=== PATIENT | male | born 1945 | race Caucasian/White ===

== ENCOUNTER 2020-03-01 08:09 | Outpatient (CLI) | payer MEDICARE, SELFPAY ==
--- NOTE | ~2020-03-01 | US_ITS ---
EXAMINATION: US art doppler w press LE BI DATE: 03/01/2020 09:00 INDICATION: Peripheral vascular disease. TECHNIQUE: Segmental pressures and plethysmographic and Doppler waveforms of the brachial and lower e xtremity arteries were obtained. COMPARISON: None. FINDINGS: Right and left brachial artery pressures of 142 mm Hg and 145 mm Hg, respectively, are concordant (no rmal difference <= 30 mmHg). The right and left high-thigh pressure indices are 1.08 and 1.06, respec tively (normal > 1.2). The right ankle-brachial index (JIMENA) is 0.89 (normal >= 0.9-1). The right great toe-brachial index (T BI) is 0.79 (normal >= 0.6-0.8). The right lower extremity segmental pressure gradients are normal (n ormal gradients <= 20-30 mmHg between adjacent levels on the same leg or the same levels on the two l egs). Arterial waveforms are biphasic with brisk systolic upstrokes throughout the right lower limb. The left JIMENA is 0.97. The left TBI is 1.04. The left lower extremity segmental pressure gradients are increased between the left yfpli-ztr-crqc popliteal artery and the left high thigh as well as the co ntralateral right nwink-xzf-njpz popliteal artery. Arterial waveforms are biphasic with brisk systoli c upstrokes throughout. IMPRESSION: 1. Mild arterial occlusive disease to the right lower limb with borderline decreased right JIMENA but no rmal TBI. 2. Normal left JIMENA and TBI but with prominent pressure gradient between the left high thigh and the a didn-heo-fhly popliteal artery which could be due to artifact or an intervening significant stenosis with collateralization accounting for the higher pressures in the more distal arteries. Reviewed, dictated and finalized at location A. IMPRESSION: 1. Mild arterial occlusive disease to the right lower limb with borderline decr eased right JIMENA but normal TBI. 2. Normal left JIMENA and TBI but with prominent pressure gradient between the lef t high thigh and the dhonl-ami-sjya popliteal artery which could be due to antoinette fact or an intervening significant stenosis with collateralization accounting f or the higher pressures in the more distal arteries.
== END 2020-03-01 08:10 | disposition home or self-care (01) ==
LOC: ANHIMG 08:21
PROVIDERS: PCP Internal Medicine; Visit Provider Internal Medicine
DX: I73.9 Peripheral vascular disease, unspecified (principal)
CPT/HCPCS: 93923

== ENCOUNTER 2020-03-05 14:06 | Outpatient (CLI) | payer MEDICARE, SELFPAY ==
--- NOTE | ~2020-03-05 | CT_ITS ---
EXAMINATION: CTA [facility] DATE: 03/05/2020 15:14 INDICATION: Peripheral vascular disease, unspecified. TECHNIQUE: Computed tomographic angiography (CTA) of the left lower extremity was performed with 150 mL Omnipaque-350 intravenous contrast. The dose-length product was 871.39 mGy-cm. Volume rendered 3D- reconstructions of the arteries were created by the technologist on a separate workstation. COMPARISON: None. FINDINGS: The prostate is moderately enlarged. There is mild stenosis of left common iliac artery and left exte rnal iliac artery. There is moderate stenosis of left internal iliac artery. There is mild stenosis o f left common femoral artery. There is no significant stenosis of profunda femoris. There is mild ever nosis of distal left superficial femoral artery. There is no significant stenosis of popliteal artery , tibioperoneal trunk, or the anterior or posterior tibial arteries or peroneal artery. IMPRESSION: 1. Moderate stenosis of left internal iliac artery. 2. Three-vessel runoff. Reviewed, dictated and finalized at location A.
[2020-03-05 15:03] LABS: Estimated Glomerular Filt Rate > 60
== END 2020-03-05 14:07 | disposition home or self-care (01) ==
PROVIDERS: PCP Internal Medicine; Visit Provider Internal Medicine
DX: I73.9 Peripheral vascular disease, unspecified (principal); I70.202 Unspecified atherosclerosis of native arteries of extremities, left leg
CPT/HCPCS: 36415; 73706; Q9967

== ENCOUNTER 2020-09-28 06:47 | Outpatient (CLI) | payer MEDICARE, SELFPAY ==
[2020-09-28 07:45] LABS: Basophils Absolute Auto 0.2 K/mm3 (0.0-0.1); Basophils Percent Auto 1.8 % (0.2-1.2); Eosinophils Absolute Auto 0.7 K/mm3 (0-0.3); Eosinophils Percent Auto 8.6 % (0-4.4); Hemoglobin 14.2 g/dL (14.0-18.0); Immature Granulocyte Absolute 0.04 K/mm3 (0.00-0.031); Immature Granulocyte Percent A 0.5 % (0-0.5); Lymphocytes Absolute Auto 1.99 K/mm3 (0.9-3.2); Mean Corpuscular Hemoglobin 32.3 pg (26-34); Mean Corpuscular Volume 97.7 fl (80-100); Mean Platelet Volume 12.5 fl (7.4-10.4); Monocytes Absolute Auto 0.6 K/mm3 (0.1-0.6); Monocytes Percent Auto 6.9 % (2.6-8.5); Neutrophils Absolute Auto 5.1 K/mm3 (1.3-6.7); Neutrophils Percent Auto 59.2 % (45.5-73.1); Platelet Count Result 150 k/mm3 (150-375); Red Cell Distribution Width 12.7 % (11.5-14.5); White Blood Count 8.7 K/mm3 (4.5-10.0)
[2020-09-28 07:58] LABS: Alanine Aminotransferase 47 U/L (4-50); Albumin Level 3.6 g/dL (3.5-5.1); Alkaline Phosphatase 74 U/L (38-126); Anion Gap 3 mmol/L (8-16); Aspartate Amino Transferase 30 U/L (17-59); Bilirubin,Total 0.3 mg/dL (0.2-1.3); Blood Urea Nitrogen 18 mg/dL (9-20); Calcium 9.1 mg/dL (8.4-10.2); Carbon Dioxide 30 mmol/L (22-30); Chloride 107 mmol/L (98-107); Cholesterol 110 mg/dL (0-200); Estimated Glomerular Filt Rate > 60; Glucose 119 mg/dL (75-110); HDL Direct 45 mg/dL; Potassium 3.9 mmol/L (3.4-5.0); Sodium 140 mmol/L (137-145); Triglycerides 72 mg/dL (<150)
[2020-09-28 08:09] LABS: Hemoglobin A1C 5.9 % (<5.7); LDL Cholesterol Direct 48 mg/dL
[2020-09-28 08:26] LABS: Prostate Specific Antigen 1.2 ng/mL (< OR = 4.0)
[2020-09-28 08:31] LABS: Free T4 Free Thyroxine 1.09 ng/mL (0.78-2.19)
[2020-09-28 09:00] LABS: Folic Acid 8.9 ng/mL (2.76->20)
== END 2020-09-28 06:48 | disposition home or self-care (01) ==
PROVIDERS: PCP Internal Medicine; Visit Provider Internal Medicine
DX: E78.49 Other hyperlipidemia (principal); R53.83 Other fatigue; E03.9 Hypothyroidism, unspecified; R73.9 Hyperglycemia, unspecified; I10 Essential (primary) hypertension; Z12.5 Encounter for screening for malignant neoplasm of prostate
CPT/HCPCS: 36415; 80053; 80061; 82607; 82746; 83036; 83735; 84153; 84439; 84443; 85025; G0103

== ENCOUNTER 2021-01-14 12:48 | Inpatient (IN) | payer MEDICARE, SELFPAY ==
[2021-01-14] VITALS (12 sets, daily range): BP systolic 85–144; BP diastolic 55–88; PULSE 78–91; RESP 12–21; TEMP 36.2–36.8; O2SAT 99–100; BMI 28.6
--- NOTE | ~2021-01-14 | US_ITS ---
EXAMINATION: US carotid duplex BI DATE: 01/15/2021 19:03 INDICATION: Syncope. TECHNIQUE: Grayscale, color Doppler, and pulsed Doppler images of the cervical carotid arteries were obtained. The degree of vessel stenosis is placed in one of the following categories: normal, <50%, 5 0-69%, >=70% but less than near-occlusion, near-occlusion, or total occlusion. Note that percent sten osis relative to normal distal artery lumen diameter is indirectly measured from velocity measurement s as described by Bao, et al. Radiology 2003; 229:340-346. COMPARISON: None. FINDINGS: There is an arrhythmia. RIGHT: The right common carotid artery (CCA) peak systolic velocity (PSV) is 76 cm/s. The right internal car otid artery (ICA) PSV is 80 cm/s. The right ICA end-diastolic velocity (EDV) is 19 cm/s. The right IC A/CCA PSV ratio is 1.1. Grayscale and color Doppler images yield an estimate of <50% diameter reducti on from plaque in the ICA. There is antegrade flow in the right vertebral artery. LEFT: The left CCA PSV is 80 cm/s. The left ICA PSV is 73 cm/s. The left ICA EDV is 13 cm/s. The left ICA/C CA PSV ratio is 0.9. Grayscale and color Doppler images yield an estimate of <50% diameter reduction from plaque in the ICA. There is antegrade flow in the left vertebral artery. IMPRESSION: 1. <50% stenosis in the right internal carotid artery. 2. <50% stenosis in the left internal carotid artery. 3. Arrhythmia. Reviewed, dictated and finalized at location A.
--- NOTE | ~2021-01-14 | CT_ITS ---
EXAMINATION: CT brain wo con INDICATION: Transient alteration of awareness, dizziness COMPARISON: None TECHNIQUE: Standard unenhanced head CT. The dose-length product (DLP) was 681.00 mGy-cm. The mA was a djusted according to patient size. Iterative reconstruction technique was employed. FINDINGS: There is no acute intraparenchymal hemorrhage. No evidence of mass lesion. No evidence of a cute infarction. There is mild periventricular and subcortical hypodensity probably related to small vessel ischemic disease. There is mild prominence of the sulci and ventricles related to cerebral atr ophy. Intracranial calcified cerebral atherosclerosis is noted. There are no extra-axial collections. There is no mass effect or midline shift. The orbits and soft tissues are unremarkable. The visualiz ed sinuses and mastoid air cells are well aerated. IMPRESSION: 1. No acute intracranial abnormality. 2. Age related findings. Reviewed, dictated and finalized at location A.
--- NOTE | ~2021-01-14 | XR_ITS ---
EXAMINATION: XR chest 1V portable 01/14/2021 13:07 INDICATION: Status post fall. Chest pain. PROCEDURE: AP view of the chest COMPARISON: No prior studies for comparison. FINDINGS: The lungs are clear. The cardiomediastinal silhouette is within normal limits. There are no pleural effusions. There is no pneumothorax suspected. IMPRESSION: 1: NO ACUTE CARDIOPULMONARY DISEASE. Reviewed, dictated and finalized at location B.
--- NOTE | 2021-01-14 12:54 | ECG_ITS ---
Measurements Intervals [place] Rate: 85 P: 63 IA: 168 QRS: 25 QRSD: 116 T: 74 QT: 362 QTc: 431 Interpretive Statements SINUS RHYTHM VENTRICULAR TREIGEMINY POSSIBLE LEFT ATRIAL ENLARGEMENT INCOMPLETE LEFT BUNDLE BRANCH BLOCK DELAYED PRECORDIAL R/S TRANSITION INFERIOR INFARCT, AGE INDETERMINATE BORDERLINE ST-T WAVE ABNORMALITY- HIGH LATERAL LEADS BASELINE ARTIFACT- I, II, III, AVL ABNORMAL ECG Electronically Signed On 01-14-2021 13:53:10 CDT by Allen Murdock D.O.
--- NOTE | 2021-01-14 12:56 | ED.GENADULT ---
HPI - General Adult General Chief complaint: Syncope Stated complaint: syncope Time Seen by Provider: 01/14/21 12:50 Source: RN notes reviewed History of Present Illness HPI narrative: Patient presents to the emergency department from home via EMS for syncope. Patient's first episode occurred when patient was going to the restroom and became dizzy states he fell to the ground he called for his and came in he briefly had an episode of syncope. At that time EMS was called and when they arrived the patient refused transport as he was feeling better lyses approximately 20 minutes later the patient again got up continue to use restroom and to the bathroom improved states he then came out to the kitchen table and sat down and then had another syncopal episode patient currently denies any symptoms at this time he denies any chest pain shortness of breath fevers chills abdominal pain or any other symptoms patient denies any injury from his initial fall and and a second episode the patient was sitting in a chair and did not fall patient is followed by Dr. Neff cardiology Related Data Allergies Allergy/AdvReac Type Severity Reaction Status Date / Time No Known Allergies Allergy Verified 01/14/21 14:34 Review of Systems Review of Systems: Narrative: Gen.: Denies fevers or chills Eyes: Denies eye pain or visual change ENT: Denies congestion Respiratory: Denies shortness of breath or cough CV: See HPI GI: Denies abdominal pain nausea, emesis or diarrhea Musculoskeletal: Denies back pain or muscle pain Neuro: Denies numbness, tingling, weakness or focal weakness Skin: Denies rash Except as documented, all other systems reviewed and negative [facility] Past Medical History Medical History (Updated 01/14/21 @ 15:49 by Theron Osborn DO) Hypertension Social History Social History (Updated 01/14/21 @ 12:57 by Theron Osborn DO) Smoking status: Never smoker Gender identity (if verbalized by the patient): Male Exam Narrative: Exam Narrative: APPEARANCE: No acute distress, nontoxic, resting in bed EYES: PERRL HEENT: Normocephalic, atraumatic, OMM CV: Neck supple no midline tenderness palpation full range of motion without pain RESPIRATORY: No respiratory distress Clear to auscultation bilaterally with no rhonchi wheezing or rales. CARDIOVASCULAR: Regular rate and rhythm without murmurs rubs or gallops. ABDOMINAL: Soft, nontender, nondistended, no rebound or guarding MUSCULOSKELETAl: Moves all extremities. No clubbing, cyanosis or edema. No tenderness of bilateral upper or lower extremities NEURO: Awake and alert x 3. Following commands, speech normal, no focal deficits SKIN:: Warm, dry. No rashes lesions or abrasions PSYCHIATRIC: Normal affect/mood, Course Course Emergency Course: Discussed with BAILEY Muse for Dr. Platt presentation work-up agrees with admission at this time Discussed with patient and family results of workup and diagnosis. Discussed need for admission. Patient and family understand and agree to current treatment plan Vital Signs Vital signs: Vital Signs Temperature 98.2 F 01/14/21 12:56 Pulse Rate 85 01/14/21 12:56 Respiratory Rate 21 H 01/14/21 12:56 Blood Pressure 100/63 01/14/21 12:56 Pulse Oximetry 100 01/14/21 12:56 Temperature 98.2 F 01/14/21 12:56 Pulse Rate 91 01/14/21 15:34 Respiratory Rate 13 01/14/21 15:04 Blood Pressure 85/63 L 01/14/21 15:34 Pulse Oximetry 100 01/14/21 15:04 Medical Decision Making Vital Signs Vital Signs: Vital Signs Temperature 98.2 F 01/14/21 12:56 Pulse Rate 85 01/14/21 12:56 Respiratory Rate 21 H 01/14/21 12:56 Blood Pressure 100/63 01/14/21 12:56 Pulse Oximetry 100 01/14/21 12:56 Temperature 98.2 F 01/14/21 12:56 Pulse Rate 91 01/14/21 15:34 Respiratory Rate 13 01/14/21 15:04 Blood Pressure 85/63 L 01/14/21 15:34 Pulse Oximetry 100 01/14/21 15:04 Lab Data Result diagrams:
--- NOTE | 2021-01-14 13:08 | PC.NURSE ---
Pt to CT scan via stretcher.
[2021-01-14 13:46] LABS: Basophils Absolute Auto 0.1 K/mm3 (0.0-0.1); Basophils Percent Auto 0.4 % (0.2-1.2); Eosinophils Absolute Auto 0.1 K/mm3 (0-0.3); Hematocrit 51.2 % (42.0-52.0); Hemoglobin 16.8 g/dL (14.0-18.0); Immature Granulocyte Absolute 0.04 K/mm3 (0.00-0.031); Immature Granulocyte Percent A 0.3 % (0-0.5); Lymphocytes Absolute Auto 1.87 K/mm3 (0.9-3.2); Lymphocytes Percent Auto 15.3 % (18.3-44.2); Mean Corpuscular HGB Conc 32.8 g/dl (32-36); Mean Corpuscular Hemoglobin 31.8 pg (26-34); Mean Corpuscular Volume 96.8 fl (80-100); Monocytes Absolute Auto 0.4 K/mm3 (0.1-0.6); Monocytes Percent Auto 3.5 % (2.6-8.5); Neutrophils Absolute Auto 9.7 K/mm3 (1.3-6.7); Neutrophils Percent Auto 79.5 % (45.5-73.1); Platelet Count Result 170 k/mm3 (150-375); Red Blood Count 5.29 M/mm3 (4.6-6.20); Red Cell Distribution Width 12.5 % (11.5-14.5); White Blood Count 12.2 K/mm3 (4.5-10.0)
[2021-01-14 13:56] LABS: INR 1.1; Prothrombin Time 14.5 Seconds (11.1-14.7)
[2021-01-14 13:57] LABS: Partial Thromboplastin Time 27.3 SECONDS (22.3-36.8)
[2021-01-14 14:17] LABS: Alanine Aminotransferase 32 U/L (4-50); Alkaline Phosphatase 86 U/L (38-126); Anion Gap 10 mmol/L (8-16); Aspartate Amino Transferase 29 U/L (17-59); Bilirubin,Total 0.8 mg/dL (0.2-1.3); Blood Urea Nitrogen 18 mg/dL (9-20); Calcium 9.7 mg/dL (8.4-10.2); Carbon Dioxide 25 mmol/L (22-30); Chloride 103 mmol/L (98-107); Estimated CRCL calculation 66 ml/min; Estimated Glomerular Filt Rate > 60; Glucose 149 mg/dL (75-110); Potassium 4.1 mmol/L (3.4-5.0); Sodium 138 mmol/L (137-145)
[2021-01-14 14:29] LABS: Troponin I < 0.012 ng/mL (0.000-0.034)
[2021-01-14] MEDS: SODIUM CHLORIDE 0.9% IV 1,000 ML 999 ML IV CONT ×2 (14:34→16:10)
[2021-01-14 15:39] LABS: Add Urine Microscopic? YES; Appearance Urine Cloudy (Clear); Bacteria Urine Trace /hpf; Bilirubin Urine Negative (Negative); Blood Urine Negative (Negative); Color Urine Amber (Yellow); Glucose Urine UA Negative (Negative); Hyaline Casts Urine 20-29 /lpf; Ketones Urine Negative (Negative); Leukocyte Esterase Ur Negative LEU/UL (Negative); Mucus Urine Few /lpf; Nitrate Urine Negative (Negative); Protein Urine 2+ mg/dL (Negative); RBC Urine 0-2 /hpf (0-2); Specific Grav Ur 1.016 (1.001-1.035); Squamous Epithelial Cell Urine Rare /hpf (Few); WBC Urine 0-3 /hpf
--- NOTE | 2021-01-14 16:30 | PM.IMHP ---
H&P: HPI History of Present Illness Date/Time: 01/14/21 16:30 Chief Complaint: Syncope x2. Narrative: This is a pleasant 75-year-old male with coronary artery disease, hypertension, hypothyroidism, and benign prostatic hyperplasia who presented to the emergency department earlier today via EMS from home for evaluation of syncope x2. From what I can gather the patient was feeling in his usual state of health when he awoke this morning. Not long prior to arrival he was sitting down watching television and had the urge to have a bowel movement. The urge passed however he did urinate and at that time he began to feel a bit dizzy and lightheaded. He tells me that he lost his balance and fell down onto his left side on the floor. He was unable to get himself up and his called the ambulance at which time he refused transport as he was feeling better. 20 minutes thereafter he once again had the urge to have a bowel movement and reportedly passed a fairly large soft stool without any straining. When he returned back to the kitchen table he sat down in the chair and reports that he had another syncopal episode for a brief period of time before coming to. In the emergency department he was found to be orthostatic however patient tells me that he had no symptoms of lightheadedness or dizziness despite his blood pressure dropping into the eighties systolic. Aside from the left arm skin tear he denies injuries. He does not think he had any head trauma. Currently has no complaints and specifically denies headache, vertigo, focal weakness, paresthesias, lightheadedness, dizziness, cold and flu symptoms, chest pain, palpitations, and shortness of breath. Review of Systems Review of Systems: Narrative: 12 systems were reviewed with pertinent positives and negatives as per HPI. No mention of seizure activity. There is no evidence of tongue bite. No loss of bowel or bladder function. He has not had any recent change in medication. Reports having a normal appetite. No nausea, vomiting, or diarrhea. He has a mild tremor of the right upper extremity. No history of Parkinson. Denies gait disturbances. Except as documented, all other systems were reviewed and are negative. [facility] Past Medical History Medical History (Updated 01/14/21 @ 17:53 by Almaz Watson PA-C) Benign prostatic hyperplasia Coronary artery disease Patient of Dr. Ge. History of deep vein thrombosis History of pericarditis History of pulmonary embolism Hyperlipidemia Hypertension Hypothyroidism Surgical History Surgical History (Updated 01/14/21 @ 17:42 by Almaz Watson PA-C) History of heart artery stent X2. Family History Family History Father Chronic obstructive pulmonary disease Grandparent Colon cancer Father Congestive heart failure Grandparent Prostate carcinoma Social History Social History (Updated 01/14/21 @ 17:43 by Almaz Watson PA-C) Social History: Surrogate decision maker: Hetal Alfaro, . CODE STATUS: Full code. Smoking packs per day: 0.5 Smoking cigarettes per day: 10.0 Years smoked: 61 Smoking pack-years: 30.50 Smoking status: Current every day smoker Tobacco type: cigarettes Alcohol intake: current Drinks per week: 2 Substance use: never Substance use type: does not use Additional living arrangements comments: The patient lives in [place] with his . They have 2 grown children. Previously lived in [place] for 32 years. 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 Sexual Orientation (if Verbalized by the Patient): . Meds Home Medications and Allergies Home Medications Medication Instructions Recorded Confirmed Type atorvastatin 40 mg PO DAILY 01/14/21 01/14/21 History enalapril maleate 2.5 mg PO BID 01/14/21 01/14/21 History finasteride 5 mg PO DAILY 01/14/21 01/14/21 History levothy
--- NOTE | 2021-01-14 17:10 | PC.NURSE ---
This patient, Theron Alfaro, was admitted to 2 Medical Room 240-. Patient/family oriented to hospital policies and general routines including ID bracelet, bed and alarms, visiting hours, pain management, procedures, bathroom and other care routines, personal items, smoking policy, room service/diet, and visiting hours. Information on how to activate the Rapid Response Team has been discussed. Patient/Family are encouraged to report perceived risks to care and to ask questions if they do not understand what they are told or what they should do.
[2021-01-14] MEDS: SODIUM CHLORIDE 0.9% IV 1,000 ML 80 ML IV CONT (17:28)
[2021-01-14 18:49] LABS: Magnesium 1.8 mg/dL (1.6-2.3)
[2021-01-14 19:02] LABS: Troponin I 0.032 ng/mL (0.000-0.034)
[2021-01-14 21:48] LABS: Troponin I 0.032 ng/mL (0.000-0.034)
[2021-01-15] VITALS (9 sets, daily range): BP systolic 140–153; BP diastolic 72–87; PULSE 58–94; RESP 16; TEMP 36.1; O2SAT 98–100
[2021-01-15] MEDS: SODIUM CHLORIDE 0.9% IV 1,000 ML 80 ML IV CONT (04:48)
[2021-01-15] MEDS: LEVOTHYROXINE SODIUM 50 MCG TABLET PO (04:49)
[2021-01-15 05:53] LABS: Basophils Absolute Auto 0.1 K/mm3 (0.0-0.1); Basophils Percent Auto 0.8 % (0.2-1.2); Eosinophils Absolute Auto 0.2 K/mm3 (0-0.3); Eosinophils Percent Auto 2.3 % (0-4.4); Hematocrit 42.6 % (42.0-52.0); Hemoglobin 13.9 g/dL (14.0-18.0); Immature Granulocyte Absolute 0.03 K/mm3 (0.00-0.031); Immature Granulocyte Percent A 0.3 % (0-0.5); Immature Platelet Fraction Pct 16.1 % (0.9-11.2); Lymphocytes Absolute Auto 2.24 K/mm3 (0.9-3.2); Mean Corpuscular HGB Conc 32.6 g/dl (32-36); Mean Corpuscular Hemoglobin 31.4 pg (26-34); Mean Corpuscular Volume 96.4 fl (80-100); Monocytes Absolute Auto 0.8 K/mm3 (0.1-0.6); Monocytes Percent Auto 8.4 % (2.6-8.5); Neutrophils Absolute Auto 5.7 K/mm3 (1.3-6.7); Neutrophils Percent Auto 63.2 % (45.5-73.1); Platelet Count Result 129 k/mm3 (150-375); Red Blood Count 4.42 M/mm3 (4.6-6.20); Red Cell Distribution Width 12.6 % (11.5-14.5)
[2021-01-15 05:57] LABS: Anion Gap 5 mmol/L (8-16); Blood Urea Nitrogen 14 mg/dL (9-20); Calcium 8.5 mg/dL (8.4-10.2); Carbon Dioxide 21 mmol/L (22-30); Chloride 111 mmol/L (98-107); Estimated CRCL calculation 82 ml/min; Estimated Glomerular Filt Rate > 60; Glucose 100 mg/dL (75-110); Potassium 4.1 mmol/L (3.4-5.0); Sodium 137 mmol/L (137-145)
[2021-01-15] MEDS: ATORVASTATIN 40 MG TABLET PO (08:41)
[2021-01-15] MEDS: FINASTERIDE 5 MG TABLET PO (08:41)
--- NOTE | 2021-01-15 17:49 | ECHO_ITS ---
Patient Info Name: Theron Alfaro Age: 75 years : 1945 Gender: Male Ht: 75 in Wt: 227 lbs BSA: 2.35 m2 HR: 90 bpm BP: 140 / 79 mmHg Heart Rhythm: Sinus Rhythm Technical Quality: Poor Exam Date: 01/15/2021 10:51 AM Exam Location: [facility] Patient Status: Inpatient Admit Date: 01/14/2021 Staff Ordering Physician: Almaz Watson PA-C Brusher Warp: Holly Zuniga RDCS Attending Provider: Carmen Marcial PA-C Referring Physician: Walter CALVILLO; Exam Type: CA echo dop color flow w con Study Info Complete two-dimensional, color flow and Doppler transthoracic echocardiogram is performed with contrast to opacify the left ventricle and to improve the deliniation of the left ventricle endocardial borders. Contrast/Agitated Saline Contrast/Ag. Saline: Definity Amount: 4.00 ml Summary 1. Left ventricular chamber dimension is normal. 2. Left ventricular systolic function is normal, estimated at 60-65%. 3. There is mildly increased left ventricular wall thickness. 4. The left ventricular diastolic function is grade II diastolic dysfunction. 5. Left atrial chamber dimension is mildly enlarged. 6. There is no aortic valve stenosis. 7. There is trace mitral valve regurgitation. 8. Unable to estimate PA systolic pressure due to poor spectral resolution of tricuspid regurgitant jet velocity. 9. There is trace tricuspid valve regurgitation. Left Ventricle Left ventricular chamber dimension is normal. Left ventricular systolic function is normal, estimated at 60-65%. There is mildly increased left ventricular wall thickness. The left ventricular diastolic function is grade II diastolic dysfunction. Right Ventricle Right ventricular chamber dimension is normal. Right ventricular systolic function is normal. Left Atria Left atrial chamber dimension is mildly enlarged. Right Atria Right atrial chamber dimension is normal. Aortic Valve The aortic valve is probable trileaflet. There is no aortic valve sclerosis. There is no aortic valve stenosis. There is no aortic valve regurgitation. Pulmonic Valve The pulmonic valve is not well visualized. Mitral Valve The mitral valve has normal leaflets. There is trace mitral valve regurgitation. Mild mitral annular calcification. Tricuspid Valve The tricuspid valve leaflets are normal. There is trace tricuspid valve regurgitation. Unable to estimate PA systolic pressure due to poor spectral resolution of tricuspid regurgitant jet velocity. Pericardium/Pleural The pericardium appears normal. There is trivial pericardial effusion. Inferior Vena Cava Normal inferior vena cava with >50% collapse upon inspiration consistent with normal right atrial pressure, 5 mmHg. Aorta The aortic root size at the sinus of Valsalva is normal. Left Ventricular Outflow Tract Name Value Normal LVOT 2D LVOT Diameter 2.28 cm LVOT Doppler LVOT Peak Velocity 102.29 cm/s LVOT Peak Gradient 4 mmHg LVOT Mean Gradient 2 mmHg
--- NOTE | 2021-01-15 18:46 | PM.DS ---
DS: Admitting Diagnosis Admitting Diagnosis Admitting Diagnosis: syncope DS: Discharge Diagnosis Discharge Diagnosis (1) Syncope: Code(s): R55 - Syncope and collapse Status: Acute Assessment and Plan: Likely due to orthostatic hypotension and it has improved with IV therapy and compression hose -head CT neg, echo with no pathology for syncope, carotid u/s >50% stenosis - I walked the patient around the halls prior to discharge and he had no ataxia or dizziness symptoms - orthostatic blood pressures improved with treatment - I have recommended that he continue with IV hydration (2) Orthostatic hypotension: Code(s): I95.1 - Orthostatic hypotension Status: Acute Assessment and Plan: as above (3) Hypertension: Code(s): I10 - Essential (primary) hypertension Status: Acute Assessment and Plan: blood pressure 151/72 at discharge. Continue home medication (4) Hypothyroidism: Code(s): E03.9 - Hypothyroidism, unspecified Status: Acute Assessment and Plan: TSH normal (5) Benign prostatic hyperplasia: Code(s): N40.0 - Benign prostatic hyperplasia without lower urinary tract symptoms Status: Acute Assessment and Plan: chronic (6) Hyperlipidemia: Code(s): E78.5 - Hyperlipidemia, unspecified Status: Acute Assessment and Plan: continue statin therapy (7) Leg pain: Code(s): M79.606 - Pain in leg, unspecified Status: Acute Assessment and Plan: patient described leg pain walks up hills or long distances. He has coronary disease and continues to smoke and I suspect this may be PA D. He sees Dr. Ge and I have recommended that he follow-up with ABIs. He states this did not cause his syncope and is a different concern. When he follows up with his cardiology he can discuss an event monitor to further assess his syncope if he has further symptoms. (8) Trigeminy: Code(s): R00.8 - Other abnormalities of heart beat Status: Acute Assessment and Plan: noted on telemetry with a normal echo - did not suspect arrhythmia to be the cause of his syncope as stated above - spoke briefly with Cardiology who recommends follow-up with his business systems administrator Dr. Ge - he may consider heart monitor outpatient (9) Resting tremor: Code(s): G25.2 - Other specified forms of tremor Status: Acute Assessment and Plan: noted on exam and worrisome with orthostatic hypotension - I recommend he see a neurologist to rule out Parkinson's DS: Summary Hospital Course Hospital Course: Pt is a 75 y/o male who presented to the ED for syncope x 2. Vitals in the ER showed temp 98.2, pulse 85, RR 21, bp 100/63, pulse 100. Pt was orthostatic in the ER. CBC showed WBC 12.2, hgb 16.8, hct 51.2, platelets 170. BMP WNL. CXR negative. head CT neg. patient was admitted to the hospitalist service and further workup was done. Please see above for further details. his syncope was likely due to orthostatic hypotension and Marko hose applied. he also had a resting tremor I talked to the patient and about the possibility of Parkinson's with autonomic dysfunction and that he has to see a neurologist. he also had trigeminy while he was here but was asymptomatic. I do not suspect cardiac arrhythmia to be the cause of his syncope. Please see above for plan. I Spoke with the radiologist about the carotid u/s who states the arrhythmia is nonspecific. I believe it likely correlates to the PVCs and trigeminy seen on tele. Pt to f./u with his business systems administrator Dr. Ge about possibly getting a heart monitor. The day of discharge the patient was walking the halls without issue. He had no neurological abnormalities and was ready for discharge. at bedside who agreed with the plan. Patient was educated about the worrisome signs and symptoms to come back to emergency room for a
== END 2021-01-15 19:38 | disposition home or self-care (01) | DRG 312 ==
LOC: ANHED 15:49 → ANH2MED 16:07
PROVIDERS: Physician Assistant; Admitting Provider Internal Medicine; Emergency Provider Emergency Medicine; PCP Internal Medicine; Visit Provider Emergency Medicine
DX: I95.1 Orthostatic hypotension (principal); G25.2 Other specified forms of tremor; I49.3 Ventricular premature depolarization; E03.9 Hypothyroidism, unspecified; N40.0 Benign prostatic hyperplasia without lower urinary tract symptoms; R00.8 Other abnormalities of heart beat; E78.5 Hyperlipidemia, unspecified; I25.10 Atherosclerotic heart disease of native coronary artery without angina pectoris; I65.23 Occlusion and stenosis of bilateral carotid arteries; I10 Essential (primary) hypertension; I73.9 Peripheral vascular disease, unspecified; F17.210 Nicotine dependence, cigarettes, uncomplicated; Z86.718 Personal history of other venous thrombosis and embolism; Z86.711 Personal history of pulmonary embolism; Z95.5 Presence of coronary angioplasty implant and graft
CPT/HCPCS: 36415; 70450; 71045; 80048; 80053; 81001; 83735; 84443; 84484; 85025; 85055; 85610; 85730; 93005; 93880; 96360; 96361; 99285; A9270; C8929; G0378; J7030; Q9957

== ENCOUNTER 2021-02-24 12:18 | Outpatient (CLI) | payer MEDICARE, SELFPAY ==
--- NOTE | ~2021-02-24 | MR_ITS ---
EXAMINATION: MR brain/brain stem wo/w con DATE: 02/24/2021 14:13 INDICATION: Parkinson's disease. TECHNIQUE: Magnetic resonance imaging (MRI) of the brain and brainstem was performed without and with 20 mL MultiHance intravenous contrast. Sequences included sagittal and axial T1-weighted FSE, axial diffusion-weighted FS EPI, axial T2*-weighted GRE, axial T2-weighted FLAIR Propeller, and axial T2-we ighted Propeller. Postcontrast sequences included axial and coronal T1-weighted FSE. Apparent diffusi on coefficient (ADC) maps were created. COMPARISON: Head CT 01/14/2021 FINDINGS: There are scattered areas of nonspecific increased T2-weighted signal intensity in the cere bral white matter, which is within normal limits for the patient's age. There is no intracranial hemo rrhage, acute infarction, or abnormal intracranial mass lesion. The ventricles are normal in size. Th e orbits are normal. The paranasal sinuses are clear. The mastoid air cells are normal. IMPRESSION: 1. Normal aging brain. Reviewed, dictated and finalized at location A. IMPRESSION: 1. Normal aging brain.
[2021-02-24 13:33] LABS: Estimated Glomerular Filt Rate > 60
== END 2021-02-24 12:19 | disposition home or self-care (01) ==
PROVIDERS: PCP Internal Medicine; Visit Provider Internal Medicine
DX: G20 Parkinson's disease (principal)
CPT/HCPCS: 70553; A9577

== ENCOUNTER 2021-04-20 06:44 | Outpatient (CLI) | payer MEDICARE, SELFPAY ==
[2021-04-20 07:32] LABS: Basophils Absolute Auto 0.1 K/mm3 (0.0-0.1); Basophils Percent Auto 1.5 % (0.2-1.2); Eosinophils Absolute Auto 0.3 K/mm3 (0-0.3); Eosinophils Percent Auto 3.6 % (0-4.4); Hematocrit 45.4 % (42.0-52.0); Hemoglobin 15.1 g/dL (14.0-18.0); Immature Granulocyte Absolute 0.03 K/mm3 (0.00-0.031); Immature Granulocyte Percent A 0.3 % (0-0.5); Lymphocytes Percent Auto 25.5 % (18.3-44.2); Mean Corpuscular HGB Conc 33.3 g/dl (32-36); Mean Corpuscular Hemoglobin 32.2 pg (26-34); Mean Corpuscular Volume 96.8 fl (80-100); Mean Platelet Volume 12.8 fl (7.4-10.4); Monocytes Absolute Auto 0.7 K/mm3 (0.1-0.6); Neutrophils Absolute Auto 5.3 K/mm3 (1.3-6.7); Neutrophils Percent Auto 61.1 % (45.5-73.1); Platelet Count Result 130 k/mm3 (150-375); Red Blood Count 4.69 M/mm3 (4.6-6.20); Red Cell Distribution Width 12.9 % (11.5-14.5); White Blood Count 8.6 K/mm3 (4.5-10.0)
[2021-04-20 07:48] LABS: Alanine Aminotransferase 36 U/L (4-50); Albumin Level 4.3 g/dL (3.5-5.1); Alkaline Phosphatase 94 U/L (38-126); Anion Gap 7 mmol/L (8-16); Aspartate Amino Transferase 24 U/L (17-59); Bilirubin,Total 0.9 mg/dL (0.2-1.3); Blood Urea Nitrogen 20 mg/dL (9-20); Calcium 9.4 mg/dL (8.4-10.2); Carbon Dioxide 27 mmol/L (22-30); Chloride 106 mmol/L (98-107); Cholesterol 114 mg/dL (0-200); Estimated Glomerular Filt Rate > 60; Glucose 117 mg/dL (65-110); HDL Direct 48 mg/dL; Potassium 4.2 mmol/L (3.4-5.0); Sodium 140 mmol/L (137-145); Triglycerides 77 mg/dL (<150)
[2021-04-20 07:51] LABS: Hemoglobin A1C 6.1 % (<5.7)
[2021-04-20 07:59] LABS: LDL Cholesterol Direct 54 mg/dL
[2021-04-20 08:21] LABS: Free T4 Free Thyroxine 1.18 ng/mL (0.78-2.19)
[2021-04-20 08:52] LABS: Folic Acid 8.8 ng/mL (2.76->20)
== END 2021-04-20 06:45 | disposition home or self-care (01) ==
PROVIDERS: PCP Internal Medicine; Visit Provider Internal Medicine
DX: R73.9 Hyperglycemia, unspecified (principal); R53.83 Other fatigue; E78.49 Other hyperlipidemia; E03.9 Hypothyroidism, unspecified
CPT/HCPCS: 36415; 80053; 80061; 82607; 82746; 83036; 84439; 84443; 85025

== ENCOUNTER 2021-10-27 06:58 | Outpatient (CLI) | payer MEDICARE, SELFPAY ==
[2021-10-27 07:46] LABS: Basophils Absolute Auto 0.1 K/mm3 (0.0-0.1); Basophils Percent Auto 1.7 % (0.2-1.2); Eosinophils Absolute Auto 0.3 K/mm3 (0-0.3); Hematocrit 44.5 % (42.0-52.0); Hemoglobin 14.8 g/dL (14.0-18.0); Immature Granulocyte Absolute 0.03 K/mm3 (0.00-0.031); Immature Granulocyte Percent A 0.4 % (0-0.5); Immature Platelet Fraction Pct 14.6 % (0.9-11.2); Lymphocytes Absolute Auto 1.95 K/mm3 (0.9-3.2); Lymphocytes Percent Auto 25.9 % (18.3-44.2); Mean Corpuscular HGB Conc 33.3 g/dl (32-36); Mean Corpuscular Volume 96.1 fl (80-100); Mean Platelet Volume 13.3 fl (7.4-10.4); Monocytes Absolute Auto 0.7 K/mm3 (0.1-0.6); Monocytes Percent Auto 8.8 % (2.6-8.5); Neutrophils Absolute Auto 4.5 K/mm3 (1.3-6.7); Neutrophils Percent Auto 59.2 % (45.5-73.1); Platelet Count Result 137 k/mm3 (150-375); Red Blood Count 4.63 M/mm3 (4.6-6.20); Red Cell Distribution Width 12.7 % (11.5-14.5); White Blood Count 7.5 K/mm3 (4.5-10.0)
[2021-10-27 07:48] LABS: Alanine Aminotransferase 35 U/L (4-50); Albumin Level 4.1 g/dL (3.5-5.1); Alkaline Phosphatase 85 U/L (38-126); Anion Gap 4 mmol/L (8-16); Aspartate Amino Transferase 29 U/L (17-59); Bilirubin,Total 0.8 mg/dL (0.2-1.3); Blood Urea Nitrogen 18 mg/dL (9-20); Calcium 8.8 mg/dL (8.4-10.2); Carbon Dioxide 27 mmol/L (22-30); Chloride 107 mmol/L (98-107); Cholesterol 122 mg/dL (0-200); Estimated Glomerular Filt Rate > 60; Glucose 106 mg/dL (65-110); HDL Direct 52 mg/dL; Potassium 4.1 mmol/L (3.4-5.0); Sodium 138 mmol/L (137-145); Triglycerides 78 mg/dL (<150)
[2021-10-27 07:59] LABS: LDL Cholesterol Direct 49 mg/dL
[2021-10-27 08:19] LABS: Prostate Specific Antigen 0.8 ng/mL (< OR = 4.0)
[2021-10-27 08:22] LABS: Free T4 Free Thyroxine 1.01 ng/mL (0.78-2.19)
[2021-10-27 08:54] LABS: Folic Acid 6.3 ng/mL (2.76->20)
== END 2021-10-27 06:59 | disposition home or self-care (01) ==
LOC: ANHLAB 07:04
PROVIDERS: PCP Internal Medicine; Visit Provider Internal Medicine
DX: E03.9 Hypothyroidism, unspecified (principal); E78.49 Other hyperlipidemia; E78.5 Hyperlipidemia, unspecified; R73.9 Hyperglycemia, unspecified; R53.83 Other fatigue; Z12.5 Encounter for screening for malignant neoplasm of prostate
CPT/HCPCS: 36415; 80053; 80061; 82607; 82746; 83036; 84153; 84439; 84443; 85025; 85055; G0103

== ENCOUNTER 2022-04-14 10:18 | Emergency (ER) | payer MEDICARE, SELFPAY ==
[2022-04-14] VITALS (18 sets, daily range): BP systolic 142–166; BP diastolic 82–98; PULSE 63–94; RESP 12–23; TEMP 36.6; O2SAT 98–100
--- NOTE | ~2022-04-14 | CT_ITS ---
EXAMINATION: CT abdomen pelvis w con DATE: 04/14/2022 12:08 INDICATION: Constipation. No bowel movement for 14 days TECHNIQUE: Computed tomography (CT) of the abdomen and pelvis was performed with 100 CC Omnipaque 350 intravenous contrast. Automated exposure control and iterative reconstruction technique were employe d. Exam dose: 811.80 mGy-cm total exam DLP. COMPARISON: 02/07/2012 CT abdomen pelvis FINDINGS: Mild bilateral gynecomastia. Minimal discoid atelectasis or scarring at the lung bases. Normal heart size. Coronary artery calcifications. No pericardial or pleural effusion. The liver, gallbladder, bile ducts, spleen are unremarkable. There is pancreatic atrophy. No pancreat ic mass lesion, calcification or ductal dilatation. Normal morphology of the adrenal glands. No renal mass lesion or urinary tract calculus or hydroureteronephrosis. There is prostate enlargement and calcification. Is mild thickening of the urinary bladder wall likel y secondary to bladder outlet obstruction from the prostate hypertrophy. There is a very prominent amount of fecal material in the cecum, ascending, transverse and descending colon consistent with clinical presentation of constipation. No bowel obstruction or bowel wall thic kening, pneumatosis or intraperitoneal free air is detected. There is atherosclerotic calcification of the abdominal aorta and iliac arteries but no abdominal aor tic aneurysm. No intraperitoneal or retroperitoneal or pelvic mass lesion or adenopathy or ascites. Severe degenerative disc disease and mild retrolisthesis at L5-S1. 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 Bilateral hip osteoarthritis. No suspicious osteolytic or osteoblastic lesions. IMPRESSION: Very prominent amount fecal material in the colon consistent with clinical presentation of constipation; no bowel obstruction, bowel wall thickening, pneumatosis or intraperitoneal free air Prostate enlargement, likely accounting for mild bladder wall thickening Reviewed, dictated and finalized at [facility]. Reviewed, dictated and finalized at location B. IMPRESSION: Very prominent amount fecal material in the colon consistent with clinical presentation of constipation; no bowel obstruction, bowel wall thicken ing, pneumatosis or intraperitoneal free air Prostate enlargement, likely accounting for mild bladder wall thickening
--- NOTE | 2022-04-14 10:36 | ED.GENADULT ---
HPI - General Adult General Chief complaint: Unspecified Stated complaint: no bowel movement in 14 days, back pain Time Seen by Provider: 04/14/22 10:24 History of Present Illness HPI narrative: Patient is a 76-year-old male with a history of Parkinson's disease, CAD status post stenting, here for evaluation of constipation for the past 14 days. Patient states that he has had intermittent issues with constipation over the past several years, but it always resolves with OTC medications. Patient has tried everything , including magnesium citrate, senna, Colace, docusate, MiraLAX, in addition to fleets enema without relief. Patient additionally had to attempt these measures prior to his last BM 14 days ago, which was liquidy but nonbloody. Patient has had no abdominal surgeries and has never had a colonoscopy. No nausea, vomiting, fevers, dysuria, urgency or frequency. He is also complaining of some left low back pain that he describes as a soreness, worse with walking and better with massage. States the pain will occasionally radiate down his left leg. He has had no issues with urinating, no saddle anesthesia and no trauma. He attempted ibuprofen with good relief, but has been attempting this judiciously given his constipation. Related Data Home Medications Medication Instructions Recorded Confirmed aspirin 81 mg tablet,delayed 81 mg PO DAILY 02/18/20 11/01/21 release (Adult Low Dose Aspirin) atorvastatin 40 mg tablet 40 mg PO DAILY 02/18/20 11/01/21 enalapril maleate 2.5 mg tablet 2.5 mg PO BID 02/18/20 11/01/21 finasteride 5 mg tablet 5 mg PO DAILY 02/24/20 11/01/21 Allergies Allergy/AdvReac Type Severity Reaction Status Date / Time No Known Drug Allergies Allergy Mild Other Verified 04/14/22 10:29 Review of Systems Review of Systems: Gen.: Denies fevers or chills Eyes: Denies eye pain or visual change ENT: Denies congestion Respiratory: Denies shortness of breath or cough CV: Denies chest pain or palpitations GI: Reports constipation. Denies abdominal pain nausea, emesis or diarrhea denies burning, urgency, frequency or hematuria Musculoskeletal: Reports low back pain. Neuro: Denies numbness, tingling, weakness or focal weakness Skin: Denies rash Except as documented, all other systems reviewed and negative PMFSH Past Medical History Medical History (Updated 04/14/22 @ 14:59 by Henna Alvarez PA-C) Benign prostatic hyperplasia Coronary artery disease Patient of Dr. Ge. History of deep vein thrombosis History of pericarditis History of pulmonary embolism Hyperlipidemia Hypertension Hypothyroidism Surgical History Surgical History History of heart artery stent X2. Family History Family History Father Family history of congestive heart failure, Onset Age: 72 Patient's father is Family history of emphysema, Onset Age: 72 Mother Patient's mother is Grandparent Carcinoma of colon Father Chronic obstructive pulmonary disease Grandparent Colon cancer Father Congestive heart failure Grandparent Prostate carcinoma Social History Social History Social History: Surrogate decision maker: Hetal Alfaro, . CODE STATUS: Full code. Smoking packs per day: 0.5 Smoking cigarettes per day: 10.0 Years smoked: 61 Smoking pack-years: 30.50 Smoking status: Current every day smoker Tobacco type: cigarettes Second hand tobacco smoke exposure: Yes Smoking end date: 07/23/11 Alcohol intake: current Drinks per week: 2 Alcohol use details: hasnt drank in 3 weeks Substance use: never Substance use type: does not use Additional living arrangements comments: The patient lives in [place] with his . They have 2 grown children. Previously lived in [place]
[2022-04-14 11:03] LABS: Basophils Absolute Auto 0.1 K/mm3 (0.0-0.1); Eosinophils Absolute Auto 0.2 K/mm3 (0-0.3); Eosinophils Percent Auto 1.7 % (0-4.4); Hematocrit 47.1 % (42.0-52.0); Hemoglobin 15.4 g/dL (14.0-18.0); Immature Granulocyte Absolute 0.02 K/mm3 (0.00-0.031); Immature Granulocyte Percent A 0.2 % (0-0.5); Immature Platelet Fraction Pct 17.6 % (0.9-11.2); Lymphocytes Absolute Auto 1.62 K/mm3 (0.9-3.2); Lymphocytes Percent Auto 15.6 % (18.3-44.2); Mean Corpuscular HGB Conc 32.7 g/dl (32-36); Mean Corpuscular Hemoglobin 32.6 pg (26-34); Mean Corpuscular Volume 99.6 fl (80-100); Mean Platelet Volume 13.2 fl (7.4-10.4); Monocytes Absolute Auto 0.7 K/mm3 (0.1-0.6); Neutrophils Absolute Auto 7.8 K/mm3 (1.3-6.7); Neutrophils Percent Auto 74.5 % (45.5-73.1); Platelet Count Result 151 k/mm3 (150-375); Red Blood Count 4.73 M/mm3 (4.6-6.20); Red Cell Distribution Width 12.2 % (11.5-14.5); White Blood Count 10.4 K/mm3 (4.5-10.0)
[2022-04-14 11:08] LABS: Alanine Aminotransferase 16 U/L (6-50); Albumin Level 4.2 g/dL (3.5-5.1); Alkaline Phosphatase 96 U/L (38-126); Anion Gap 8 mmol/L (8-16); Aspartate Amino Transferase 25 U/L (17-59); Bilirubin,Total 0.9 mg/dL (0.2-1.3); Blood Urea Nitrogen 15 mg/dL (9-20); Calcium 9.4 mg/dL (8.4-10.2); Carbon Dioxide 27 mmol/L (22-30); Chloride 105 mmol/L (98-107); Estimated CRCL calculation 80 ml/min; Estimated Glomerular Filt Rate > 60; Glucose 131 mg/dL (65-110); Potassium 3.9 mmol/L (3.4-5.0); Sodium 140 mmol/L (137-145)
--- NOTE | 2022-04-14 11:19 | PC.NURSE ---
Patient report received from KELLIE Webber. All questions answered and care of patient assumed.
[2022-04-14 11:20] LABS: Lactic Acid Reflex 2.2 mmol/L (0.7-2.0)
[2022-04-14] MEDS: SODIUM CHLORIDE 0.9% IV 1,000 ML 999 ML IV CONT (11:44)
[2022-04-14 14:08] LABS: Reflex Lactic Acid Yes or No Add Lactic
--- NOTE | 2022-04-14 14:30 | PC.NURSE ---
Soap suds enema administered as ordered. Patient tolerated well. Patient held in enema for approx 5-7 mins before attempting BM. Patient passing gas but no BM produced. EDP made aware.
[2022-04-14 14:53] LABS: Lactic Acid 2.3 mmol/L (0.7-2.0)
== END 2022-04-14 15:12 | disposition home or self-care (01) ==
PROVIDERS: Physician Assistant; Emergency Provider Emergency Medicine; PCP Internal Medicine
DX: K59.00 Constipation, unspecified (principal); G20 Parkinson's disease; I25.10 Atherosclerotic heart disease of native coronary artery without angina pectoris; I10 Essential (primary) hypertension; E78.5 Hyperlipidemia, unspecified; E03.9 Hypothyroidism, unspecified; N40.0 Benign prostatic hyperplasia without lower urinary tract symptoms; Z95.5 Presence of coronary angioplasty implant and graft; Z86.718 Personal history of other venous thrombosis and embolism; Z79.82 Long term (current) use of aspirin; Z86.711 Personal history of pulmonary embolism; Z87.891 Personal history of nicotine dependence
CPT/HCPCS: 36415; 74177; 80053; 83605; 85025; 85055; 96360; 96361; 99284; J7030; Q9967

== ENCOUNTER 2022-06-21 01:31 | Day surgery (SDC) | payer MEDICARE, SELFPAY ==
[2022-06-05 11:40] VITALS: BMI 25.9
--- NOTE | 2022-06-20 09:22 | PM.HPGS ---
History of Present Illness History of Present Illness Consent: Risks, benefits, and alternatives have been discussed and questions answered. Patient agrees to proceed with procedure. Chief complaint: change in bowel habits Narrative: Theron Eugene Jr. is a 76 year old male referred for colon cancer screening. This is his 1st colonoscopy. Few months ago he developed severe constipation requiring a strong laxatives. After taking GoLYTELY with 1 episode his constipation resolved and now he has diarrhea having up to 4 loose stools every day. Review of Systems Review of Systems: All systems reviewed & are unremarkable except as noted in HPI and below PMFSH Past Medical History Medical History Benign prostatic hyperplasia Coronary artery disease Patient of Dr. Ge. History of deep vein thrombosis History of pericarditis History of pulmonary embolism Hyperlipidemia Hypertension Hypothyroidism Surgical History Surgical History History of heart artery stent X2. Family History Family History Father Family history of congestive heart failure, Onset Age: 72 Patient's father is Family history of emphysema, Onset Age: 72 Mother Patient's mother is Grandparent Carcinoma of colon Father Chronic obstructive pulmonary disease Grandparent Colon cancer Father Congestive heart failure Grandparent Prostate carcinoma Social History Social History Social History: Surrogate decision maker: Hetal Alfaro, . CODE STATUS: Full code. Smoking packs per day: 0.5 Smoking cigarettes per day: 10.0 Years smoked: 60 Smoking pack-years: 30.00 Smoking status: Current every day smoker Tobacco type: cigarettes Second hand tobacco smoke exposure: Yes Smoking end date: 07/23/11 Alcohol intake: former Drinks per week: 2 Alcohol use details: hasnt drank in 3 weeks Substance use: never Substance use type: does not use Lack of Transportation: No Lack of Food: Never True Current Housing: I Have Housing Concerned About Future Housing: No Difficulty Paying Gas/Electric Bills: No Difficulty Paying for Meds: No Currently Unemployed: No Education: Decline to Answer Difficulty w/ Childcare or Family Care: No Living arrangements: with family Additional living arrangements comments: The patient lives in [place] with his . They have 2 grown children. Previously lived in [place] for 32 years. 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 Sexual Orientation (if Verbalized by the Patient): . Meds Home Medications and Allergies Home Medications Medication Instructions Recorded Confirmed Type aspirin 81 mg tablet,delayed 81 mg PO DAILY 02/18/20 06/21/22 History release (Adult Low Dose Aspirin) atorvastatin 40 mg tablet 40 mg PO DAILY 02/18/20 06/21/22 History enalapril maleate 2.5 mg tablet 2.5 mg PO DAILY 02/18/20 06/21/22 History finasteride 5 mg tablet 5 mg PO DAILY 02/24/20 06/21/22 History nitroglycerin 0.4 mg sublingual 0.4 mg sublingual Q5M PRN chest 02/24/20 06/21/22 Rx tablet (Nitrostat) pain #25 tabs carbidopa 25 mg-levodopa 100 mg See Rx Instructions .Route 03/13/22 06/21/22 Rx tablet .COMPLEX #270 tabs midodrine 5 mg tablet See Rx Instructions .Route 03/13/22 06/21/22 Rx .COMPLEX #270 tabs tamsulosin 0.4 mg capsule (Flomax) 0.4 mg PO DAILY #90 caps 04/24/22 06/21/22 Rx polyethylene glycol 3350 17 17 g PO DAILY 06/05/22 06/21/22 History gram/dose oral powder (Miralax) levothyroxine 50 mcg tablet 50 mcg PO DAILY #90 tabs 06/13/22 06/21/22 Rx (Synthroid) Allergies Allergy/AdvReac Type Severity Reaction Status Date / Time No Known Drug Allergies Allergy Mild Other Verifie
[2022-06-21 06:49] VITALS: BP 107/66; PULSE 97; RESP 18; TEMP 35.9; O2SAT 100
[2022-06-21] MEDS: LACTATED RINGERS 1,000 ML 150 ML IV CONT (06:55)
--- NOTE | 2022-06-21 07:42 | WPDANESEPPF ---
Anes - Initial Pre Proc Eval Procedure: Operation Date: 06/21/22 08:00 Proposed Procedures p Colonoscopy - Enrique Johnson MD Date/Time: 06/21/22 07:42 Surgeon: Enrique Johnson MD Pre Op Diagnosis: change in bowel habits Patient Data Age: 76 Gender: M Height: 1.91 m Weight: 90.3 kg Last Vital Signs Temp 35.9 C L 06/21/22 06:49 Pulse 97 06/21/22 06:49 Resp 18 06/21/22 06:49 BP 107/66 06/21/22 06:49 Pulse Ox 100 06/21/22 06:49 O2 Del Method Room Air 06/21/22 06:49 Allergies Allergy/AdvReac Type Severity Reaction Status Date / Time No Known Drug Allergies Allergy Mild Other Verified 06/21/22 06:46 Home Medications Medication Instructions Recorded Confirmed Type aspirin 81 mg tablet,delayed 81 mg PO DAILY 02/18/20 06/21/22 History release (Adult Low Dose Aspirin) atorvastatin 40 mg tablet 40 mg PO DAILY 02/18/20 06/21/22 History enalapril maleate 2.5 mg tablet 2.5 mg PO DAILY 02/18/20 06/21/22 History finasteride 5 mg tablet 5 mg PO DAILY 02/24/20 06/21/22 History nitroglycerin 0.4 mg sublingual 0.4 mg sublingual Q5M PRN chest 02/24/20 06/21/22 Rx tablet (Nitrostat) pain #25 tabs carbidopa 25 mg-levodopa 100 mg See Rx Instructions .Route 03/13/22 06/21/22 Rx tablet .COMPLEX #270 tabs midodrine 5 mg tablet See Rx Instructions .Route 03/13/22 06/21/22 Rx .COMPLEX #270 tabs tamsulosin 0.4 mg capsule (Flomax) 0.4 mg PO DAILY #90 caps 04/24/22 06/21/22 Rx polyethylene glycol 3350 17 17 g PO DAILY 06/05/22 06/21/22 History gram/dose oral powder (Miralax) levothyroxine 50 mcg tablet 50 mcg PO DAILY #90 tabs 06/13/22 06/21/22 Rx (Synthroid) Patient hx anesthesia problems: none Family hx anesthesia problems: none Results Review: All pre-operative results and documents have been reviewed as part of the pre-operative evaluation. PENDING SALE TO [facility] Past Medical History Medical History Benign prostatic hyperplasia Coronary artery disease Patient of Dr. Ge. History of deep vein thrombosis History of pericarditis History of pulmonary embolism Hyperlipidemia Hypertension Hypothyroidism Surgical History Surgical History History of heart artery stent X2. Family History Family History Father Family history of congestive heart failure, Onset Age: 72 Patient's father is Family history of emphysema, Onset Age: 72 Mother Patient's mother is Grandparent Carcinoma of colon Father Chronic obstructive pulmonary disease Grandparent Colon cancer Father Congestive heart failure Grandparent Prostate carcinoma Social History Social History Social History: Surrogate decision maker: Hetal Alfaro, . CODE STATUS: Full code. Smoking packs per day: 0.5 Smoking cigarettes per day: 10.0 Years smoked: 60 Smoking pack-years: 30.00 Smoking status: Current every day smoker Tobacco type: cigarettes Second hand tobacco smoke exposure: Yes Smoking end date: 07/23/11 Alcohol intake: former Drinks per week: 2 Alcohol use details: hasnt drank in 3 weeks Substance use: never Substance use type: does not use Lack of Transportation: No Lack of Food: Never True Current Housing: I Have Housing Concerned About Future Housing: No Difficulty Paying Gas/Electric Bills: No Difficulty Paying for Meds: No Currently Unemployed: No Education: Decline to Answer Difficulty w/ Childcare or Family Care: No Living arrangements: with family Additional living arrangements comments: The patient lives in [place] with his . They have 2 grown children. Previously lived in [place] for 32 years. 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 Sexual Orientation (if Verbalize
[2022-06-21 08:33] VITALS: BP 115/65; PULSE 71; RESP 22; O2SAT 98
[2022-06-21 08:43] VITALS: BP 127/80; PULSE 82; RESP 21; O2SAT 100
[2022-06-21 08:53] VITALS: BP 137/89; PULSE 76; RESP 19; O2SAT 100
== END 2022-06-21 09:04 | disposition home or self-care (01) ==
PROVIDERS: PCP Internal Medicine; Visit Provider Internal Medicine Gastroenterology
PROC: 0DJD8ZZ Inspection of Lower Intestinal Tract, Via Natural or Artificial Opening Endoscopic (ICD-10-PCS; CPT 45378; principal; 2022-06-21 08:00)
DX: Z12.11 Encounter for screening for malignant neoplasm of colon (principal); K62.1 Rectal polyp; K63.5 Polyp of colon; R19.4 Change in bowel habit; I25.10 Atherosclerotic heart disease of native coronary artery without angina pectoris; I10 Essential (primary) hypertension; E78.5 Hyperlipidemia, unspecified; E03.9 Hypothyroidism, unspecified; N40.0 Benign prostatic hyperplasia without lower urinary tract symptoms; Z86.711 Personal history of pulmonary embolism; Z79.82 Long term (current) use of aspirin; Z95.5 Presence of coronary angioplasty implant and graft; Z87.891 Personal history of nicotine dependence
CPT/HCPCS: 45380; 88305; J2704; J7120

== ENCOUNTER 2022-11-01 06:55 | Outpatient (CLI) | payer OTHER, SELFPAY ==
[2022-11-01 07:36] LABS: Basophils Absolute Auto 0.1 K/mm3 (0.0-0.1); Basophils Percent Auto 1.1 % (0.2-1.2); Eosinophils Absolute Auto 0.4 K/mm3 (0-0.3); Eosinophils Percent Auto 3.7 % (0-4.4); Hemoglobin 13.6 g/dL (14.0-18.0); Immature Granulocyte Absolute 0.03 K/mm3 (0.00-0.031); Immature Granulocyte Percent A 0.3 % (0-0.5); Lymphocytes Absolute Auto 2.43 K/mm3 (0.9-3.2); Lymphocytes Percent Auto 25.9 % (18.3-44.2); Mean Corpuscular HGB Conc 32.4 g/dl (32-36); Mean Corpuscular Hemoglobin 32.7 pg (26-34); Mean Platelet Volume 12.6 fl (7.4-10.4); Monocytes Absolute Auto 0.7 K/mm3 (0.1-0.6); Monocytes Percent Auto 7.9 % (2.6-8.5); Neutrophils Absolute Auto 5.7 K/mm3 (1.3-6.7); Neutrophils Percent Auto 61.1 % (45.5-73.1); Platelet Count Result 134 k/mm3 (150-375); Red Blood Count 4.16 M/mm3 (4.6-6.20); Red Cell Distribution Width 12.9 % (11.5-14.5); White Blood Count 9.4 K/mm3 (4.5-10.0)
[2022-11-01 07:54] LABS: Alanine Aminotransferase 37 U/L (6-50); Alkaline Phosphatase 94 U/L (38-126); Anion Gap 5 mmol/L (8-16); Aspartate Amino Transferase 27 U/L (17-59); Bilirubin,Total 0.9 mg/dL (0.2-1.3); Blood Urea Nitrogen 21 mg/dL (9-20); Calcium 8.8 mg/dL (8.4-10.2); Carbon Dioxide 29 mmol/L (22-30); Chloride 107 mmol/L (98-107); Cholesterol 106 mg/dL (0-200); Estimated Glomerular Filt Rate > 60; Glucose 112 mg/dL (65-110); HDL Direct 42 mg/dL; Potassium 4.2 mmol/L (3.4-5.0); Sodium 141 mmol/L (137-145); Triglycerides 98 mg/dL (<150)
[2022-11-01 08:05] LABS: LDL Cholesterol Direct 47 mg/dL
[2022-11-01 08:13] LABS: Hemoglobin A1C 5.9 % (<5.7)
[2022-11-01 08:20] LABS: Free T4 Free Thyroxine 1.18 ng/mL (0.78-2.19)
[2022-11-01 09:00] LABS: Folic Acid > 20.0 ng/mL (2.76->20)
[2022-11-01 09:38] LABS: Prostate Specific Antigen 1.2 ng/mL (< OR = 4.0)
== END 2022-11-01 06:56 | disposition home or self-care (01) ==
LOC: ANHLAB 06:59
PROVIDERS: PCP Internal Medicine; Visit Provider Internal Medicine
DX: R73.9 Hyperglycemia, unspecified (principal); N40.0 Benign prostatic hyperplasia without lower urinary tract symptoms; I10 Essential (primary) hypertension; E78.5 Hyperlipidemia, unspecified; E03.9 Hypothyroidism, unspecified; E78.49 Other hyperlipidemia; Z12.5 Encounter for screening for malignant neoplasm of prostate
CPT/HCPCS: 36415; 80053; 80061; 82607; 82746; 83036; 84153; 84439; 84443; 85025; G0103

== ENCOUNTER 2023-09-13 07:32 | Outpatient (CLI) | payer OTHER, SELFPAY ==
[2023-09-13 08:15] LABS: Alanine Aminotransferase 67 U/L (6-50); Albumin Level 4.1 g/dL (3.5-5.1); Alkaline Phosphatase 108 U/L (38-126); Anion Gap 4 mmol/L (8-16); Aspartate Amino Transferase 37 U/L (17-59); Blood Urea Nitrogen 22 mg/dL (9-20); Calcium 9.5 mg/dL (8.4-10.2); Carbon Dioxide 28 mmol/L (22-30); Chloride 108 mmol/L (98-107); Cholesterol 121 mg/dL (0-200); Estimated Glomerular Filt Rate > 60; Glucose 118 mg/dL (65-110); HDL Direct 44 mg/dL; Potassium 4.2 mmol/L (3.4-5.0); Sodium 140 mmol/L (137-145); Triglycerides 97 mg/dL (<150)
[2023-09-13 08:17] LABS: Basophils Absolute Auto 0.1 K/mm3 (0.0-0.1); Basophils Percent Auto 1.3 % (0.2-1.2); Eosinophils Absolute Auto 0.4 K/mm3 (0-0.3); Eosinophils Percent Auto 4.4 % (0-4.4); Hemoglobin 14.1 g/dL (14.0-18.0); Immature Granulocyte Absolute 0.03 K/mm3 (0.00-0.031); Immature Granulocyte Percent A 0.3 % (0-0.5); Immature Platelet Fraction Pct 18.8 % (0.9-11.2); Lymphocytes Absolute Auto 2.17 K/mm3 (0.9-3.2); Lymphocytes Percent Auto 24.1 % (18.3-44.2); Mean Corpuscular Hemoglobin 32.3 pg (26-34); Mean Corpuscular Volume 100.7 fl (80-100); Mean Platelet Volume 13.6 fl (7.4-10.4); Monocytes Absolute Auto 0.7 K/mm3 (0.1-0.6); Monocytes Percent Auto 7.3 % (2.6-8.5); Neutrophils Absolute Auto 5.6 K/mm3 (1.3-6.7); Neutrophils Percent Auto 62.6 % (45.5-73.1); Platelet Count Result 136 k/mm3 (150-375); Red Blood Count 4.37 M/mm3 (4.6-6.20); Red Cell Distribution Width 12.8 % (11.5-14.5)
[2023-09-13 08:27] LABS: LDL Cholesterol Direct 59 mg/dL
[2023-09-13 08:40] LABS: Free T4 Free Thyroxine 0.93 ng/mL (0.78-2.19)
== END 2023-09-13 07:33 | disposition home or self-care (01) ==
PROVIDERS: PCP Internal Medicine; Visit Provider Internal Medicine
DX: R53.83 Other fatigue (principal); E78.5 Hyperlipidemia, unspecified; E03.9 Hypothyroidism, unspecified; I10 Essential (primary) hypertension
CPT/HCPCS: 36415; 80053; 80061; 84439; 84443; 85025; 85055

== ENCOUNTER 2024-08-08 07:57 | Outpatient (CLI) | payer OTHER, SELFPAY ==
[2024-08-08 08:56] LABS: Alanine Aminotransferase 50 U/L (6-50); Alkaline Phosphatase 89 U/L (38-126); Anion Gap 3 mmol/L (4-12); Aspartate Amino Transferase 32 U/L (17-59); Bilirubin,Total 0.9 mg/dL (0.2-1.3); Blood Urea Nitrogen 23 mg/dL (9-20); Calcium 9.3 mg/dL (8.4-10.2); Carbon Dioxide 30 mmol/L (22-30); Chloride 106 mmol/L (98-107); Cholesterol 118 mg/dL (0-200); Estimated Glomerular Filt Rate > 60; Glucose 122 mg/dL (65-110); HDL Direct 49 mg/dL; LDL Cholesterol Direct 50 mg/dL; Potassium 4.5 mmol/L (3.4-5.0); Sodium 139 mmol/L (137-145); Triglycerides 120 mg/dL (<150)
[2024-08-08 10:08] LABS: Hemoglobin A1C 6.5 % (<5.7)
--- OUTSIDE RECORDS SUMMARY | 2024-08-14 05:15 | XMS_ITS | Continuity of Care Document ---
Author Organization [facility] Address [address] [place] [address] [facility] [address] [place] [address] Phone Care Team Providers Care Rail Equipment Operator Name Role Phone Emmanuel Ferrara Unavailable Unavailable Procedures Procedure Date Eye Exam & Treatment Refraction Advance Directives Directive Yes / No Effective Date File Name No Information Encounters Encounter Description Practice Location Reason(s) For Visit Diagnoses Date Provider Providers Copied on Encounter [facility], [address] [place] [address] [address], [place], [place], [id number], [place] tel:[phone] [facility] No Information [address] Emmanuel. [address] [facility] [address], [place], [address], [place]. tel:[phone] Family History Family Member Type Diagnosis Age At Onset No Information Payers Payer name Insurance type Covered constitution party ID Authoriza tion(s) No Information Social History [...]
--- OUTSIDE RECORDS SUMMARY | 2024-08-14 05:15 | XMS_ITS | Referral Summary ---
Author Organization [facility] [address] [facility] [address] Address [address] [place] [address] Care Team Providers Care Apartment Locator Name Role Phone Jimi De La Fuente MD Primary Care Provider + [phone] Jimi De La Fuente MD Unavailable [phone] Jimi De La Fuente MD Unavailable [phone] Encounters Date Type Department Care Team Description 06/11/2024 Telephone [facility] Cardiology [address] [place] [address] Leonard Ge MD EP referral 06/04/2024 Telephone [facility] Cardiology [address] [facility] [address] [place] [address] Rajat Balderas MD from Last 3 Months Allergies No known active allergies Medications finasteride (PROSCAR) 5 mg tablet take 1 tablet (5MG) by oral route every day 0 11/15/2012 Active aspirin 81 mg enteric coated tablet Take 1 tablet (81 mg total) by mouth daily Active levothyroxine (SYNTHROID) 50 mcg tablet TK 1 T PO D 06/11/2020 Active tamsulosin (FLOMAX) 0.4 mg extended release capsule 1 capsule (0.4 mg total) Active carbidopa-levod opa (SINEMET) 25-100 mg per tablet Take 1 tablet by mouth 3 (three) times a day 06/14/2021 Active midodrine (PROAMATINE) 5 mg tablet TAKE 1 TABLET BY MOUTH THREE TIMES DAILY. DO NOT GIVE LAST DOSE OF DAY AFTER 6 PM OR WITHIN 4 HOURS OF BEDTIME 06/14/2021 Active atorvastatin (LIPITOR) 40 mg tablet Take 1 tablet (40 mg total) by mouth daily 90 tablet 2 05/28/2024 Active Active Problems No known active problems Social History Tobacco Use Types Packs/Day Years Used Date Smoking Tobacco: Some Days Cigarettes Smokeless Tobacco: Never Tobacco Cessation:Ready to Q uit: Not Asked; Counseling Given: Not Answered Alcohol Use Standard Drinks/Week Comments Yes 0 (1 standard drink = 0.6 oz pur e alcohol) Sex and Gender Information Value Date Recorded Sex Assigned at Not on file 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 Gender Identity Not on file Sexual Orientation Not on file Last Filed Vital Signs Vital Sign Reading Time Taken Comments Blood Pressure 128/80 01/16/2024 11:09 AM CDT Pulse 74 01/16/2024 11:09 AM CDT Temperature - - Respiratory Rate 18 06/18/2019 10:2 9 AM GRADUATION COACH Oxygen Saturation 99% 01/16/2024 11: 09 AM CDT Inhaled Oxygen Concentration - - Weight 99.2 kg (218 lb 12.8 oz) 024 11:09 AM CDT Height 190.5 cm (6' 3 ) 01/16/2024 11:0 9 AM CDT Body Mass Index 27.35 01/16/2024 11:09 AM CDT Plan of Treatment Not on file Insurance [facility] [employer] PPO Care Teams Apartment Locator Relationship Specialty Start Date End Date Jimi De La Fuente MD [address] [address] PCP - General Internal Medicine 01/14/21 Jimi De La Fuente MD [address] [address] 01/14/21 Jimi De La Fuente MD [address] [address] 02/26/19
--- OUTSIDE RECORDS SUMMARY | 2024-08-14 05:15 | XMS_ITS | Clinical Summary ---
Author Organization [facility] [address] [address] Address [address] [facility] [address] [place] [address] Care Team Providers Care Public Housing Interviewer Name Role Phone Jimi De La Fuente MD Primary Care Provider + [phone] Jimi De La Fuente MD Unavailable [phone] Jimi De La Fuente MD Unavailable [phone] Allergies No known active allergies Medications finasteride [...] Active Active Problems No known active problems Encounters Date Type Department Care Team Description 06/11/2024 Telephone [facility] Cardiology [address] [facility] [address] [place] [address] Leonard Ge MD EP referral 06/04/2024 Telephone [facility] Cardiology [address] [facility] [address] [place] [address] Rajat Balderas MD from Last 3 Months Medical History Medical History Date Comments Chronic coronary artery disease Coronary Artery Disease Hx Other Medical 2011 Myocardial Infa rction STEMI Hypertension Hypertension Hx Other Medical Dyslipidemia Hx Other Medical BPH Hx Other Medical 2011 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 Hx Other Medical DVT: RLE Family History Medical History Relation Name Comments Coronary artery disease Father 2 Shad nary Artery Disease; Relation Name Status Comments Father 1 Alive Father 2 Social History Tobacco Use Types Packs/Day Years Used Date Smoking Tobacco: Some Days Cigarettes Smokeless Tobacco: Never Tobacco Cessation:Ready to Q uit: Not Asked; Counseling Given: Not Answered Alcohol Use Standard Drinks/Week Comments Yes 0 (1 standard drink = 0.6 oz pur e alcohol) Sex and Gender Information Value Date Recorded Sex Assigned at Not on file 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 Gender Identity Not on file Sexual Orientation Not on file Obstetrics History Last Filed Vital Signs Vital Sign Reading Time Taken Comments Blood Pressure 128/80 01/16/2024 11:09 AM CDT Pulse 74 01/16/2024 11:09 AM CDT Temperature - - Respiratory Rate 18 06/18/2019 10:2 9 AM ASSURANCE ASSISTANT Oxygen Saturation 99% 01/16/2024 11: 09 AM CDT Inhaled Oxygen Concentration - - Weight 99.2 kg (218 lb 12.8 oz) 024 11:09 AM CDT Height 190.5 cm (6' 3 ) 01/16/2024 11:0 9 AM CDT Body Mass Index 27.35 01/16/2024 11:09 AM CDT Plan of Treatment Health Maintenance Due Date Last Done Comments Depression Screening 1945 Fall Risk Assessment 1945 Pneumococcal vaccine 65+ (1 of 2 - PCV) 1950 DTaP/Tdap/Td Vaccine (1 - Tdap) 1955 Hepatitis B Screening 1962 Zoster Vaccine (1 of 2) 1994 Abdominal Aortic Aneurysm (A AA) Screen 2009 Well Visit 65+ 2009 Influenza Vaccine (#1) 2024 9, 05/08/2018, 04/23/2017, Additional history exists Insurance [facility] [employer] PPO Care Teams Public Housing Interviewer Relationship Specialty Start Date End Date Jimi De La Fuente MD [address] [facility] [address] [place] [address] PCP - General Internal Medicine 01/14/21 Jimi De La Fuente MD [address] [facility] [address] [place] [address] 01/14/21 Jimi De La Fuente MD [address] [facility] [address] [place] [address] 02/26/19
== END 2024-08-08 07:58 | disposition home or self-care (01) ==
PROVIDERS: PCP Internal Medicine; Visit Provider Internal Medicine
DX: E03.9 Hypothyroidism, unspecified (principal); E78.5 Hyperlipidemia, unspecified; R73.9 Hyperglycemia, unspecified; I10 Essential (primary) hypertension
CPT/HCPCS: 36415; 80053; 80061; 83036; 84443

== ENCOUNTER 2025-03-12 23:30 | Inpatient (IN) | payer OTHER, SELFPAY ==
--- OUTSIDE RECORDS SUMMARY | 2007-12-11 04:18 | XMS_ITS | Continuity of Care Document ---
Author Organization [facility] Address [address] [place] [address] [facility] [address] [place] [address] Phone Care Team Providers Care Lining Stitcher Name Role Phone Emmanuel Ferrara Unavailable Unavailable Procedures Procedure Date Eye Exam & Treatment Refraction Advance Directives Directive Yes / No Effective Date File Name No Information Encounters Encounter Description Practice Location Reason(s) For Visit Diagnoses Date Provider Providers Copied on Encounter [facility], [address] [place] [address] [address], [place], [place], [id number], [place] tel:[phone] [facility] No Information [address]. [address] [employer] [facility] [address], [place], [address], [place]. tel:[phone] Family History Family Member Type Diagnosis Age At Onset No Information Payers Payer name Insurance type Covered democrat ID Authoriza tion(s) No Information Social History Type Description Quantity Date Captured Comments Sex Male Smoking Status No Information Chief Complaint And Reason For Visit No Information Reason For Referral Reason For Referral No Information History Of Present Illness Encounter Date Complaint History Of Prese nt Illness No Information Functional Status Date Functional Assessmen t No Information Instructions Date Instruction Additional Infor mation No Information Assessments Type Assessment Date No Information Patient Care Teams Name Effective Dates (start - stop) Status Members No Information
--- NOTE | ~2025-03-12 | XR_ITS ---
CHEST RADIOGRAPH CLINICAL HISTORY: cp sob . COMPARISON: 01/14/2021 TECHNIQUE: Single portable view of the chest. FINDINGS The cardiomediastinal silhouette is unremarkable. The lungs are clear. IMPRESSION: No focal infiltrate or effusion. Reviewed, dictated and finalized at location A.
[2025-03-12 23:31] VITALS: BP 123/75; PULSE 123; RESP 20; TEMP 36.6; O2SAT 100
[2025-03-12 23:35] VITALS: PULSE 102
--- NOTE | 2025-03-12 23:36 | ECG_ITS ---
Test Date: 2025-03-12 23:42:49 Measurements Intervals [place]er Rate: 114 P: 0 NH: 0 QRS: -2 QRSD: 130 T: 86 QT: 337 QTc: 465 Interpretive Statements ATRIAL FIBRILLATION WITH RAPID VENTRICULAR RESPONSE INTRAVENTRICULAR CONDUCTION DELAY CONSIDER INFERIOR INFARCT, AGE INDETERMINATE BORDERLINE ST-T WAVE ABNORMALITY- HIGH LATERAL LEADS BASELINE ARTIFACT- I, II, III, AVR, AVL, AVF, V1-V2 ABNORMAL ECG No previous ECG available for comparison Electronically Signed On 03-13-2025 06:29:06 CDT by Allen Murdock D.O.
[2025-03-12 23:38] VITALS: PULSE 140; RESP 24; O2SAT 100
[2025-03-12] MEDS: ASPIRIN 81 MG CHEWABLE TABLET 324 MG PO (23:41)
[2025-03-12 23:45] VITALS: PULSE 115; RESP 22; O2SAT 98
[2025-03-12 23:47] LABS: Hematocrit 43.5 % (42.0-52.0); Hemoglobin 14.2 g/dL (14.0-18.0); Immature Granulocyte Percent A 0.1 % (0-0.5); Lymphocytes Absolute Auto 1.87 K/mm3 (0.9-3.2); Mean Corpuscular HGB Conc 32.6 g/dl (32-36); Mean Corpuscular Hemoglobin 31.6 pg (26-34); Mean Corpuscular Volume 96.9 fl (80-100); Nucleated Red Blood Cells Absolute Auto 0.000 K/mm3 (0.0-0.012); Nucleated Red Blood Cells Perc 0.0 % (0.0-0.2); Platelet Count Result 138 k/mm3 (150-375); Red Blood Count 4.49 M/mm3 (4.6-6.20); White Blood Count 8.8 K/mm3 (4.5-10.0)
--- OUTSIDE RECORDS SUMMARY | 2025-03-12 23:56 | XMS_ITS | Clinical Summary ---
Author Organization [facility] [address] Address [address] [place] [address] Care Team Providers Care Portable Router Operator Name Role Phone Jimi De La Fuente MD Unavailable [phone] Jimi De La Fuente MD Unavailable [phone] Mitch Munoz DO Primary Care Provider [phone] Allergies No known active allergies Medications finasteride (PROSCAR) 5 mg tablet take 1 tablet (5MG) by oral route every day 0 3 Active aspirin 81 mg enteric coated tablet Take 1 tablet (81 mg total) by mouth daily Active levothyroxine (SYNTHROID) 50 mcg tablet TK 1 T PO D 0 Active tamsulosin (FLOMAX) 0.4 mg extended release capsule 1 capsule (0.4 mg total) Active carbidopa-levo dopa (SINEMET) 25-100 mg per tablet Take 1 tablet by mouth 3 (three) times a day 1 Active midodrine (PROAMATINE) 5 mg tablet TAKE 1 TABLET BY MOUTH THREE TIMES DAILY. DO NOT GIVE LAST DOSE OF DAY AFTER 6 PM OR WITHIN 4 HOURS OF BEDTIME 1 Active rivastigmine (EXELON) 9.5 mg/24 hour 5 Active vitamin A-vitamin C-vit E-min tablet Take by mouth Active atorvastatin (LIPITOR) 40 mg tablet TAKE 1 TABLET BY MOUTH EVERY DAY 90 tablet 3 5 Active atorvastatin (LIPITOR) 40 mg tablet Take 1 tablet (40 mg total) by mouth daily 90 tablet 2 4 02/25/20 25 Discontinued Active Problems No known active problems Encounters Date Type Department Care Team Description 02/04/2025 Telephone [facility] Cardiology [address] [facility] [address] [place] [address] Leonard Ge MD 01/21/2025 11:30 AM CDT Ancillary Procedure [facility] Cardiology [address] [facility] [address] [place] [address] PVC (premature ventricular contraction) 01/21/2025 10:45 AM CDT Office Visit [facility] Cardiology [address] [place] [address] [address] [place] [address] Leonard Ge MD Coronary artery disease involving [place] coronary artery of [place] heart without angina pectoris (Primary Dx); History of ST elevation myocardial infarction; Status post angioplasty with stent; PVC (premature ventricular contraction) from Last 3 Months Medical History Medical [...] on file 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 Gender Identity Not on file Sexual Orientation Not on file Obstetrics History Last Filed Vital Signs Vital Sign Reading Time Taken Comments Blood Pressure 104/62 01/21/2025 10:27 AM CDT Pulse 83 01/21/2025 10:27 AM CDT Temperature - - Respiratory Rate 18 06/18/2019 10:29 AM QUALITY CONTROL CHEMIST Oxygen Saturation 96% 01/21/2025 10:27 AM CDT Inhaled Oxygen Concentration - - Weight 92.3 kg (203 lb 6.4 oz) 01/21/2025 10:27 AM CDT Height 190.5 cm (6' 3) 01/21/2025 10:27 AM CDT Body Mass Index 25.42 01/21/2025 10:27 AM CDT Plan of Treatment Health Maintenance Due Date Last Done Comments Depression Screening 1944 Fall Risk Assessment 1944 DTaP/Tdap/Td Vaccine (1 - Tdap) 1955 Hepatitis B Screening 1962 Pneumococcal vaccine 65+ (1 of 2 - PCV) 1963 Zoster Vaccine (1 of 2) 1994 Abdominal Aortic Aneurysm (A AA) Screen 2009 Well Visit 65+ 2009 Influenza Vaccine (#1) 2025 9, 05/08/2018, 04/23/2017, Additional history exists Procedures Procedure Name Priority Date/Time Associated Diagnosis Comments HOLTER MONITOR 24 HR Routine 01/21/2025 1:47 PM CDT PVC (premature ventricular contraction) from Last 3 Months Results * 24 HR Holter Monitor (01/21/2025 1:47 PM CDT) Anatomical Region Laterality Modality Electrocardiogra phy Narrative 02/02/2025 6:46 PM CDT AMBULATORY FEATHER MIXER REPORT Patient Name: Theron Eugene Jr. Date of : 1945 Requesting Physician: Leonard Ge MD Date of interpretation: 02/02/25 Type of monitor : 24 hour Holter monitor Date of the study/Enrollment period: 01/21/2025 Indication: PVC Quality of the study: Adequate Interpretation: Predominant underlying rhythm is sinus rhythm, heart rate ranges between 45-159 beats per minute, average heart rate 72 beats per minute. QRS duration within normal limits. Ventricular ectopy was seen predominantly in the form of isolated PVCs with a burden of 3% for the duration of the study. There were 13 occurrences of nonsustained ventricular tachycardia, fastest episode 159 beats per minute, longest episode 6 beats. Rare supraventricular ectopy was seen in the form of PACs. No other significant arrhythmias. No symptoms reported. Conclusions: Predominant underlying rhythm is sinus rhythm, average heart rate 72 beats per minute. Ventricular ectopy was seen predominantly in the form of isolated PVCs with a burden of 3% for the duration of the study. Thirteen episodes of NSVT, longest 6 beats. Rare supraventricular ectopy. No other significant arrhythmias. No symptoms reported. Voice recognition software was used to complete this document, therefore, watch parts inspector variances may occur. Leonard Ge MD, [facility] 02/02/25 Procedure Note Leonard Ge MD - 02/02/2025 AMBULATORY FEATHER MIXER REPORT Patient Name: Theron Maria Jabier Allison Date of : 1945 Requesting Physician: Leonard Ge MD Date of interpretation: 02/02/25 Type of monitor : 24 hour Holter monitor Date of the study/Enrollment period: 01/21/2025 Indication: PVC Quality of the study: Adequate Interpretation: Predominant underlying rhythm is sinus rhythm, heart rateranges between 45-159 beats per minute, average heart rate 72 beats perminute. QRS duration within normal limits. Ventricular ectopy was seenpredominantly in the form of isolated PVCs with a burden of 3% for theduration of the study. There were 13 occurrences of nonsustainedventricular tachycardia, fastest episode 159 beats per minute, longestepisode 6 beats. Rare supraventricular ectopy was seen in the form ofPACs. No other significant arrhythmias. No symptoms reported. Conclusions: Predominant underlying rhythm is sinus rhythm, average heart rate 72 beatsper minute. Ventricular ectopy was seen predominantly in the form of isolated PVCswith a burden of 3% for the duration of the study. Thirteen episodes ofNSVT, longest 6 beats. Rare supraventricular ectopy. No other significant arrhythmias. No symptoms reported. Voice recognition software was used to complete this document, therefore,watch parts inspector variances may occur. Leonard Ge MD, [facility] 02/02/25 us Leonard Ge MD [facility] PROCEDURES F inal Result from Last 3 Months Insurance [employer] P[employer] Care Teams Portable Router Operator Relationship Specialty Start Date End Date Mitch Munoz DO [address] [address] PCP - General Internal Medicine 01/21/25 Jimi De La Fuente MD [address] [address] 01/14/21 Jimi De La Fuente MD [address] [address] 02/26/19
[2025-03-12 23:57] LABS: INR 1.2; Partial Thromboplastin Time 32.7 Seconds (22.3-36.8); Prothrombin Time 15.2 Seconds (11.1-14.7)
[2025-03-12 23:58] LABS: Anisocytosis 1+; Hypochromasia 1+; Schistocytes None Seen
[2025-03-13] VITALS (34 sets, daily range): BP systolic 95–162; BP diastolic 54–92; PULSE 66–140; RESP 12–27; TEMP 36.4–36.9; O2SAT 97–100; BMI 23.3
--- NOTE | 2025-03-13 | ECHO_ITS ---
Patient Info Name: Theron Eugene Age: 79 years : 1945 Gender: Male Ht: 74 in Wt: 186 lbs BSA: 2.10 m2 HR: 71 bpm BP: 136 / 79 mmHg Technical Quality: Good Exam Date: 03/13/2025 3:23 PM Patient Status: I Admit Date: 03/13/2025 Exam Type: CA echo dop color flow w con Complete two-dimensional, color flow and Doppler transthoracic echocardiogram is performed with contrast to opacify the left ventricle and to improve the deliniation of the left ventricle endocardial borders. Staff Referring Physician: Grisel Peralta Wood Technologist: Jessi Whitney Attending Provider: Mumtaz Arroa MD Contrast/Agitated Saline Contrast/Ag. Saline: Definity Amount: 2.00 ml Administered By: Jessi Whitney Summary 1. Left ventricular systolic function is mildly reduced, estimated at 40-45. 2. There is mildly increased left ventricular wall thickness. 3. The left ventricular diastolic function is grade I diastolic dysfunction. 4. There is mild aortic valve calcification. 5. There is mild mitral valve regurgitation. Left Ventricle Left ventricular chamber dimension is mildly enlarged. Left ventricular systolic function is mildly reduced, estimated at 40-45. There is mildly increased left ventricular wall thickness. Left ventricular septal wall motion is normal. The left ventricular diastolic function is grade I diastolic dysfunction. Right Ventricle Right ventricular chamber dimension is normal. Right ventricular systolic function is normal. Left Atria Left atrial chamber dimension is normal. Right Atria Right atrial chamber dimension is normal. Aortic Valve The aortic valve is trileaflet. There is no aortic valve sclerosis. There is no aortic valve stenosis. There is no aortic valve regurgitation. There is mild aortic valve calcification. Pulmonic Valve The pulmonic valve is normal. There is no pulmonic valve stenosis. There is no pulmonic regurgitation. Mitral Valve The mitral valve has normal leaflets. There is no mitral valve stenosis. There is mild mitral valve regurgitation. Tricuspid Valve The tricuspid valve leaflets are normal. There is no significant tricuspid valve stenosis. There is no tricuspid valve regurgitation. Pericardium/Pleural The pericardium appears normal. There is trivial pericardial effusion. Inferior Vena Cava Not well visualized inferior vena cava. Aorta The aortic root size at the sinus of Valsalva is normal. The prox ascending aorta size is normal. Left Ventricular Outflow Tract Name Value Normal LVOT 2D LVOT Diameter 2.3 cm LVOT Doppler LVOT Peak Velocity 86 cm/s LVOT Peak Gradient 3 mmHg LVOT Mean Gradient 2 mmHg LVOT VTI 21 cm LVOT Stroke Volume 84 ml LVOT CO 6.0 l/min LVOT CI 2.9 l/min/m2 Pulmonic Valve Name Value Normal RVOT Doppler RVOT Peak Velocity 91 cm/s RVOT Peak Gradient 3 mmHg PV Doppler PV Peak Velocity 101 cm/s PV Peak Gradient 4 mmHg Mitral Valve Name Value Normal MV Diastolic Function MV E Peak Velocity 54 cm/s MV A Peak Velocity 75 cm/s MV E/A 0.7 MV Decel Time (PW) 336 ms MV Annular TDI MV E/e' (Septal) 8.2 MV E/e' (Lateral) 6.4 MV E/e' (Average) 7.3 Aortic Valve Name Value Normal AV Doppler AV Peak Velocity 124 cm/s AV Peak Gradient 6 mmHg AV Area (Cont Eq Messi) 2.8 cm2 AV DI (Messi) 0.69 AV Regurgitation 2D LVOT Area 4.0 cm2 Ventricles Name Value Normal LV Dimensions 2D/MM IVS Diastolic Thickness (2D) 1.2 cm 0.6-1.0 LVID Diastole (2D) 4.7 cm 4.2-5.8 LVIW Diastolic Thickness (2D) 1.2 cm 0.6-1.0 LVID Systole (2D) 4.2 cm 2.5-4.0 LVOT Diameter 2.3 cm LV Mass (2D Cubed) 217.71 g 88.00-224.00 LV Mass Index (2D Cubed) 104 g/m2 49-115 Relative Wall Thickness (2D) 0.51 <=0.42 LV Fractional Shortening/Ejection Fraction 2D/MM LV Fractional Shortening (2D) 11 % 25-43 LV EF (2D Teichholz) 25 % LV Diastolic Volume (4C MOD) 142 ml LV EF (4C MOD) 24 % LV Diastolic Volume (2C MOD) 133 ml LV EF (2C MOD) 30 % LV Diastolic Volume (BP MOD) 137 ml 62-150 LV Diastolic Volume Index (BP MOD) 65 ml/m2 34-74 LV Systolic Volume (BP MOD) 100 ml 21-61 LV Systolic Volume Index (BP MOD) 48 ml/m2 11-31 LV EF (BP MOD) 27 % 52-72 LV Diastolic Length (4C) 8.3 cm LV Systolic Length (4C) 7.3 cm LV Stroke Volume (4C MOD) 34 ml Atria Name Value Normal LA Dimensions LA Volume (4C A-L) 65 ml LA Volume (BP A-L) 65 ml RA Dimensions RA Systolic Major [place] Length (4C) 4.8 cm 2.1-2.7 RA Area (4C) 15.4 cm2 <=18.0 Report Signatures
[2025-03-13 00:03] LABS: Alanine Aminotransferase 19 U/L (6-50); Albumin Level 3.9 g/dL (3.5-5.1); Alkaline Phosphatase 94 U/L (38-126); Anion Gap 9 mmol/L (4-12); Aspartate Amino Transferase 27 U/L (17-59); Bilirubin,Total 0.9 mg/dL (0.2-1.3); Blood Urea Nitrogen 18 mg/dL (9-20); Calcium 9.6 mg/dL (8.4-10.2); Carbon Dioxide 24 mmol/L (22-30); Chloride 106 mmol/L (98-107); Estimated CRCL calculation 86 ml/min; Estimated Glomerular Filt Rate > 60; Glucose 110 mg/dL (65-110); Lipase 15 U/L (23-300); Magnesium 1.8 mg/dL (1.6-2.3); Potassium 3.6 mmol/L (3.4-5.0); Sodium 139 mmol/L (137-145); Total Protein 7.5 g/dL (6.3-8.2)
[2025-03-13 00:19] LABS: Troponin I 0.016 ng/mL (0.000-0.034)
--- NOTE | 2025-03-13 00:19 | ED.CHESTPAIN ---
HPI - Chest Pain General Chief Complaint: Chest Pain Stated Complaint: CP Time Seen by Provider: 03/12/25 23:43 History of Present Illness HPI narrative: Patient is an 79-year-old male who presents to the emergency department this evening complaining of substernal chest pain that started suddenly at approximately 10:00 p.m. this evening. Patient does have a history of coronary artery disease and hypertension and did take 2 sublingual nitroglycerin with improvement of his symptoms. Patient describes the pain as heavy pressure in his chest, denies any sharp stabbing pain. Rates it an 8 out of 10 at its worse. Patient states that upon arrival to the emergency department the chest pressure has resolved. Patient denies any blood thinner use, states that he does take a baby aspirin daily. Per EMS, patient was noted to be in atrial fibrillation, patient denies any history of AFib. No additional symptoms or concerns at this time. Related Data Home Medications ?Medication ?Instructions ?Recorded ?Confirmed ?Last Taken ?Type aspirin 81 mg tablet,delayed 81 mg PO DAILY 02/18/20 08/15/24 Unknown History release (Adult Low Dose Aspirin) atorvastatin 40 mg tablet 40 mg PO DAILY 02/18/20 08/15/24 Unknown History polyethylene glycol 3350 17 17 g PO DAILY 06/05/22 08/15/24 Unknown History gram/dose oral powder (Miralax) vitamins A,C,X-qxfu-axgfkg 2,148 2 tablet PO BID 04/25/23 08/15/24 Unknown History mcg-113 mg-45 mg-17.4 mg tablet (PreserVision AREDS) Allergies Allergy/AdvReac Type Severity Reaction Status Date / Time No Known Drug Allergies Allergy Mild Other Verified 01/13/25 11:00 Review of Systems Review of Systems: All systems are reviewed and are negative unless stated otherwise in the HPI. [facility] Past Medical History Medical History REM behavioral disorder History of pulmonary embolism History of deep vein thrombosis Hyperlipidemia History of pericarditis Benign prostatic hyperplasia Hypothyroidism Coronary artery disease Patient of Dr. Ge. Hypertension Surgical History Surgical History History of heart artery stent X2. Family History Family History Father Family history of congestive heart failure, Onset Age: 72 Patient's father is Family history of emphysema, Onset Age: 72 Mother Patient's mother is Grandparent Carcinoma of colon Father Chronic obstructive pulmonary disease Grandparent Colon cancer Father Congestive heart failure Grandparent Prostate carcinoma Social History Social History Social History: Surrogate decision maker: Hetal Alfaro, . CODE STATUS: Full code. Smoking packs per day: 3 Smoking cigarettes per day: 60.0 Years smoked: 60 Smoking pack-years: 180.00 Smoking status: Current every day smoker Tobacco type: cigarettes Second hand tobacco smoke exposure: Yes Smoking end date: 07/23/11 Alcohol intake: former Drinks per week: 2 Alcohol use details: hasnt drank in 4 months Substance use: never Substance use type: does not use Current Housing: Decline to Answer Concerned About Future Housing: Decline to Answer Difficulty Paying Gas/Electric Bills: Decline to Answer Difficulty Paying for Meds: Decline to Answer Currently Unemployed: Decline to Answer Education: Decline to Answer Difficulty w/ Childcare or Family Care: Decline to Answer Living arrangements: with family Additional living arrangements comments: The patient lives in [place] with his . They have 2 grown children. Previously lived in [place] for 32 years. 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 Gender identity (if verbalized by the patient): Male Sexual Orientation (if Verbalized by the Patient): . Exam Narrative: General: Alert, awake, afebrile, in no acute distress. HEENT: PERRL, no rhinorrhea, no post nasal drip, oropharynx clear. Neck: Trachea midline, no JVD, no lymphadenopathy. Cardiovascular: Tachycardiac with an irregular rhythm, no murmurs, rubs or gallops, no peripheral edema. Respiratory: Clear to auscultation bilaterally, no tachypnea, no wheezing, no rhonchi, no rubs, no respiratory distress. Abdomen: Soft, nontender, nondistended, no rebound, no guarding, no peritoneal signs. Musculoskeletal: No joint swelling or deformity, normal muscle tone. Skin: No rashes or petechia, no signs of infection. Psychiatric: Alert and oriented, normal behavior and judgment for situation. Neurological: Alert and oriented to person, place, and time. Follows all commands. No focal deficits, speech is clear and fluent. Course Vital Signs Vital signs: Vital Signs Temperature 97.8 F 03/12/25 23:31 Pulse Rate 123 H 03/12/25 23:31 Respiratory Rate 20 03/12/25 23:31 Blood Pressure 123/75 03/12/25 23:31 Pulse Oximetry 100 03/12/25 23:31 Oxygen Delivery Room Air 03/12/25 23:31 Temperature 97.8 F 03/12/25 23:31 Pulse Rate 115 H 03/12/25 23:45 Respiratory Rate 22 H 03/12/25 23:45 Blood Pressure 123/75 03/12/25 23:31 Pulse Oximetry 98 03/12/25 23:45 Oxygen Delivery Room Air 03/12/25 23:35 MDM - Chest Pain MDM Narrative Medical decision making narrative: The patient was evaluated by myself in the emergency department. History is obtained from patient who is an independent historian and physical exam was performed. External medical records were reviewed at this time. IV was established and pertinent tests were ordered. EKG was obtained which revealed atrial fibrillation with RVR rate of 114 beats per minute. No ST changes, T wave inversions or evidence of acute ischemia. EKG was independently interpreted by me and is currently pending official cardiology read. patient's Julio Vasc score is noted to be 3. Patient is not on any anticoagulation, states that he only takes a baby aspirin. Patient was administered 1 time dose of Lovenox 1 milligram/kilogram at this time. Patient was started on maintenance fluids at a rate of 100 cc/hour with normal saline. On repeat assessment, it is noted that the patient is currently rate controlled with heart rate ranging in the 90s. Patient's last echocardiogram was in May of 2018 vehicle ejection fraction of 55%. Laboratory results obtained revealing initial troponin 0.016 otherwise unremarkable. 3 hour troponin also negative, however, trending upward to 0.030. Imaging studies obtained included CXR which was independently interpreted by me revealing no acute cardiopulmonary process, which is pending final radiology interpretation. Differential diagnosis considerations include acute coronary syndrome, electrolyte derangements, dehydration, acute viral syndrome, new onset atrial fibrillation. Comorbidities impacting this visit include history of coronary artery disease and hypertension, hyperlipidemia. I have evaluated and discussed social determinants of health with the patient that could potentially impact subsequent diagnosis and treatment plans. On repeat assessment of the patient, reevaluation revealed that the patient is doing well and is in no acute distress. Patient symptoms have improved since he arrived to our emergency department. Repeat vital signs were all reviewed and noted to be stable. Differential diagnosis and treatment plan were discussed with the patient at bedside. Patient agrees with discussion and after shared medical decision making agrees with admission. All questions were answered to the patient's satisfaction. Case was discussed with the on-call hospitalist NARCISO Parikh at 0320 and she accepted admission. Formal Cardiology consultation was for new onset AFib, chest pain. Critical care time of 55 minutes, exclusive of separately performed procedures, necessary for treating or preventing eminent or life-threatening deterioration of patient's condition of new onset AFib with RVR requiring therapeutic Lovenox, focused on patient care provided personally by me and time spent during initial evaluation, physical examination, ordering and performing treatments and interventions, ordering and reviewing laboratory studies, ordering and reviewing radiographic studies, re-evaluation of the patient's condition, evaluation of the patient's response to treatment, and discussion of patient case with admitting provider/ consultants. Lab Data 03/12/25 23:40 03/12/25 23:40 Labs: Lab Results 03/12/25 03/13/25 Range/Units 23:40 02:29 WBC 8.8 (4.5-10.0) K/mm3 RBC 4.49 L (4.6-6.20) M/mm3 Hgb 14.2 (14.0-18.0) g/dL Hct 43.5 (42.0-52.0) % MCV 96.9 (80-100) fl MCH 31.6 (26-34) pg MCHC 32.6 (32-36) g/dl RDW 12.9 (11.5-14.5) % Plt Count 138 L (150-375) k/mm3 MPV 12.9 H (7.4-10.4) fl Immature Gran % (Auto) 0.1 (0-0.5) % Neut % (Auto) 65.8 (45.5-73.1) % Lymph % (Auto) 21.3 (18.3-44.2) % [place] % (Auto) 9.0 H (2.6-8.5) % Eos % (Auto) 2.7 (0-4.4) % Baso % (Auto) 1.1 (0.2-1.2) % Lymph # (Auto) 1.87 (0.9-3.2) K/mm3 [place] # (Auto) 0.8 H (0.1-0.6) K/mm3 Eos # (Auto) 0.2 (0-0.3) K/mm3 Baso # (Auto) 0.1 (0.0-0.1) K/mm3 Abs Immat Gran (auto) 0.01 (0.00-0.031) K/mm3 Absolute Neuts (auto) 5.8 (1.3-6.7) K/mm3 Absolute Nucleated RBC 0.000 (0.0-0.012) K/mm3 Band Neutrophils % Not Reportable Nucleated RBC % 0.0 (0.0-0.2) % Platelet Estimate Slightly decreased (Adequate) Hypochromasia 1+ Anisocytosis 1+ Schistocytes None seen PT 15.2 H (11.1-14.7) Seconds INR 1.2 APTT 32.7 (22.3-36.8) Seconds Sodium 139 (137-145) mmol/L Potassium 3.6 (3.4-5.0) mmol/L Chloride 106 (98-107) mmol/L Carbon Dioxide 24 (22-30) mmol/L Anion Gap 9 (4-12) mmol/L BUN 18 (9-20) mg/dL Creatinine 0.71 (0.7-1.3) mg/dL Estim Creat Clear Calc 86 ml/min Estimated GFR > 60 (59 - ) Glucose 110 (65-110) mg/dL Calcium 9.6 (8.4-10.2) mg/dL Magnesium 1.8 (1.6-2.3) mg/dL Total Bilirubin 0.9 (0.2-1.3) mg/dL AST 27 (17-59) U/L ALT 19 (6-50) U/L Alkaline Phosphatase 94 (38-126) U/L Troponin I 0.016 0.030 D (0.000-0.034) ng/mL Total Protein 7.5 (6.3-8.2) g/dL Albumin 3.9 (3.5-5.1) g/dL Lipase 15 L (23-300) U/L TSH (Reflex) 2.830 (0.465-4.68) uIU/mL Critical Care Time Critical Care Time Critical Care Time: Yes Total Critical Care Time: 55 ( Please refer to [facility] for attestation.) Discharge Plan Discharge Clinical Impression: Chest pain, Atrial fibrillation with rapid ventricular response Patient Disposition: Still a Patient Condition: Improved Patient Language: Welsh Prescriptions: No Action aspirin [Adult Low Dose Aspirin] 81 mg tablet,delayed release (DR/EC) 81 mg PO DAILY atorvastatin 40 mg tablet 40 mg PO DAILY PreserVision AREDS 2,148 mcg-113 mg-45 mg-17.4mg tablet 2 tablet PO BID Rx Instructions: administer with AM and PM meals carbidopa-levodopa 25-100 mg tablet 2 tablet .ROUTE TID Qty: 270 3RF Rx Instructions: Increase slowly to 1/2 tablet 3 times a day for 2 weeks and then 2 tablets 3 times a day to continue rivastigmine [Exelon Patch] 9.5 mg/24 hour patch 24 hour 9.5 mg transdermal DAILY Qty: 30 7RF midodrine 5 mg tablet See Rx Instructions .ROUTE .COMPLEX Qty: 270 2RF Dose Instruction: TAKE 1 TABLET BY MOUTH THREE TIMES DAILY. DO NOT GIVE LAST DOSE OF DAY AFTER 6 PM OR WITHIN 4 HOURS OF BEDTIME Rx Instructions: TAKE 1 TABLET BY MOUTH THREE TIMES DAILY. DO NOT GIVE LAST DOSE OF DAY AFTER 6 PM OR WITHIN 4 HOURS OF BEDTIME melatonin 10 mg capsule 10 mg PO QHS Qty: 90 3RF clonazepam [Klonopin] 0.5 mg tablet 0.5 mg PO QHS Qty: 30 5RF Rx Instructions: administer 30 minutes before bedtime, may start with half tablet at bedtime increase to 1 tablet if necessary polyethylene glycol 3350 [Miralax] 17 gram/dose Powder 17 g PO DAILY nitroglycerin [Nitrostat] 0.4 mg tablet, sublingual 0.4 mg SUBLINGUAL Q5M PRN (Reason: chest pain) Qty: 25 2RF Rx Instructions: do not exceed 3 doses per episode levothyroxine 50 mcg tablet See Rx Instructions .ROUTE .COMPLEX Qty: 90 0RF Dose Instruction: TAKE 1 TABLET BY MOUTH EVERY DAY Rx Instructions: TAKE 1 TABLET BY MOUTH EVERY DAY Follow-up/Referrals: Mitch Munoz, [Primary Care Provider, Internal Medicine]
[2025-03-13 01:05] LABS: Thyroid Stimulating Hormone Reflex 2.830 uIU/mL (0.465-4.68)
[2025-03-13] MEDS: SODIUM CHLORIDE 0.9% IV 1,000 ML 100 ML IV CONT (02:20)
--- NOTE | 2025-03-13 02:35 | ECG_ITS ---
Test Date: 2025-03-13 02:38:12 Measurements Intervals [place] Rate: 83 P: 0 DE: 0 QRS: -6 QRSD: 129 T: 72 QT: 360 QTc: 425 Interpretive Statements ATRIAL FIBRILLATION INCOMPLETE LEFT BUNDLE BRANCH BLOCK CONSIDER INFERIOR INFARCT, AGE INDETERMINATE BORDERLINE ST-T WAVE ABNORMALITY- HIGH LATERAL LEADS BASELINE ARTIFACT- I, II, III, AVR, AVL, AVF ABNORMAL ECG Compared to ECG 03/12/2025 23:42:49 HEART RATE HAS DECREASED Electronically Signed On 03-13-2025 06:30:03 CDT by Allen Murdock D.O.
[2025-03-13 03:03] LABS: Troponin I 0.030 ng/mL (0.000-0.034)
[2025-03-13] MEDS: ENOXAPARIN 100 MG/ML SYRINGE 85 MG SUB-Q (03:44)
--- NOTE | 2025-03-13 03:45 | PM.IMHP ---
H&P: HPI History of Present Illness Date/Time: 03/13/25 03:45 Chief Complaint: Chest Pressure Narrative: This is an 79 year old male pt with PMH of Parkinson's Disease, CAD s/p stents x2, memory loss, HTN, PE, DVT, HLD, Pericarditis, BPH, Orthostatic Hypotension, Nicotine abuse and REM Behavioral Disorder who presented to the ER this evening with complaints of having a squeezing in the middle of his sternum while he was getting ready for bed at approximately 2200. There was no radiation of the pain, but there was nausea, mild dyspnea and lightheadedness. No sweating. All of his symptoms are now resolved, but upon presentation to the ER, he was found to be in new onset A-fib. Rate mostly controlled in the 1-teens. He is a pt of Dr. Ge, Cardiology. In the ER workup was performed with EKG that showed A-fib 114 bpm, Unremarkable CBC and CMP, magnesium of 1.8, coags normal, lipase of 15, and TSH of 2.830. VS were noted to be stable with pulse ranging 1-teens to 140 as the exception. Pt's initial troponin was 0.016, with the repeat increasing to 0.030. He is being admitted in the current setting for further workup, evaluation and definitive management. Review of Systems Review of Systems: All systems reviewed & are unremarkable except as noted in HPI and below PMFSH Past Medical History Medical History (Updated 03/13/25 @ 04:00 by LEIGH Cavazos) REM behavioral disorder History of pulmonary embolism History of deep vein thrombosis Hyperlipidemia History of pericarditis Benign prostatic hyperplasia Hypothyroidism Coronary artery disease Patient of Dr. Ge. Hypertension Surgical History Surgical History History of heart artery stent X2. Family History Family History Father Family history of congestive heart failure, Onset Age: 72 Patient's father is Family history of emphysema, Onset Age: 72 Mother Patient's mother is Grandparent Carcinoma of colon Father Chronic obstructive pulmonary disease Grandparent Colon cancer Father Congestive heart failure Grandparent Prostate carcinoma Social History Social History Social History: Surrogate decision maker: Hetal Alfaro, . CODE STATUS: Full code. Smoking packs per day: 3 Smoking cigarettes per day: 60.0 Years smoked: 60 Smoking pack-years: 180.00 Smoking status: Current every day smoker Tobacco type: cigarettes Second hand tobacco smoke exposure: Yes Smoking end date: 07/23/11 Alcohol intake: former Drinks per week: 2 Alcohol use details: hasnt drank in 4 months Substance use: never Substance use type: does not use Current Housing: Decline to Answer Concerned About Future Housing: Decline to Answer Difficulty Paying Gas/Electric Bills: Decline to Answer Difficulty Paying for Meds: Decline to Answer Currently Unemployed: Decline to Answer Education: Decline to Answer Difficulty w/ Childcare or Family Care: Decline to Answer Living arrangements: with family Additional living arrangements comments: The patient lives in [place] with his . They have 2 grown children. Previously lived in [place] for 32 years. 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 Gender identity (if verbalized by the patient): Male Sexual Orientation (if Verbalized by the Patient): . Meds Home Medications and Allergies Home Medications ?Medication ?Instructions ?Recorded ?Confirmed ?Type aspirin 81 mg tablet,delayed 81 mg PO DAILY 02/18/20 08/15/24 History release (Adult Low Dose Aspirin) atorvastatin 40 mg tablet 40 mg PO DAILY 02/18/20 08/15/24 History polyethylene glycol 3350 17 17 g PO DAILY 06/05/22 08/15/24 History gram/dose oral powder (Miralax) nitroglycerin 0.4 mg sublingual 0.4 mg sublingual Q5M PRN chest 04/08/23 08/15/24 Rx tablet (Nitrostat) pain #25 tabs vitamins A,C,C-zhod-brissh 2,148 2 tablet PO BID 04/25/23 08/15/24 History mcg-113 mg-45 mg-17.4 mg tablet (PreserVision AREDS) carbidopa 25 mg-levodopa 100 mg 2 tablet .Route TID #270 tabs 01/13/25 01/13/25 Rx tablet clonazepam 0.5 mg tablet (Klonopin) 0.5 mg PO QHS #30 tabs 01/13/25 01/13/25 Rx melatonin 10 mg capsule 10 mg PO QHS #90 caps 01/13/25 01/13/25 Rx midodrine 5 mg tablet See Rx Instructions .Route 01/13/25 01/13/25 Rx .COMPLEX #270 tabs rivastigmine 9.5 mg/24 hour 9.5 mg transdermal DAILY #30 ea 01/13/25 01/13/25 Rx transdermal patch (Exelon Patch) levothyroxine 50 mcg tablet See Rx Instructions .Route 02/27/25 Rx .COMPLEX #90 tabs Allergies Allergy/AdvReac Type Severity Reaction Status Date / Time No Known Drug Allergies Allergy Mild Other Verified 01/13/25 11:00 Vital Signs Vital Signs - 24 hr 03/12/25 23:31 03/12/25 23:35 03/12/25 23:35 Temperature 97.8 F Pulse Rate 123 H 102 H Respiratory Rate 20 Blood Pressure 123/75 Pulse Oximetry 100 Oxygen Delivery Room Air Room Air 03/12/25 23:38 03/12/25 23:45 Temperature Pulse Rate 140 H 115 H Respiratory Rate 24 H 22 H Blood Pressure Pulse Oximetry 100 98 Oxygen Delivery Exam Const: General: comfortable and no acute distress Other: Elderly male pt lying supine on stretcher appearing currently very tired. No distress noted. HENMT: Face/Nose/Sinus: Normal nares present Mouth: Yes moist mucous membranes Eyes: General: appearance normal, both eyes and all related structures EOM: EOMs intact bilaterally Neck: Neck: supple and no JVD Lymphatic: lymphadenopathy not noted Resp: Effort & Inspection: normal respiratory effort Auscultation: clear to auscultation bilaterally Cardio: Rate: tachycardic Rhythm: abnormal rhythm irregularly irregular (New onset A-fib) Heart sounds: no gallops, no murmurs and no rubs GI: GI Palp: Yes Soft to palpation and No Tenderness to palpation present (GI) Auscultation: normal bowel sounds Skin: General skin exam: normal color, no rashes or lesions noted and no erythema Wounds: no wounds Neuro: Speech: normal speech Motor exam (neuro): 5/5 motor strength present throughout and Normal motor muscle tone present throughout Sensory Exam: normal sensation Extrem: Other: Freely and equally MAEW without deficit. Psych: Mental Status: mental status grossly normal Affect: normal affect H&P: Results Labs Labs: Short CBC 03/12/25 Range/Units 23:40 WBC 8.8 (4.5-10.0) K/mm3 Hgb 14.2 (14.0-18.0) g/dL Hct 43.5 (42.0-52.0) % Plt Count 138 L (150-375) k/mm3 BMP 03/12/25 23:40 Sodium 139 Potassium 3.6 Chloride 106 Carbon Dioxide 24 BUN 18 Creatinine 0.71 Glucose 110 Calcium 9.6 Cardiac Enzymes 03/12/25 03/13/25 Range/Units 23:40 02:29 Troponin I 0.016 0.030 D (0.000-0.034) ng/mL Liver Function 03/12/25 Range/Units 23:40 Total Bilirubin 0.9 (0.2-1.3) mg/dL AST 27 (17-59) U/L ALT 19 (6-50) U/L Alkaline Phosphatase 94 (38-126) U/L Albumin 3.9 (3.5-5.1) g/dL Assessment and Plan Assessment and plan (1) Atrial fibrillation with rapid ventricular response: Code(s): I48.91 - Unspecified atrial fibrillation Status: Acute Assessment and Plan: New onset [id number] score: 3 Telemetry Consult Cardiology Start Metoprolol Succinate 12.5 mg QAM Trend labs and VS. Suspect large delta in first and second trop are due to demand from new onset fib. Therapeutic Lovenox started. (2) Chest pain: Code(s): R07.9 - Chest pain, unspecified Status: Acute Assessment and Plan: Acute onset at 2200 last evening. Initial trop is 0.016 with delta of 0.030. Although in range, significant jump present. New onset fib found. Continue to trend trops Consult cardiology Telemetry (3) Coronary artery disease: Code(s): I25.10 - Atherosclerotic heart disease of [place] coronary artery without angina pectoris Status: Chronic Assessment and Plan: Noted hx of. Heart score: 4 telemetry Trend trops x3 total (4) Hyperlipidemia: Code(s): E78.5 - Hyperlipidemia, unspecified Status: Chronic Assessment and Plan: Continue Statin medication once dose is confirmed and verified. (5) Orthostatic hypotension: Code(s): I95.1 - Orthostatic hypotension Status: Chronic Assessment and Plan: Continue Midodrine once dose is confirmed and verified. (6) Parkinsons: Code(s): G20 - Parkinson's disease Status: Chronic Assessment and Plan: Sinemet Fall precautions (7) 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 Assessment and Plan: Continue Klonopin and Melatonin (8) Tobacco use: Code(s): Z72.0 - Tobacco use Status: Chronic Assessment and Plan: Nicotine Patch Quality VTE Prophylaxis VTE prophylaxis: pharmacologic ordered Hospitalist [facility] Advance Care Plan I have confirmed that the patient's Advanced Care Plan is present, code status is documented, or surrogate decision maker is listed in patient medical record.: Yes Medication Reconciliation I have utilized all available resources to obtain, update and review the patients current medications (includes all prescriptions, OTC, herbals, cannabis, and nutritional supplements).: Yes
[2025-03-13 05:09] LABS: Add Urine Microscopic? YES; Appearance Urine Cloudy (Clear); Glucose Urine UA Negative (Negative); Leukocyte Esterase Ur Trace LEU/UL (Negative); Need Manual Microscopic Reviewed; Nitrate Urine Negative (Negative); Specific Grav Ur 1.023 (1.001-1.035)
[2025-03-13 05:21] LABS: Hematocrit 40.1 % (42.0-52.0); Hemoglobin 12.8 g/dL (14.0-18.0); Mean Corpuscular HGB Conc 31.9 g/dl (32-36); Mean Corpuscular Hemoglobin 31.5 pg (26-34); Mean Corpuscular Volume 98.8 fl (80-100); Platelet Count Result 128 k/mm3 (150-375); Red Blood Count 4.06 M/mm3 (4.6-6.20); White Blood Count 8.8 K/mm3 (4.5-10.0)
[2025-03-13 05:33] LABS: INR 1.4; Prothrombin Time 16.8 Seconds (11.1-14.7)
[2025-03-13 05:34] LABS: Partial Thromboplastin Time 43.4 Seconds (22.3-36.8)
[2025-03-13 05:48] LABS: Basophils Absolute Manual 0.17 K/mm3 (0.0-0.1); Basophils Percent Manual 2 % (0-1); Eosinophils Absolute Manual 0.26 K/mm3 (0.02-0.50); Eosinophils Percent Manual 3 % (0-4); Lymphocytes Absolute Manual 2.11 K/mm3 (1.1-4.5); Lymphocytes Percent Manual 24.0 % (18-44); Monocytes Absolute Manual 0.35 K/mm3 (0.1-0.90); Monocytes Percent Manual 4 % (3-9); Neutrophils Percent Manual 67 % (46-73); Total Cells Counted 100
[2025-03-13 05:49] LABS: Anisocytosis 1+; Schistocytes None Seen; Smudge Cells PRESENT
[2025-03-13 05:50] LABS: Alanine Aminotransferase 23 U/L (6-50); Albumin Level 3.4 g/dL (3.5-5.1); Alkaline Phosphatase 86 U/L (38-126); Anion Gap 1 mmol/L (4-12); Aspartate Amino Transferase 25 U/L (17-59); Bilirubin,Total 0.9 mg/dL (0.2-1.3); Blood Urea Nitrogen 18 mg/dL (9-20); Calcium 8.9 mg/dL (8.4-10.2); Carbon Dioxide 29 mmol/L (22-30); Chloride 109 mmol/L (98-107); Estimated CRCL calculation 95 ml/min; Estimated Glomerular Filt Rate > 60; Glucose 100 mg/dL (65-110); Magnesium 2.0 mg/dL (1.6-2.3); Potassium 3.4 mmol/L (3.4-5.0); Sodium 139 mmol/L (137-145); Total Protein 6.5 g/dL (6.3-8.2)
[2025-03-13 06:07] LABS: Troponin I 0.047 ng/mL (0.000-0.034)
--- NOTE | 2025-03-13 07:59 | ADMGEN ---
This patient, Theron Eugene Jr., was admitted to IMU Room 231-01. Patient/family oriented to hospital policies and general routines including ID bracelet, bed and alarms, visiting hours, pain management, procedures, bathroom and other care routines, personal items, smoking policy, room service/diet, and visiting hours. Information on how to activate the Rapid Response Team has been discussed. Patient/Family are encouraged to report perceived risks to care and to ask questions if they do not understand what they are told or what they should do.
--- OUTSIDE RECORDS SUMMARY | 2025-03-13 08:13 | XMS_ITS | Clinical Summary ---
Author Organization [facility] [address] Address [address] [place] [address] Care Team Providers Care Customer Account Manager Name Role Phone Jimi De La Fuente MD Unavailable [phone] Jimi De La Fuente MD Unavailable [phone] Mitch Munoz DO Primary Care Provider [phone] Allergies No known active allergies Medications finasteride [...] Type Department Care Team Description 02/04/2025 Telephone [facility] Medical [facility] Cardiology [address] [facility] [address] [place] [address] Leonard Ge MD 01/21/2025 11:30 AM CDT Ancillary Procedure [facility] Cardiology [address] [facility] [address] [place] [address] PVC (premature ventricular contraction) 01/21/2025 10:45 AM CDT Office Visit [facility] Cardiology [address] [place] [address] [address] [place] [address] Leonard Ge MD Coronary artery disease involving [place] coronary artery of [place] heart without angina pectoris (Primary Dx); History [...] on file Legal Sex Male 10:13 AM 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 Date [...] was used to complete this document, therefore, ornamental iron erector variances may occur. Leonard Ge MD, [facility] 02/02/25 Procedure Note Leonard Ge MD - 02/02/2025 AMBULATORY DIRECTOR OF FIELD SALES REPORT Patient Name: Theron Maria Jabier Allison [...] software was used to complete this document, therefore,ornamental iron erector variances may occur. Leonard Ge MD, [facility] 02/02/25 us Leonard Ge MD [facility] CARDIAC SERVICES PROCEDURES F inal Result from Last 3 Months Insurance [employer] Care Teams Customer Account Manager Relationship Specialty Start Date End Date Mitch Munoz DO [address] [address] PCP - General Internal Medicine 01/21/25 Jimi De La Fuente MD [address] [address] 01/14/21 Jimi De La Fuente MD [address] [address] 02/26/19
--- NOTE | 2025-03-13 09:47 | P.CONCA_ITS ---
<Statement entered by Jessee Heller MD - 03/13/25 10:43> The service was provided by the the nurse practitioner independently. i was available in case I was needed Assessment and Plan Assessment and plan (1) Atrial fibrillation with rapid ventricular response: Code(s): I48.91 - Unspecified atrial fibrillation Status: Acute Assessment and Plan: This is a new diagnosis. He converted to sinus rhythm and remains in sinus rhythm currently. * Continue ToprolXL 12.5mg daily * He has a CHADs2 Vasc score of at least 4 (age, CAD, HTN). Therefore, anticoagulation is indicated. Will shift him from lovenox to DOAC in the form of Xarelto 20mg daily starting tonight. * Check echo * TSH is normal (2) Chest pain: Code(s): R07.9 - Chest pain, unspecified Status: Acute Assessment and Plan: One occurrence of atypical sounding chest pain. Resolved with SL nitro, no recurrence. Initial troponins negative, third trop 0.047. My suspicion is that his chest discomfort and mild troponin leak are related to atrial fibrillation with RVR in the setting of known underlying coronary artery disease. * check troponin now to ensure it is not trending up * check echo * No plan for inpatient ischemic evaluation unless repeat troponin is significantly elevated, new/worsened LV/RWMA noted on echo, or his clinical picture shifts to suggest ACS. At this point I think it would be reasonable to pursue outpatient MPI. (3) Coronary artery disease: Code(s): I25.10 - Atherosclerotic heart disease of [place] coronary artery without angina pectoris Status: Chronic Assessment and Plan: Coronary artery disease s/p PAM x 2 in 2011. Appears to be stable. 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 EF 37% with akinetic basal inferolateral, basal anterolateral, and mid inferior segments. * Continue statin * D/c ASA in light of now being anticoagulated with Xarelto * As above in regards to ischemic eval (4) Hypertension: Code(s): I10 - Essential (primary) hypertension Status: Chronic Assessment and Plan: Blood pressure at goal continue current medical regimen without change. History of Present Illness History of Present Illness Consult date/time: 03/13/25 09:47 Requesting physician: Grisel Peralta MD Consult reason: chest pain and atrial fibrillation Reason For Visit: CP, uptrending trop, new onset a fib Narrative: Theron Eugene is an 79 year old male with coronary artery disease (STEMI 2012, PCI w/ PAM to distal RCA), hypertension, hyperlipidemia, Parkinson's disease. He presents to the hospital with a chief complaint of chest discomfort. Cardiology is consulted for chest pain and atrial fibrillation. Patient states he developed a squeezing chest discomfort in the epigastric area last night when he was getting ready for bed. He also endorses shortness of breath. He took 2 nitro tablets at home which resolved the discomfort, but given his history he was concerned and proceeded to the emergency department for further evaluation. He does note that prior to this episode of chest discomfort last night he has not experienced any chest pain. In the emergency department he had atrial fibrillation with rapic ventricular response, rates 110-120bpm. He was given metoprolol and spontaneously converted to sinus rhythm. At the time of my evaluation he is feeling well and has no cardiovascular complaints. Review of Systems 2 Review of Systems: All systems reviewed & are unremarkable except as noted in HPI and below PMFSH Past Medical History Medical History REM behavioral disorder History of pulmonary embolism History of deep vein thrombosis Hyperlipidemia History of pericarditis Benign prostatic hyperplasia Hypothyroidism Coronary artery disease Patient of Dr. Ge. Hypertension Surgical History Surgical History History of heart artery stent X2. Family History Family History Father Family history of congestive heart failure, Onset Age: 72 Patient's father is Family history of emphysema, Onset Age: 72 Mother Patient's mother is Grandparent Carcinoma of colon Father Chronic obstructive pulmonary disease Grandparent Colon cancer Father Congestive heart failure Grandparent Prostate carcinoma Social History Social History Social History: Surrogate decision maker: Hetal Alfaro, . CODE STATUS: Full code. Smoking packs per day: 0.5 Smoking cigarettes per day: 10.0 Years smoked: 65 Smoking pack-years: 32.50 Smoking status: Former smoker Tobacco type: cigarettes Second hand tobacco smoke exposure: Yes Smoking end date: 07/23/11 Alcohol intake: never Drinks per week: 2 Alcohol use details: hasnt drank in 4 months Substance use: never Substance use type: does not use Lack of Transportation: No Lack of Food: Never True Current Housing: I Have Housing Concerned About Future Housing: No Difficulty Paying Gas/Electric Bills: No Difficulty Paying for Meds: No Currently Unemployed: No Education: High School Diploma/GED Difficulty w/ Childcare or Family Care: No Living arrangements: with family Additional living arrangements comments: The patient lives in [place] with his . They have 2 grown children. Previously lived in [place] for 32 years. 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 Gender identity (if verbalized by the patient): Male Sexual Orientation (if Verbalized by the Patient): . Spiritual care concerns: No Meds Home Medications and Allergies Home Medications ?Medication ?Instructions ?Recorded ?Confirmed ?Type aspirin 81 mg tablet,delayed 81 mg PO DAILY 02/18/20 0 03/13/25 History release (Adult Low Dose Aspirin) atorvastatin 40 mg tablet 40 mg PO DAILY 02/18/2002/21 History polyethylene glycol 3350 17 17 g PO DAILY 06/05/22 History gram/dose oral powder (Miralax) nitroglycerin 0.4 mg sublingual 0.4 mg sublingual Q5M PRN chest 04/08/23 03/13/25 Rx tablet (Nitrostat) pain #25 tabs vitamins A,C,K-xbol-vpiepm 2,148 2 tablet PO BID 04/2503/13/25 History mcg-113 mg-45 mg-17.4 mg tablet (PreserVision AREDS) carbidopa 25 mg-levodopa 100 mg 2 tablet .Route TID #2 70 tabs 01/13/25 03/13/25 Rx tablet clonazepam 0.5 mg tablet (Klonopin) 0.5 mg PO QHS #30 tabs 01/13/25 03/13/25 Rx melatonin 10 mg capsule 10 mg PO QHS #90 caps 03/13/25 Rx midodrine 5 mg tablet See Rx Instructions .Route 0 01/13/25 03/13/25 Rx .COMPLEX #270 tabs rivastigmine 9.5 mg/24 hour 9.5 mg transdermal DAILY # 30 ea 01/13/25 03/13/25 Rx transdermal patch (Exelon Patch) levothyroxine 50 mcg tablet See Rx Instructions .Route 02/27/25 03/13/25 Rx .COMPLEX #90 tabs Allergies Allergy/AdvReac Type Severity Reaction Status Date / Time No Known Drug Allergies Allergy Mild Other Verified 01/13/25 11:00 Vital Signs Vital Signs - 24 hr 03/12/25 23:31 03/12/25 23:35 03/12/25 23:35 Temperature 36.6 C Pulse Rate 123 H 102 H Respiratory Rate 20 Blood Pressure 123/75 Pulse Oximetry 100 Oxygen Delivery Room Air Room Air 03/12/25 23:38 03/12/25 23:45 03/13/25 00:00 Temperature Pulse Rate 140 H 115 H 110 H Respiratory Rate 24 H 22 H 24 H Blood Pressure Pulse Oximetry 100 98 100 Oxygen Delivery 03/13/25 00:01 03/13/25 00:15 03/13/25 00:30 Temperature Pulse Rate 109 H 111 H 140 H Respiratory Rate 26 H 18 27 H Blood Pressure 104/74 95/77 L Pulse Oximetry 100 99 99 Oxygen Delivery 03/13/25 00:31 03/13/25 01:03 03/13/25 01:34 Temperature Pulse Rate 131 H 137 H 139 H Respiratory Rate 23 H 24 H 17 Blood Pressure Pulse Oximetry 99 100 100 Oxygen Delivery 03/13/25 01:45 03/13/25 02:48 03/13/25 03:21 Temperature Pulse Rate 117 H 90 82 Respiratory Rate 17 19 17 Blood Pressure Pulse Oximetry 100 98 100 Oxygen Delivery 03/13/25 03:30 03/13/25 03:45 03/13/25 03:51 Temperature Pulse Rate 76 76 85 Respiratory Rate 17 18 20 Blood Pressure 140/92 H Pulse Oximetry 100 100 100 Oxygen Delivery 03/13/25 04:00 03/13/25 04:01 03/13/25 04:13 Temperature Pulse Rate 72 70 79 Respiratory Rate 13 12 16 Blood Pressure 131/77 127/77 Pulse Oximetry 97 100 100 Oxygen Delivery 03/13/25 04:15 03/13/25 04:31 03/13/25 05:03 Temperature Pulse Rate 73 74 76 Respiratory Rate 13 14 17 Blood Pressure 121/78 114/60 119/81 Pulse Oximetry 100 97 99 Oxygen Delivery 03/13/25 06:00 03/13/25 07:00 03/13/25 08:00 Temperature 36.5 C Pulse Rate 66 68 72 Respiratory Rate 17 16 20 Blood Pressure 124/76 122/79 108/85 Pulse Oximetry 98 98 100 Oxygen Delivery Exam 2 Const: General: comfortable, no acute distress, alert and awake O rientation/consciousness: patient oriented x3 HENMT: Head: normal to inspection Eyes: General: appearance normal, both eyes and all related structures P upils: Equal, round and reactive pupils present Neck: Neck: normal visual inspection, supple and no JVD Resp: Effort & Inspection: normal respiratory effort Auscultation: clear to auscultation bilaterally Cardio: Rate: regular rate Rhythm: regular rhythm Heart sounds: S1 normal heart sound present, S2 normal heart sound present and no murmurs GI: Auscultation: normal bowel sounds Skin: General skin exam: normal color Neuro: General: patient oriented x3 Cranial nerves: Yes Equal, round and reactive pupils present Extrem: General: normal to inspection Psych: Appearance: grossly normal Mental Status: mental status grossly normal Results Labs and Meds 03/13/25 05:15 03/13/25 05:15 Lab results: Cardiac Enzymes 03/12/25 03/13/25 03/13/25 Range/Units 23:40 02:29 05:15 AST 27 25 (17-59) U/L Troponin I 0.016 0.030 D Cancelled (0.000-0.034) ng/mL 03/13/25 Range/Units 05:15 AST (17-59) U/L Troponin I 0.047 H* D (0.000-0.034) ng/mL Coagulation 03/12/25 03/13/25 Range/Units 23:40 05:15 PT 15.2 H 16.8 H (11.1-14.7) Seconds APTT 32.7 43.4 H (22.3-36.8) Seconds CBC 03/12/25 03/13/25 Range/Units 23:40 05:15 WBC 8.8 8.8 (4.5-10.0) K/mm3 RBC 4.49 L 4.06 L (4.6-6.20) M/mm3 Hgb 14.2 12.8 L (14.0-18.0) g/dL Hct 43.5 40.1 L (42.0-52.0) % Plt Count 138 L 128 L (150-375) k/mm3 Lymph # (Auto) 1.87 Not Reportable (0.9-3.2) K/mm3 [place] # (Auto) 0.8 H Not Reportable (0.1-0.6) K/mm3 Eos # (Auto) 0.2 Not Reportable (0-0.3) K/mm3 Baso # (Auto) 0.1 Not Reportable (0.0-0.1) K/mm3 Comprehensive Metabolic Panel 03/12/25 03/13/25 Range/Units 23:40 05:15 Sodium 139 139 (137-145) mmol/L Potassium 3.6 3.4 (3.4-5.0) mmol/L Chloride 106 109 H (98-107) mmol/L Carbon Dioxide 24 29 (22-30) mmol/L BUN 18 18 (9-20) mg/dL Creatinine 0.71 0.63 L (0.7-1.3) mg/dL Glucose 110 100 (65-110) mg/dL Calcium 9.6 8.9 (8.4-10.2) mg/dL AST 27 25 (17-59) U/L ALT 19 23 (6-50) U/L Alkaline Phosphatase 94 86 (38-126) U/L Total Protein 7.5 6.5 (6.3-8.2) g/dL Albumin 3.9 3.4 L (3.5-5.1) g/dL Intake and Output 03/12/25 03/13/25 03/13/25 23:59 07:59 15:59 Intake Total 0 Balance 0 Intake: Oral 0 Patient Weight 03/13/25 23:59 Weight 84.6 kg
[2025-03-13 10:41] LABS: Troponin I 0.056 ng/mL (0.000-0.034)
[2025-03-13 13:05] LABS: Troponin I 0.060 ng/mL (0.000-0.034)
--- NOTE | 2025-03-13 14:03 | P.CDI_ITS ---
<Statement entered by Kat Solorzano MD - 03/14/25 07:01> This documentation has been reviewed and approved.mild CDI Query Clarification Request BMI: 23.3 Nutritional Diagnostic Statement: Please refer to the comprehensive nutrition assessment for further information. If you agree with diagnosis of Moderate protein calorie malnutrition related to inadequate energy intake as evidenced by pt report of poor po intake for greater than 6 months, a significant weight loss of -8% x 2 months, and NFPE findings for moderate subcutaneous fat loss and moderate muscle wasting. Please specify severity if known: * Mild * Moderate * Severe * Other/Unknown
[2025-03-13] MEDS: PERFLUTREN LIPID MICROSPHERES 1.5 ML VIAL DILUTED TO 10 ML TOTAL VOLUME IV PUSH (15:57)
--- NOTE | 2025-03-13 15:58 | IVDEFINITY ---
Prior to administration of IV Definity the patient was educated on the risks and benefits of the imaging enhancing agent including potential adverse side effects. The patient verbalized understanding. Allergies were verified. No exclusion criteria were identified and at least one of the following inclusion criteria were met: 1) physician request, 2) patient technically difficult to image (per the [place] [employer] guidelines of two or more segments not discernable within the apical view), or 3) questionable left ventricular function. ?
[2025-03-13] MEDS: RIVAROXABAN 20 MG TABLET PO (17:36)
[2025-03-13] MEDS: METOPROLOL SUCCINATE EXT REL 12.5 MG TABCR PO (17:36)
[2025-03-13] MEDS: CARBIDOPA/LEVODOPA 25/100 MG TABLET 2 TABLET BY MOUTH (17:40)
[2025-03-13] MEDS: RIVASTIGMINE TARTRATE 9.5 MG PATCH 1 PATCH TRANSDERM (17:41)
--- NOTE | 2025-03-13 19:17 | PM.IMPN ---
Progress Note: A&P Assessment and Plan (1) Atrial fibrillation with rapid ventricular response: Code(s): I48.91 - Unspecified atrial fibrillation Status: Acute Assessment and Plan: No history of Afib, presented with chest tightness/discomfort [id number] 3 2D echo shows EF 40-45%, without wall motion abnormality, G1DD Cardiology consulted, appreciate rec Continue telemetry Continue metoprolol succinate 12.5 mg daily Xarelto 20 mg daily started today (2) Chest pain: Code(s): R07.9 - Chest pain, unspecified Status: Acute Assessment and Plan: Resolved (3) Coronary artery disease: Code(s): I25.10 - Atherosclerotic heart disease of [place] coronary artery without angina pectoris Status: Chronic Assessment and Plan: Continue aspirin, atorvastatin, metoprolol (4) Hyperlipidemia: Code(s): E78.5 - Hyperlipidemia, unspecified Status: Chronic Assessment and Plan: Continue Statin (5) Orthostatic hypotension: Code(s): I95.1 - Orthostatic hypotension Status: Chronic Assessment and Plan: BP is normal If BP is an issue, we will start midodrine (6) Parkinsons: Code(s): G20 - Parkinson's disease Status: Chronic Assessment and Plan: Resume home Sinemet Fall precaution (7) 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 Assessment and Plan: Continue Klonopin and Melatonin (8) Tobacco use: Code(s): Z72.0 - Tobacco use Status: Chronic Assessment and Plan: Nicotine Patch Subjective Date/time seen: 03/13/25 19:17 Interval history: Patient was evaluated today, at the bedside. He denies chest pain, shortness a breath, abdominal pain, nausea, vomiting, diarrhea. He was optimistic to go home but he has Parkinson disease. He has poor oral intake and loss of appetite. He lost 50 lb in a short period of time. Exam Const: Other: Pleasant, cooperative Chest: Other: Nonlabor breathing, no chest pain or tenderness Resp: Effort/Inspection: normal respiratory effort Cardio: Jugular Venous Distension: no JVD Rhythm: abnormal rhythm GI: Other: Soft, nontender and nondistended Objective Data Vital Signs Vital Signs: Vital Signs - 24 hr 03/12/25 23:31 03/12/25 23:35 03/12/25 23:35 Temperature 36.6 C Pulse Rate 123 H 102 H Respiratory Rate 20 Blood Pressure 123/75 Pulse Oximetry 100 Oxygen Delivery Room Air Room Air 03/12/25 23:38 03/12/25 23:45 03/13/25 00:00 Temperature Pulse Rate 140 H 115 H 110 H Respiratory Rate 24 H 22 H 24 H Blood Pressure Pulse Oximetry 100 98 100 Oxygen Delivery 03/13/25 00:01 03/13/25 00:15 03/13/25 00:30 Temperature Pulse Rate 109 H 111 H 140 H Respiratory Rate 26 H 18 27 H Blood Pressure 104/74 95/77 L Pulse Oximetry 100 99 99 Oxygen Delivery 03/13/25 00:31 03/13/25 01:03 03/13/25 01:34 Temperature Pulse Rate 131 H 137 H 139 H Respiratory Rate 23 H 24 H 17 Blood Pressure Pulse Oximetry 99 100 100 Oxygen Delivery 03/13/25 01:45 03/13/25 02:48 03/13/25 03:21 Temperature Pulse Rate 117 H 90 82 Respiratory Rate 17 19 17 Blood Pressure Pulse Oximetry 100 98 100 Oxygen Delivery 03/13/25 03:30 03/13/25 03:45 03/13/25 03:51 Temperature Pulse Rate 76 76 85 Respiratory Rate 17 18 20 Blood Pressure 140/92 H Pulse Oximetry 100 100 100 Oxygen Delivery 03/13/25 04:00 03/13/25 04:01 03/13/25 04:13 Temperature Pulse Rate 72 70 79 Respiratory Rate 13 12 16 Blood Pressure 131/77 127/77 Pulse Oximetry 97 100 100 Oxygen Delivery 03/13/25 04:15 03/13/25 04:31 03/13/25 05:03 Temperature Pulse Rate 73 74 76 Respiratory Rate 13 14 17 Blood Pressure 121/78 114/60 119/81 Pulse Oximetry 100 97 99 Oxygen Delivery 03/13/25 06:00 03/13/25 07:00 03/13/25 08:00 Temperature 36.5 C Pulse Rate 66 68 72 Respiratory Rate 17 16 20 Blood Pressure 124/76 122/79 108/85 Pulse Oximetry 98 98 100 Oxygen Delivery 03/13/25 08:00 03/13/25 08:00 03/13/25 10:00 Temperature Pulse Rate 75 74 Respiratory Rate Blood Pressure Pulse Oximetry Oxygen Delivery Room Air 03/13/25 11:55 03/13/25 12:00 03/13/25 12:00 Temperature 36.4 C Pulse Rate 69 75 Respiratory Rate 16 Blood Pressure 136/79 Pulse Oximetry 100 Oxygen Delivery Room Air 03/13/25 14:00 03/13/25 15:31 03/13/25 15:35 Temperature 36.7 C Pulse Rate 70 68 Respiratory Rate 18 Blood Pressure 162/82 H Pulse Oximetry 100 Oxygen Delivery Room Air 03/13/25 16:00 03/13/25 17:36 03/13/25 18:00 Temperature Pulse Rate 71 74 76 Respiratory Rate Blood Pressure Pulse Oximetry Oxygen Delivery 03/13/25 19:10 Temperature 36.9 C Pulse Rate 81 Respiratory Rate 17 Blood Pressure 136/70 Pulse Oximetry 99 Oxygen Delivery Intake/Output Intake/Output: Intake & Output 03/10/25 03/11/25 03/12/25 03/13/25 23:59 23:59 23:59 23:59 Intake Total 240 Output Total 375 Balance -135 Meds/Results Medications: Active Medications Generic Name Dose Route Start Last Admin Trade Name Freq PRN Reason Stop Dose Admin Atorvastatin Calcium 40 mg 03/14/25 09:00 Atorvastatin 40 Mg Tablet PO DAILY GAYATRI Carbidopa/Levodopa 2 tablet 03/13/25 17:00 03/13/25 17:40 Carbidopa/Levodopa 25/100 Mg Tablet BY MOUTH 2 tablet TID GAYATRI Administration Clonazepam 0.25 mg 03/13/25 21:00 Clonazepam (*Crx) 0.25 Mg Tablet PO QHS GAYATRI Clonazepam 0.25 mg 03/13/25 21:00 Clonazepam (*Crx) 0.25 Mg Tablet PO QHS PRN anxiety Levothyroxine Sodium 50 mcg 03/14/25 06:30 Levothyroxine Sodium 50 Mcg Tablet BY MOUTH DAILY@0630 GAYATRI Melatonin 10 mg 03/13/25 21:00 Melatonin 5 Mg Tablet PO QHS GAYATRI Metoprolol Succinate 12.5 mg 03/13/25 09:00 03/13/25 17:36 Metoprolol Succinate Ext Rel 12.5 Mg Tabcr PO 12.5 mg QAM GAYATRI Administration Nicotine 1 patch 03/13/25 09:00 03/13/25 17:40 Nicotine (*Pbkc) 21 Mg Patch TRANSDERM Not Given DAILY GAYATRI Polyethylene Glycol 17 gm 03/14/25 09:00 Polyethylene Glycol 3350 17 Gm Powd.Pack PO DAILY [facility] Rivaroxaban 20 mg 03/13/25 17:00 03/13/25 17:36 Rivaroxaban 20 Mg Tablet PO 20 mg DAILY@1700 [facility] Administration Rivastigmine 1 patch 03/14/25 09:00 03/13/25 17:41 Rivastigmine Tartrate 9.5 Mg Patch TRANSDERM 1 patch DAILY GAYATRI Administration Radiology Results: ITS Impressions Chest X-Ray 03/13/25 00:01 IMPRESSION: No focal infiltrate or effusion. Labs Labs: Laboratory Results - last 24 hr 03/12/25 03/13/25 03/13/25 23:40 02:29 04:52 WBC 8.8 RBC 4.49 L Hgb 14.2 Hct 43.5 MCV 96.9 MCH 31.6 MCHC 32.6 RDW 12.9 Plt Count 138 L MPV 12.9 H Immature Gran % (Auto) 0.1 Neut % (Auto) 65.8 Lymph % (Auto) 21.3 [place] % (Auto) 9.0 H Eos % (Auto) 2.7 Baso % (Auto) 1.1 Lymph # (Auto) 1.87 [place] # (Auto) 0.8 H Eos # (Auto) 0.2 Baso # (Auto) 0.1 Abs Immat Gran (auto) 0.01 Absolute Neuts (auto) 5.8 Absolute Nucleated RBC 0.000 Total Counted Neutrophils % (Manual) Band Neutrophils % Not Reportable Lymphocytes % (Manual) Monocytes % (Manual) Eosinophils % (Manual) Basophils % (Manual) Nucleated RBC % 0.0 Abs Lymphs (Manual) Abs Monocytes (Manual) Absolute Eos (Manual) Abs Basophils (Manual) Smudge Cells Platelet Estimate Slightly decreased Hypochromasia 1+ Anisocytosis 1+ Schistocytes None seen PT 15.2 H INR 1.2 APTT 32.7 Sodium 139 Potassium 3.6 Chloride 106 Carbon Dioxide 24 Anion Gap 9 BUN 18 Creatinine 0.71 Estim Creat Clear Calc 86 Estimated GFR > 60 Glucose 110 Calcium 9.6 Magnesium 1.8 Total Bilirubin 0.9 AST 27 ALT 19 Alkaline Phosphatase 94 Troponin I 0.016 0.030 D Total Protein 7.5 Albumin 3.9 Lipase 15 L TSH (Reflex) 2.830 Urine Color Dark yellow Urine Appearance Cloudy H Urine pH 5.5 Ur Specific [place] 1.023 Urine Protein 1+ H Urine Glucose (UA) Negative Urine Ketones Trace H Ur Blood (Man) Negative Urine Nitrate Negative Urine Bilirubin Negative Urine Urobilinogen 1.0 Add Ur Microanalysis Reviewed Leukocyte Esterase Rfl Trace H Urine RBC 0-2 Urine WBC 0-5 Ur Squamous Epith Cells None seen Calcium Oxalate Crystal Present Urine Bacteria None seen Urine Casts 3-5 Hyaline Casts Present Urine Mucus Present 03/13/25 03/13/25 03/13/25 05:15 05:15 09:55 WBC 8.8 RBC 4.06 L Hgb 12.8 L Hct 40.1 L MCV 98.8 MCH 31.5 MCHC 31.9 L RDW 12.9 Plt Count 128 L MPV 12.9 H Immature Gran % (Auto) Not Reportable Neut % (Auto) Not Reportable Lymph % (Auto) Not Reportable [place] % (Auto) Not Reportable Eos % (Auto) Not Reportable Baso % (Auto) Not Reportable Lymph # (Auto) Not Reportable [place] # (Auto) Not Reportable Eos # (Auto) Not Reportable Baso # (Auto) Not Reportable Abs Immat Gran (auto) Not Reportable Absolute Neuts (auto) Not Reportable Absolute Nucleated RBC Not Reportable Total Counted 100 Neutrophils % (Manual) 67 Band Neutrophils % Not Reportable Lymphocytes % (Manual) 24.0 Monocytes % (Manual) 4 Eosinophils % (Manual) 3 Basophils % (Manual) 2 H Nucleated RBC % Not Reportable Abs Lymphs (Manual) 2.11 Abs Monocytes (Manual) 0.35 Absolute Eos (Manual) 0.26 Abs Basophils (Manual) 0.17 H Smudge Cells Present Platelet Estimate Decreased Hypochromasia Anisocytosis 1+ Schistocytes None seen PT 16.8 H INR 1.4 APTT 43.4 H Sodium 139 Potassium 3.4 Chloride 109 H Carbon Dioxide 29 Anion Gap 1 L BUN 18 Creatinine 0.63 L Estim Creat Clear Calc 95 Estimated GFR > 60 Glucose 100 Calcium 8.9 Magnesium 2.0 Total Bilirubin 0.9 AST 25 ALT 23 Alkaline Phosphatase 86 Troponin I Cancelled 0.047 H* D 0.056 H* Total Protein 6.5 Albumin 3.4 L Lipase TSH (Reflex) Urine Color Urine Appearance Urine pH Ur Specific [place] Urine Protein Urine Glucose (UA) Urine Ketones Ur Blood (Man) Urine Nitrate Urine Bilirubin Urine Urobilinogen Add Ur Microanalysis Leukocyte Esterase Rfl Urine RBC Urine WBC Ur Squamous Epith Cells Calcium Oxalate Crystal Urine Bacteria Urine Casts Hyaline Casts Urine Mucus 03/13/25 12:27 WBC RBC Hgb Hct MCV MCH MCHC RDW Plt Count MPV Immature Gran % (Auto) Neut % (Auto) Lymph % (Auto) [place] % (Auto) Eos % (Auto) Baso % (Auto) Lymph # (Auto) [place] # (Auto) Eos # (Auto) Baso # (Auto) Abs Immat Gran (auto) Absolute Neuts (auto) Absolute Nucleated RBC Total Counted Neutrophils % (Manual) Band Neutrophils % Lymphocytes % (Manual) Monocytes % (Manual) Eosinophils % (Manual) Basophils % (Manual) Nucleated RBC % Abs Lymphs (Manual) Abs Monocytes (Manual) Absolute Eos (Manual) Abs Basophils (Manual) Smudge Cells Platelet Estimate Hypochromasia Anisocytosis Schistocytes PT INR APTT Sodium Potassium Chloride Carbon Dioxide Anion Gap BUN Creatinine Estim Creat Clear Calc Estimated GFR Glucose Calcium Magnesium Total Bilirubin AST ALT Alkaline Phosphatase Troponin I 0.060 H* Total Protein Albumin Lipase TSH (Reflex) Urine Color Urine Appearance Urine pH Ur Specific [place] Urine Protein Urine Glucose (UA) Urine Ketones Ur Blood (Man) Urine Nitrate Urine Bilirubin Urine Urobilinogen Add Ur Microanalysis Leukocyte Esterase Rfl Urine RBC Urine WBC Ur Squamous Epith Cells Calcium Oxalate Crystal Urine Bacteria Urine Casts Hyaline Casts Urine Mucus Quality VTE Prophylaxis VTE prophylaxis: pharmacologic ordered
[2025-03-13] MEDS: MELATONIN 5 MG TABLET 10 MG PO (20:25)
[2025-03-13] MEDS: clonazePAM (*CRX) 0.25 MG TABLET PO (20:26)
[2025-03-14] VITALS (15 sets, daily range): BP systolic 137–176; BP diastolic 77–93; PULSE 68–93; RESP 14–20; TEMP 36.3–36.8; O2SAT 94–100
[2025-03-14] MEDS: clonazePAM (*CRX) 0.25 MG TABLET PO ×2 (00:53→20:32)
[2025-03-14] MEDS: METOPROLOL SUCCINATE EXT REL 12.5 MG TABCR PO (08:36)
[2025-03-14] MEDS: ATORVASTATIN 40 MG TABLET PO (08:36)
[2025-03-14] MEDS: CARBIDOPA/LEVODOPA 25/100 MG TABLET 2 TABLET BY MOUTH ×3 (08:37→17:37)
[2025-03-14] MEDS: NICOTINE (*PBKC) 21 MG PATCH 1 PATCH TRANSDERM (08:37)
--- NOTE | 2025-03-14 09:21 | P.PNCA_ITS ---
Progress Note: A&P Assessment and Plan (1) Atrial fibrillation with rapid ventricular response: Code(s): I48.91 - Unspecified atrial fibrillation Status: Acute Assessment and Plan: This is a new diagnosis. He converted to sinus rhythm and remains in sinus rhythm currently. * Continue ToprolXL 12.5mg daily * He has a CHADs2 Vasc score of at least 4 (age, CAD, HTN). Therefore, anticoagulation is indicated. Continue Xarelto * Check echo * TSH is normal (2) Chest pain: Code(s): R07.9 - Chest pain, unspecified Status: Acute Assessment and Plan: One occurrence of atypical sounding chest pain. Resolved with SL nitro, no recurrence. Initial troponins negative, third trop 0.047. My suspicion is that his chest discomfort and mild troponin leak are related to atrial fibrillation with RVR in the setting of known underlying coronary artery disease. * check troponin now to ensure it is not trending up * check echo * No plan for inpatient ischemic evaluation unless repeat troponin is significantly elevated, new/worsened LV/RWMA noted on echo, or his clinical picture shifts to suggest ACS. Consider outpatient stress testing. (3) Coronary artery disease: Code(s): I25.10 - Atherosclerotic heart disease of [place] coronary artery without angina pectoris Status: Chronic Assessment and Plan: Coronary artery disease s/p PAM x 2 in 2011. Appears to be stable. 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 EF 37% with akinetic basal inferolateral, basal anterolateral, and mid inferior segments. * Continue statin * continue Xarelto * As above in regards to ischemic eval (4) Hypertension: Code(s): I10 - Essential (primary) hypertension Status: Chronic Assessment and Plan: Blood pressure at goal continue current medical regimen without change. Subjective Date/time seen: Date of service 03/14/25 09:21 Theron Eugene is an 79 year old male with coronary artery disease (STEMI 2011, PCI w/ PAM to distal RCA), hypertension, hyperlipidemia, Parkinson's disease. He presents to the hospital with a chief complaint of chest discomfort. Cardiology is consulted for chest pain and atrial fibrillation. Patient states he developed a squeezing chest discomfort in the epigastric area last night when he was getting ready for bed. He also endorses shortness of breath. He took 2 nitro tablets at home which resolved the discomfort, but given his history he was concerned and proceeded to the emergency department for further evaluation. He does note that prior to this episode of chest discomfort last night he has not experienced any chest pain. In the emergency department he had atrial fibrillation with rapic ventricular response, rates 110-120bpm. He was given metoprolol and spontaneously converted to sinus rhythm. At the time of my evaluation he is feeling well and has no cardiovascular complaints. Interval history: Patient was evaluated today, at the bedside. He denies chest pain, shortness a breath, abdominal pain, nausea, vomiting, diarrhea. He was optimistic to go home but he has Parkinson disease. He has poor oral intake and loss of appetite. He lost 50 lb in a short period of time. Date of service 03/14/2025-resting comfortably in bed. Maintaining sinus rhythm. Review of Systems Review of Systems: All systems reviewed & are unremarkable except as noted in HPI and below Exam Const: General: comfortable, no acute distress, alert and awake Orientation/consciousness: patient oriented x3 HENMT: Head: normal to inspection Eyes: General: appearance normal, both eyes and all related structures Pupils: Equal, round and reactive pupils present Neck: Neck: normal visual inspection, supple and no JVD Resp: Effort & Inspection: normal respiratory effort Auscultation: clear to auscultation bilaterally Cardio: Rate: regular rate Rhythm: regular rhythm Heart sounds: S1 normal heart sound present, S2 normal heart sound present and no murmurs GI: Auscultation: normal bowel sounds Skin: General skin exam: normal color Neuro: General: patient oriented x3 Cranial nerves: Yes Equal, round and reactive pupils present Extrem: General: normal to inspection Psych: Appearance: grossly normal Mental Status: mental status grossly normal Objective Data Vital Signs Vital Signs: Vital Signs - 24 hr 03/13/25 10:00 03/13/25 11:55 03/13/25 12:00 Temperature 36.4 C Pulse Rate 74 69 75 Respiratory Rate 16 Blood Pressure 136/79 Pulse Oximetry 100 Oxygen Delivery 03/13/25 12:00 03/13/25 14:00 03/13/25 15:31 Temperature 36.7 C Pulse Rate 70 68 Respiratory Rate 18 Blood Pressure 162/82 H Pulse Oximetry 100 Oxygen Delivery Room Air 03/13/25 15:35 03/13/25 16:00 03/13/25 17:36 Temperature Pulse Rate 71 74 Respiratory Rate Blood Pressure Pulse Oximetry Oxygen Delivery Room Air 03/13/25 18:00 03/13/25 19:10 03/13/25 21:25 Temperature 36.9 C Pulse Rate 76 81 78 Respiratory Rate 17 Blood Pressure 136/70 Pulse Oximetry 99 Oxygen Delivery 03/13/25 22:00 03/13/25 23:06 03/14/25 00:00 Temperature 36.7 C Pulse Rate 76 72 72 Respiratory Rate 17 Blood Pressure 132/54 L Pulse Oximetry 99 Oxygen Delivery 03/14/25 02:00 03/14/25 03:20 03/14/25 04:00 Temperature 36.8 C Pulse Rate 76 68 73 Respiratory Rate 17 Blood Pressure 163/85 H Pulse Oximetry 100 Oxygen Delivery 03/14/25 04:41 03/14/25 06:00 03/14/25 07:37 Temperature 36.4 C Pulse Rate 70 72 75 Respiratory Rate 14 Blood Pressure 176/93 H Pulse Oximetry 100 Oxygen Delivery 03/14/25 08:36 Temperature Pulse Rate 82 Respiratory Rate Blood Pressure Pulse Oximetry Oxygen Delivery Intake/Output Intake/Output: Intake & Output 03/11/25 03/12/25 03/13/25 03/14/25 23:59 23:59 23:59 23:59 Intake Total 240 0 Output Total 525 250 Balance -285 -250 Meds/Results Medications: Active Medications Generic Name Dose Route Start Last Admin Trade Name Freq PRN Reason Stop Dose Admin Atorvastatin Calcium 40 mg 03/14/25 09:00 03/14/25 08:36 Atorvastatin 40 Mg Tablet PO 40 mg DAILY GAYATRI Administration Carbidopa/Levodopa 2 tablet 03/13/25 17:00 03/14/25 08:37 Carbidopa/Levodopa 25/100 Mg Tablet BY MOUTH 2 tablet TID GAYATRI Administration Clonazepam 0.25 mg 03/13/25 21:00 03/13/25 20:26 Clonazepam (*Crx) 0.25 Mg Tablet PO 0.25 mg QHS GAYATRI Administration Clonazepam 0.25 mg 03/13/25 21:00 03/14/25 00:53 Clonazepam (*Crx) 0.25 Mg Tablet PO 0.25 mg QHS PRN Administration anxiety Levothyroxine Sodium 50 mcg 03/14/25 06:30 03/14/25 05:36 Levothyroxine Sodium 50 Mcg Tablet BY MOUTH Not Given DAILY@0630 [facility] Melatonin 10 mg 03/13/25 21:00 03/13/25 20:25 Melatonin 5 Mg Tablet PO 10 mg QHS GAYATRI Administration Metoprolol Succinate 12.5 mg 03/13/25 09:00 03/14/25 08:36 Metoprolol Succinate Ext Rel 12.5 Mg Tabcr PO 12.5 mg QAM GAYATRI Administration Nicotine 1 patch 03/13/25 09:00 03/14/25 08:37 Nicotine (*Pbkc) 21 Mg Patch TRANSDERM 1 patch DAILY GAYATRI Administration Polyethylene Glycol 17 gm 03/14/25 09:00 03/14/25 08:36 Polyethylene Glycol 3350 17 Gm Powd.Pack PO 17 gm DAILY [facility] Administration Rivaroxaban 20 mg 03/13/25 17:00 03/13/25 17:36 Rivaroxaban 20 Mg Tablet PO 20 mg DAILY@1700 [facility] Administration Rivastigmine 1 patch 03/14/25 09:00 03/13/25 17:41 Rivastigmine Tartrate 9.5 Mg Patch TRANSDERM 1 patch DAILY GAYATRI Administration Radiology Results: ITS Impressions Chest X-Ray 03/13/25 00:01 IMPRESSION: No focal infiltrate or effusion. Labs Labs: Laboratory Results - last 24 hr 03/13/25 03/13/25 09:55 12:27 Troponin I 0.056 H* 0.060 H*
--- NOTE | 2025-03-14 12:22 | PCSTNOTE ---
Attempted to see pt. this afternoon for a cognitive evaluation. Pt.'s and sitter were present at bedside. Upon entering the room, pt. was attempting to get out of bed. ST assisted in keeping pt. safe and in bed. Pt. AOx1 (self). Pt. did not attempt to answer any questions associated with the cognitive evaluation when prompted. He stated comments such as This is so stupid Little girl I don't have all day to do this stuff and I'm done talking. ST consulted with pt.'s who indicated at baseline pt. is inconsistent in his ability to follow directives and answer basic questions and that this skills set has been waxing and waning since pt. was diagnosed with dementia approximately 1.5 years prior. When asked about pt.'s daily routine, his shared that the pt.'s interests are limited to largely sleeping, and that he does still like to smoke on occasion. Pt.'s indicated that pt.'s interest in eating has diminished over recent months, but denied pt. experiencing any overt signs/symptoms of dysphagia. ST will see pt. at bedside on 03/15/25 to attempt cognitive evaluation per physician's orders. Both attending nursing staff and physician have been briefed on this evaluation attempt.
--- NOTE | 2025-03-14 15:23 | PCPTNOTE ---
per RN and PCT, pt is currently confused and needs redirecting as pt is impulsively attempting to get out of bed, reportedly pt's cognitive ability is a little better in the morning, will attempt in the AM
--- NOTE | 2025-03-14 15:58 | PC.NURSE ---
Patient's at bedside and request to speak with nurse about patient's current condition. Concerned that patient hasn't eaten any meals and has not slept in in a few days she would like to know what the doctor is planning on doing. Explained in great length and detailed the POC listed in the Patient's chart from the Financial Sales Associate and that no POC was placed by Hospitalist at this time. Patient's requested to speak with the hospitalist about the POC and getting something to help him. Call placed to Hospitalist, Dr. Solorzano and informed of 's request. Dr. Solorzano stated he will call patient's and answer her questions. Informed what was stated and she was thankful and verbalized understanding. Patient remains in bed restless at this time. Sitter remains at bedside. Side rails up. Bed alarm on and call light in reach. Will continue to monitor. Hawa Pak RN
[2025-03-14] MEDS: RIVAROXABAN 20 MG TABLET PO (17:37)
--- NOTE | 2025-03-14 19:08 | PM.IMPN ---
Progress Note: A&P Assessment and Plan (1) Atrial fibrillation with rapid ventricular response: Code(s): I48.91 - Unspecified atrial fibrillation Status: Acute Assessment and Plan: No history of Afib, presented with chest tightness/discomfort [id number] 3 2D echo shows EF 40-45%, without wall motion abnormality, G1DD Cardiology consulted, appreciate rec Continue telemetry Continue metoprolol succinate 12.5 mg daily Continue Xarelto 20 mg daily (2) Chest pain: Code(s): R07.9 - Chest pain, unspecified Status: Acute Assessment and Plan: Resolved (3) Coronary artery disease: Code(s): I25.10 - Atherosclerotic heart disease of [place] coronary artery without angina pectoris Status: Chronic Assessment and Plan: Continue aspirin, atorvastatin, metoprolol (4) Hyperlipidemia: Code(s): E78.5 - Hyperlipidemia, unspecified Status: Chronic Assessment and Plan: Continue Statin (5) Orthostatic hypotension: Code(s): I95.1 - Orthostatic hypotension Status: Chronic Assessment and Plan: BP is normal If BP is an issue, we will start midodrine (6) Parkinsons: Code(s): G20 - Parkinson's disease Status: Chronic Assessment and Plan: Resume home Sinemet Fall precaution (7) 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 Assessment and Plan: Continue Klonopin and Melatonin (8) Tobacco use: Code(s): Z72.0 - Tobacco use Status: Chronic Assessment and Plan: Nicotine Patch (9) Sundowning: Code(s): F05 - Delirium due to known physiological condition Status: Acute Assessment and Plan: Continue to reorient patient, avoid unnecessary antipsychotics Create a calm evening environment: Close curtains or blinds to prevent confusion from shadows if all did not work, give him melatonin and Zyprexa 10 mg IM x1 Subjective Date/time seen: 03/14/25 19:08 Interval history: Overnight he had sundowning. Only he was oriented to person. She was agitated too. No fever or chills overnight, no abdominal pain no constipation. was concerned for her about her being dependent on her. She may not be able to continue caring for him due to worsening of his mental status. She is looking for half-way placement. Exam Const: Other: Alert and oriented to person, place, time and situation Chest: Palpation/Inspection: normal inspection of the chest Resp: Auscultation: clear to auscultation bilaterally Cardio: Jugular Venous Distension: no JVD Rate: Yes regular rate Rhythm: regular rhythm GI: Auscultation: normal bowel sounds Palpation/Percussion: Yes non-tender and Yes no guarding Skin: General: normal color Neuro: Motor: Yes normal upper and lower motor strength symmetrical Psych: Appearance: grossly normal Affect: Yes normal affect Objective Data Vital Signs Vital Signs: Vital Signs - 24 hr 03/13/25 19:10 03/13/25 21:25 03/13/25 22:00 Temperature 36.9 C Pulse Rate 81 78 76 Respiratory Rate 17 Blood Pressure 136/70 Pulse Oximetry 99 Oxygen Delivery 03/13/25 23:06 03/14/25 00:00 03/14/25 02:00 Temperature 36.7 C Pulse Rate 72 72 76 Respiratory Rate 17 Blood Pressure 132/54 L Pulse Oximetry 99 Oxygen Delivery 03/14/25 03:20 03/14/25 04:00 03/14/25 04:41 Temperature 36.8 C Pulse Rate 68 73 70 Respiratory Rate 17 Blood Pressure 163/85 H Pulse Oximetry 100 Oxygen Delivery 03/14/25 06:00 03/14/25 07:37 03/14/25 08:00 Temperature 36.4 C Pulse Rate 72 75 Respiratory Rate 14 Blood Pressure 176/93 H Pulse Oximetry 100 100 Oxygen Delivery Room Air 03/14/25 08:00 03/14/25 08:36 03/14/25 10:00 Temperature Pulse Rate 81 82 93 Respiratory Rate Blood Pressure Pulse Oximetry Oxygen Delivery 03/14/25 12:00 03/14/25 16:00 03/14/25 16:00 Temperature 36.4 C Pulse Rate 90 75 76 Respiratory Rate 16 Blood Pressure 142/82 H Pulse Oximetry 96 Oxygen Delivery Intake/Output Intake/Output: Intake & Output 03/11/25 03/12/25 03/13/25 03/14/25 23:59 23:59 23:59 23:59 Intake Total 240 0 Output Total 525 650 Balance -285 -650 Meds/Results Medications: Active Medications Generic Name Dose Route Start Last Admin Trade Name Freq PRN Reason Stop Dose Admin Atorvastatin Calcium 40 mg 03/14/25 09:00 03/14/25 08:36 Atorvastatin 40 Mg Tablet PO 40 mg DAILY GAYATRI Administration Carbidopa/Levodopa 2 tablet 03/13/25 17:00 03/14/25 17:37 Carbidopa/Levodopa 25/100 Mg Tablet BY MOUTH 2 tablet TID GAYATRI Administration Clonazepam 0.25 mg 03/13/25 21:00 03/13/25 20:26 Clonazepam (*Crx) 0.25 Mg Tablet PO 0.25 mg QHS GAYATRI Administration Clonazepam 0.25 mg 03/13/25 21:00 03/14/25 00:53 Clonazepam (*Crx) 0.25 Mg Tablet PO 0.25 mg QHS PRN Administration anxiety Levothyroxine Sodium 50 mcg 03/14/25 06:30 03/14/25 05:36 Levothyroxine Sodium 50 Mcg Tablet BY MOUTH Not Given DAILY@0630 GAYATRI Melatonin 10 mg 03/13/25 21:00 03/13/25 20:25 Melatonin 5 Mg Tablet PO 10 mg QHS GAYATRI Administration Metoprolol Succinate 12.5 mg 03/13/25 09:00 03/14/25 08:36 Metoprolol Succinate Ext Rel 12.5 Mg Tabcr PO 12.5 mg QAM GAYATRI Administration Nicotine 1 patch 03/13/25 09:00 03/14/25 08:37 Nicotine (*Pbkc) 21 Mg Patch TRANSDERM 1 patch DAILY GAYATRI Administration Polyethylene Glycol 17 gm 03/14/25 09:00 03/14/25 08:36 Polyethylene Glycol 3350 17 Gm Powd.Pack PO 17 gm DAILY GAYATRI Administration Rivaroxaban 20 mg 03/13/25 17:00 03/14/25 17:37 Rivaroxaban 20 Mg Tablet PO 20 mg DAILY@1700 [facility] Administration Rivastigmine 1 patch 03/14/25 09:00 03/13/25 17:41 Rivastigmine Tartrate 9.5 Mg Patch TRANSDERM 1 patch DAILY GAYATRI Administration Radiology Results: ITS Impressions Chest X-Ray 03/13/25 00:01 IMPRESSION: No focal infiltrate or effusion.
[2025-03-14 20:07] LABS: Hematocrit 40.1 % (42.0-52.0); Hemoglobin 13.1 g/dL (14.0-18.0); Immature Platelet Fraction Pct 15.8 % (0.9-11.2); Mean Corpuscular HGB Conc 32.7 g/dl (32-36); Mean Corpuscular Hemoglobin 31.5 pg (26-34); Mean Corpuscular Volume 96.4 fl (80-100); Platelet Count Result 135 k/mm3 (150-375); Red Blood Count 4.16 M/mm3 (4.6-6.20); White Blood Count 10.8 K/mm3 (4.5-10.0)
[2025-03-14 20:24] LABS: Alanine Aminotransferase 8 U/L (6-50); Albumin Level 3.6 g/dL (3.5-5.1); Alkaline Phosphatase 86 U/L (38-126); Anion Gap 5 mmol/L (4-12); Aspartate Amino Transferase 30 U/L (17-59); Bilirubin,Total 1.0 mg/dL (0.2-1.3); Blood Urea Nitrogen 12 mg/dL (9-20); Calcium 9.3 mg/dL (8.4-10.2); Carbon Dioxide 27 mmol/L (22-30); Chloride 106 mmol/L (98-107); Estimated CRCL calculation 115 ml/min; Estimated Glomerular Filt Rate > 60; Glucose 127 mg/dL (65-110); Magnesium 2.0 mg/dL (1.6-2.3); Potassium 3.1 mmol/L (3.4-5.0); Sodium 138 mmol/L (137-145); Total Protein 7.0 g/dL (6.3-8.2)
[2025-03-14] MEDS: MELATONIN 5 MG TABLET 10 MG PO (20:32)
[2025-03-15] VITALS (11 sets, daily range): BP systolic 109–127; BP diastolic 66–80; PULSE 63–79; RESP 18–20; TEMP 36.4–36.7; O2SAT 97–99
[2025-03-15] MEDS: LEVOTHYROXINE SODIUM 50 MCG TABLET BY MOUTH (06:31)
[2025-03-15] MEDS: CARBIDOPA/LEVODOPA 25/100 MG TABLET 2 TABLET BY MOUTH ×3 (08:27→17:57)
[2025-03-15] MEDS: ATORVASTATIN 40 MG TABLET PO (08:27)
[2025-03-15] MEDS: RIVASTIGMINE TARTRATE 9.5 MG PATCH 1 PATCH TRANSDERM (08:28)
[2025-03-15] MEDS: METOPROLOL SUCCINATE EXT REL 12.5 MG TABCR PO (08:28)
[2025-03-15] MEDS: NICOTINE (*PBKC) 21 MG PATCH 1 PATCH TRANSDERM (08:28)
--- NOTE | 2025-03-15 14:18 | PM.IMPN ---
Progress Note: A&P Assessment and Plan (1) Atrial fibrillation with rapid ventricular response: Code(s): I48.91 - Unspecified atrial fibrillation Status: Acute Assessment and Plan: No history of Afib, presented with chest tightness/discomfort, found to be AFib with RVR [id number] 3 2D echo shows EF 40-45%, without wall motion abnormality, G1DD Cardiology consulted, appreciate rec Continue metoprolol succinate 12.5 mg daily Continue Xarelto 20 mg daily Continue telemetry (2) Chest pain: Code(s): R07.9 - Chest pain, unspecified Status: Acute Assessment and Plan: Resolved (3) Coronary artery disease: Code(s): I25.10 - Atherosclerotic heart disease of [place] coronary artery without angina pectoris Status: Chronic Assessment and Plan: Continue aspirin, atorvastatin, and metoprolol (4) Hyperlipidemia: Code(s): E78.5 - Hyperlipidemia, unspecified Status: Chronic Assessment and Plan: Continue Statin (5) Orthostatic hypotension: Code(s): I95.1 - Orthostatic hypotension Status: Chronic Assessment and Plan: BP is normal If BP is an issue, we will start midodrine (6) Parkinsons: Code(s): G20 - Parkinson's disease Status: Chronic Assessment and Plan: Resume home Sinemet Fall precaution (7) 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 Assessment and Plan: Continue Klonopin and Melatonin (8) Tobacco use: Code(s): Z72.0 - Tobacco use Status: Chronic Assessment and Plan: Nicotine Patch (9) Sundowning: Code(s): F05 - Delirium due to known physiological condition Status: Acute Assessment and Plan: Continue to reorient patient, avoid unnecessary antipsychotics Create a calm evening environment: Close curtains or blinds to prevent confusion from shadows if all did not work, give him melatonin and Zyprexa 10 mg IM x1 Subjective Date/time seen: 03/15/25 14:18 Interval history: She slept well overnight-this more new looks a bit tired but appropriately answered all my questions. She was all right and oriented x3. He denies chest pain/chest tightness/nausea/vomiting/abdominal pain/fever. Objective Data Vital Signs Vital Signs: Vital Signs - 24 hr 03/14/25 16:00 03/14/25 16:00 03/14/25 20:00 Temperature 36.4 C Pulse Rate 75 76 Respiratory Rate 16 Blood Pressure 142/82 H Pulse Oximetry 96 100 Oxygen Delivery Room Air Fraction of Inspired Oxygen 03/14/25 20:00 03/14/25 21:55 03/14/25 23:56 Temperature 36.3 C L Pulse Rate 72 85 68 Respiratory Rate 20 17 Blood Pressure 137/77 Pulse Oximetry 96 94 Oxygen Delivery Room Air Fraction of Inspired Oxygen 21 03/15/25 00:00 03/15/25 04:00 03/15/25 07:54 Temperature 36.4 C L Pulse Rate 67 63 75 Respiratory Rate 20 Blood Pressure 127/78 Pulse Oximetry 98 Oxygen Delivery Fraction of Inspired Oxygen 03/15/25 08:00 03/15/25 08:28 03/15/25 08:28 Temperature Pulse Rate 73 79 Respiratory Rate Blood Pressure Pulse Oximetry Oxygen Delivery Room Air Fraction of Inspired Oxygen 03/15/25 11:24 03/15/25 12:00 Temperature 36.7 C Pulse Rate 71 67 Respiratory Rate 18 Blood Pressure 109/66 Pulse Oximetry 97 Oxygen Delivery Fraction of Inspired Oxygen Intake/Output Intake/Output: Intake & Output 03/12/25 03/13/25 03/14/25 03/15/25 23:59 23:59 23:59 23:59 Intake Total 240 0 462 Output Total 525 650 600 Balance -285 -650 -138 Meds/Results Medications: Active Medications Generic Name Dose Route Start Last Admin Trade Name Freq PRN Reason Stop Dose Admin Atorvastatin Calcium 40 mg 03/14/25 09:00 03/15/25 08:27 Atorvastatin 40 Mg Tablet PO 40 mg DAILY GAYATRI Administration Carbidopa/Levodopa 2 tablet 03/13/25 17:00 03/15/25 08:27 Carbidopa/Levodopa 25/100 Mg Tablet BY MOUTH 2 tablet TID GAYATRI Administration Clonazepam 0.25 mg 03/13/25 21:00 03/14/25 20:32 Clonazepam (*Crx) 0.25 Mg Tablet PO 0.25 mg QHS GAYATRI Administration Clonazepam 0.25 mg 03/13/25 21:00 03/14/25 00:53 Clonazepam (*Crx) 0.25 Mg Tablet PO 0.25 mg QHS PRN Administration anxiety Levothyroxine Sodium 50 mcg 03/14/25 06:30 03/15/25 06:31 Levothyroxine Sodium 50 Mcg Tablet BY MOUTH 50 mcg DAILY@0630 GAYATRI Administration Melatonin 10 mg 03/13/25 21:00 03/14/25 20:32 Melatonin 5 Mg Tablet PO 10 mg QHS GAYATRI Administration Metoprolol Succinate 12.5 mg 03/13/25 09:00 03/15/25 08:28 Metoprolol Succinate Ext Rel 12.5 Mg Tabcr PO 12.5 mg QAM GAYATRI Administration Nicotine 1 patch 03/13/25 09:00 03/15/25 08:28 Nicotine (*Pbkc) 21 Mg Patch TRANSDERM 1 patch DAILY GAYATRI Administration Polyethylene Glycol 17 gm 03/14/25 09:00 03/15/25 08:29 Polyethylene Glycol 3350 17 Gm Powd.Pack PO 17 gm DAILY GAYATRI Administration Rivaroxaban 20 mg 03/13/25 17:00 03/14/25 17:37 Rivaroxaban 20 Mg Tablet PO 20 mg DAILY@1700 GAYATRI Administration Rivastigmine 1 patch 03/14/25 09:00 03/15/25 08:28 Rivastigmine Tartrate 9.5 Mg Patch TRANSDERM 1 patch DAILY GAYATRI Administration Radiology Results: ITS Impressions Chest X-Ray 03/13/25 00:01 IMPRESSION: No focal infiltrate or effusion. Labs Labs: Laboratory Results - last 24 hr 03/14/25 20:00 WBC 10.8 H RBC 4.16 L Hgb 13.1 L Hct 40.1 L MCV 96.4 MCH 31.5 MCHC 32.7 RDW 12.6 Plt Count 135 L MPV 13.4 H % Immature Plt Fraction 15.8 H Sodium 138 Potassium 3.1 L Chloride 106 Carbon Dioxide 27 Anion Gap 5 BUN 12 D Creatinine 0.51 L Estim Creat Clear Calc 115 Estimated GFR > 60 Glucose 127 H Calcium 9.3 Magnesium 2.0 Total Bilirubin 1.0 AST 30 ALT 8 Alkaline Phosphatase 86 Total Protein 7.0 Albumin 3.6
[2025-03-15] MEDS: RIVAROXABAN 20 MG TABLET PO (17:57)
[2025-03-15 19:58] LABS: Hematocrit 43.7 % (42.0-52.0); Hemoglobin 14.3 g/dL (14.0-18.0); Immature Platelet Fraction Pct 15.1 % (0.9-11.2); Mean Corpuscular HGB Conc 32.7 g/dl (32-36); Mean Corpuscular Hemoglobin 31.8 pg (26-34); Mean Corpuscular Volume 97.3 fl (80-100); Platelet Count Result 144 k/mm3 (150-375); Red Blood Count 4.49 M/mm3 (4.6-6.20); White Blood Count 10.5 K/mm3 (4.5-10.0)
[2025-03-15 20:52] LABS: Alanine Aminotransferase 12 U/L (6-50); Albumin Level 3.7 g/dL (3.5-5.1); Alkaline Phosphatase 88 U/L (38-126); Anion Gap 4 mmol/L (4-12); Aspartate Amino Transferase 33 U/L (17-59); Bilirubin,Total 0.9 mg/dL (0.2-1.3); Blood Urea Nitrogen 15 mg/dL (9-20); Calcium 9.6 mg/dL (8.4-10.2); Carbon Dioxide 32 mmol/L (22-30); Chloride 103 mmol/L (98-107); Estimated CRCL calculation 88 ml/min; Estimated Glomerular Filt Rate > 60; Glucose 128 mg/dL (65-110); Potassium 3.1 mmol/L (3.4-5.0); Sodium 139 mmol/L (137-145); Total Protein 7.2 g/dL (6.3-8.2)
[2025-03-15] MEDS: MELATONIN 5 MG TABLET 10 MG PO (21:14)
[2025-03-15] MEDS: clonazePAM (*CRX) 0.25 MG TABLET PO (21:14)
[2025-03-16] VITALS (10 sets, daily range): BP systolic 118–130; BP diastolic 65–72; PULSE 62–84; RESP 17–20; TEMP 36.4–36.8; O2SAT 96–99
[2025-03-16] MEDS: LEVOTHYROXINE SODIUM 50 MCG TABLET BY MOUTH (05:31)
[2025-03-16] MEDS: CARBIDOPA/LEVODOPA 25/100 MG TABLET 2 TABLET BY MOUTH ×3 (08:15→16:57)
[2025-03-16] MEDS: METOPROLOL SUCCINATE EXT REL 12.5 MG TABCR PO (08:16)
[2025-03-16] MEDS: ATORVASTATIN 40 MG TABLET PO (08:18)
[2025-03-16] MEDS: RIVASTIGMINE TARTRATE 9.5 MG PATCH 1 PATCH TRANSDERM (08:19)
[2025-03-16] MEDS: NICOTINE (*PBKC) 21 MG PATCH 1 PATCH TRANSDERM (08:19)
[2025-03-16] MEDS: RIVAROXABAN 20 MG TABLET PO (16:57)
--- NOTE | 2025-03-16 17:28 | PM.IMPN ---
Progress Note: A&P Assessment and Plan (1) Atrial fibrillation with rapid ventricular response: Code(s): I48.91 - Unspecified atrial fibrillation Status: Acute Assessment and Plan: No history of Afib, presented with chest tightness/discomfort, found to be AFib with RVR [id number] 3 2D echo shows EF 40-45%, without wall motion abnormality, G1DD Cardiology consulted, appreciate rec Continue metoprolol succinate 12.5 mg daily Continue Xarelto 20 mg daily Continue telemetry (2) Chest pain: Code(s): R07.9 - Chest pain, unspecified Status: Acute Assessment and Plan: Resolved (3) Coronary artery disease: Code(s): I25.10 - Atherosclerotic heart disease of [place] coronary artery without angina pectoris Status: Chronic Assessment and Plan: Continue aspirin, atorvastatin, and metoprolol (4) Hyperlipidemia: Code(s): E78.5 - Hyperlipidemia, unspecified Status: Chronic Assessment and Plan: Continue Statin (5) Orthostatic hypotension: Code(s): I95.1 - Orthostatic hypotension Status: Chronic Assessment and Plan: BP is normal If BP is an issue, we will start midodrine (6) Parkinsons: Code(s): G20 - Parkinson's disease Status: Chronic Assessment and Plan: Resume home Sinemet Fall precaution (7) 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 Assessment and Plan: Continue Klonopin and Melatonin (8) Tobacco use: Code(s): Z72.0 - Tobacco use Status: Chronic Assessment and Plan: Nicotine Patch (9) Sundowning: Code(s): F05 - Delirium due to known physiological condition Status: Acute Assessment and Plan: Continue to reorient patient, avoid unnecessary antipsychotics Create a calm evening environment: Close curtains or blinds to prevent confusion from shadows if all did not work, give him melatonin and Zyprexa 10 mg IM x1 Plan Pending placement Subjective Date/time seen: 03/16/25 17:28 Interval history: He slept well overnight-this more He looks a bit tired but appropriately answered all my questions. He was alert and oriented x3. He denies chest pain/chest tightness/nausea/vomiting/abdominal pain/fever. was at bedside. Objective Data Vital Signs Vital Signs: Vital Signs - 24 hr 03/15/25 20:00 03/15/25 20:00 03/15/25 21:07 Temperature Pulse Rate 73 Respiratory Rate Blood Pressure Pulse Oximetry 99 Oxygen Delivery Room Air Room Air 03/16/25 00:00 03/16/25 00:00 03/16/25 04:00 Temperature 36.4 C Pulse Rate 75 66 67 Respiratory Rate 20 Blood Pressure 118/71 Pulse Oximetry 97 Oxygen Delivery 03/16/25 08:00 03/16/25 08:12 03/16/25 08:16 Temperature 36.7 C Pulse Rate 80 81 83 Respiratory Rate 20 Blood Pressure 123/65 Pulse Oximetry 99 Oxygen Delivery 03/16/25 08:59 03/16/25 12:00 03/16/25 16:00 Temperature 36.4 C Pulse Rate 69 69 Respiratory Rate 18 Blood Pressure 128/72 Pulse Oximetry 99 Oxygen Delivery Room Air Intake/Output Intake/Output: Intake & Output 03/13/25 03/14/25 03/15/25 03/16/25 23:59 23:59 23:59 23:59 Intake Total 240 0 852 990 Output Total 593 780 1604 350 Balance -285 -650 -148 640 Meds/Results Medications: Active Medications Generic Name Dose Route Start Last Admin Trade Name Freq PRN Reason Stop Dose Admin Aspirin 81 mg 03/17/25 09:00 Aspirin 81 Mg Enteric Tablet PO DAILY GAYATRI Atorvastatin Calcium 40 mg 03/14/25 09:00 03/16/25 08:18 Atorvastatin 40 Mg Tablet PO 40 mg DAILY GAYATRI Administration Carbidopa/Levodopa 2 tablet 03/13/25 17:00 03/16/25 16:57 Carbidopa/Levodopa 25/100 Mg Tablet BY MOUTH 2 tablet TID GAYATRI Administration Clonazepam 0.25 mg 03/13/25 21:00 03/15/25 21:14 Clonazepam (*Crx) 0.25 Mg Tablet PO 0.25 mg QHS GAYATRI Administration Clonazepam 0.25 mg 03/13/25 21:00 03/14/25 00:53 Clonazepam (*Crx) 0.25 Mg Tablet PO 0.25 mg QHS PRN Administration anxiety Levothyroxine Sodium 50 mcg 03/14/25 06:30 03/16/25 05:31 Levothyroxine Sodium 50 Mcg Tablet BY MOUTH 50 mcg DAILY@0630 GAYATRI Administration Melatonin 10 mg 03/13/25 21:00 03/15/25 21:14 Melatonin 5 Mg Tablet PO 10 mg QHS GAYATRI Administration Metoprolol Succinate 12.5 mg 03/13/25 09:00 03/16/25 08:16 Metoprolol Succinate Ext Rel 12.5 Mg Tabcr PO 12.5 mg QAM GAYATRI Administration Nicotine 1 patch 03/13/25 09:00 03/16/25 08:19 Nicotine (*Pbkc) 21 Mg Patch TRANSDERM 1 patch DAILY GAYATRI Administration Polyethylene Glycol 17 gm 03/14/25 09:00 03/16/25 08:21 Polyethylene Glycol 3350 17 Gm Powd.Pack PO 17 gm DAILY GAYATRI Administration Rivaroxaban 20 mg 03/13/25 17:00 03/16/25 16:57 Rivaroxaban 20 Mg Tablet PO 20 mg DAILY@1700 GAYATRI Administration Rivastigmine 1 patch 03/14/25 09:00 03/16/25 08:19 Rivastigmine Tartrate 9.5 Mg Patch TRANSDERM 1 patch DAILY GAYATRI Administration Radiology Results: ITS Impressions Chest X-Ray 03/13/25 00:01 IMPRESSION: No focal infiltrate or effusion. Labs Labs: Laboratory Results - last 24 hr 03/15/25 19:50 WBC 10.5 H RBC 4.49 L Hgb 14.3 Hct 43.7 MCV 97.3 MCH 31.8 MCHC 32.7 RDW 12.7 Plt Count 144 L MPV 13.1 H % Immature Plt Fraction 15.1 H Sodium 139 Potassium 3.1 L Chloride 103 Carbon Dioxide 32 H Anion Gap 4 BUN 15 Creatinine 0.68 L Estim Creat Clear Calc 88 Estimated GFR > 60 Glucose 128 H Calcium 9.6 Total Bilirubin 0.9 AST 33 ALT 12 Alkaline Phosphatase 88 Total Protein 7.2 Albumin 3.7 Quality VTE Prophylaxis VTE prophylaxis: pharmacologic ordered
--- NOTE | 2025-03-16 18:13 | PC.NURSE ---
RN updated Dr. Solorzano with pt's decrease in urine output. Pt has only urinated 200cc thus far today. RN bladder scanned pt and it showed 530ml in bladder. Pt has no bladder distention or pain at this time. New order to walk pt around and see if he can urinate on his own. If pt is unable to urinate on his own in 2 hours repeat bladder scan.
--- NOTE | 2025-03-16 18:25 | PC.NURSE ---
On 03/16/25, the WEIGH TANK OPERATOR, [Erwin Pak ], provided care and completed [facility] documentation on this patient. I have reviewed the WEIGH T[employer] OPERATOR's documentation and agree with the findings.
[2025-03-16] MEDS: clonazePAM (*CRX) 0.25 MG TABLET PO (20:22)
[2025-03-16 20:53] LABS: Hematocrit 43.2 % (42.0-52.0); Hemoglobin 14.2 g/dL (14.0-18.0); Immature Platelet Fraction Pct 17.9 % (0.9-11.2); Mean Corpuscular HGB Conc 32.9 g/dl (32-36); Mean Corpuscular Hemoglobin 31.8 pg (26-34); Mean Corpuscular Volume 96.9 fl (80-100); Platelet Count Result 144 k/mm3 (150-375); Red Blood Count 4.46 M/mm3 (4.6-6.20); White Blood Count 11.2 K/mm3 (4.5-10.0)
[2025-03-16] MEDS: MELATONIN 5 MG TABLET 10 MG PO (21:00)
[2025-03-16 21:15] LABS: Alanine Aminotransferase 11 U/L (6-50); Albumin Level 3.6 g/dL (3.5-5.1); Alkaline Phosphatase 75 U/L (38-126); Anion Gap 5 mmol/L (4-12); Aspartate Amino Transferase 35 U/L (17-59); Bilirubin,Total 0.6 mg/dL (0.2-1.3); Blood Urea Nitrogen 22 mg/dL (9-20); Calcium 9.4 mg/dL (8.4-10.2); Carbon Dioxide 32 mmol/L (22-30); Chloride 100 mmol/L (98-107); Estimated CRCL calculation 92 ml/min; Estimated Glomerular Filt Rate > 60; Glucose 131 mg/dL (65-110); Potassium 3.2 mmol/L (3.4-5.0); Sodium 137 mmol/L (137-145); Total Protein 7.1 g/dL (6.3-8.2)
[2025-03-17] VITALS: PULSE 69
[2025-03-17 04:00] VITALS: PULSE 66
[2025-03-17] MEDS: LEVOTHYROXINE SODIUM 50 MCG TABLET BY MOUTH (06:12)
[2025-03-17 07:36] VITALS: BP 112/63; PULSE 63; RESP 20; TEMP 36.8; O2SAT 99
[2025-03-17 08:00] VITALS: PULSE 63; PULSE 77; RESP 20; O2SAT 99
--- NOTE | 2025-03-17 08:48 | P.PNIM_ITS ---
Progress Note: A&P Assessment and Plan (1) Atrial fibrillation with rapid ventricular response: Code(s): I48.91 - Unspecified atrial fibrillation Status: Acute Assessment and Plan: No history of Afib, presented with chest tightness/discomfort, found to be AFib with RVR [id number] 3 2D echo shows EF 40-45%, without wall motion abnormality, G1DD Cardiology consulted, appreciate rec Continue metoprolol succinate 12.5 mg daily Continue Xarelto 20 mg daily Continue telemetry (2) Chest pain: Code(s): R07.9 - Chest pain, unspecified Status: Acute Assessment and Plan: Resolved (3) Coronary artery disease: Code(s): I25.10 - Atherosclerotic heart disease of [place] coronary artery without angina pectoris Status: Chronic Assessment and Plan: Continue aspirin, atorvastatin, and metoprolol (4) Hyperlipidemia: Code(s): E78.5 - Hyperlipidemia, unspecified Status: Chronic Assessment and Plan: Continue Statin (5) Orthostatic hypotension: Code(s): I95.1 - Orthostatic hypotension Status: Chronic Assessment and Plan: BP is normal If BP is an issue, we will start midodrine (6) Parkinsons: Code(s): G20 - Parkinson's disease Status: Chronic Assessment and Plan: Resume home Sinemet Fall precaution (7) 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 Assessment and Plan: Continue Klonopin and Melatonin (8) Tobacco use: Code(s): Z72.0 - Tobacco use Status: Chronic Assessment and Plan: Nicotine Patch (9) Sundowning: Code(s): F05 - Delirium due to known physiological condition Status: Acute Assessment and Plan: Continue to reorient patient, avoid unnecessary antipsychotics Create a calm evening environment: Close curtains or blinds to prevent confusion from shadows if all did not work, give him melatonin and Zyprexa 10 mg IM x1 Plan Pending placement Subjective Date/time seen: 03/17/25 08:48 Review of Systems Review of Systems: All systems reviewed & are unremarkable except as noted in HPI and below Exam Const: General: comfortable and no acute distress Other: Alert and oriented to person, place, time and situation HENMT: Face/Nose/Sinus: Normal nares present Mouth: Yes moist mucous membranes Eyes: General: appearance normal, both eyes and all related structures EOM: EOMs intact bilaterally Neck: Neck: supple and no JVD Lymphatic: lymphadenopathy not noted Chest: Chest palpation & inspection: normal inspection of the chest Other: Nonlabor breathing, no chest pain or tenderness Resp: Effort & Inspection: normal respiratory effort Auscultation: clear to auscultation bilaterally Cardio: Jugular venous distension: no JVD Rate: regular rate and tachycardic Rhythm: regular rhythm and abnormal rhythm irregularly irregular (New onset A-fib) Heart sounds: no gallops, no murmurs and no rubs GI: Auscultation: normal bowel sounds Other: Soft, nontender and nondistended Skin: General skin exam: normal color, no rashes or lesions noted and no erythema Wounds: no wounds Neuro: Speech: normal speech Motor exam (neuro): 5/5 motor strength present throughout and Normal motor muscle tone present throughout Sensory Exam: normal sensation Extrem: Other: Freely and equally MAEW without deficit. Psych: Appearance: grossly normal Mental Status: mental status grossly normal Affect: normal affect Objective Data Vital Signs Vital Signs: Vital Signs - 24 hr 03/16/25 08:59 03/16/25 12:00 03/16/25 16:00 Temperature 97.6 F Pulse Rate 69 69 Respiratory Rate 18 Blood Pressure 128/72 Pulse Oximetry 99 Oxygen Delivery Room Air Fraction of Inspired Oxygen 03/16/25 16:00 03/16/25 20:00 03/16/25 20:35 Temperature Pulse Rate 62 73 84 Respiratory Rate Blood Pressure Pulse Oximetry 96 Oxygen Delivery Room Air Fraction of Inspired Oxygen 21 03/16/25 23:45 03/17/25 00:00 03/17/25 04:00 Temperature 98.3 F Pulse Rate 70 69 66 Respiratory Rate 17 Blood Pressure 130/69 Pulse Oximetry 97 Oxygen Delivery Fraction of Inspired Oxygen 03/17/25 07:36 Temperature 98.2 F Pulse Rate 63 Respiratory Rate 20 Blood Pressure 112/63 Pulse Oximetry 99 Oxygen Delivery Fraction of Inspired Oxygen Intake/Output Intake/Output: Intake & Output 03/14/25 03/15/25 03/16/25 03/17/25 23:59 23:59 23:59 23:59 Intake Total 0 852 990 420 Output Total 650 1000 450 800 Balance -650 148 540 -380 Meds/Results Medications: Active Medications Generic Name Dose Route Start Last Admin Trade Name Freq PRN Reason Stop Dose Admin Aspirin 81 mg 03/17/25 09:00 Aspirin 81 Mg Enteric Tablet PO DAILY GAYATRI Atorvastatin Calcium 40 mg 03/14/25 09:00 03/16/25 08:18 Atorvastatin 40 Mg Tablet PO 40 mg DAILY GAYATRI Administration Carbidopa/Levodopa 2 tablet 03/13/25 17:00 03/16/25 16:57 Carbidopa/Levodopa 25/100 Mg Tablet BY MOUTH 2 tablet TID GAYATRI Administration Clonazepam 0.25 mg 03/13/25 21:00 03/16/25 20:22 Clonazepam (*Crx) 0.25 Mg Tablet PO 0.25 mg QHS GAYATRI Administration Clonazepam 0.25 mg 03/13/25 21:00 03/14/25 00:53 Clonazepam (*Crx) 0.25 Mg Tablet PO 0.25 mg QHS PRN Administration anxiety Levothyroxine Sodium 50 mcg 03/14/25 06:30 03/17/25 06:12 Levothyroxine Sodium 50 Mcg Tablet BY MOUTH 50 mcg DAILY@0630 GAYATRI Administration Melatonin 10 mg 03/13/25 21:00 03/16/25 21:00 Melatonin 5 Mg Tablet PO 10 mg QHS GAYATRI Administration Metoprolol Succinate 12.5 mg 03/13/25 09:00 03/16/25 08:16 Metoprolol Succinate Ext Rel 12.5 Mg Tabcr PO 12.5 mg QAM GAYATRI Administration Nicotine 1 patch 03/13/25 09:00 03/16/25 08:19 Nicotine (*Pbkc) 21 Mg Patch TRANSDERM 1 patch DAILY GAYATRI Administration Polyethylene Glycol 17 gm 03/14/25 09:00 03/16/25 08:21 Polyethylene Glycol 3350 17 Gm Powd.Pack PO 17 gm DAILY GAYATRI Administration Rivaroxaban 20 mg 03/13/25 17:00 03/16/25 16:57 Rivaroxaban 20 Mg Tablet PO 20 mg DAILY@1700 [facility] Administration Rivastigmine 1 patch 03/14/25 09:00 03/16/25 08:19 Rivastigmine Tartrate 9.5 Mg Patch TRANSDERM 1 patch DAILY GAYATRI Administration Radiology Results: ITS Impressions Chest X-Ray 03/13/25 00:01 IMPRESSION: No focal infiltrate or effusion. Labs Labs: Laboratory Results - last 24 hr 03/13/25 03/16/25 12:27 20:32 WBC 11.2 H RBC 4.46 L Hgb 14.2 Hct 43.2 MCV 96.9 MCH 31.8 MCHC 32.9 RDW 12.8 Plt Count 144 L MPV 13.5 H % Immature Plt Fraction 17.9 H Sodium 137 Potassium 3.2 L Chloride 100 Carbon Dioxide 32 H Anion Gap 5 BUN 22 H Creatinine 0.64 L Estim Creat Clear Calc 92 Estimated GFR > 60 Glucose 131 H Calcium 9.4 Total Bilirubin 0.6 AST 35 ALT 11 Alkaline Phosphatase 75 Total Protein 7.1 Albumin 3.6 Clonazepam Quality VTE Prophylaxis VTE prophylaxis: pharmacologic ordered Hospitalist [facility] Advance Care Plan I have confirmed that the patient's Advanced Care Plan is present, code status is documented, or surrogate decision maker is listed in patient medical record.: Yes Medication Reconciliation I have utilized all available resources to obtain, update and review the patients current medications (includes all prescriptions, OTC, herbals, cannabis, and nutritional supplements).: Yes
[2025-03-17] MEDS: NICOTINE (*PBKC) 21 MG PATCH 1 PATCH TRANSDERM (09:05)
[2025-03-17 09:06] VITALS: PULSE 78
[2025-03-17] MEDS: METOPROLOL SUCCINATE EXT REL 12.5 MG TABCR PO (09:06)
[2025-03-17] MEDS: RIVASTIGMINE TARTRATE 9.5 MG PATCH 1 PATCH TRANSDERM (09:06)
[2025-03-17] MEDS: ATORVASTATIN 40 MG TABLET PO (09:06)
[2025-03-17] MEDS: CARBIDOPA/LEVODOPA 25/100 MG TABLET 2 TABLET BY MOUTH ×2 (09:06→13:15)
[2025-03-17] MEDS: ASPIRIN 81 MG ENTERIC TABLET PO (09:06)
[2025-03-17 09:44] LABS: Troponin I 0.017 ng/mL (0.000-0.034)
--- NOTE | 2025-03-17 09:49 | PM.DS ---
DS: Admitting Diagnosis Discharge Date 03/17/2025 Admitting Diagnosis Chest pain DS: Discharge Diagnosis Discharge Diagnosis (1) Atrial fibrillation with rapid ventricular response: Code(s): I48.91 - Unspecified atrial fibrillation Status: Acute Assessment and Plan: Please refer to hospital course for brief summary No history of Afib, presented with chest tightness/discomfort, found to be AFib with RVR [id number] 3 2D echo shows EF 40-45%, without wall motion abnormality, G1DD Cardiology consulted, appreciate rec Continue metoprolol succinate 12.5 mg daily Continue Xarelto 20 mg daily Continue telemetry (2) Chest pain: Code(s): R07.9 - Chest pain, unspecified Status: Acute Assessment and Plan: Resolved (3) Coronary artery disease: Code(s): I25.10 - Atherosclerotic heart disease of [place] coronary artery without angina pectoris Status: Chronic Assessment and Plan: Continue aspirin, atorvastatin, and metoprolol (4) Hyperlipidemia: Code(s): E78.5 - Hyperlipidemia, unspecified Status: Chronic Assessment and Plan: Continue Statin (5) Orthostatic hypotension: Code(s): I95.1 - Orthostatic hypotension Status: Chronic Assessment and Plan: BP is normal If BP is an issue, we will start midodrine (6) Parkinsons: Code(s): G20 - Parkinson's disease Status: Chronic Assessment and Plan: Resume home Sinemet Fall precaution (7) 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 Assessment and Plan: Continue Klonopin and Melatonin (8) Tobacco use: Code(s): Z72.0 - Tobacco use Status: Chronic Assessment and Plan: Nicotine Patch (9) ing: Code(s): F05 - Delirium due to known physiological condition Status: Acute Assessment and Plan: Continue to reorient patient, avoid unnecessary antipsychotics Create a calm evening environment: Close curtains or blinds to prevent confusion from shadows if all did not work, give him melatonin and Zyprexa 10 mg IM x1 DS: Summary Hospital Course Hospital Course: 79 year old male pt with PMH of Parkinson's Disease, CAD s/p stents x2, memory loss, HTN, PE, DVT, HLD, Pericarditis, BPH, Orthostatic Hypotension, Nicotine abuse and REM Behavioral Disorder who presented to the ER this evening with complaints of having a squeezing in the middle of his sternum while he was getting ready for bed at approximately 2200. There was no radiation of the pain, but there was nausea, mild dyspnea and lightheadedness. No sweating. All of his symptoms are now resolved, but upon presentation to the ER, he was found to be in new onset A-fib. Rate mostly controlled in the 1-teens. He is a pt of Dr. Ge, Cardiology. In the ER workup was performed with EKG that showed A-fib 114 bpm, Unremarkable CBC and CMP, magnesium of 1.8, coags normal, lipase of 15, and TSH of 2.830. VS were noted to be stable with pulse ranging 1-teens to 140 as the exception. Pt's initial troponin was 0.016, with the repeat increasing to 0.030. He is being admitted in the current setting for further workup, evaluation and definitive management. I assumed care 03/17: Patient has a new diagnosis of atrial fibrillation and is rhythm is in sinus. Julio Vasc score 4 and patient already on Xarelto. TSH is normal and echocardiogram shows of 40-45% with grade 1 diastolic dysfunction. Cardiology was consulted and believes the rise in troponin possibly due to AFib not ACS. Patient has history of Coronary artery disease s/p PAM x 2 in 2011. 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 EF 37% with akinetic basal inferolateral, basal anterolateral, and mid inferior segments. Cardiology advised the patient to continue statin and Xarelto. On the day of discharge, the patient was seen and examined. Vital signs were stable. Physical exam were stable and labs were reviewed at length. Discharge instructions, medications, and follow-up appointments were discussed with the patient at length and all day questions were answered. ER warnings were given. Status at Discharge Cognitive/behavioral status at discharge: Stable Time Spent with Patient Time attestation: Total time spent providing and/or coordinating discharge services: 45 minute Exam Const: Other: Alert and oriented to person, place, time and situation Chest: Other: Nonlabor breathing, no chest pain or tenderness GI: Other: Soft, nontender and nondistended Extrem: Other: Freely and equally MAEW without deficit. DS: Data Data Completed and Pending Labs on day of discharge: Labs from last 24 hours 03/17/25 03/16/25 03/13/25 09:13 20:32 12:27 WBC 11.2 H RBC 4.46 L Hgb 14.2 Hct 43.2 MCV 96.9 MCH 31.8 MCHC 32.9 RDW 12.8 Plt Count 144 L MPV 13.5 H % Immature Plt Fraction 17.9 H Sodium 137 Potassium 3.2 L Chloride 100 Carbon Dioxide 32 H Anion Gap 5 BUN 22 H Creatinine 0.64 L Estim Creat Clear Calc 92 Estimated GFR > 60 Glucose 131 H Calcium 9.4 Total Bilirubin 0.6 AST 35 ALT 11 Alkaline Phosphatase 75 Troponin I 0.017 Total Protein 7.1 Albumin 3.6 Clonazepam Discharge Plan Discharge Attending physician on discharge: Jesus Murcia Consulting providers: Ramona Driscoll Discharging Clinician: Jesus Murcia Anticipated Discharge Date/Time: 03/17/25 09:54 Patient Disposition: SNF Activity: as tolerated Diet: heart healthy Discharge Instructions: Check blood pressure 1 to 2 times a day. Record and bring into your doctor for review. Call your doctor if your blood pressure is greater than 180/110 or less than 90/45. Walk with cane or other assist device. Take precautions to avoid falls. Rise slowly from a lying or sitting position. Pause before standing or walking. Contact your doctor or call 911 and come to the Emergency Room if you have any type of trauma, lightheadedness with standing or other worrisome symptoms. Avoid NSAIDs (ibuprofen, naproxen, Aleve). Tylenol is safe to take. Follow-up with your primary care provider in 1-2 weeks. Please call for appointment. Follow-up with Cardiology in 2-4 weeks. Please call for an appointment. Thank you for using [facility] for your health care needs. Patient Instructions: A-fib (Atrial Fibrillation) (GEN), Medication Safety for Older Adults (GEN), High Troponin Levels (GEN) Patient Language: Monegasque Stand Alone Forms: General Discharge Information, Snf Discharge Follow-up/Referrals: Ramona Driscoll DO [Physician, Cardiology] Mitch Munoz DO [Primary Care Provider, Internal Medicine] Discharge Medications: New metoprolol succinate [Toprol XL] 25 mg tablet extended release 24 hr 12.5 mg PO QAM Qty: 30 0RF clonazepam [Klonopin] 0.5 mg tablet 0.5 mg PO HS Qty: 10 0RF Rx Instructions: administer 30 minutes before bedtime Xarelto 20 mg Tablet 20 mg PO DAILY@1700 Qty: 30 0RF Continued aspirin [Adult Low Dose Aspirin] 81 mg tablet,delayed release (DR/EC) 81 mg PO DAILY atorvastatin 40 mg tablet 40 mg PO DAILY PreserVision AREDS 2,148 mcg-113 mg-45 mg-17.4mg tablet 2 tablet PO BID Rx Instructions: administer with AM and PM meals carbidopa-levodopa 25-100 mg tablet 2 tablet .ROUTE TID Qty: 270 3RF Rx Instructions: Increase slowly to 1/2 tablet 3 times a day for 2 weeks and then 2 tablets 3 times a day to continue rivastigmine [Exelon Patch] 9.5 mg/24 hour patch 24 hour 9.5 mg transdermal DAILY Qty: 30 7RF midodrine 5 mg tablet See Rx Instructions .ROUTE .COMPLEX Qty: 270 2RF Dose Instruction: TAKE 1 TABLET BY MOUTH THREE TIMES DAILY. DO NOT GIVE LAST DOSE OF DAY AFTER 6 PM OR WITHIN 4 HOURS OF BEDTIME Rx Instructions: TAKE 1 TABLET BY MOUTH THREE TIMES DAILY. DO NOT GIVE LAST DOSE OF DAY AFTER 6 PM OR WITHIN 4 HOURS OF BEDTIME melatonin 10 mg capsule 10 mg PO QHS Qty: 90 3RF polyethylene glycol 3350 [Miralax] 17 gram/dose Powder 17 g PO DAILY nitroglycerin [Nitrostat] 0.4 mg tablet, sublingual 0.4 mg SUBLINGUAL Q5M PRN (Reason: chest pain) Qty: 25 2RF Rx Instructions: do not exceed 3 doses per episode levothyroxine 50 mcg tablet See Rx Instructions .ROUTE .COMPLEX Qty: 90 0RF Dose Instruction: TAKE 1 TABLET BY MOUTH EVERY DAY Rx Instructions: TAKE 1 TABLET BY MOUTH EVERY DAY Discontinued clonazepam [Klonopin] 0.5 mg tablet 0.5 mg PO QHS Qty: 30 5RF Rx Instructions: administer 30 minutes before bedtime, may start with half tablet at bedtime increase to 1 tablet if necessary Date of admission: 03/14/25 17:24 Primary Care Provider: Mitch Munoz Admitting Provider: Mumtaz Arora Attending physician on admission: Mumtaz Arora Condition: Improved
[2025-03-17 12:00] VITALS: PULSE 75
== END 2025-03-17 14:33 | DRG 309 ==
LOC: ANHED 03-13 02:04 → ANHIMU 03-13 08:10
PROVIDERS: Internal Medicine; Nurse Practitioner; Nurse Practitioner Adult Health; Student in an Organized Health Care Education/Training Program; Admitting Provider Family Medicine; Emergency Provider Emergency Medicine; PCP Internal Medicine; Visit Provider General Practice
DX: I48.91 Unspecified atrial fibrillation (principal); E44.1 Mild protein-calorie malnutrition; F05 Delirium due to known physiological condition; I25.10 Atherosclerotic heart disease of native coronary artery without angina pectoris; I10 Essential (primary) hypertension; I95.1 Orthostatic hypotension; E78.5 Hyperlipidemia, unspecified; E03.9 Hypothyroidism, unspecified; N40.0 Benign prostatic hyperplasia without lower urinary tract symptoms; G47.52 REM sleep behavior disorder; G20.A1 Parkinson's disease without dyskinesia, without mention of fluctuations; F17.210 Nicotine dependence, cigarettes, uncomplicated; Z79.82 Long term (current) use of aspirin; Z86.711 Personal history of pulmonary embolism; Z86.718 Personal history of other venous thrombosis and embolism; Z95.5 Presence of coronary angioplasty implant and graft; Z68.23 Body mass index [BMI] 23.0-23.9, adult
CPT/HCPCS: 36415; 71045; 80053; 80299; 81001; 83690; 83735; 84443; 84484; 85025; 85027; 85055; 85610; 85730; 92507; 93005; 93306; 96125; 96372; 96374; 97110; 97162; 97166; 97530; 99285; A9270; C8929; G0378; J1650; J7030; Q9957

== ENCOUNTER 2025-04-04 21:30 | Emergency (ER) | payer OTHER, SELFPAY ==
[2025-04-04] VITALS (7 sets, daily range): BP systolic 137–143; BP diastolic 70–82; PULSE 70–83; RESP 16–32; TEMP 36.7; O2SAT 94–100
--- NOTE | 2025-04-04 22:13 | ECG_ITS ---
Test Date: 2025-04-04 23:08:11 Measurements Intervals [place] Rate: 69 P: 83 IN: 205 QRS: -5 QRSD: 132 T: 43 QT: 384 QTc: 414 Interpretive Statements SINUS RHYTHM INTRAVENTRICULAR CONDUCTION DELAY [130+ ms QRS DURATION] ABNORMAL ECG Compared to ECG 03/13/2025 02:38:12 Intraventricular conduction delay now present Atrial fibrillation no longer present Left bundle-branch block no longer present Myocardial infarct finding no longer present Electronically Signed On 04-05-2025 09:44:49 CDT by Keyur Méndez M.D.
[2025-04-04 22:23] LABS: Hematocrit 37.5 % (42.0-52.0); Hemoglobin 11.9 g/dL (14.0-18.0); Immature Granulocyte Percent A 0.3 % (0-0.5); Immature Platelet Fraction Pct 14.1 % (0.9-11.2); Lymphocytes Absolute Auto 1.53 K/mm3 (0.9-3.2); Mean Corpuscular HGB Conc 31.7 g/dl (32-36); Mean Corpuscular Hemoglobin 31.6 pg (26-34); Mean Corpuscular Volume 99.7 fl (80-100); Nucleated Red Blood Cells Absolute Auto 0.000 K/mm3 (0.0-0.012); Nucleated Red Blood Cells Perc 0.0 % (0.0-0.2); Platelet Count Result 117 k/mm3 (150-375); Red Blood Count 3.76 M/mm3 (4.6-6.20); White Blood Count 7.8 K/mm3 (4.5-10.0)
[2025-04-04 22:34] LABS: Alanine Aminotransferase 16 U/L (6-50); Albumin Level 3.7 g/dL (3.5-5.1); Alkaline Phosphatase 93 U/L (38-126); Anion Gap 5 mmol/L (4-12); Aspartate Amino Transferase 28 U/L (17-59); Bilirubin,Total 0.9 mg/dL (0.2-1.3); Blood Urea Nitrogen 20 mg/dL (9-20); Calcium 9.0 mg/dL (8.4-10.2); Carbon Dioxide 27 mmol/L (22-30); Chloride 104 mmol/L (98-107); Estimated CRCL calculation 100 ml/min; Estimated Glomerular Filt Rate > 60; Glucose 179 mg/dL (65-110); Magnesium 1.9 mg/dL (1.6-2.3); Potassium 3.9 mmol/L (3.4-5.0); Sodium 136 mmol/L (137-145); Total Protein 7.0 g/dL (6.3-8.2)
[2025-04-04 22:37] LABS: INR 2.9; Prothrombin Time 29.5 Seconds (11.1-14.7)
[2025-04-04 22:39] LABS: Partial Thromboplastin Time 45.1 Seconds (22.3-36.8)
[2025-04-04 23:52] LABS: Add Urine Microscopic? YES; Appearance Urine Clear (Clear); Glucose Urine UA Negative (Negative); Leukocyte Esterase Ur Negative LEU/UL (Negative); Nitrate Urine Negative (Negative); Non Pathogenic Casts 0-2; Specific Grav Ur 1.020 (1.001-1.035)
--- NOTE | 2025-04-05 00:25 | ED.AMS ---
HPI - Altered Mental Status General Chief Complaint: Altered Mental Status Stated Complaint: AMS, AGGRESSIVE W/ STAFF, LOW BG FOR EMS Time Seen by Provider: 04/04/25 23:33 History of Present Illness HPI narrative: Patient is an 79-year-old male with past medical history of dementia and Alzheimer's presents to the ED this evening due to concern for aggressive behavior toward staff. He is coming in from [place]. Per EMS report, he was trying to go into other residents room. He refused his nighttime medications. For EMS, patient has been cooperative towards them and has been cooperative towards us in the emergency department upon arrival. Patient's glucose was noted to be 39 and EMS started an IV and give 250 mL of D10. Repeat blood glucose for the most 232. Patient currently denies any symptoms or concerns. Related Data Home Medications ?Medication ?Instructions ?Recorded ?Confirmed ?Last Taken ?Type aspirin 81 mg tablet,delayed 81 mg PO DAILY 02/18/20 03/13/25 03/12/25 History release (Adult Low Dose Aspirin) atorvastatin 40 mg tablet 40 mg PO DAILY 02/18/20 03/13/25 03/12/25 History polyethylene glycol 3350 17 17 g PO DAILY 06/05/22 03/13/25 03/12/25 History gram/dose oral powder (Miralax) vitamins A,C,L-mhho-gdwcsa 2,148 2 tablet PO BID 04/25/23 03/13/25 03/12/25 History mcg-113 mg-45 mg-17.4 mg tablet (PreserVision AREDS) Allergies Allergy/AdvReac Type Severity Reaction Status Date / Time No Known Drug Allergies Allergy Mild Other Verified 01/13/25 11:00 Review of Systems Review of Systems: All systems are reviewed and are negative unless stated otherwise in the HPI. [facility] Past Medical History Medical History REM behavioral disorder History of pulmonary embolism History of deep vein thrombosis Hyperlipidemia History of pericarditis Benign prostatic hyperplasia Hypothyroidism Coronary artery disease Patient of Dr. Ge. Hypertension Surgical History Surgical History History of heart artery stent X2. Family History Family History Father Family history of congestive heart failure, Onset Age: 72 Patient's father is Family history of emphysema, Onset Age: 72 Mother Patient's mother is Grandparent Carcinoma of colon Father Chronic obstructive pulmonary disease Grandparent Colon cancer Father Congestive heart failure Grandparent Prostate carcinoma Social History Social History Social History: Surrogate decision maker: Hetal Alfaro, . CODE STATUS: Full code. Smoking packs per day: 0.5 Smoking cigarettes per day: 10.0 Years smoked: 65 Smoking pack-years: 32.50 Smoking status: Former smoker Tobacco type: cigarettes Second hand tobacco smoke exposure: Yes Smoking end date: 07/23/11 Alcohol intake: never Drinks per week: 2 Alcohol use details: hasnt drank in 4 months Substance use: never Substance use type: does not use Lack of Transportation: No Lack of Food: Never True Current Housing: I Have Housing Concerned About Future Housing: No Difficulty Paying Gas/Electric Bills: No Difficulty Paying for Meds: No Currently Unemployed: No Education: High School Diploma/GED Difficulty w/ Childcare or Family Care: No Living arrangements: with family Additional living arrangements comments: The patient lives in [place] with his . They have 2 grown children. Previously lived in [place] for 32 years. 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 Gender identity (if verbalized by the patient): Male Sexual Orientation (if Verbalized by the Patient): . Spiritual care concerns: No Exam Narrative: General: Alert, awake, afebrile, in no acute distress. HEENT: PERRL, no rhinorrhea, no post nasal drip, oropharynx clear. Neck: Trachea midline, no JVD, no lymphadenopathy. Cardiovascular: Regular rate and rhythm, no murmurs, rubs or gallops, no peripheral edema. Respiratory: Clear to auscultation bilaterally, no tachypnea, no wheezing, no rhonchi, no rubs, no respiratory distress. Abdomen: Soft, nontender, nondistended, no rebound, no guarding, no peritoneal signs. Musculoskeletal: No joint swelling or deformity, normal muscle tone. Skin: No rashes or petechia, no signs of infection. Psychiatric: Normal behavior and judgment for situation, calm, cooperative. Neurological: Alert and oriented to person which is at his baseline. Follows commands. No focal deficits, speech is clear and fluent. Course Vital Signs Vital signs: Vital Signs Temperature 98.1 F 04/04/25 21:38 Pulse Rate 80 04/04/25 21:38 Respiratory Rate 16 04/04/25 21:38 Blood Pressure 137/79 04/04/25 21:38 Pulse Oximetry 100 04/04/25 21:38 Oxygen Delivery Room Air 04/04/25 21:38 Temperature 98.1 F 04/04/25 21:38 Pulse Rate 71 04/04/25 23:00 Respiratory Rate 25 H 04/04/25 23:00 Blood Pressure 137/70 04/04/25 23:00 Pulse Oximetry 100 04/04/25 23:00 Oxygen Delivery Room Air 04/04/25 21:38 MDM - Altered Mental Status MDM Narrative Medical decision making narrative: The patient was evaluated by myself in the emergency department. History is obtained from patient who is an independent historian and physical exam was performed. External medical records were reviewed at this time. IV was established and pertinent tests were ordered. EKG was obtained which revealed sinus rhythm rate 69 beats per minute, no evidence of acute ischemia. EKG was independently interpreted by me and is currently pending official cardiology read. Laboratory results obtained revealing no acute process. Urinalysis unremarkable. Repeat glucose checks were found to be 177 and 179. Differential diagnosis considerations include hypoglycemia, delirium secondary to infectious process such as UTI, dementia. Comorbidities impacting this visit include history of dementia. I have evaluated and discussed social determinants of health with the patient that could potentially impact subsequent diagnosis and treatment plans. On repeat assessment of the patient, reevaluation revealed that the patient is doing well and is in no acute distress. Patient symptoms have improved since he arrived to our emergency department. Repeat vital signs were all reviewed and noted to be stable. Differential diagnosis and treatment plan were discussed with the patient at bedside. Patient agrees with discussion and after shared medical decision making agrees with discharge. All questions were answered to the patient's satisfaction. Patient will follow up with his PCP in 3-5 days. Patient was provided with strict return precautions and instructed to return to the emergency department if any new or worsening symptoms develop. The patient was discharged in stable condition. Lab Data 04/04/25 22:15 04/04/25 22:15 Labs: Lab Results 04/04/25 04/04/25 04/04/25 Range/Units 22:12 22:15 23:37 WBC 7.8 (4.5-10.0) K/mm3 RBC 3.76 L (4.6-6.20) M/mm3 Hgb 11.9 L (14.0-18.0) g/dL Hct 37.5 L (42.0-52.0) % MCV 99.7 (80-100) fl MCH 31.6 (26-34) pg MCHC 31.7 L (32-36) g/dl RDW 13.4 (11.5-14.5) % Plt Count 117 L (150-375) k/mm3 MPV 13.3 H (7.4-10.4) fl Immature Gran % (Auto) 0.3 (0-0.5) % Neut % (Auto) 66.9 (45.5-73.1) % Lymph % (Auto) 19.6 (18.3-44.2) % Gaines % (Auto) 8.3 (2.6-8.5) % Eos % (Auto) 4.1 (0-4.4) % Baso % (Auto) 0.8 (0.2-1.2) % Lymph # (Auto) 1.53 (0.9-3.2) K/mm3 Gaines # (Auto) 0.7 H (0.1-0.6) K/mm3 Eos # (Auto) 0.3 (0-0.3) K/mm3 Baso # (Auto) 0.1 (0.0-0.1) K/mm3 Abs Immat Gran (auto) 0.02 (0.00-0.031) K/mm3 Absolute Neuts (auto) 5.2 (1.3-6.7) K/mm3 Absolute Nucleated RBC 0.000 (0.0-0.012) K/mm3 Nucleated RBC % 0.0 (0.0-0.2) % % Immature Plt Fraction 14.1 H (0.9-11.2) % PT 29.5 H (11.1-14.7) Seconds INR 2.9 APTT 45.1 H (22.3-36.8) Seconds Sodium 136 L (137-145) mmol/L Potassium 3.9 (3.4-5.0) mmol/L Chloride 104 (98-107) mmol/L Carbon Dioxide 27 (22-30) mmol/L Anion Gap 5 (4-12) mmol/L BUN 20 (9-20) mg/dL Creatinine 0.60 L (0.7-1.3) mg/dL Estim Creat Clear Calc 100 ml/min Estimated GFR > 60 (59 - ) Glucose 179 H (65-110) mg/dL POC Capillary Glucose 177 H (65-105) mg/dl Calcium 9.0 (8.4-10.2) mg/dL Magnesium 1.9 (1.6-2.3) mg/dL Total Bilirubin 0.9 (0.2-1.3) mg/dL AST 28 (17-59) U/L ALT 16 (6-50) U/L Alkaline Phosphatase 93 (38-126) U/L Total Protein 7.0 (6.3-8.2) g/dL Albumin 3.7 (3.5-5.1) g/dL Urine Color Yellow (Yellow) Urine Appearance Clear (Clear) Urine pH 7.0 (5.0-9.0) Ur Specific [place] 1.020 (1.001-1.035) Urine Protein Trace (Negative) mg/dL Urine Glucose (UA) Negative (Negative) mg/dL Urine Ketones Trace H (Negative) mg/dL Ur Blood (Man) Negative (Negative) Urine Nitrate Negative (Negative) Urine Bilirubin Negative (Negative) Urine Urobilinogen 1.0 (<2.0) mg/dL Leukocyte Esterase Rfl Negative (Negative) SUMI/UL Urine RBC 0-2 (0-2) /hpf Urine WBC 0-5 (0-3) /hpf Ur Squamous Epith Cells None seen (Few) /hpf Urine Bacteria None seen /hpf Urine Casts 0-2 Discharge Plan Discharge Clinical Impression: Dementia, Hypoglycemia Patient Disposition: SNF Condition: Improved Instructions: General Patient Instructions, Dementia (ED), What to Do if Your Blood Sugar is Low (ED) Additional Instructions: Please follow-up with your family doctor within the next 3-5 days. Her daily if any new or worsening symptoms develop. Patient Language: Sudanese Prescriptions: No Action aspirin [Adult Low Dose Aspirin] 81 mg tablet,delayed release (DR/EC) 81 mg PO DAILY atorvastatin 40 mg tablet 40 mg PO DAILY PreserVision AREDS 2,148 mcg-113 mg-45 mg-17.4mg tablet 2 tablet PO BID Rx Instructions: administer with AM and PM meals carbidopa-levodopa 25-100 mg tablet 2 tablet .ROUTE TID Qty: 270 3RF Rx Instructions: Increase slowly to 1/2 tablet 3 times a day for 2 weeks and then 2 tablets 3 times a day to continue rivastigmine [Exelon Patch] 9.5 mg/24 hour patch 24 hour 9.5 mg transdermal DAILY Qty: 30 7RF midodrine 5 mg tablet See Rx Instructions .ROUTE .COMPLEX Qty: 270 2RF Dose Instruction: TAKE 1 TABLET BY MOUTH THREE TIMES DAILY. DO NOT GIVE LAST DOSE OF DAY AFTER 6 PM OR WITHIN 4 HOURS OF BEDTIME Rx Instructions: TAKE 1 TABLET BY MOUTH THREE TIMES DAILY. DO NOT GIVE LAST DOSE OF DAY AFTER 6 PM OR WITHIN 4 HOURS OF BEDTIME melatonin 10 mg capsule 10 mg PO QHS Qty: 90 3RF metoprolol succinate [Toprol XL] 25 mg tablet extended release 24 hr 12.5 mg PO QAM Qty: 30 0RF clonazepam [Klonopin] 0.5 mg tablet 0.5 mg PO HS Qty: 10 0RF Rx Instructions: administer 30 minutes before bedtime Xarelto 20 mg Tablet 20 mg PO DAILY@1700 Qty: 30 0RF polyethylene glycol 3350 [Miralax] 17 gram/dose Powder 17 g PO DAILY nitroglycerin [Nitrostat] 0.4 mg tablet, sublingual 0.4 mg SUBLINGUAL Q5M PRN (Reason: chest pain) Qty: 25 2RF Rx Instructions: do not exceed 3 doses per episode levothyroxine 50 mcg tablet See Rx Instructions .ROUTE .COMPLEX Qty: 90 0RF Dose Instruction: TAKE 1 TABLET BY MOUTH EVERY DAY Rx Instructions: TAKE 1 TABLET BY MOUTH EVERY DAY Follow-up/Referrals: Mitch Munoz DO [Primary Care Provider, Internal Medicine] - 3 Days Time of Disposition: 00:23
[2025-04-05 01:10] VITALS: BP 145/77; PULSE 82; RESP 19; O2SAT 98
[2025-04-05 03:15] VITALS: PULSE 84; RESP 19; O2SAT 100
== END 2025-04-05 03:29 ==
PROVIDERS: Student in an Organized Health Care Education/Training Program; Emergency Provider Emergency Medicine; PCP Internal Medicine
DX: E16.2 Hypoglycemia, unspecified (principal); F03.90 Unspecified dementia, unspecified severity, without behavioral disturbance, psychotic disturbance, mood disturbance, and anxiety; I10 Essential (primary) hypertension; E03.9 Hypothyroidism, unspecified; E78.5 Hyperlipidemia, unspecified; I25.10 Atherosclerotic heart disease of native coronary artery without angina pectoris; Z87.891 Personal history of nicotine dependence; Z79.899 Other long term (current) drug therapy; Z86.718 Personal history of other venous thrombosis and embolism
CPT/HCPCS: 36415; 80053; 81001; 82948; 83735; 85025; 85055; 85610; 85730; 93005; 99284

== ENCOUNTER 2025-04-16 11:13 | Emergency (ER) | payer OTHER, SELFPAY ==
[2025-04-16] VITALS (8 sets, daily range): BP systolic 106–144; BP diastolic 67–105; PULSE 80–108; RESP 16–23; TEMP 36.7; O2SAT 97–100
--- NOTE | ~2025-04-16 | CT_ITS ---
EXAMINATION: CT brain wo aishwaray, 04/16/2025 11:50 CDT HISTORY: trauma COMPARISON: No comparisons available. Technique: Axial images obtained of the brain without contrast. One or more of the following dose reduction techniques were used: automated exposure control, adjustment of the mA and/or kV according to patient size, use of iterative reconstruction technique. Findings: No acute infarct or parenchymal hemorrhage. No abnormal mass or mass effect. No midline shift. No extra-axial fluid collections. No hydrocephalus. Mastoid air cells unremarkable. Sinuses and orbits unremarkable. No acute fracture. No significant facial or scalp soft tissue swelling evident. No radiopaque foreign body is seen. Impression: 1.No acute intracranial abnormality. Reviewed, dictated and finalized at location A. Impression: 1.No acute intracranial abnormality.
--- NOTE | ~2025-04-16 | XR_ITS ---
EXAMINATION: XR elbow LT min 3V DATE: 04/16/2025 12:07 INDICATION: Left elbow trauma TECHNIQUE: Anteroposterior, two oblique and lateral views of the left elbow were obtained. COMPARISON: None. FINDINGS: Alignment is normal. No fracture. Mild osteoarthritis at the left elbow. No elbow joint effusion. Small enthesophytes at the tip of the olecranon and at the medial and lateral epicondyles. Peripheral IV at the antecubital fossa. IMPRESSION: 1. Mild osteoarthritis at the left elbow. No joint effusion or acute osseous abnormality. Reviewed, dictated and finalized at location A. IMPRESSION: 1. Mild osteoarthritis at the left elbow. No joint effusion or acute osseous ab normality.
--- NOTE | 2025-04-16 11:49 | ED.GENADULT ---
HPI - General Adult General Chief complaint: Fall Stated complaint: FALL Time Seen by Provider: 04/16/25 11:29 History of Present Illness HPI narrative: 79-year-old male presents to the emergency department for evaluation after having a unwitnessed ground level fall. Patient did initially complain of left elbow pain and left-sided head pain. At time of my evaluation patient denies any pain or complaints. Related Data Home Medications ?Medication ?Instructions ?Recorded ?Confirmed ?Last Taken ?Type aspirin 81 mg tablet,delayed 81 mg PO DAILY 02/18/20 03/13/25 03/12/25 History release (Adult Low Dose Aspirin) atorvastatin 40 mg tablet 40 mg PO DAILY 02/18/20 03/13/25 03/12/25 History polyethylene glycol 3350 17 17 g PO DAILY 06/05/22 03/13/25 03/12/25 History gram/dose oral powder (Miralax) vitamins A,C,Y-upcu-hsdvhr 2,148 2 tablet PO BID 04/25/23 03/13/25 03/12/25 History mcg-113 mg-45 mg-17.4 mg tablet (PreserVision AREDS) Allergies Allergy/AdvReac Type Severity Reaction Status Date / Time No Known Drug Allergies Allergy Mild Other Verified 01/13/25 11:00 Review of Systems Review of Systems: All systems reviewed & are unremarkable except as noted in HPI and below PMFSH Past Medical History Medical History REM behavioral disorder History of pulmonary embolism History of deep vein thrombosis Hyperlipidemia History of pericarditis Benign prostatic hyperplasia Hypothyroidism Coronary artery disease Patient of Dr. Ge. Hypertension Surgical History Surgical History History of heart artery stent X2. Family History Family History Father Family history of congestive heart failure, Onset Age: 72 Patient's father is Family history of emphysema, Onset Age: 72 Mother Patient's mother is Grandparent Carcinoma of colon Father Chronic obstructive pulmonary disease Grandparent Colon cancer Father Congestive heart failure Grandparent Prostate carcinoma Social History Social History Social History: Surrogate decision maker: Hetal Alfaro, . CODE STATUS: Full code. Smoking packs per day: 0.5 Smoking cigarettes per day: 10.0 Years smoked: 65 Smoking pack-years: 32.50 Smoking status: Former smoker Tobacco type: cigarettes Second hand tobacco smoke exposure: Yes Smoking end date: 07/23/11 Alcohol intake: never Drinks per week: 2 Alcohol use details: hasnt drank in 4 months Substance use: never Substance use type: does not use Lack of Transportation: No Lack of Food: Never True Current Housing: I Have Housing Concerned About Future Housing: No Difficulty Paying Gas/Electric Bills: No Difficulty Paying for Meds: No Currently Unemployed: No Education: High School Diploma/GED Difficulty w/ Childcare or Family Care: No Living arrangements: with family Additional living arrangements comments: The patient lives in [place] with his . They have 2 grown children. Previously lived in [place] for 32 years. 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 Gender identity (if verbalized by the patient): Male Sexual Orientation (if Verbalized by the Patient): . Spiritual care concerns: No Exam Narrative: APPEARANCE: Well appearing, no pain, no distress, well-nourished. HEAD: normocephalic, atraumatic. EYES: PERRLA/EOMI, conjunctivae clear. NOSE: Normal no drainage EARS:TMS clear with good light reflex. THROAT: Pharynx clear, no exudate. NECK: Supple. No adenopathy, no masses. RESPIRATORY: Airway patent, respirations nonlabored. Clear to auscultation bilaterally, no rales, rhonchi, wheezing. CARDIOVASCULAR: Regular rate and rhythm without murmurs rubs or gallops. ABDOMINAL: Soft, nontender, nondistended, normal bowel sounds MUSCULOSKELETAL: Moves all extremities. Strength/ROM intact, No edema, No calf tenderness. NEURO: Alert. Cranial nerves II through XII intact. Good gait. Good coordination SKIN: Warm, dry. Normal Color Course Vital Signs Vital signs: Vital Signs Temperature 98.0 F 04/16/25 11:14 Pulse Rate 107 H 04/16/25 11:14 Respiratory Rate 20 04/16/25 11:14 Blood Pressure 119/105 H 04/16/25 11:14 Pulse Oximetry 97 04/16/25 11:14 Oxygen Delivery Room Air 04/16/25 11:14 Temperature 98.0 F 04/16/25 11:14 Pulse Rate 88 04/16/25 16:38 Respiratory Rate 16 04/16/25 16:38 Blood Pressure 144/78 H 04/16/25 16:38 Pulse Oximetry 100 04/16/25 16:38 Oxygen Delivery Room Air 04/16/25 11:14 Medical Decision Making MDM Narrative Medical decision making narrative: 79-year-old male presents emergency department for evaluation for a ground level fall. Head CT was negative. Elbow x-ray was negative. Patient denies any pain or complaint. Patient be discharged back to his care facility. Differential Diagnosis Differential Diagnosis: Subdural hematoma, subarachnoid hemorrhage, elbow fracture, cervical spine fracture Vital Signs Vital Signs: Vital Signs Temperature 98.0 F 04/16/25 11:14 Pulse Rate 107 H 04/16/25 11:14 Respiratory Rate 20 04/16/25 11:14 Blood Pressure 119/105 H 04/16/25 11:14 Pulse Oximetry 97 04/16/25 11:14 Oxygen Delivery Room Air 04/16/25 11:14 Temperature 98.0 F 04/16/25 11:14 Pulse Rate 88 04/16/25 16:38 Respiratory Rate 16 04/16/25 16:38 Blood Pressure 144/78 H 04/16/25 16:38 Pulse Oximetry 100 04/16/25 16:38 Oxygen Delivery Room Air 04/16/25 11:14 Discharge Plan Discharge Clinical Impression: Head injury, Injury of elbow, left Patient Disposition: NH Senior Living/Asst Living Condition: Stable Instructions: Antibiotic Form Additional Instructions: Have close follow-up with your primary care physician Patient Language: Yoruba Prescriptions: No Action aspirin [Adult Low Dose Aspirin] 81 mg tablet,delayed release (DR/EC) 81 mg PO DAILY atorvastatin 40 mg tablet 40 mg PO DAILY PreserVision AREDS 2,148 mcg-113 mg-45 mg-17.4mg tablet 2 tablet PO BID Rx Instructions: administer with AM and PM meals carbidopa-levodopa 25-100 mg tablet 2 tablet .ROUTE TID Qty: 270 3RF Rx Instructions: Increase slowly to 1/2 tablet 3 times a day for 2 weeks and then 2 tablets 3 times a day to continue rivastigmine [Exelon Patch] 9.5 mg/24 hour patch 24 hour 9.5 mg transdermal DAILY Qty: 30 7RF midodrine 5 mg tablet See Rx Instructions .ROUTE .COMPLEX Qty: 270 2RF Dose Instruction: TAKE 1 TABLET BY MOUTH THREE TIMES DAILY. DO NOT GIVE LAST DOSE OF DAY AFTER 6 PM OR WITHIN 4 HOURS OF BEDTIME Rx Instructions: TAKE 1 TABLET BY MOUTH THREE TIMES DAILY. DO NOT GIVE LAST DOSE OF DAY AFTER 6 PM OR WITHIN 4 HOURS OF BEDTIME melatonin 10 mg capsule 10 mg PO QHS Qty: 90 3RF metoprolol succinate [Toprol XL] 25 mg tablet extended release 24 hr 12.5 mg PO QAM Qty: 30 0RF clonazepam [Klonopin] 0.5 mg tablet 0.5 mg PO HS Qty: 10 0RF Rx Instructions: administer 30 minutes before bedtime Xarelto 20 mg Tablet 20 mg PO DAILY@1700 Qty: 30 0RF polyethylene glycol 3350 [Miralax] 17 gram/dose Powder 17 g PO DAILY nitroglycerin [Nitrostat] 0.4 mg tablet, sublingual 0.4 mg SUBLINGUAL Q5M PRN (Reason: chest pain) Qty: 25 2RF Rx Instructions: do not exceed 3 doses per episode levothyroxine 50 mcg tablet See Rx Instructions .ROUTE .COMPLEX Qty: 90 0RF Dose Instruction: TAKE 1 TABLET BY MOUTH EVERY DAY Rx Instructions: TAKE 1 TABLET BY MOUTH EVERY DAY Follow-up/Referrals: Mitch Munoz DO [Primary Care Provider, Internal Medicine]
--- OUTSIDE RECORDS SUMMARY | 2025-04-16 14:08 | XMS_ITS | Clinical Summary ---
Author Organization [facility] [address] Address [address] [place] [address] Care Team Providers Care Pharmacometrician Name Role Phone Jimi De La Fuente MD Unavailable [phone] Jimi De La Fuente MD Unavailable [phone] Mitch Munoz DO Primary Care Provider [phone] Allergies No known active allergies Medications finasteride [...] WITHIN 4 HOURS OF BEDTIME 06/14/2021 Active rivastigmine (EXELON) 9.5 mg/24 hour 01/14/2025 Active vitamin A-vitamin C-vit E-min tablet Take by mouth Active atorvastatin (LIPITOR) 40 mg tablet TAKE 1 TABLET BY MOUTH EVERY DAY 90 tablet 3 02/24/2025 Active Active Problems No known active problems Encounters Date Type Department Care Team Description 03/27/2025 Orders Only [facility] Cardiology [address] [facility] [address] [place] [address] Jewels Jones NP 03/13/2025 Orders Only [facility] [address] [place] [address] Jewels Jones NP 02/04/2025 Telephone [facility] Cardiology [address] [facility] [address] [facility] [address] Leonard Ge MD 01/21/2025 11:30 AM CDT Ancillary Procedure [facility] Cardiology [address] [place] [address] [address] [place] [address] PVC (premature ventricular contraction) 01/21/2025 10:45 AM CDT Office Visit [facility] Cardiology [address] [place] [address] [address] [place] [address] Leonard Ge MD Coronary artery disease involving [place] coronary artery of [place] heart without angina pectoris (Primary Dx); History [...] on file 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 Gender Identity Not on file Sexual Orientation Not on file Obstetrics History Last Filed Vital Signs Vital Sign Reading Time Taken Comments Blood Pressure 104/62 01/21/2025 10:27 AM CDT Pulse 83 01/21/2025 10:27 AM CDT Temperature - - Respiratory Rate 18 06/18/2019 10:29 AM 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 Oxygen Saturation 96% 01/21/2025 10:27 AM CDT [...] Procedure Name Priority Date/Time Associated Diagnosis Comments CARDIOLOGY DOCUMENT SCAN Routine 03/14/2025 10:09 AM CDT CARDIOLOGY DOCUMENT SCAN Routine 03/13/2025 10:04 AM CDT CARDIOLOGY DOCUMENT SCAN 03/13/2025 HOLTER MONITOR 24 HR Routine 01/21/2025 1:47 PM CDT PVC (premature ventricular contraction) from Last 3 Months Results * Cardiology Document Scan (03/14/2025 10:09 AM CDT) Anatomical Region Laterality Modality Other Paddy Gill MD [facility] CARDIAC SERVICES PROCEDURES Final Result * Cardiology Document Scan (03/13/2025 10:04 AM CDT) Anatomical Region Laterality Modality Other Jewels Jones NP CV CARDIAC SERVICES PROCEDUR ES Final Result * Cardiology Document Scan (03/13/2025) Anatomical Region Laterality Modality Other Jewels Jones NP CV CARDIAC SERVICES PROCEDUR ES Final Result * 24 HR Holter Monitor (01/21/2025 1:47 PM CDT) Anatomical Region Laterality Modality Electrocardiogra phy Narrative 02/02/2025 6:46 PM CDT AMBULATORY ANTHROPOLOGIST PHYSICAL REPORT Patient Name: Theron Eugene Jr. Date [...] was used to complete this document, therefore, rn palliative variances may occur. Leonard Ge MD, [facility] 02/02/25 Procedure Note Leonard Ge MD - 02/02/2025 AMBULATORY ANTHROPOLOGIST PHYSICAL REPORT Patient Name: Theron Eugene Jr. Date [...] software was used to complete this document, therefore,rn palliative variances may occur. Leonard Ge MD, [facility] 02/02/25 Leonard Ge MD CV CARDIAC SERVICES PROCEDURES F inal Result from Last 3 Months Insurance [employer] ADVANTAGE CHOICE PPO Care Teams Pharmacometrician Relationship Specialty Start Date End Date Mitch Munoz DO [address] [facility] [address] [place] [address] PCP - General Internal Medicine 01/21/25 Jimi De La Fuente MD [address] [address] 01/14/21 Jimi De La Fuente MD [address] [address] 02/26/19
--- NOTE | 2025-04-16 16:38 | PC.NURSE ---
EMS here to take pt back to facility. VS as documented. Pt alert, denies any current complaints. Offered toileting prior to leaving facility, pt declined. Pt in good spirits joking with EMS. Pt able to stand and pivot to EMS stretcher with assist. IV removed. RN called [facility] to inform them of his return ETA.
== END 2025-04-16 16:45 ==
PROVIDERS: Emergency Provider Emergency Medicine; PCP Internal Medicine
DX: S09.90XA Unspecified injury of head, initial encounter (principal); S59.902A Unspecified injury of left elbow, initial encounter; W19.XXXA Unspecified fall, initial encounter
CPT/HCPCS: 70450; 73080; 99284

== ENCOUNTER 2025-04-18 15:19 | Inpatient (IN) | payer OTHER, SELFPAY ==
--- OUTSIDE RECORDS SUMMARY | 2007-12-11 04:18 | XMS_ITS | Continuity of Care Document ---
Author Organization [facility] Address [address] [place] [address] [facility] [address] [place] [address] Phone Care Team Providers Care Auto Service Mechanic Name Role Phone Emmanuel Ferrara Unavailable Unavailable Procedures Procedure Date Eye Exam & Treatment Refraction Advance Directives Directive Yes / No Effective Date File Name No Information Encounters Encounter Description Practice Location Reason(s) For Visit Diagnoses Date Provider Providers Copied on Encounter [facility], [address] [place] [address] [address], [place], [place], [id number], [place] tel:[phone] [facility] No Information [address]. [address] [employer] [facility] [address], [place], [address], [place]. tel:[phone] Family History Family Member Type Diagnosis Age [...]
[2025-04-18] VITALS (17 sets, daily range): BP systolic 107–154; BP diastolic 62–110; PULSE 89–141; RESP 14–18; TEMP 36.4–37.9; O2SAT 94–100; BMI 20.7
--- NOTE | ~2025-04-18 | CT_ITS ---
EXAMINATION: CT brain wo aishwarya, 04/18/2025 16:55 CDT HISTORY: altered mental status COMPARISON: No comparisons available. Technique: Axial images obtained of the brain without contrast. One or more of the following dose reduction techniques were used: automated exposure control, adjustment of the mA and/or kV according to patient size, use of iterative reconstruction technique. Findings: No acute infarct or parenchymal hemorrhage. No abnormal mass or mass effect. No midline shift. No extra-axial fluid collections. No hydrocephalus. Mastoid air cells unremarkable. Sinuses and orbits unremarkable. No acute fracture. No significant facial or scalp soft tissue swelling evident. No radiopaque foreign body is seen. Impression: 1.No acute intracranial abnormality. Reviewed, dictated and finalized at location P. Impression: 1.No acute intracranial abnormality.
--- NOTE | ~2025-04-18 | XR_ITS ---
EXAMINATION: XR chest 1V portable COMPARISON: No comparisons available. HISTORY: unknown cause of altered mental status FINDINGS: The lungs are clear, no effusion. No pneumothorax. Heart is normal size. Mediastinal and hilar contours are within normal limits. Bony thorax no acute abnormality. Miscellaneous: None Impression: No acute cardiopulmonary abnormality. Reviewed, dictated and finalized at location P. Impression: No acute cardiopulmonary abnormality.
--- OUTSIDE RECORDS SUMMARY | 2025-04-18 15:28 | XMS_ITS | Clinical Summary ---
Author Organization [facility] [address] Address [address] [place] [address] Care Team Providers Care Rn Gynecology Name Role Phone Jimi De La Fuente MD Unavailable [phone] Jimi De La Fuente MD Unavailable [phone] Mitch Munoz DO Primary Care Provider [phone] Allergies No known active allergies Medications finasteride [...] Department Care Team Description 03/27/2025 Orders Only [facility] Cardiology [address] [facility] [address] [place] [address] Jewels Jones NP 03/13/2025 Orders Only [facility] Health Information Management [address] [place] [address] Jewels Jones NP 02/04/2025 Telephone [facility] Cardiology [address] [facility] [address] [facility] [address] Leonard Ge MD 01/21/2025 11:30 AM CDT Ancillary Procedure [facility] Cardiology [address] [place] [address] [address] [place] [address] PVC (premature ventricular contraction) 01/21/2025 10:45 AM CDT Office Visit 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 Date [...] was used to complete this document, therefore, microwave supervisor variances may occur. Leonard Ge MD, [facility] 02/02/25 Procedure Note Leonard Ge MD - 02/02/2025 AMBULATORY ASSEMBLER TRIM REPORT Patient Name: Theron Eugene Jr. Date [...] software was used to complete this document, therefore,microwave supervisor variances may occur. Leonard Ge MD, [facility] 02/02/25 Leonard Ge MD CV CARDIAC SERVICES PROCEDURES F inal Result from Last 3 Months Insurance [employer] ADVANTAGE CHOICE PPO Care Teams Rn Gynecology Relationship Specialty Start Date End Date Mitch Munoz DO [address] [facility] [address] [place] [address] PCP - General Internal Medicine 01/21/25 Jimi De La Fuente MD [address] [address] 01/14/21 Jimi De La Fuente MD [address] [address] 02/26/19
--- OUTSIDE RECORDS SUMMARY | 2025-04-18 15:28 | XMS_ITS | Data Portability ---
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 Not available 04/01/2025 12:44:35 04/02/2025 04/02/2025 D/C Rivastigmine. Add bedtime Trazodone. Consider repeating UA if urinary symptoms develop or confusion does not improve with medication adjustment. Not available 04/02/2025 19:12:38 04/06/2025 04/06/2025 Labs on 04/08. Check fasting blood sugars BID x 7 days and monitor for hypoglycemia. Not available 04/07/2025 10:45:03 04/08/2025 04/08/2025 Labs pending from this AM. Checking fasting blood sugars BID x 7 days to monitor for hypoglycemia. Not available 04/08/2025 14:39:17 04/10/2025 04/10/2025 ADDENDUM = Pt's Edilia elected for him to transition to [facility] on 04/13 with [facility]. Blood sugars were stable without concerns. Not available 04/16/2025 09:24:46 Plan of Treatment Reminders Order Date Submit Date Provider Last Modified By Organization Details Last Modified Time Details Appointments None record ed. Lab None record ed. Referral None record ed. Procedures None record ed. Surgeries None record ed. Imaging None record ed. Medication Orders None record ed. Patient TargetsNo targets recorded. Patient Instructions Encounter Date Encounter Id Patient Instructions Last Modified By Organization Details Last Modified Time 04/01/2025 [id number] I spent 37 minutes providing care to the patient today. More than 50% of that time was spent in discussing the expected course of the disease, discussing prognosis, coordinating care and counseling of the patient/family. [email or web address] Not available 04/01/2025 12:45:40 04/02/2025 [id number] I spent 37 minutes providing care to the patient today. More than 50% of that time was spent in discussing the expected course of the disease, discussing prognosis, coordinating care and counseling of the patient/family. Not available 04/02/2025 19:13:36 04/06/2025 [id number] I spent 50 minutes providing care to the patient today. More than 50% of that time was spent in discussing the expected course of the disease, discussing prognosis, coordinating care and counseling of the patient/family. Not available 04/07/2025 10:54:16 04/08/2025 [id number] I spent 36 minutes providing care to the patient today. More than 50% of that time was spent in discussing the expected course of the disease, discussing prognosis, coordinating care and counseling of the patient/family. Not available 04/08/2025 14:41:24 04/10/2025 [id number] I spent 35 minutes providing care to the patient today. More than 50% of that time was spent in discussing the expected course of the disease, discussing prognosis, coordinating care and counseling of the patient/family. Not available 04/10/2025 13:52:34 Reason for Referral None Reported. Results Created Date Observation Date Name Description Value Unit Range Abnormal Flag Note LastModifiedBy Organization Detail LastModifiedTime Result Notes None recorded. Procedures Surgical History Date Name Laterality Status Provider Name and Address Organization Details Recorded Time placement of stent in coronary [place] [address] [place], [address], [facility] 03/24/2025 05:22:34 Imaging Results None recorded. Procedure Notes None recorded. Medical Equipment None Reported. Allergies No known drug allergies Medications Name Sig Start Date Stop Date Status Note LastModified by Organization Details LastModified Time rivastigmin e 1.5 mg capsule Take 1 capsule twice a day by oral route. 04/02 completed Not Available Not Available Not Available atorvastati n 40 mg tablet Take 1 tablet every day by oral route. active Not Available Not Available No t Available trazodone 50 mg tablet Take 1 tablet every day by oral route at bedtime. 04/08 completed Not Available Not Available Not Available clonazepam 0.5 mg tablet Take 1 tablet every day by oral route at bedtime. 2024 active Not Available Not Available Not Avai lable midodrine 5 mg tablet Take 1 tablet 3 times a day by oral route. active Not Available Not Available No t Available aspirin 81 mg tablet,bree yed release Take 1 tablet every day by oral route. active Not Available Not Available No t Available triamcinolo ne acetonide 0.1 % topical cream Apply 1 applicati on twice a day by topical route as needed. active Not Available Not Available No t Available tamsulosin 0.4 mg capsule Take 1 capsule every day by oral route at bedtime. active Not Available Not Available No t Available trazodone 100 mg tablet Take 1 tablet every day by oral route at bedtime. active Not Available Not Available No t Available levothyroxi ne 50 mcg tablet Take 1 tablet every day by oral route. active Not Available Not Available No t Available nitroglycer in 0.[address] 1 tablet by sublingua l route as needed. active Not Available Not Available No t Available metoprolol succinate ER 25 mg tablet,exte nded release 24 hr Take 0.5 tablets every day by oral route. 04/10 completed Not Available Not Available Not Available polyethylen e glycol 3350 17 gram/dose oral powder Take 17 g every day by oral route as needed. 2024 active Not Available Not Available Not Avai lable carbidopa 25 mg-levodopa 100 mg tablet Take 2 tablets 3 times a day by oral route. active Not Available Not Available No t Available PreserVisio n AREDS 2,148 mcg-113 mg-45 mg-17.4 mg tablet Take 2 tablets twice a day by oral route. active Not Available Not Available No t Available rivastigmin e 9.5 mg/24 hour transdermal patch Apply 1 patch every day by transderm al route. 03/24 completed Not Available Not Available Not Available Xarelto 20 mg tablet Take 1 tablet every day by oral route. 04/10 completed Not Available Not Available Not Available melatonin 10 mg capsule Take 1 capsule every day by oral route at bedtime. active Not Available Not Available No t Available potassium chloride ER 20 mEq tablet,exte nded release Take 1 tablet every day by oral route. active Not Available Not Available No t Available Vitals Date Recorded Body height Heart rate Body temperature Respiratory rate Oxygen saturation Oxygen saturation in Arterial blood by Pulse oximetry Body mass index (BMI) Body weight Systolic And Diastolic Provider Name and Address Organization Details Last Updated DateTime 5 190.5 cm 77 /min 98 [degF] 18 /min 100 % 100 % 23.1 kg/m2 07431.1 5 g 130/73 mm[Hg] [place] [address] [place], [address], [place] [facility] [employer] 5 12:38:52 Date Recorded Body height Heart rate Body temperature Respiratory rate Oxygen saturation Oxygen saturation in Arterial blood by Pulse oximetry Body mass index (BMI) Body weight Systolic And Diastolic Provider Name and Address Organization Details Last Updated DateTime 5 190.5 cm 100 /min 97.6 [degF] 18 /min 95 % 95 % 22.9 kg/m2 94083.8 4 g 114/71 mm[Hg] [place] [address] [place], [address], [place] [facility] [employer] 5 19:04:03 Date Recorded Body height Heart rate Oxygen saturation Oxygen saturation in Arterial blood by Pulse oximetry Body mass index (BMI) Body weight Respiratory rate Body temperature Systolic And Diastolic Provider Name and Address Organization Details Last Updated DateTime 5 190.5 cm 84 /min 98 % 98 % 22.7 kg/m2 07707.6 6 g 20 /min 98.3 [degF] 98/57 mm[Hg] [place] [address] [place], [address], [place] [facility] [employer] 5 15:16:40 Date Recorded Body height Heart rate Body temperature Respiratory rate Oxygen saturation Oxygen saturation in Arterial blood by Pulse oximetry Body mass index (BMI) Body weight Systolic And Diastolic Provider Name and Address Organization Details Last Updated DateTime 190.5 cm 78 /min 98 [degF] 18 /min 99 % 99 % 22.8 kg/m2 94425.9 7 g 119/72 mm[Hg] [place] [address] [place], [address], [place] [facility] 10:38:53 Date Recorded Body height Heart rate Respiratory rate Body temperature Oxygen saturation Oxygen saturation in Arterial blood by Pulse oximetry Body mass index (BMI) Body weight Systolic And Diastolic Provider Name and Address Organization Details Last Updated DateTime 190.5 cm 85 /min 18 /min 98.3 [degF] 94 % 94 % 22.9 kg/m2 73171.5 6 g 97/65 mm[Hg] [place] [address] [place], [address], [place] [facility] 13:33:36 Social History Question Answer Notes LastModified by [employer] Details LastModified Time Tobacco Smoking Status Former Smoker Emi Terrence, [address] [place], [address], [facility] 03/24/2025 05:28:01 What Is Your Code Status? Full Code [email or web address] Information not available 03/17/2025 What Is Your Relationship Status? Information not available 03/24/2025 Sex: Unknown Functional Status Question Answer Note LastModified by [employer] Details LastModified Time Do you use any illicit or recreational drugs? No Information not available 03/24/2025 What is your level of alcohol consumption? None Information not available 03/24/2025 Mental Status None recorded. Family History Relationship Description Onset Age of this Age Resolved Age Notes LastModified by Organization Details LastModified Time Father Congestive heart failure [email or web address] Not available 2024 05:25:27 Father Chronic obstructive pulmonary disease [email or web address] Not available 2024 05:25:46 Unspecified Relation Malignant tumor of colon grandp arent [email or web address] Not available 03/24/2025 05:26:25 Unspecified Relation Malignant neoplasm of prostate grandp arent mvandorn Not available 03/24/2025 05:26:51 Medical History Condition Response Psychiatric -- Anxiety Disorder Y Deep Vein Thrombosis (DVT) Y Atrial Fibrillation Y Parkinson's Disease Y Coronary Artery Disease (CAD) Y Congestive Heart Failure (CHF) Y Insomnia Y Hyperlipidemia Y Dementia Y Hypothyroidism Y Pulmonary Embolism Y Hypertension Y Benign Prostatic Hyperplasia (BPH) Y Past Encounters Encounter ID Performer Location Encounter Start Date Encounter Closed Date Diagnosis/Indication Diagnosis SNOMED-CT Code Diagnosis ICD10 Code Diagnosis IMO Codes Diagnosis Note [id number] Emi Terrence, [address] [address] [place] [address] 03/18/2025 17:58:21 03/26/2025 09:49:44 Parkinson's disease 96508104 G20.A2 [id number] continue sinemetthe patient is followed by neurology at [facility], Dr. 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 Leonard Ge as an outpatient continue ASA, metoprolol , statin therapy and prn nitro Anxiety 38898728 F41.9 93798 continue routine clonazepam at bedtimemon itor clinically - might consider addition of SSRI or buspar if symptoms worsen during his rehab stay History of pulmonary embolus 588403745 Z86.711 810145 remote - he had not been on oral anticoagul ation prior to recent hospitaliz ation History of deep vein thrombosis 834414374 Z86.775 7597262 remote - was treated for a brief time with oral anticoagul ation and has not been on prior to recent hospitaliz ation x many years Essential hypertension 13052185 I10 88125 continue low dose metoprolol trend pressures and adjust meds accordingl y Physical deconditioning 0107740247 9102 R53.81 013604 related to advanced age, recent hospitaliz ation, comorbidit iestherapi es have been initiated - will monitor progresshe will return home with his upon d/c from [facility] [id number] Emi Ocampo DO [address] [address] 03/19/2025 08:50:00 03/26/2025 09:48:53 Parkinson's disease 61596582 G20.A2 3235245959 Stable but with orthostasi s. Continue Sinemet, Exelon, Midodrine, Melatonin, & qhs Clonazepam .Continue therapies & supportive measures.W ill not attempt reduction of Clonazepam at this time due to concern could exacerbate Parkinson' s symptoms and interfere with ability to rehabilita te. Might consider addition of SSRI or Buspar if symptoms worsen during his rehab stay.Follo wed by neurology at [facility], Dr. Muñoz. Paroxysmal atrial fibrillation 697974278 I48.0 97414 New onset, but sounds like he is now back in NSR.Stable . Continue Metoprolol for rate control.Co ntinue Xarelto for VTE prophylaxi s.Followed by Dr. Leonard Ge as an outpatient . Will need f/u upon d/c from rehab. Acquired hypothyroidism 477388155 E03.9 20789 TSH checked while inpatient was WNL. Continue Synthroid. Dementia d ue to Parkinson's disease 1268161002 53462 G20.A1 F02.A4 9626394036 SEE ABOVE...ST is following. Continue supportive measures. Primary insomnia 8870980 F51.01 04163 SEE ABOVE... Orthostati c hypotension 76876670 I95.1 3436 Stable. Continue Midodrine, nursing is holding if SBP >120.Monit or pressures and for symptoms c/w this. Slow trans it constipation 56864108 K59.01 8838 Stable. Continue routine Miralax. Additional meds available per standing orders. Coronary arteriosclerosis 90194224 I25.10 92918024 s/p stenting x 2.Continue ASA, Metoprolol , Statin, and PRN NTG.Follow ed by Dr. Leonard Ge as an outpatient . Anxiety 30513587 F41.9 26633 SEE ABOVE... History of pulmonary embolus 468936477 Z86.711 512379 Remote. He had not been on oral anticoagul ation prior to recent hospitaliz ation. Now continues on Xarelto given new diagnosis Afib. History of deep vein thrombosis 510759290 Z86.049 5954855 Remote. Was treated for a brief time with oral anticoagul ation but has not been on for many years prior to recent hospitaliz ation.SEE ABOVE... Essential hypertension 19991824 I10 08640 coinciding with orthostasi s.Continue low-dose Metoprolol and Midodrine as above.Cont inue to trend blood pressures, monitor lytes and renal function, and adjust meds as clinically indicated. Physical deconditioning 5508248980 9102 R53.81 250781 Related to advanced age, recent hospitaliz ation, comorbidit ies.Contin ue therapies and monitor progress.Jesse alexander will return home with his upon d/c from SNF. 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 As a result, stopped these patches in January 2025.Will discontinu e and make Dr. Anel Muñoz (neurology ) aware to see if they recommend addition of oral alternativ e.Add PRN TMC cream to rash sites. Paroxysmal atrial fibrillation 531161654 I48.0 37517 New onset, but sounds like he is now back in NSR.Stable . Continue Metoprolol for rate control.Co ntinue Xarelto for VTE prophylaxi s.Followed by Dr. Leonard Ge as an outpatient . Will need f/u upon d/c from rehab. Coronary arteriosclerosis 58718555 I25.10 25635934 s/p stenting x 2.Continue ASA, Metoprolol , Statin, and PRN NTG.Follow ed by Dr. Leonard Ge as an outpatient . Parkinson's disease 4904 9000 G20.A2 5244620654 Stable but with orthostasi s. Continue Sinemet, Midodrine, Melatonin, & qhs Clonazepam .SEE ABOVE... regarding Rivastigmi ne patches.Co ntinue therapies & supportive measures.W ill not attempt reduction of Clonazepam at this time due to concern could exacerbate Parkinson' s symptoms and interfere with ability to rehabilita te. Might consider addition of SSRI or Buspar if symptoms worsen during his rehab stay.Follo wed by neurology at [facility], Dr. Muñoz. Dementia d ue to Parkinson's disease 3249137496 81854 G20.A1 F02.A4 2750737165 SEE ABOVE...ST is following. Continue supportive measures. Anxiety 97302611 F41.9 35948 SEE ABOVE... Primary insomnia 2623704 F51.01 61171 SEE ABOVE... Orthostati c hypotension 47383934 I95.1 3436 Stable. Continue Midodrine, nursing is holding if SBP >120.Monit or pressures and for symptoms c/w this. Essential hypertension 23864379 I10 95511 coinciding with orthostasi s.Continue low-dose Metoprolol and Midodrine as above.Cont inue to trend blood pressures, monitor lytes and renal function, and adjust meds as clinically indicated. Acquired hypothyroidism 300492456 E03.9 82188 TSH checked while inpatient was WNL. Continue Synthroid. Slow trans it constipation 86265904 K59.01 8838 Stable. Continue routine Miralax. Additional meds available per standing orders. History of pulmonary embolus 730564286 Z86.711 160031 Remote. He had not been on oral anticoagul ation prior to recent hospitaliz ation. Now continues on Xarelto given new diagnosis Afib. History of deep vein thrombosis 002742902 Z86.431 9857648 Remote. Was treated for a brief time with oral anticoagul ation but has not been on for many years prior to recent hospitaliz ation.SEE ABOVE... Physical deconditioning 1111739076 9102 R53.81 200144 Related to advanced age, recent hospitaliz ation, comorbidit ies.Contin ue therapies and monitor progress.Jesse alexander will return home with his upon d/c from SNF. Urinary fr equency due to benign prostatic hypertrophy 1588361841 50111 N40.1 R35.0 13478976 Restart Flomax per pt's OP medication s. Pt was also on Finasterid e as OP. Could consider resumption if symptoms don't chadwick but will need to monitor orthostasi s closely.Ch julita [facility].Labs on 03/25. Unintentio nal weight loss 534478393 R63.4 638846 Pt's reports he has lost 30 lbs unintentio fuad since August, when he weighed 220 lbs. She reports his appetite has simply disappeare d, did not coincide with any medication changes or illness. For instance, she says for over 15 years he has had a bowl of bran cereal for breakfast but back in August, he simply stopped eating breakfast altogether and no longer wants this.Helen kimble to monitor, RD to follow, could consider addition of Mirtazapin e. 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 As a result, stopped these patches in January 2025.Have discontinu ed and made Dr. Anel Muñoz (neurology ) aware to see if they recommend addition of oral alternativ e. Have not yet heard back.Helen kimble PRN TMC cream to rash sites. Urinary fr equency due to benign prostatic hypertrophy 8853215775 43582 N40.1 R35.0 00031223 Restarted Flomax per pt's OP medication s.Pt was also on Finasterid e as OP. Could consider resumption if symptoms don't chadwick but will need to monitor orthostasi s closely. Paroxysmal atrial fibrillation 074250797 I48.0 39118 New onset, but sounds like he is now back in NSR.Stable . Continue Metoprolol for rate control.Co ntinue Xarelto for VTE prophylaxi s.Followed by Dr. Leonard Ge as an outpatient . Will need f/u upon d/c from rehab. Coronary arteriosclerosis 21135727 I25.10 42213996 s/p stenting x 2 in 2011. Cardiology evaluated for chest pain while inpatient, TSH was normal and Echo showed 40-45% EF with grade 1 diastolic dysfunctio n. Believed rise in Trop was sec to Afib, not ACS.Contin ue ASA, Metoprolol , Statin, and PRN NTG.Follow ed by Dr. Leonard Ge as above. Parkinson's disease 4904 9000 G20.A2 3056474967 Stable but with orthostasi s. Continue Sinemet, Midodrine, Melatonin, & qhs Clonazepam .SEE ABOVE... regarding Rivastigmi ne patches.Co ntinue therapies & supportive measures.W ill not attempt reduction of Clonazepam at this time due to concern could exacerbate Parkinson' s symptoms and interfere with ability to rehabilita te. Might consider addition of SSRI or Buspar if symptoms worsen during his rehab stay.Shahrzad wed by neurology at [facility], Dr. Muñoz. Dementia d ue to Parkinson's disease 3449815114 76837 G20.A1 F02.A4 3160512243 SEE ABOVE...ST is following. Continue supportive measures. Anxiety 09861205 F41.9 95560 SEE ABOVE... Primary insomnia 1185573 F51.01 19961 SEE ABOVE... Orthostati c hypotension 42971721 I95.1 3436 Stable. Continue Midodrine, nursing is holding if SBP >120.Monit or pressures and for symptoms c/w this. Acquired hypothyroidism 112313382 E03.9 07769 TSH checked while inpatient was WNL. Continue Synthroid. Unintentio nal weight loss 725955542 R63.4 421778 Pt's reports he has lost 30 lbs unintentio fuad since August, when he weighed 220 lbs. She reports his appetite has simply disappeare d, did not coincide with any medication changes or illness. For instance, she says for over 15 years he has had a bowl of bran cereal for breakfast but back in August, he simply stopped eating breakfast altogether and no longer wants this.Helen nue to monitor, RD to follow, could consider addition of Mirtazapin e. Slow trans it constipation 45597845 K59.01 8838 Stable. Continue routine Miralax. Additional meds available per standing orders. History of pulmonary embolus 895708596 Z86.711 265293 Remote. He had not been on oral anticoagul ation prior to recent hospitaliz ation. Now continues on Xarelto given new diagnosis Afib. History of deep vein thrombosis 835795471 Z86.612 9012970 Remote. Was treated for a brief time with oral anticoagul ation but has not been on for many years prior to recent hospitaliz ation.SEE ABOVE... Physical deconditioning 1739694490 9102 R53.81 764152 Related to advanced age, recent hospitaliz ation, comorbidit ies.Contin ue therapies and monitor progress.Jesse alexander will return home with his upon d/c from SNF. Hypertensi ve heart disease with congestive heart failure 8944766 I11.0 I50.42 58374399 coinciding with orthostasi s. Echo while inpatient showed 40-45% EF with grade 1 diastolic dysfunctio n. Cards followed while inpatient. Not routinely on diuretics. Continue low-dose Metoprolol and Midodrine as above.Cont inue to trend blood pressures, monitor lytes and renal function, and adjust meds as clinically indicated. Followed by Dr. Leonard Ge as an outpatient . 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 As a result, stopped these patches in January 2025.SEE ABOVE...Co ntinue PRN TMC cream to rash sites. Urinary fr equency due to benign prostatic hypertrophy 9992591544 31804 N40.1 R35.0 33898936 Pt stopped taking Flomax & Finasterid e as OP as he did not think they were effective, per .Pt having urinary frequency. UA clear.Rest arted Flomax per pt's OP medication s.Could consider resumption of Finasterid e if symptoms don't chadwick, but will need to monitor orthostasi s closely. Paroxysmal atrial fibrillation 986105051 I48.0 18066 New onset, but sounds like he is now back in NSR.Stable . Continue Metoprolol for rate control.Co ntinue Xarelto for VTE prophylaxi s.Followed by Dr. Leonard Ge on 04/07. Coronary arteriosclerosis 83555325 I25.10 [id number] s/p stenting x 2 in 2011. Cardiology evaluated for chest pain while inpatient, TSH was normal and Echo showed 40-45% EF with grade 1 diastolic dysfunctio n. Believed rise in Trop was sec to Afib, not ACS.Contin ue ASA, Metoprolol , Statin, and PRN NTG.Follow ed by Dr. Leonard Ge as above. Orthostati c hypotension 80778478 I95.1 3436 Stable. Continue Midodrine, nursing is holding if SBP >120.Monit or pressures and for symptoms c/w this. Hypertensi ve heart disease with congestive heart failure 0412410 I11.0 I50.42 81010924 coinciding with orthostasi s. Echo while inpatient showed 40-45% EF with grade 1 diastolic dysfunctio n. Cards followed while inpatient. Not routinely on diuretics. Continue low-dose Metoprolol and Midodrine as above.Cont inue to trend blood pressures, monitor lytes and renal function, and adjust meds as clinically indicated. Followed by Dr. Leonard Ge as above. Parkinson's disease 4904 9000 G20.A2 [id number] Stable but with orthostasi s. Continue Sinemet, Midodrine, Melatonin, Rivastigmi ne, & qhs Clonazepam .Rivastigm ine has been changed from patches to oral capsules as patches caused dermatitis .Continue therapies & supportive measures.W ill not attempt reduction of Clonazepam at this time due to concern could exacerbate Parkinson' s symptoms and interfere with ability to rehabilita te. Might consider addition of SSRI or Buspar if symptoms worsen during his rehab stay.Follo wed by neurology at [facility], Dr. Muñoz. Dementia d ue to Parkinson's disease [id number] 69192 G20.A1 F02.A4 [id number] SEE ABOVE...ST is following. SLUMS score 7/30 on 03/25/25 consistent with dementia. Named 14 animals in one minute following moderate verbal instructio ns for continuati on of task. Immediate word recall 2/5 and delayed word recal 4/5 after cueing. Story recall 1/4 and additional 2/4 with binary choice. Required repetition of informatio n for recall and direction following. Increased processing time with verbal responses and verbal instructio ns for clarificat ion of and for expanded responses. Continue supportive measures. Anxiety 32173539 F41.9 08801 SEE ABOVE... Primary insomnia 6439783 F51.01 59623 SEE ABOVE... Acquired hypothyroidism 789396738 E03.9 47312 TSH checked while inpatient was WNL. Stable. Continue Synthroid. Unintentio nal weight loss 182497238 R63.4 270798 Pt's reports he has lost 30 lbs unintentio fuad since August 2024, when he weighed 220 lbs. She reports his appetite has simply disappeare d, did not coincide with any medication changes or illness.Co ntinue to monitor, RD to follow, could consider addition of Mirtazapin e. Slow trans it constipation 84208380 K59.01 8838 Stable. Continue routine Miralax. Additional meds available per standing orders. History of pulmonary embolus 637150357 Z86.711 825431 Remote. He had not been on oral anticoagul ation prior to recent hospitaliz ation. Now continues on Xarelto given new diagnosis Afib. History of deep vein thrombosis 244724981 Z86.732 0240578 Remote. Was treated for a brief time with oral anticoagul ation but has not been on for many years prior to recent hospitaliz ation.SEE ABOVE... Physical deconditioning 9087041057 9102 R53.81 213996 Related to advanced age, recent hospitaliz ation, comorbidit ies.Contin ue therapies and monitor progress.Jesse alexander will return home with his upon d/c from [facility]. [id number] Emi Ocampo, [place] [address] [place] [address] 04/01/2025 10:32:03 04/07/2025 23:10:29 Paroxysmal atrial fibrillation 779138593 I48.0 23427 New onset, but sounds like he is now back in NSR.Stable . Continue Metoprolol for rate control.Co ntinue Xarelto for VTE prophylaxi s.Followed by Dr. Leonard Ge on 04/07. Coronary arteriosclerosis 65317269 I25.10 [id number] s/p stenting x 2 in 2011. Cardiology evaluated for chest pain while inpatient, TSH was normal and Echo showed 40-45% EF with grade 1 diastolic dysfunctio n. Believed rise in Trop was sec to Afib, not ACS.Contin ue ASA, Metoprolol , Statin, and PRN NTG.Follow ed by Dr. Leonard Ge as above. Orthostati c hypotension 61346635 I95.1 3436 Stable. Continue Midodrine, nursing is holding if SBP >120.Monit or pressures and for symptoms c/w this. Hypertensi ve heart disease with congestive heart failure 0557249 I11.0 I50.42 81353781 coinciding with orthostasi s. Echo while inpatient showed 40-45% EF with grade 1 diastolic dysfunctio n. Cards followed while inpatient. Not routinely on diuretics. Continue low-dose Metoprolol and Midodrine as above.Cont inue to trend blood pressures, monitor lytes and renal function, and adjust meds as clinically indicated. Followed by Dr. Leonard Ge as above. Parkinson's disease 4904 9000 G20.A2 8878591800 Stable but with orthostasi s. Continue Sinemet, Midodrine, Melatonin, Rivastigmi ne, & qhs Clonazepam .Rivastigm ine has been changed from patches to oral capsules by neurology as patches caused dermatitis .Continue therapies & supportive measures.W ill not attempt reduction of Clonazepam at this time due to concern could exacerbate Parkinson' s symptoms and interfere with ability to rehabilita te. Might consider addition of SSRI or Buspar if symptoms worsen during his rehab stay.Follo wed by neurology at [facility], Dr. Muñoz. Irritant c ontact dermatitis caused by drug in contact with skin 429411534 L24.4 0950410 Secondary to Rivastigmi ne patches. stopped these patches in January 2025 for this reason, had not told neurology. SEE ABOVE...Co ntinue PRN TMC cream to rash sites. Resolved. Dementia d ue to Parkinson's disease [id number] 08316 G20.A1 F02.A4 5921880815 SEE ABOVE...ST is following. SLUMS score 7/30 on 03/25/25 consistent with dementia. Named 14 animals in one minute following moderate verbal instructio ns for continuati on of task. Immediate word recall 2/5 and delayed word recal 4/5 after cueing. Story recall /4 and additional 2/4 with binary choice. Required repetition of informatio n for recall and direction following. Increased processing time with verbal responses and verbal instructio ns for clarificat ion of and for expanded responses. Continue supportive measures. Anxiety 71527243 F41.9 48775 SEE ABOVE... Primary insomnia 9008123 F51.01 10395 SEE ABOVE... Urinary fr equency due to benign prostatic hypertrophy 8397566730 25851 N40.1 R35.0 06530031 Pt stopped taking Flomax & Finasterid e as OP as he did not think they were effective, per .Pt having urinary frequency. UA clear.Rest arted Flomax per pt's OP medication s.Could consider resumption of Finasterid e if symptoms don't chadwick, but will need to monitor orthostasi s closely. Acquired hypothyroidism 628881559 E03.9 59901 TSH checked while inpatient was WNL. Stable. Continue Synthroid. Unintentio nal weight loss 740626723 R63.4 993539 Pt's reports he has lost 30 lbs unintentio fuad since August 2024, when he weighed 220 lbs. She reports his appetite has simply disappeare d, did not coincide with any medication changes or illness.Co ntinue to monitor, RD to follow, could consider addition of Mirtazapin e. Slow trans it constipation 14238004 K59.01 8838 Stable. Continue routine Miralax. Additional meds available per standing orders. History of pulmonary embolus 370199534 Z86.711 005103 Remote. He had not been on oral anticoagul ation prior to recent hospitaliz ation. Now continues on Xarelto given new diagnosis Afib. History of deep vein thrombosis 861762873 Z86.828 3199696 Remote. Was treated for a brief time with oral anticoagul ation but has not been on for many years prior to recent hospitaliz ation.SEE ABOVE... Physical deconditioning 0451543896 9102 R53.81 214171 Related to advanced age, recent hospitaliz ation, comorbidit ies.Contin ue therapies and monitor progress.Jesse alexander will return home with his upon d/c from SNF. [id number] Emi cOampo, DO [facility] [address] [place] [address] 04/02/2025 13:23:03 04/07/2025 23:11:31 Delirium 5625615 R41.0 58427 D/C Rivastigmi ne.Add bedtime Trazodone. Consider repeating UA if urinary symptoms develop or confusion does not improve with medication adjustment . Hypertensi ve heart disease with congestive heart failure 3472040 I11.0 I50.42 68358241 coinciding with orthostasi s. Echo while inpatient showed 40-45% EF with grade 1 diastolic dysfunctio n. Cards followed while inpatient. Not routinely on diuretics. Continue low-dose Metoprolol and Midodrine as above.Cont inue to trend blood pressures, monitor lytes and renal function, and adjust meds as clinically indicated. Followed by Dr. Leonard Ge as above. Orthostati c hypotension 86690194 I95.1 3436 Stable. Continue Midodrine, nursing is holding if SBP >120.Monit or pressures and for symptoms c/w this. Paroxysmal atrial fibrillation 847049994 I48.0 72767 New onset, but sounds like he is now back in NSR.Stable . Continue Metoprolol for rate control.Co ntinue Xarelto for VTE prophylaxi s.Followed by Dr. Leonard Ge on 04/07. Coronary arteriosclerosis 88044809 I25.10 15053849 s/p stenting x 2 in 2011. Cardiology evaluated for chest pain while inpatient, TSH was normal and Echo showed 40-45% EF with grade 1 diastolic dysfunctio n. Believed rise in Trop was sec to Afib, not ACS.Contin ue ASA, Metoprolol , Statin, and PRN NTG.Follow ed by Dr. Leonard Ge as above. Parkinson's disease 4904 9000 G20.A2 2901513943 Stable but with orthostasi s. Continue Sinemet, Midodrine, Melatonin, Rivastigmi ne, & qhs Clonazepam . Adding Trazodone at bedtime.Ri vastigmine was changed from patches to oral capsules by neurology as patches caused dermatitis . However, pt has had acute delirium as above since starting capsules, so stopping.C ontinue therapies & supportive measures.W ill not attempt reduction of Clonazepam at this time due to concern could exacerbate Parkinson' s symptoms and interfere with ability to rehabilita te. Might consider addition of SSRI or Buspar if symptoms worsen during his rehab stay.Follo wed by neurology at [facility], Dr. Muñoz. Dementia d ue to Parkinson's disease 0144170441 51147 G20.A1 F02.A4 5270369424 SEE ABOVE...ST is following. SLUMS score 7/30 on 03/25/25 consistent with dementia. Named 14 animals in one minute following moderate verbal instructio ns for continuati on of task. Immediate word recall 2/5 and delayed word recal 4/5 after cueing. Story recall 1/4 and additional 2/4 with binary choice. Required repetition of informatio n for recall and direction following. Increased processing time with verbal responses and verbal instructio ns for clarificat ion of and for expanded responses. Continue supportive measures. Anxiety 76152930 F41.9 92634 SEE ABOVE... Primary insomnia 8914214 F51.01 76198 SEE ABOVE... Urinary fr equency due to benign prostatic hypertrophy 5556317042 86840 N40.1 R35.0 52464576 Pt stopped taking Flomax & Finasterid e as OP as he did not think they were effective, per .Pt having urinary frequency. UA clear.Rest arted Flomax per pt's OP medication s.Could consider resumption of Finasterid e if symptoms don't chadwick, but will need to monitor orthostasi s closely. Acquired hypothyroidism 445879742 E03.9 79749 TSH checked while inpatient was WNL. Stable. Continue Synthroid. Unintentio nal weight loss 336501276 R63.4 266279 Pt's reports he has lost 30 lbs unintentio fuad since August 2024, when he weighed 220 lbs. She reports his appetite has simply disappeare d, did not coincide with any medication changes or illness.Co ntinue to monitor, RD to follow, could consider addition of Mirtazapin e. Slow trans it constipation 08102330 K59.01 8838 Stable. Continue routine Miralax. Additional meds available per standing orders. History of pulmonary embolus 798933156 Z86.711 350871 Remote. He had not been on oral anticoagul ation prior to recent hospitaliz ation. Now continues on Xarelto given new diagnosis Afib. History of deep vein thrombosis 586597194 Z86.813 5596137 Remote. Was treated for a brief time with oral anticoagul ation but has not been on for many years prior to recent hospitaliz ation.SEE ABOVE... Irritant c ontact dermatitis caused by drug in contact with skin 208886647 L24.4 6438976 Secondary to Rivastigmi ne patches. stopped these patches in January 2025 for this reason, had not told neurology. SEE ABOVE...Co ntinue PRN TMC cream to rash sites. Resolved. Physical deconditioning 9896372255 9102 R53.81 325682 Related to advanced age, recent hospitaliz ation, comorbidit ies.Contin ue therapies and monitor progress.Jesse alexander will return home with his upon d/c from SNF. 179180 Emi Terrence, [address] [address] 04/06/2025 10:47:45 04/07/2025 23:12:19 Hypoglycemia 271151620 E16.2 27088 Cause unclear. This has not been a concern noted on our labs and pt is without a history of this. No hx of diabetes and pt has had good PO intake.Erika ck fasting blood sugars BID x 7 days and monitor for hypoglycem ia. Delirium 5891591 R41.0 91007 D/Saroj Rivastigmi ne so highly likely secondary to this medication . His reports she stopped his Rivsatigmi ne patches back in January as they were giving him rashes. The hospital was unaware and put him back on the patches, 9.5 mg/24 hr. Rashes were problemati c here so patches were stopped on 03/24. Neurology started him on oral capsules 1.5 mg BID on 03/28. He was stable for a time without concerns but then had a notable uptick in agitation/ behaviors on 04/02, so Rivastigmi ne was stopped. Added bedtime Trazodone at that point. He was then seen overnight on 04/05 in ER due to agitation, attributed to hypoglycem ia (he had also refused his bedtime medication s that evening) but staff reports he had eaten a good dinner.UAs x 3 have been normal. Labwork here and in ER was unconcerni ng.Conside r addition of Depakote if behaviors do not improve.Re commended schedule f/u with neurology, but this may need to be deferred until behaviors stabilize further. Parkinson's disease 4904 9000 G20.A2 1781494863 Stable but with orthostasi s. Continue Sinemet, Midodrine, Melatonin, Trazodone, & qhs Clonazepam .SEE ABOVE...Co ntinue therapies & supportive measures.W ill not attempt reduction of Clonazepam at this time due to concern could exacerbate Parkinson' s symptoms and interfere with ability to rehabilita te.Followe d by neurology at [facility], Dr. Muñoz. Dementia d ue to Parkinson's disease 5838664489 91072 G20.A1 F02.A4 9042453519 SEE ABOVE...ST is following. SLUMS score 7/30 on 03/25/25 consistent with dementia. Named 14 animals in one minute following moderate verbal instructio ns for continuati on of task. Immediate word recall 2/5 and delayed word recal 4/5 after cueing. Story recall 1/4 and additional 2/4 with binary choice. Required repetition of informatio n for recall and direction following. Increased processing time with verbal responses and verbal instructio ns for clarificat ion of and for expanded responses. Continue supportive measures. Anxiety 46494230 F41.9 07024 SEE ABOVE... Primary insomnia 9265360 F51.01 33246 SEE ABOVE... Hypertensi ve heart disease with congestive heart failure 9067782 I11.0 I50.42 14428225 coinciding with orthostasi s. Echo while inpatient showed 40-45% EF with grade 1 diastolic dysfunctio n. Cards followed while inpatient. Not routinely on diuretics. Continue low-dose Metoprolol and Midodrine as above.Cont inue to trend blood pressures, monitor lytes and renal function, and adjust meds as clinically indicated. Followed by Dr. Leonard Ge as above. Orthostati c hypotension 39566529 I95.1 3436 Stable. Continue Midodrine, nursing is holding if SBP >120.Monit or pressures and for symptoms c/w this. Paroxysmal atrial fibrillation 763350244 I48.0 83461 New onset, but sounds like he is now back in NSR.Stable . Continue Metoprolol for rate control.Co ntinue Xarelto for VTE prophylaxi s.Followed by Dr. Leonard Ge on 04/07. Coronary arteriosclerosis 46769430 I25.10 77615323 s/p stenting x 2 in 2011. Cardiology evaluated for chest pain while inpatient, TSH was normal and Echo showed 40-45% EF with grade 1 diastolic dysfunctio n. Believed rise in Trop was sec to Afib, not ACS.Contin ue ASA, Metoprolol , Statin, and PRN NTG.Follow ed by Dr. Leonard Ge as above. Urinary fr equency due to benign prostatic hypertrophy 1688409032 02853 N40.1 R35.0 30037310 Pt stopped taking Flomax & Finasterid e as OP as he did not think they were effective, per .Repor edilson urinary frequency here and difficulty emptying bladder. UAs x 3 were clear.Rest arted Flomax per pt's OP medication s with improvemen t.Could consider resumption of Finasterid e if symptoms don't chadwick, but will need to monitor orthostasi s closely. Acquired hypothyroidism 084431403 E03.9 72346 TSH checked while inpatient was WNL. Stable. Continue Synthroid. Unintentio nal weight loss 560141072 R63.4 000839 Pt's reports he has lost 30 lbs unintentio fuad since August 2024, when he weighed 220 lbs. She reports his appetite has simply disappeare d, did not coincide with any medication changes or illness.Co ntinue to monitor, RD to follow, could consider addition of Mirtazapin e. Slow trans it constipation 81470955 K59.01 8838 Stable. Continue routine Miralax. Additional meds available per standing orders. History of pulmonary embolus 087909431 Z86.711 113822 Remote. He had not been on oral anticoagul ation prior to recent hospitaliz ation. Now continues on Xarelto given new diagnosis Afib. History of deep vein thrombosis 668199190 Z86.805 8035337 Remote. Was treated for a brief time with oral anticoagul ation but has not been on for many years prior to recent hospitaliz ation.SEE ABOVE... Irritant c ontact dermatitis caused by drug in contact with skin 888907355 L24.4 4834007 Secondary to Rivastigmi ne patches. stopped these patches in January 2025 for this reason, had not told neurology. SEE ABOVE...Co ntinue PRN TMC cream to rash sites. Resolved. Physical deconditioning 0824866219 9102 R53.81 849786 Related to advanced age, recent hospitaliz ation, comorbidit ies.Contin ue therapies and monitor progress.G oal is to return home with his upon d/c from SNF, however she is also considerin g placement due to worsening cognition/ ambulation . 240283 Emi Ocampo, DO [address] [address] 04/08/2025 09:33:03 04/11/2025 22:09:42 Hypoglycemia 544728983 E16.2 11593 Cause unclear. This has not been a concern noted on our labs and pt is without a history of this. No hx of diabetes and pt has had good PO intake.Erika ck fasting blood sugars BID x 7 days and monitor for hypoglycem ia. Delirium 7881283 R41.0 06950 D/Saroj Rivastigmi ne so highly likely secondary to withdrawal from this medication . His reports she stopped his Rivastigmi ne patches back in January as they were giving him rashes. The hospital was unaware and put him back on the patches, 9.5 mg/24 hr. Rashes were problemati c here so patches were stopped on 03/24. Neurology started him on oral capsules 1.5 mg BID on 03/28. He was stable for a time without concerns but then had a notable uptick in agitation/ behaviors on 04/02, so Rivastigmi ne was stopped. Added bedtime Trazodone at that point. He was then seen overnight on 04/05 in ER due to agitation, attributed to hypoglycem ia (he had also refused his bedtime medication s that evening) but staff reports he had eaten a good dinner.UAs x 3 have been normal. Labwork here and in ER was unconcerni ng.Conside r addition of Depakote if behaviors do not improve.Re commended schedule f/u with neurology, but this may need to be deferred until behaviors stabilize further. Parkinson's disease 4904 9000 G20.A2 2155379536 Stable but with orthostasi s. Continue Sinemet, Midodrine, Melatonin, Trazodone, & qhs Clonazepam .SEE ABOVE...Co ntinue therapies & supportive measures.W ill not attempt reduction of Clonazepam at this time due to concern could exacerbate Parkinson' s symptoms and interfere with ability to rehabilita te.Followe d by neurology at [facility], Dr. Muñoz. Dementia d ue to Parkinson's disease 0746334118 38142 G20.A1 F02.A4 6796768098 SEE ABOVE...ST is following. SLUMS score 7/30 on 03/25/25 consistent with dementia. Named 14 animals in one minute following moderate verbal instructio ns for continuati on of task. Immediate word recall 2/5 and delayed word recal 4/5 after cueing. Story recall 1/4 and additional 2/4 with binary choice. Required repetition of informatio n for recall and direction following. Increased processing time with verbal responses and verbal instructio ns for clarificat ion of and for expanded responses. Continue supportive measures. Anxiety 56187774 F41.9 96621 SEE ABOVE... Primary insomnia 1361771 F51.01 04791 SEE ABOVE... Hypertensi ve heart disease with congestive heart failure 3787544 I11.0 I50.42 02100353 coinciding with orthostasi s. Echo while inpatient showed 40-45% EF with grade 1 diastolic dysfunctio n. Cards followed while inpatient. Not routinely on diuretics. Continue low-dose Metoprolol and Midodrine as above.Cont inue to trend blood pressures, monitor lytes and renal function, and adjust meds as clinically indicated. Followed by Dr. Leonard Ge as above. Orthostati c hypotension 62160695 I95.1 3436 Stable. Continue Midodrine, nursing is holding if SBP >120.Monit or pressures and for symptoms c/w this. Paroxysmal atrial fibrillation 762772231 I48.0 10774 New onset, but sounds like he is now back in NSR.Stable . Continue Metoprolol for rate control.Co ntinue Xarelto for VTE prophylaxi s.F/U with Dr. Leonard Ge on 04/07 -- will likely postpone this appt due to recent confusion. Coronary arteriosclerosis 00750075 I25.10 33845092 s/p stenting x 2 in 2011. Cardiology evaluated for chest pain while inpatient, TSH was normal and Echo showed 40-45% EF with grade 1 diastolic dysfunctio n. Believed rise in Trop was sec to Afib, not ACS.Contin ue ASA, Metoprolol , Statin, and PRN NTG.Follow ed by Dr. Leonard Ge as above. Urinary fr equency due to benign prostatic hypertrophy 7789041672 96269 N40.1 R35.0 60606218 Pt stopped taking Flomax & Finasterid e as OP as he did not think they were effective, per .Repor edilson urinary frequency here and difficulty emptying bladder. UAs x 3 were clear.Rest arted Flomax per pt's OP medication s with improvemen t.Could consider resumption of Finasterid e if symptoms don't chadwick, but will need to monitor orthostasi s closely. Acquired hypothyroidism 553345637 E03.9 92526 TSH checked while inpatient was WNL. Stable. Continue Synthroid. Unintentio nal weight loss 768428957 R63.4 064629 Pt's reports he has lost 30 lbs unintentio fuad since August 2024, when he weighed 220 lbs. She reports his appetite has simply disappeare d, did not coincide with any medication changes or illness.Co ntinue to monitor, RD to follow, could consider addition of Mirtazapin e. Slow trans it constipation 26319173 K59.01 8838 Stable. Continue routine Miralax. Additional meds available per standing orders. History of pulmonary embolus 133919019 Z86.711 527888 Remote. He had not been on oral anticoagul ation prior to recent hospitaliz ation. Now continues on Xarelto given new diagnosis Afib. History of deep vein thrombosis 229343455 Z86.760 4071887 Remote. Was treated for a brief time with oral anticoagul ation but has not been on for many years prior to recent hospitaliz ation.SEE ABOVE... Irritant c ontact dermatitis caused by drug in contact with skin 787302111 L24.4 4844297 Secondary to Rivastigmi ne patches. stopped these patches in January 2025 for this reason, had not told neurology. SEE ABOVE...Co ntinue PRN TMC cream to rash sites. Resolved. Physical deconditioning 7387733343 9102 R53.81 249988 Related to advanced age, recent hospitaliz ation, comorbidit ies.Contin ue therapies and monitor progress.Damaris oabranden is to return home with his upon d/c from SNF, however she is also considerin g placement due to worsening cognition/ ambulation . [id number] Emi Ocampo, [address] [address] 04/10/2025 12:42:11 04/11/2025 22:10:11 Hypoglycemia 517125180 E16.2 23723 Cause unclear. This has not been a concern noted on our labs and pt is without a history of this. No hx of diabetes and pt has had good PO intake.Erika ck fasting blood sugars BID x 7 days and monitor for hypoglycem ia. Have been normal thus far. Delirium [id number] R41.0 27734 D/Saroj Rivastigmi ne so highly likely secondary to withdrawal from this medication . His reports she stopped his Rivastigmi ne patches back in January as they were giving him rashes. The hospital was unaware and put him back on the patches, 9.5 mg/24 hr. Rashes were problemati c here so patches were stopped on 03/24. Neurology started him on oral capsules 1.5 mg BID on 03/28. He was stable for a time without concerns but then had a notable uptick in agitation/ behaviors on 04/02, so Rivastigmi ne was stopped. Added bedtime Trazodone at that point. He was then seen overnight on 04/05 in ER due to agitation, attributed to hypoglycem ia (he had also refused his bedtime medication s that evening) but staff reports he had eaten a good dinner.UAs x 3 have been normal. Labwork here and in ER was unconcerni ng.Conside r addition of Depakote if behaviors do not improve.Re commended schedule f/u with neurology, but this may need to be deferred until behaviors stabilize further. Parkinson's disease [id number] G20.A2 [id number] Stable but with orthostasi s. Continue Sinemet, Midodrine, Melatonin, Trazodone, & qhs Clonazepam .SEE ABOVE...Co ntinue therapies & supportive measures.W ill not attempt reduction of Clonazepam at this time due to concern could exacerbate Parkinson' s symptoms and interfere with ability to rehabilita te.Followe d by neurology at [facility], Dr. Muñoz. Dementia d ue to Parkinson's disease [id number] 28919 G20.A1 F02.A4 [id number] SEE ABOVE...ST is following. SLUMS score 7/30 on 03/25/25 consistent with dementia. Named 14 animals in one minute following moderate verbal instructio ns for continuati on of task. Immediate word recall 2/5 and delayed word recal 4/5 after cueing. Story recall 1/4 and additional 2/4 with binary choice. Required repetition of informatio n for recall and direction following. Increased processing time with verbal responses and verbal instructio ns for clarificat ion of and for expanded responses. Continue supportive measures. Anxiety 26144236 F41.9 43048 SEE ABOVE... Primary insomnia 0865760 F51.01 91544 SEE ABOVE... Orthostati c hypotension 63671376 I95.1 3436 Stable. Continue Midodrine, nursing is holding if SBP >120.Monit or pressures and for symptoms c/w this. Paroxysmal atrial fibrillation [id number] I48.0 74474 New onset, but sounds like he is now back in NSR.Stable . Continue Metoprolol for rate control.Co ntinue Xarelto for VTE prophylaxi s.F/U with Dr. Leonard Ge on 04/07 -- will likely postpone this appt due to recent confusion. Hypertensi ve heart disease with congestive heart failure 2879906 I11.0 I50.42 69238885 coinciding with orthostasi s. Echo while inpatient showed 40-45% EF with grade 1 diastolic dysfunctio n. Cards followed while inpatient. Not routinely on diuretics. Continue low-dose Metoprolol and Midodrine as above.Cont inue to trend blood pressures, monitor lytes and renal function, and adjust meds as clinically indicated. Followed by Dr. Leonard Ge as above. Coronary arteriosclerosis [id number] I25.10 [id number] s/p stenting x 2 in 2012. Cardiology evaluated for chest pain while inpatient, TSH was normal and Echo showed 40-45% EF with grade 1 diastolic dysfunctio n. Believed rise in Trop was sec to Afib, not ACS.Contin ue ASA, Metoprolol , Statin, and PRN NTG.Follow ed by Dr. Leonard Ge as above. Urinary fr equency due to benign prostatic hypertrophy [id number] 19784 N40.1 R35.0 [id number] Pt stopped taking Flomax & Finasterid e as OP as he did not think they were effective, per .Repor edilson urinary frequency here and difficulty emptying bladder. UAs x 3 were clear.Rest arted Flomax per pt's OP medication s with improvemen t.Could consider resumption of Finasterid e if symptoms don't chadwick, but will need to monitor orthostasi s closely. Acquired hypothyroidism [id number] E03.9 21716 TSH checked while inpatient was WNL. Stable. Continue Synthroid. Unintentio nal weight loss [id number] R63.4 432483 Pt's reports he has lost 30 lbs unintentio fuad since August 2024, when he weighed 220 lbs. She reports his appetite has simply disappeare d, did not coincide with any medication changes or illness.Co ntinue to monitor, RD to follow, could consider addition of Mirtazapin e. Slow trans it constipation [id number] K59.01 8838 Stable. Continue routine Miralax. Additional meds available per standing orders. History of pulmonary embolus [id number] Z86.711 613546 Remote. He had not been on oral anticoagul ation prior to recent hospitaliz ation. Now continues on Xarelto given new diagnosis Afib. History of deep vein thrombosis [id number] Z86.087 [id number] Remote. Was treated for a brief time with oral anticoagul ation but has not been on for many years prior to recent hospitaliz ation.SEE ABOVE... Irritant c ontact dermatitis caused by drug in contact with skin [id number] L24.4 5361255 Secondary to Rivastigmi ne patches. stopped these patches in January 2025 for this reason, had not told neurology. SEE ABOVE...Co ntinue PRN TMC cream to rash sites. Resolved. Physical deconditioning [id number] 9102 R53.81 116953 Related to advanced age, recent hospitaliz ation, comorbidit ies.Contin ue therapies and monitor progress.G oal is to return home with his upon d/c from SNF, however she is also considerin g placement due to worsening cognition/ ambulation . Health Concerns Section Related Observation LastModified by Organization Detai ls LastModified Time None Recorded Concern Status LastModified by Organization Details LastModified Time None Recorded Advance Directives Directive None Recorded Payers Insurance Date Sequence Insurance Name Policy Number Policy Salvador Covered Member ID Salvador Member ID Guarantor Name 04/11/2025 1 [facility] (MEDICARE REPLACEMENT HMO) [id number] Theron Eugene [id number] Theron Eugene Notes Date Note Type Note Provider Name and Address Organization Details Recorded Time 04/01/2025 text/html F/U chest pain & dyspnea, new-onset Afib with RVR, Parkinson's, Orthostasis, deconditioning, and chronic medical conditions.--- 5The patient is sitting up in his bedside chair this evening. He is fairly pleasant with some forgetfulness and confusion. He voices his dislike of being here as he does not feel he needs to be in rehab. He is hopeful to return home as soon as possible. He denies any current chest pain. He reports he lives in a home with his and is usually independent with mobility and ADLs, does not drive. He is not sure who his primary care doctor is. PCP Mitch Munoz - confirmed with .---03/19/25Joe is seated in his recliner in his room, denies pain or concerns, but wants to discharge home and is discouraged by being here when I don't need to be. We discuss that this is a short-term stay here to establish what he needs to work on before he can safely discharge home. He seems soothed to by being reminded his stay here is only temporary and geared towards therapy so that he can discharge home. VSS. Nursing did not give him his AM Midodrine as his SBP was 143. Staff is without concerns today otherwise. Per therapy notes = Instructed pt on gait training using w/w 150 feet x2 requiring SBA/CGA. Cues for safety, directional changes, obstalce negoitation, and to take bigger steps with heel toe gait. Fair return demo with occ LOB. Instructed pt on w/w placement and progression arminda during turns.---03/24/25Tomasz is seated in his recliner, his Edilia by his side. She points out a rash and itching that Tomasz has been reporting and I note several circular dermatitis patches to his upper back and back of his arms. She reports this is from his Rivastigmine patch and that, for this reason, she stopped these patches about 1.5 ago. She did not make neurology away as they would reem me for stopping it. She also notes he has been having urinary frequency. She is able to locate a home medication list and I note that the pt was taking Flomax & Proscar up until recently. Edilia reports he stopped taking them because he didn't think they were working, not for any side effects noted, and that he often would get frustrated like this and stop his medications. She notes he has been compliant with Midodrine and Sinemet, though, as she has recently started giving him his medications. Edilia lastly reports that the pt has lost 40 lbs in the last 7 months. She reports his appetite has simply been gone and cannot correlate this to any change in his medication regimen or illness at that time. He weighed 220 lbs in Aug 2024. She otherwise feels his rehab is going well thus far. VSS. Staff is without concerns today. Per therapy notes = facilitated gait training with FWW for up to 200 ft increments with mod-max cues for toe clearance and safe walker management (maintaining FWW close to COM for safety to avoid excessive trunk flexion).---03/26/25J paige is doing well today, resting in his recliner, confused but pleasant, without concerns or pain to report today. VSS. Staff is without concerns at this time. Finally received and reviewed medical records from [facility]. Per therapy notes = Conducted gait training 300' CGA to SBA cues for widening JOVANY and for floor clearance. sit/stand from toilet low surface CGA pvt transfer CGA---03/30/25Tomasz is seated in his recliner in his room, his by his side. Tomasz continues to think he is well enough to discharge home, however his at his side notes she still thinks he needs continuing therapy for better balance and stamina, as well as indepedencence in ADLs. VSS. Staff is without concerns today. Per therapy notes = Patient performed sit to stands to FWW- requiring CGA-SBA assist with cueing for hand placement. Standing dynamic balance - functional reaching to improve weight shifting, midline crossing and reaching outside of JOVANY... Patient ambulated 250 ft x 2 on level surfaces with a FWW, requiring SBA. Pt requires cueing to increase step length and widen JOVANY.---04/01/25Tomasz is resting in his recliner, in better spirits today, continues to tell me that he is doing well with therapy and denies pain or concerns today. He tells me about watching football last night and how much he enjoyed it. VSS. Staff is without concerns at this time. Per therapy notes = adls as follows: toileting cga with vc for sequecing.. le dressing cga with vc for seguencing. ue dressing setup... gait training with FWW with max cues for safe walker management and sequencing. facilitated transfer training with supervision with max cues for sequencing and safety with walker - pt attempting to sit on cross bar of FWW instead of chair multiple times during session. Pt also abandonign AD during transfers. Minna Fleming, NARCISO [id number] [facility], [place], [address], [place] [facility] [employer] 04/01/2025 12:45:49 04/02/2025 text/html F/U chest pain & dyspnea, new-onset Afib with RVR, Parkinson's, Orthostasis, deconditioning, and chronic medical conditions.--- 5The patient is sitting up in his bedside chair this evening. He is fairly pleasant with some forgetfulness and confusion. He voices his dislike of being here as he does not feel he needs to be in rehab. He is hopeful to return home as soon as possible. He denies any current chest pain. He reports he lives in a home with his and is usually independent with mobility and ADLs, does not drive. He is not sure who his primary care doctor is. PCP Mitch Munoz - confirmed with .---03/19/25Tomasz is seated in his recliner in his room, denies pain or concerns, but wants to discharge home and is discouraged by being here when I don't need to be. We discuss that this is a short-term stay here to establish what he needs to work on before he can safely discharge home. He seems soothed to by being reminded his stay here is only temporary and geared towards therapy so that he can discharge home. VSS. Nursing did not give him his AM Midodrine as his SBP was 143. Staff is without concerns today otherwise. Per therapy notes = Instructed pt on gait training using w/w 150 feet x2 requiring SBA/CGA. Cues for safety, directional changes, obstalce negoitation, and to take bigger steps with heel toe gait. Fair return demo with occ LOB. Instructed pt on w/w placement and progression arminda during turns.---03/24/25Tomasz is seated in his recliner, his Edilia by his side. She points out a rash and itching that Tomasz has been reporting and I note several circular dermatitis patches to his upper back and back of his arms. She reports this is from his Rivastigmine patch and that, for this reason, she stopped these patches about 1.5 ago. She did not make neurology away as they would reem me for stopping it. She also notes he has been having urinary frequency. She is able to locate a home medication list and I note that the pt was taking Flomax & Proscar up until recently. Edliia reports he stopped taking them because he didn't think they were working, not for any side effects noted, and that he often would get frustrated like this and stop his medications. She notes he has been compliant with Midodrine and Sinemet, though, as she has recently started giving him his medications. Edilia lastly reports that the pt has lost 40 lbs in the last 7 months. She reports his appetite has simply been gone and cannot correlate this to any change in his medication regimen or illness at that time. He weighed 220 lbs in Aug 2024. She otherwise feels his rehab is going well thus far. VSS. Staff is without concerns today. Per therapy notes = facilitated gait training with FWW for up to 200 ft increments with mod-max cues for toe clearance and safe walker management (maintaining FWW close to COM for safety to avoid excessive trunk flexion).---03/26/25J paige is doing well today, resting in his recliner, confused but pleasant, without concerns or pain to report today. VSS. Staff is without concerns at this time. Finally received and reviewed medical records from [facility]. Per therapy notes = Conducted gait training 300' CGA to SBA cues for widening JOVANY and for floor clearance. sit/stand from toilet low surface CGA pvt transfer CGA---03/30/25Tomasz is seated in his recliner in his room, his by his side. Tomasz continues to think he is well enough to discharge home, however his at his side notes she still thinks he needs continuing therapy for better balance and stamina, as well as indepedencence in ADLs. VSS. Staff is without concerns today. Per therapy notes = Patient performed sit to stands to FWW- requiring CGA-SBA assist with cueing for hand placement. Standing dynamic balance - functional reaching to improve weight shifting, midline crossing and reaching outside of JOVANY... Patient ambulated 250 ft x 2 on level surfaces with a FWW, requiring SBA. Pt requires cueing to increase step length and widen JOVANY.---04/01/25Jobenjamin is resting in his recliner, in better spirits today, continues to tell me that he is doing well with therapy and denies pain or concerns today. He tells me about watching football last night and how much he enjoyed it. VSS. Staff is without concerns at this time. Per therapy notes = adls as follows: toileting cga with vc for sequecing.. le dressing cga with vc for seguencing. ue dressing setup... gait training with FWW with max cues for safe walker management and sequencing. facilitated transfer training with supervision with max cues for sequencing and safety with walker - pt attempting to sit on cross bar of FWW instead of chair multiple times during session. Pt also abandonign AD during transfers.--- 5Staff are requesting visit for behaviors that started last evening. They report Tomasz slept very poorly and was up all night, entering other residents' rooms and generally behaving in a confused and restless manner, looking for his . Today, Theron is seated in his recliner, his Edilia by his side. He remains quite confused and is unable to tell me the name of his previous . When I asked him how he slept, he tells me fairly well but then complains that he had to go around and wake up the kids and you (points to his ) and that no one would get up. Edilia is reasonably upset by this abrupt mentation change. We discuss stopped his Rivastigmine given this is the only recent medication change made (started on 03/28). Will update neurology on this d/c. Otherwise labwork from yesterday is unconcerning and recent UA was clear. Will add Trazodone to aid with sleep tonight and continue to monitor closely. VSS. Staff is otherwise without concerns. Per therapy notes = Patient performed sit to stands to FWW- requiring CGA-minimal assist. Standing dynamic balance - functional reaching to improve weight shifting, midline crossing and reaching outside of JOVANY. Rest breaks taken as needed due to fatigue. Patient demonstrates increased confusion this date. Patient required cueing to perform exercises with proper exercise technique, form and control. Patient ambulated 50 ft on level surfaces with a FWW, requiring min assist. Patient required cueing for shuffling gait pattern, pt unable to correct to increase step length. Minna Fleming, NARCISO [address] [facility], [place], [address], [place] [facility] [employer] 04/02/2025 19:13:51 04/06/2025 text/html F/U chest pain & dyspnea, new-onset Afib with RVR, Parkinson's, Dementia with behaviors/agitation, Orthostasis, deconditioning, and chronic medical conditions.--- 5The patient is sitting up in his bedside chair this evening. He is fairly pleasant with some forgetfulness and confusion. He voices his dislike of being here as he does not feel he needs to be in rehab. He is hopeful to return home as soon as possible. He denies any current chest pain. He reports he lives in a home with his and is usually independent with mobility and ADLs, does not drive. He is not sure who his primary care doctor is. PCP Mitch Munoz - confirmed with .---03/19/25Tomasz is seated in his recliner in his room, denies pain or concerns, but wants to discharge home and is discouraged by being here when I don't need to be. We discuss that this is a short-term stay here to establish what he needs to work on before he can safely discharge home. He seems soothed to by being reminded his stay here is only temporary and geared towards therapy so that he can discharge home. VSS. Nursing did not give him his AM Midodrine as his SBP was 143. Staff is without concerns today otherwise. Per therapy notes = Instructed pt on gait training using w/w 150 feet x2 requiring SBA/CGA. Cues for safety, directional changes, obstalce negoitation, and to take bigger steps with heel toe gait. Fair return demo with occ LOB. Instructed pt on w/w placement and progression arminda during turns.---03/24/25Tomasz is seated in his recliner, his dEilia by his side. She points out a rash and itching that Tomasz has been reporting and I note several circular dermatitis patches to his upper back and back of his arms. She reports this is from his Rivastigmine patch and that, for this reason, she stopped these patches about 1.5 ago. She did not make neurology away as they would reem me for stopping it. She also notes he has been having urinary frequency. She is able to locate a home medication list and I note that the pt was taking Flomax & Proscar up until recently. Edilia reports he stopped taking them because he didn't think they were working, not for any side effects noted, and that he often would get frustrated like this and stop his medications. She notes he has been compliant with Midodrine and Sinemet, though, as she has recently started giving him his medications. Edilia lastly reports that the pt has lost 40 lbs in the last 7 months. She reports his appetite has simply been gone and cannot correlate this to any change in his medication regimen or illness at that time. He weighed 220 lbs in Aug 2024. She otherwise feels his rehab is going well thus far. VSS. Staff is without concerns today. Per therapy notes = facilitated gait training with FWW for up to 200 ft increments with mod-max cues for toe clearance and safe walker management (maintaining FWW close to COM for safety to avoid excessive trunk flexion).---03/26/25J paige is doing well today, resting in his recliner, confused but pleasant, without concerns or pain to report today. VSS. Staff is without concerns at this time. Finally received and reviewed medical records from [facility]. Per therapy notes = Conducted gait training 300' CGA to SBA cues for widening JOVANY and for floor clearance. sit/stand from toilet low surface CGA pvt transfer CGA---03/30/25Tomasz is seated in his recliner in his room, his by his side. Tomasz continues to think he is well enough to discharge home, however his at his side notes she still thinks he needs continuing therapy for better balance and stamina, as well as indepedencence in ADLs. VSS. Staff is without concerns today. Per therapy notes = Patient performed sit to stands to FWW- requiring CGA-SBA assist with cueing for hand placement. Standing dynamic balance - functional reaching to improve weight shifting, midline crossing and reaching outside of JOVANY... Patient ambulated 250 ft x 2 on level surfaces with a FWW, requiring SBA. Pt requires cueing to increase step length and widen JOVANY.---04/01/25Tomasz is resting in his recliner, in better spirits today, continues to tell me that he is doing well with therapy and denies pain or concerns today. He tells me about watching football last night and how much he enjoyed it. VSS. Staff is without concerns at this time. Per therapy notes = adls as follows: toileting cga with vc for sequecing.. le dressing cga with vc for seguencing. ue dressing setup... gait training with FWW with max cues for safe walker management and sequencing. facilitated transfer training with supervision with max cues for sequencing and safety with walker - pt attempting to sit on cross bar of FWW instead of chair multiple times during session. Pt also abandonign AD during transfers.--- 5Staff are requesting visit for behaviors that started last evening. They report Tomasz slept very poorly and was up all night, entering other residents' rooms and generally behaving in a confused and restless manner, looking for his . Today, Theron is seated in his recliner, his Edilia by his side. He remains quite confused and is unable to tell me the name of his previous . When I asked him how he slept, he tells me fairly well but then complains that he had to go around and wake up the kids and you (points to his ) and that no one would get up. Edilia is reasonably upset by this abrupt mentation change. We discuss stopped his Rivastigmine given this is the only recent medication change made (started on 03/28). Will update neurology on this d/c. Otherwise labwork from yesterday is unconcerning and recent UA was clear. Will add Trazodone to aid with sleep tonight and continue to monitor closely. VSS. Staff is otherwise without concerns. Per therapy notes = Patient performed sit to stands to FWW- requiring CGA-minimal assist. Standing dynamic balance - functional reaching to improve weight shifting, midline crossing and reaching outside of JOVANY. Rest breaks taken as needed due to fatigue. Patient demonstrates increased confusion this date. Patient required cueing to perform exercises with proper exercise technique, form and control. Patient ambulated 50 ft on level surfaces with a FWW, requiring min assist. Patient required cueing for shuffling gait pattern, pt unable to correct to increase step length.---04/06/25Radha colorado was seen in [facility] overnight from 04/04 to 04/05/25. Per nursing notes = 04/04/25 21:51 Resident getting physically aggressive with staff and using objects from room as weapons. Resident trying to enter other residents' rooms with objects. Staff unable to removed objects from resident. Per Janak notes, he was evaluated and diagnosed with hypoglycemia. For EMS, patient has been cooperative towards them and has been cooperative towards us in the emergency department upon arrival. Patients glucose was noted to be 39 and EMS started an IV and give 250 ml of D10. Repeat blood glucose for the most 232... EKG... revealed sinus rhythm rate 69 bpms, no evidence of acute ischemia... Laboratory results obtained revealing no acute process. Urinalysis unremarkable. Repeat glucose checks were found to be 177 and 179. He returned to this facility on 04/05/25 at 4:16 AM with NNO. Blood sugars on fasting labs here have been 87-102 so unclear what would be the cause of acute hypoglycemia in a patient that has been eating/drinking well and is not diabetic. Suspect behaviors were due to removal from Rivastigmine. This had recently been started and pt had notable uptick in behaviors/confusion following it's re-initiation, so it was stopped. Again, unclear what would cause hypoglycemia, however. Tomasz remains confused today, is not able to tell me the name of his on first request. He instantly is able to identify his 's sister by name, and when I ask his , he says, Is she one of the Susans? He is irritable with her and accusing her of having affairs. He otherwise has been pleasant with staff and everyone else since his ER visit and we discuss what he thinks led to this. He tells me, I don't like being cooped up like I'm in the . I explain to him that he still has progress he needs to make with therapy, he is still at high risk of falling as I am able to witness his scissoring gait just prior to my visit and he is not able to follow cues very well. He was also noted to be exiting the bathroom without his w/w, which I fetched for him and reminded him he must use. He is cooperative with me and expresses understanding. VSS. Staff is without concerns at this time. Per therapy notes = facilitated gait training with FWW with SBA-CGA with max cues for sequencing when arriving at destination. Educated pt that he should be using AD at all times due to pt entering room and pt ambulating unsafely wtihout AD. Pt also demnstrates significant safety awareness deficits with pt having BM and pt unable to safely clean up self and attempign to unsafely clean environment. facilitated transfer training to/from various surfaces such as low cushioned chair, bed, and standard chairs with minx1 from low surface and supervision from chair with max cues for AD management and sequenicing.... pt had large Bm episode in bathroom.. had to asst with washing off and changing clothes... pt displays significant delcine with processing and sequencing in the last week. Minna Fleming, SHUTTLER CAR [id number] [facility], [place], [id number], [place] [facility] 04/07/2025 10:54:19 04/08/2025 text/html F/U chest pain & dyspnea, new-onset Afib with RVR, Parkinson's, Dementia with behaviors/agitation, Orthostasis, deconditioning, and chronic medical conditions.--- 5The patient is sitting up in his bedside chair this evening. He is fairly pleasant with some forgetfulness and confusion. He voices his dislike of being here as he does not feel he needs to be in rehab. He is hopeful to return home as soon as possible. He denies any current chest pain. He reports he lives in a home with his and is usually independent with mobility and ADLs, does not drive. He is not sure who his primary care doctor is. PCP Mitch Munoz - confirmed with .---03/19/25Tomasz is seated in his recliner in his room, denies pain or concerns, but wants to discharge home and is discouraged by being here when I don't need to be. We discuss that this is a short-term stay here to establish what he needs to work on before he can safely discharge home. He seems soothed to by being reminded his stay here is only temporary and geared towards therapy so that he can discharge home. VSS. Nursing did not give him his AM Midodrine as his SBP was 143. Staff is without concerns today otherwise. Per therapy notes = Instructed pt on gait training using w/w 150 feet x2 requiring SBA/CGA. Cues for safety, directional changes, obstalce negoitation, and to take bigger steps with heel toe gait. Fair return demo with occ LOB. Instructed pt on w/w placement and progression arminda during turns.---03/24/25Tomasz is seated in his recliner, his Edilia by his side. She points out a rash and itching that Tomasz has been reporting and I note several circular dermatitis patches to his upper back and back of his arms. She reports this is from his Rivastigmine patch and that, for this reason, she stopped these patches about 1.5 ago. She did not make neurology away as they would reem me for stopping it. She also notes he has been having urinary frequency. She is able to locate a home medication list and I note that the pt was taking Flomax & Proscar up until recently. Edilia reports he stopped taking them because he didn't think they were working, not for any side effects noted, and that he often would get frustrated like this and stop his medications. She notes he has been compliant with Midodrine and Sinemet, though, as she has recently started giving him his medications. Edilia lastly reports that the pt has lost 40 lbs in the last 7 months. She reports his appetite has simply been gone and cannot correlate this to any change in his medication regimen or illness at that time. He weighed 220 lbs in Aug 2024. She otherwise feels his rehab is going well thus far. VSS. Staff is without concerns today. Per therapy notes = facilitated gait training with FWW for up to 200 ft increments with mod-max cues for toe clearance and safe walker management (maintaining FWW close to COM for safety to avoid excessive trunk flexion).---03/26/25J paige is doing well today, resting in his recliner, confused but pleasant, without concerns or pain to report today. VSS. Staff is without concerns at this time. Finally received and reviewed medical records from [facility]. Per therapy notes = Conducted gait training 300' CGA to SBA cues for widening JOVANY and for floor clearance. sit/stand from toilet low surface CGA pvt transfer CGA---03/30/25Jobenjamin is seated in his recliner in his room, his by his side. Tomasz continues to think he is well enough to discharge home, however his at his side notes she still thinks he needs continuing therapy for better balance and stamina, as well as indepedencence in ADLs. VSS. Staff is without concerns today. Per therapy notes = Patient performed sit to stands to FWW- requiring CGA-SBA assist with cueing for hand placement. Standing dynamic balance - functional reaching to improve weight shifting, midline crossing and reaching outside of JOVANY... Patient ambulated 250 ft x 2 on level surfaces with a FWW, requiring SBA. Pt requires cueing to increase step length and widen JOVANY.---04/01/25Tomasz is resting in his recliner, in better spirits today, continues to tell me that he is doing well with therapy and denies pain or concerns today. He tells me about watching football last night and how much he enjoyed it. VSS. Staff is without concerns at this time. Per therapy notes = adls as follows: toileting cga with vc for sequecing.. le dressing cga with vc for seguencing. ue dressing setup... gait training with FWW with max cues for safe walker management and sequencing. facilitated transfer training with supervision with max cues for sequencing and safety with walker - pt attempting to sit on cross bar of FWW instead of chair multiple times during session. Pt also abandonign AD during transfers.--- 5Staff are requesting visit for behaviors that started last evening. They report Tomasz slept very poorly and was up all night, entering other residents' rooms and generally behaving in a confused and restless manner, looking for his . Today, Theron is seated in his recliner, his Edilia by his side. He remains quite confused and is unable to tell me the name of his previous . When I asked him how he slept, he tells me fairly well but then complains that he had to go around and wake up the kids and you (points to his ) and that no one would get up. Edilia is reasonably upset by this abrupt mentation change. We discuss stopped his Rivastigmine given this is the only recent medication change made (started on 03/28). Will update neurology on this d/c. Otherwise labwork from yesterday is unconcerning and recent UA was clear. Will add Trazodone to aid with sleep tonight and continue to monitor closely. VSS. Staff is otherwise without concerns. Per therapy notes = Patient performed sit to stands to FWW- requiring CGA-minimal assist. Standing dynamic balance - functional reaching to improve weight shifting, midline crossing and reaching outside of JOVANY. Rest breaks taken as needed due to fatigue. Patient demonstrates increased confusion this date. Patient required cueing to perform exercises with proper exercise technique, form and control. Patient ambulated 50 ft on level surfaces with a FWW, requiring min assist. Patient required cueing for shuffling gait pattern, pt unable to correct to increase step length.---04/06/25Radha colorado was seen in [facility] ER overnight from 04/04 to 04/05/25. Per nursing notes = 04/04/25 21:51 Resident getting physically aggressive with staff and using objects from room as weapons. Resident trying to enter other residents' rooms with objects. Staff unable to removed objects from resident. Per Janak notes, he was evaluated and diagnosed with hypoglycemia. For EMS, patient has been cooperative towards them and has been cooperative towards us in the emergency department upon arrival. Patients glucose was noted to be 39 and EMS started an IV and give 250 ml of D10. Repeat blood glucose for the most 232... EKG... revealed sinus rhythm rate 69 bpms, no evidence of acute ischemia... Laboratory results obtained revealing no acute process. Urinalysis unremarkable. Repeat glucose checks were found to be 177 and 179. He returned to this facility on 04/05/25 at 4:16 AM with NNO. Blood sugars on fasting labs here have been 87-102 so unclear what would be the cause of acute hypoglycemia in a patient that has been eating/drinking well and is not diabetic. Suspect behaviors were due to removal from Rivastigmine. This had recently been started and pt had notable uptick in behaviors/confusion following it's re-initiation, so it was stopped. Again, unclear what would cause hypoglycemia, however. Tomasz remains confused today, is not able to tell me the name of his on first request. He instantly is able to identify his 's sister by name, and when I ask his , he says, Is she one of the Susans? He is irritable with her and accusing her of having affairs. He otherwise has been pleasant with staff and everyone else since his ER visit and we discuss what he thinks led to this. He tells me, I don't like being cooped up like I'm in the . I explain to him that he still has progress he needs to make with therapy, he is still at high risk of falling as I am able to witness his scissoring gait just prior to my visit and he is not able to follow cues very well. He was also noted to be exiting the bathroom without his w/w, which I fetched for him and reminded him he must use. He is cooperative with me and expresses understanding. VSS. Staff is without concerns at this time. Per therapy notes = facilitated gait training with FWW with SBA-CGA with max cues for sequencing when arriving at destination. Educated pt that he should be using AD at all times due to pt entering room and pt ambulating unsafely wtihout AD. Pt also demnstrates significant safety awareness deficits with pt having BM and pt unable to safely clean up self and attempign to unsafely clean environment. facilitated transfer training to/from various surfaces such as low cushioned chair, bed, and standard chairs with minx1 from low surface and supervision from chair with max cues for AD management and sequenicing.... pt had large Bm episode in bathroom.. had to asst with washing off and changing clothes... pt displays significant delcine with processing and sequencing in the last week.---04/08/25Tomasz is initially seen standing to say goodbye to some friends that have been visiting. He is able to tell me the name of this friend and his , as he has known them [facility]. He sits after cueing and tells me he is doing well today. He tells me he slept well, except for when people kept coming in my house to wake me up. Edilia is at his side and reports his mentation appears improved today, although he is not back near to baseline, to which I tend to agree. We discuss the likelihood this change in mentation is related to the recent adjustments of Rivastigmine. Edilia tells me Tomasz has an appt on Sunday with cardiology but she plans to reschedule this later out as she is concerned this will disrupt his improving mentation. Agree with this plan. VSS. Staff is without concerns at this time and reports he slept better last night with his recent increase in Trazodone dosing. Per therapy notes = facilitated gait training with FWW for >200 ft with mod cues for safe AD managemetn and to avoid abandoning AD. Pt also requires cues for increased step length and heel strike at IC to reduce shuffling gait pattenr. Minna Fleming, NARCISO [id number] [facility], [place], [id number], [facility] 04/08/2025 14:42:19 04/10/2025 text/html 79 Y/O male with a history of Parkinson's Disease, CAD s/p stenting x 2, dementia, HTN, PE, HLD, pericarditis, BPH and orthostasis admitted to [facility] for post acute rehab subsequent to an inpatient stay at [facility] 03/12-03/17/25 related to chest pain. Per his history and physical, Tomasz presented to the ER with complaints of a squeezing sensation to the sternum associated with some dyspnea, nausea and dizziness. Symptoms had resolved by the time he arrived in the ER. Initial EKG done revealed new onset atrial fibrillation with a heart rate of 114. CMP and CBC unremarkable, Mg 1.8, coags normal, lipase was 15, TSH 2.830. Troponins were uptrending. He was admitted to the hospitalist service with cardiology consultation. Details of his inpatient stay are not entirely clear from there - no discharge summary or subsequent provider notes are available for review. No documented procedures done during his inpatient stay. New Meds: metoprolol and xarelto Discontinued meds: NONE Dose adjusted meds: Clonazepam - increased from 1/2 to 1 tablet nightly to 1 tablet nightly PCP Mitch Munoz - confirmed with . He was previously followed by Dr. De La Fuente f/u with Cardiology 2-4 weeks - [facility], Dr. Ge preferred Pharmacy [facility] Edilia GUTIERREZ code status is full - confirmed with this evening---03/18/25e patient is sitting up in his bedside chair this evening. He is fairly pleasant with some forgetfulness and confusion. He voices his dislike of being here as he does not feel he needs to be in rehab. He is hopeful to return home as soon as possible. He denies any current chest pain. He reports he lives in a home with his and is usually independent with mobility and ADLs, does not drive. He is not sure who his primary care doctor is. PCP Mitch Munoz - confirmed with .---03/19/25Tomasz is seated in his recliner in his room, denies pain or concerns, but wants to discharge home and is discouraged by being here when I don't need to be. We discuss that this is a short-term stay here to establish what he needs to work on before he can safely discharge home. He seems soothed to by being reminded his stay here is only temporary and geared towards therapy so that he can discharge home. VSS. Nursing did not give him his AM Midodrine as his SBP was 143. Staff is without concerns today otherwise. Per therapy notes = Instructed pt on gait training using w/w 150 feet x2 requiring SBA/CGA. Cues for safety, directional changes, obstalce negoitation, and to take bigger steps with heel toe gait. Fair return demo with occ LOB. Instructed pt on w/w placement and progression arminda during turns.---03/24/25Tomasz is seated in his recliner, his Edilia by his side. She points out a rash and itching that Tomasz has been reporting and I note several circular dermatitis patches to his upper back and back of his arms. She reports this is from his Rivastigmine patch and that, for this reason, she stopped these patches about 1.5 ago. She did not make neurology away as they would reem me for stopping it. She also notes he has been having urinary frequency. She is able to locate a home medication list and I note that the pt was taking Flomax & Proscar up until recently. Edilia reports he stopped taking them because he didn't think they were working, not for any side effects noted, and that he often would get frustrated like this and stop his medications. She notes he has been compliant with Midodrine and Sinemet, though, as she has recently started giving him his medications. Edilia lastly reports that the pt has lost 40 lbs in the last 7 months. She reports his appetite has simply been gone and cannot correlate this to any change in his medication regimen or illness at that time. He weighed 220 lbs in Aug 2024. She otherwise feels his rehab is going well thus far. VSS. Staff is without concerns today. Per therapy notes = facilitated gait training with FWW for up to 200 ft increments with mod-max cues for toe clearance and safe walker management (maintaining FWW close to COM for safety to avoid excessive trunk flexion).---03/26/25J paige is doing well today, resting in his recliner, confused but pleasant, without concerns or pain to report today. VSS. Staff is without concerns at this time. Finally received and reviewed medical records from [facility]. Per therapy notes = Conducted gait training 300' CGA to SBA cues for widening JOVANY and for floor clearance. sit/stand from toilet low surface CGA pvt transfer CGA---03/30/25Tomasz is seated in his recliner in his room, his by his side. Tomasz continues to think he is well enough to discharge home, however his at his side notes she still thinks he needs continuing therapy for better balance and stamina, as well as indepedencence in ADLs. VSS. Staff is without concerns today. Per therapy notes = Patient performed sit to stands to FWW- requiring CGA-SBA assist with cueing for hand placement. Standing dynamic balance - functional reaching to improve weight shifting, midline crossing and reaching outside of JOVANY... Patient ambulated 250 ft x 2 on level surfaces with a FWW, requiring SBA. Pt requires cueing to increase step length and widen JOVANY.---04/01/25Tomasz is resting in his recliner, in better spirits today, continues to tell me that he is doing well with therapy and denies pain or concerns today. He tells me about watching football last night and how much he enjoyed it. VSS. Staff is without concerns at this time. Per therapy notes = adls as follows: toileting cga with vc for sequecing.. le dressing cga with vc for seguencing. ue dressing setup... gait training with FWW with max cues for safe walker management and sequencing. facilitated transfer training with supervision with max cues for sequencing and safety with walker - pt attempting to sit on cross bar of FWW instead of chair multiple times during session. Pt also abandonign AD during transfers.--- 5Staff are requesting visit for behaviors that started last evening. They report Tomasz slept very poorly and was up all night, entering other residents' rooms and generally behaving in a confused and restless manner, looking for his . Today, Theron is seated in his recliner, his Edilia by his side. He remains quite confused and is unable to tell me the name of his previous . When I asked him how he slept, he tells me fairly well but then complains that he had to go around and wake up the kids and you (points to his ) and that no one would get up. Edilia is reasonably upset by this abrupt mentation change. We discuss stopped his Rivastigmine given this is the only recent medication change made (started on 03/28). Will update neurology on this d/c. Otherwise labwork from yesterday is unconcerning and recent UA was clear. Will add Trazodone to aid with sleep tonight and continue to monitor closely. VSS. Staff is otherwise without concerns. Per therapy notes = Patient performed sit to stands to FWW- requiring CGA-minimal assist. Standing dynamic balance - functional reaching to improve weight shifting, midline crossing and reaching outside of JOVANY. Rest breaks taken as needed due to fatigue. Patient demonstrates increased confusion this date. Patient required cueing to perform exercises with proper exercise technique, form and control. Patient ambulated 50 ft on level surfaces with a FWW, requiring min assist. Patient required cueing for shuffling gait pattern, pt unable to correct to increase step length.---04/06/25Radha colorado was seen in [facility] ER overnight from 04/04 to 04/05/25. Per nursing notes = 04/04/25 21:51 Resident getting physically aggressive with staff and using objects from room as weapons. Resident trying to enter other residents' rooms with objects. Staff unable to removed objects from resident. Per Janak notes, he was evaluated and diagnosed with hypoglycemia. For EMS, patient has been cooperative towards them and has been cooperative towards us in the emergency department upon arrival. Patients glucose was noted to be 39 and EMS started an IV and give 250 ml of D10. Repeat blood glucose for the most 232... EKG... revealed sinus rhythm rate 69 bpms, no evidence of acute ischemia... Laboratory results obtained revealing no acute process. Urinalysis unremarkable. Repeat glucose checks were found to be 177 and 179. He returned to this facility on 04/05/25 at 4:16 AM with NNO. Blood sugars on fasting labs here have been 87-102 so unclear what would be the cause of acute hypoglycemia in a patient that has been eating/drinking well and is not diabetic. Suspect behaviors were due to removal from Rivastigmine. This had recently been started and pt had notable uptick in behaviors/confusion following it's re-initiation, so it was stopped. Again, unclear what would cause hypoglycemia, however. Tomasz remains confused today, is not able to tell me the name of his on first request. He instantly is able to identify his 's sister by name, and when I ask his , he says, Is she one of the Susans? He is irritable with her and accusing her of having affairs. He otherwise has been pleasant with staff and everyone else since his ER visit and we discuss what he thinks led to this. He tells me, I don't like being cooped up like I'm in the . I explain to him that he still has progress he needs to make with therapy, he is still at high risk of falling as I am able to witness his scissoring gait just prior to my visit and he is not able to follow cues very well. He was also noted to be exiting the bathroom without his w/w, which I fetched for him and reminded him he must use. He is cooperative with me and expresses understanding. VSS. Staff is without concerns at this time. Per therapy notes = facilitated gait training with FWW with SBA-CGA with max cues for sequencing when arriving at destination. Educated pt that he should be using AD at all times due to pt entering room and pt ambulating unsafely wtihout AD. Pt also demnstrates significant safety awareness deficits with pt having BM and pt unable to safely clean up self and attempign to unsafely clean environment. facilitated transfer training to/from various surfaces such as low cushioned chair, bed, and standard chairs with minx1 from low surface and supervision from chair with max cues for AD management and sequenicing.... pt had large Bm episode in bathroom.. had to asst with washing off and changing clothes... pt displays significant delcine with processing and sequencing in the last week.---04/08/25Tomasz is initially seen standing to say goodbye to some friends that have been visiting. He is able to tell me the name of this friend and his , as he has known them since F2G. He sits after cueing and tells me he is doing well today. He tells me he slept well, except for when people kept coming in my house to wake me up. Edilia is at his side and reports his mentation appears improved today, although he is not back near to baseline, to which I tend to agree. We discuss the likelihood this change in mentation is related to the recent adjustments of Rivastigmine. Edilia tells me Tomasz has an appt on Sunday with cardiology but she plans to reschedule this later out as she is concerned this will disrupt his improving mentation. Agree with this plan. VSS. Staff is without concerns at this time and reports he slept better last night with his recent increase in Trazodone dosing. Per therapy notes = facilitated gait training with FWW for >200 ft with mod cues for safe AD managemetn and to avoid abandoning AD. Pt also requires cues for increased step length and heel strike at IC to reduce shuffling gait pattenr.---04/10/25J paige is seated in his recliner in his room, friendly, appears a little more lucid today although still confused with short term memory issues. He is able to recall his son visiting with him yesterday, tells me where he lives in [place], and recalls that he is in [place] at a facility, instead of at his home. I had a conversation with Edilia and Tomasz's son that they would like to discontinue his Xarelto and Metoprolol as they are comfort focused in his care and don't want to continue anything that might prolong his life. I explain the role that these two medications play in Afib and the prevention of VTE events, however they continue to desire the cessation of thes medications and are considering possible hospice placement when he discharges to his next facility. They are uncertain where he will discharge at this point, were originally looking at LTC at [facility], but his application was denied. They continue to work with on placement. VSS. Staff is without concerns today. Report he slept well last night without wandering. Per therapy notes = Pt ambulated 200 ft x 2 on level surfaces with a FWW, requiring CGA. Patient requires cueing for safety, navigation. Pt requires max cueing with turns, to take AD with him. Patient has difficulty processing commands. Minna Fleming, NARCISO [id number] [facility], [place], [id number], [facility] 04/16/2025 09:25:10
--- NOTE | 2025-04-18 15:33 | ECG_ITS ---
Test Date: 2025-04-18 16:00:40 Measurements Intervals [place] Rate: 89 P: 62 MN: 161 QRS: 15 QRSD: 144 T: 60 QT: 386 QTc: 472 Interpretive Statements SINUS RHYTHM WITH OCCASIONAL VENTRICULAR PREMATURE COMPLEXES INTRAVENTRICULAR CONDUCTION DELAY Electronically Signed On 04-19-2025 20:45:49 CDT by Leonard Ge D.O
--- NOTE | 2025-04-18 15:39 | ED.AMS ---
HPI - Altered Mental Status General Chief Complaint: Altered Mental Status Stated Complaint: somnolent Time Seen by Provider: 04/18/25 15:22 History of Present Illness HPI narrative: Patient is an 79-year-old male who presents to the ER with altered mental status. EMS reports patient was here yesterday after a fall. He was sent home with no new prescriptions from this ER, but patient started two new antipsychotics prescribed by an outside healthcare provider yesterday. Patient is able to follow minimal commands upon arrival to the ER. According to EMS he has a history of atrial fibrillation and dementia. His medical chart indicates he is on Xarelto. Pt's LKW was before he fell, approximately 1 1/2 to 2 days ago. Related Data Home Medications ?Medication ?Instructions ?Recorded ?Confirmed ?Last Taken ?Type atorvastatin 40 mg tablet 40 mg PO DAILY 02/18/20 04/18/25 03/12/25 History polyethylene glycol 3350 17 17 g PO DAILY PRN constipation 06/05/22 04/18/25 03/12/25 History gram/dose oral powder (Miralax) clonazepam 0.5 mg tablet (Klonopin) 0.5 mg PO HS PRN anxiety 04/18/25 04/18/25 Unknown History quetiapine 50 mg tablet 50 mg PO HS 04/18/25 04/18/25 04/17/25 History risperidone 1 mg tablet 1 mg PO BID 04/18/25 04/18/25 04/17/25 History vit C 250 mg-vit E 90 mg-zinc 40 2 tablet PO DAILY 04/18/25 04/18/25 Unknown History mg-copper 1 [id number] capsule (PreserVision AREDS-2) Allergies Allergy/AdvReac Type Severity Reaction Status Date / Time No Known Drug Allergies Allergy Mild Other Verified 01/13/25 11:00 Review of Systems Review of Systems: All systems reviewed & are unremarkable except as noted in HPI and below PMFSH Past Medical History Medical History Combined systolic and diastolic congestive heart failure Echocardiogram February 2025: EF 40-45% with mildly enlarged left ventricle, mild increased left ventricular wall thickness, grade 1 diastolic dysfunction Dry senile macular degeneration Paroxysmal atrial fibrillation with rapid ventricular response Coronary artery disease Patient of Dr. Ge. 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 Family History Family History Father Family history of congestive heart failure, Onset Age: 72 Patient's father is Family history of emphysema, Onset Age: 72 Mother Patient's mother is Grandparent Carcinoma of colon Father Chronic obstructive pulmonary disease Grandparent Colon cancer Father Congestive heart failure Grandparent Prostate carcinoma Social History Social History (Updated 04/19/25 @ 06:13 by Wanda Mandujano DO) Social History: Surrogate decision maker: Hetal Alfaro, . CODE STATUS: DNR/DNI Smoking packs per day: 0.5 Smoking cigarettes per day: 10.0 Years smoked: 60 Smoking pack-years: 30.00 Smoking status: Former smoker Tobacco type: cigarettes Second hand tobacco smoke exposure: Yes Smoking end date: 03/18/25 Alcohol intake: former Drinks per week: 2 Alcohol use details: No alcohol since 2020. Substance use: never Substance use type: does not use Lack of Transportation: No Lack of Food: Never True Current Housing: I Have Housing Concerned About Future Housing: No Difficulty Paying Gas/Electric Bills: No Difficulty Paying for Meds: No Currently Unemployed: No Education: High School Diploma/GED Difficulty w/ Childcare or Family Care: No Living arrangements: with family Additional living arrangements comments: Patient is . He lives with his in [place] until his hospitalization in February at which time he was discharged to [facility]. They have 2 grown children. Previously lived in [place] for 32 years. 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 Spiritual care concerns: No Exam Narrative: GENERAL: Ill appearing, poorly-nourished, non-toxic, in no acute distress. HEAD: Normocephalic, atraumatic. NECK: Supple. No adenopathy, no masses. RESPIRATORY: Airway patent, respirations nonlabored. Clear to auscultation bilaterally, no rales, rhonchi, wheezing. CARDIOVASCULAR: Regular rate and rhythm. Peripheral pulses 2+ and equal bilaterally. ABDOMINAL: Soft, nontender, nondistended, no hepatosplenomegaly. Normoactive BS. MUSCULOSKELETAL: Moves all extremities. Strength/ROM intact without gross deformities. SKIN: Warm, dry, normal color. No rashes. NEURO: A&O X3. Speech clear. Pt able to keep arms and legs raised when directed, he was also able to open eyes on command, but unable to follow directs of moving his fingers. Course Vital Signs Vital signs: Vital Signs Temperature 36.4 C 04/18/25 15:26 Pulse Rate 89 04/18/25 15:26 Respiratory Rate 14 04/18/25 15:26 Blood Pressure 123/77 04/18/25 15:26 Pulse Oximetry 100 04/18/25 15:26 Oxygen Delivery Room Air 04/18/25 15:26 Temperature 37.2 C 04/19/25 12:00 Pulse Rate 92 04/19/25 16:00 Respiratory Rate 16 04/19/25 12:00 Blood Pressure 125/68 04/19/25 12:00 Pulse Oximetry 99 04/19/25 12:00 Oxygen Delivery Room Air 04/19/25 16:00 MDM - Altered Mental Status MDM Narrative Medical decision making narrative: Patient is an 79-year-old male who presents to the ER with altered mental status. EMS reports patient was here yesterday after a fall. He was sent home with no new prescriptions from this ER, but patient started two new antipsychotics prescribed by an outside healthcare provider yesterday. Patient is able to follow minimal commands upon arrival to the ER. According to EMS he has a history of atrial fibrillation and dementia. His medical chart indicates he is on Xarelto. Pt's LKW was before he fell, approximately 1 1/2 to 2 days ago. Labs Ordered: CBC, CMP, CK, lactic acid, COVID/flu/RSV, UA, ammonia, PTT, INR Imaging Ordered: CT brain Medications Ordered: 1 L normal saline IV bolus, potassium chloride IV Results: Patient's T indicates a white blood cell count 13.9, red blood cell count of 4.17, hemoglobin of 13.3, hematocrit of 40.8%, platelets 135. His coags indicated a PT of 16.6 seconds. Patient's chemistry indicates a potassium of 2.9, BUN of 21, glucose of 112, total bilirubin 2.1. His ammonia is less than 9 and his CK is 317. Patient's urinalysis indicates 1+ protein, 1+ ketones, trace leukocytes, and 6-10 rbcs. Diagnosis: Altered mental status due to medication administration, mild dehydration, hypokalemia 1729-Spoke with hospitalist, NARCISO Puga, who was in agreement with plan for admission. Patient will be admitted to the med/surg floor with telemetry. 1814- Pt went into atrial fibrillation with RVR. He has a history of this and is anticoagulated. Pt will receive Lopressor 5mg IV to see if his heart rate converts. A troponin level will be drawn. Spoke with hospitalist who requests pt be admitted to the IMU. CRITICAL CARE ADDENDUM: Indication: altered mental status, atrial fibrillation Time type: intermittent I provided a total of 55 minutes of critical care excluding separately billable procedures. This includes time w/ EMS, initial bedside evaluation, reviewing old records, review of testing done while under my care, discussion w/ the family, nurses, senior energy consultant and guiding the patient?s care while in the emergency department. Approximate time distribution: 15 minutes ? Initial evaluation, d/w involved parties, attempting to gather old records. 10 minutes ? Documenting medical record 10 minutes ? Review of results (EKGs, labs, imaging) 10 minutes ? Serial repeat bedside evaluation 10 minutes ? Discussing case with multiple providers Please see main chart for details. Excludes separately billable procedures. Differential Diagnosis Differential diagnosis: Likely altered mental status, hyponatremia, subarachnoid hemorrhage and sepsis Lab Data Attestation: I reviewed the patient's lab results. 04/19/25 04:43 04/19/25 04:43 Labs: Lab Results 04/18/25 04/18/25 04/18/25 Range/Units 16:07 16:12 16:28 WBC 13.9 H (4.5-10.0) K/mm3 RBC 4.17 L (4.6-6.20) M/mm3 Hgb 13.3 L (14.0-18.0) g/dL Hct 40.8 L (42.0-52.0) % MCV 97.8 (80-100) fl MCH 31.9 (26-34) pg MCHC 32.6 (32-36) g/dl RDW 13.3 (11.5-14.5) % Plt Count 135 L (150-375) k/mm3 MPV 12.8 H (7.4-10.4) fl Immature Gran % (Auto) 0.3 (0-0.5) % Neut % (Auto) 78.8 H (45.5-73.1) % Lymph % (Auto) 11.3 L (18.3-44.2) % Wake % (Auto) 8.8 H (2.6-8.5) % Eos % (Auto) 0.1 (0-4.4) % Baso % (Auto) 0.7 (0.2-1.2) % Lymph # (Auto) 1.58 (0.9-3.2) K/mm3 Wake # (Auto) 1.2 H (0.1-0.6) K/mm3 Eos # (Auto) 0.0 (0-0.3) K/mm3 Baso # (Auto) 0.1 (0.0-0.1) K/mm3 Abs Immat Gran (auto) 0.04 H (0.00-0.031) K/mm3 Absolute Neuts (auto) 11.0 H (1.3-6.7) K/mm3 Absolute Nucleated RBC 0.000 (0.0-0.012) K/mm3 Nucleated RBC % 0.0 (0.0-0.2) % % Immature Plt Fraction 13.2 H (0.9-11.2) % PT 16.6 H (11.1-14.7) Seconds INR 1.3 APTT 30.2 (22.3-36.8) Seconds Sodium 139 (137-145) mmol/L Potassium 2.9 L (3.4-5.0) mmol/L Chloride 106 (98-107) mmol/L Carbon Dioxide 24 (22-30) mmol/L Anion Gap 9 (4-12) mmol/L BUN 21 H (9-20) mg/dL Creatinine 0.76 (0.7-1.3) mg/dL Estim Creat Clear Calc 73 ml/min Estimated GFR > 60 (59 - ) Glucose 112 H (65-110) mg/dL POC Capillary Glucose 104 (65-105) mg/dl Calcium 9.1 (8.4-10.2) mg/dL Total Bilirubin 2.1 H (0.2-1.3) mg/dL AST 36 (17-59) U/L ALT 8 (6-50) U/L Alkaline Phosphatase 109 (38-126) U/L Ammonia < 9 L (9-30) umol/L Total Creatine Kinase 317 H (55-170) U/L Troponin I (0.000-0.034) ng/mL Total Protein 7.4 (6.3-8.2) g/dL Albumin 3.8 (3.5-5.1) g/dL Urine Color Dark yellow (Yellow) Urine Appearance Clear (Clear) Urine pH 6.0 (5.0-9.0) Ur Specific [place] 1.020 (1.001-1.035) Urine Protein 1+ H (Negative) mg/dL Urine Glucose (UA) Negative (Negative) mg/dL Urine Ketones 1+ H (Negative) mg/dL Ur Blood (Man) Non-hemolyzed trace (Negative) Urine Nitrate Negative (Negative) Urine Bilirubin Negative (Negative) Urine Urobilinogen 1.0 (<2.0) mg/dL Leukocyte Esterase Rfl Trace H (Negative) SUMI/UL Urine RBC 6-10 H (0-2) /hpf Urine WBC 0-5 (0-3) /hpf Ur Squamous Epith Cells None seen (Few) /hpf Urine Bacteria None seen /hpf Urine Casts 0-2 Influenza A (RT-PCR) (Negative) Influenza B (RT-PCR) (Negative) RSV (RT-PCR) (Negative) SARS-CoV-2 RNA (RT-PCR) (Negative) 04/18/25 Range/Units 18:14 WBC (4.5-10.0) K/mm3 RBC (4.6-6.20) M/mm3 Hgb (14.0-18.0) g/dL Hct (42.0-52.0) % MCV (80-100) fl MCH (26-34) pg MCHC (32-36) g/dl RDW (11.5-14.5) % Plt Count (150-375) k/mm3 MPV (7.4-10.4) fl Immature Gran % (Auto) (0-0.5) % Neut % (Auto) (45.5-73.1) % Lymph % (Auto) (18.3-44.2) % Wake % (Auto) (2.6-8.5) % Eos % (Auto) (0-4.4) % Baso % (Auto) (0.2-1.2) % Lymph # (Auto) (0.9-3.2) K/mm3 Wake # (Auto) (0.1-0.6) K/mm3 Eos # (Auto) (0-0.3) K/mm3 Baso # (Auto) (0.0-0.1) K/mm3 Abs Immat Gran (auto) (0.00-0.031) K/mm3 Absolute Neuts (auto) (1.3-6.7) K/mm3 Absolute Nucleated RBC (0.0-0.012) K/mm3 Nucleated RBC % (0.0-0.2) % % Immature Plt Fraction (0.9-11.2) % PT (11.1-14.7) Seconds INR APTT (22.3-36.8) Seconds Sodium (137-145) mmol/L Potassium (3.4-5.0) mmol/L Chloride (98-107) mmol/L Carbon Dioxide (22-30) mmol/L Anion Gap (4-12) mmol/L BUN (9-20) mg/dL Creatinine (0.7-1.3) mg/dL Estim Creat Clear Calc ml/min Estimated GFR (59 - ) Glucose (65-110) mg/dL POC Capillary Glucose (65-105) mg/dl Calcium (8.4-10.2) mg/dL Total Bilirubin (0.2-1.3) mg/dL AST (17-59) U/L ALT (6-50) U/L Alkaline Phosphatase (38-126) U/L Ammonia (9-30) umol/L Total Creatine Kinase (55-170) U/L Troponin I 0.059 H* (0.000-0.034) ng/mL Total Protein (6.3-8.2) g/dL Albumin (3.5-5.1) g/dL Urine Color (Yellow) Urine Appearance (Clear) Urine pH (5.0-9.0) Ur Specific [place] (1.001-1.035) Urine Protein (Negative) mg/dL Urine Glucose (UA) (Negative) mg/dL Urine Ketones (Negative) mg/dL Ur Blood (Man) (Negative) Urine Nitrate (Negative) Urine Bilirubin (Negative) Urine Urobilinogen (<2.0) mg/dL Leukocyte Esterase Rfl (Negative) SUMI/UL Urine RBC (0-2) /hpf Urine WBC (0-3) /hpf Ur Squamous Epith Cells (Few) /hpf Urine Bacteria /hpf Urine Casts Influenza A (RT-PCR) Negative (Negative) Influenza B (RT-PCR) Negative (Negative) RSV (RT-PCR) Negative (Negative) SARS-CoV-2 RNA (RT-PCR) Negative (Negative) Imaging Data Attestation: I personally reviewed and interpreted this imaging study as follows: Radiologist's impression: Impressions Chest X-Ray 04/18/25 15:52 Impression: No acute cardiopulmonary abnormality. Head CT 04/18/25 17:26 Impression: 1.No acute intracranial abnormality. Discharge Plan Discharge Clinical Impression: Altered mental status, Acute hypokalemia, Dehydration, Atrial fibrillation with RVR, Elevated troponin Patient Disposition: Still a Patient Condition: Serious
[2025-04-18 16:21] LABS: Hematocrit 40.8 % (42.0-52.0); Hemoglobin 13.3 g/dL (14.0-18.0); Immature Granulocyte Percent A 0.3 % (0-0.5); Immature Platelet Fraction Pct 13.2 % (0.9-11.2); Lymphocytes Absolute Auto 1.58 K/mm3 (0.9-3.2); Mean Corpuscular HGB Conc 32.6 g/dl (32-36); Mean Corpuscular Hemoglobin 31.9 pg (26-34); Mean Corpuscular Volume 97.8 fl (80-100); Nucleated Red Blood Cells Absolute Auto 0.000 K/mm3 (0.0-0.012); Nucleated Red Blood Cells Perc 0.0 % (0.0-0.2); Platelet Count Result 135 k/mm3 (150-375); Red Blood Count 4.17 M/mm3 (4.6-6.20); White Blood Count 13.9 K/mm3 (4.5-10.0)
[2025-04-18 16:33] LABS: Ammonia < 9 umol/L (9-30)
[2025-04-18 16:34] LABS: Alanine Aminotransferase 8 U/L (6-50); Albumin Level 3.8 g/dL (3.5-5.1); Alkaline Phosphatase 109 U/L (38-126); Anion Gap 9 mmol/L (4-12); Aspartate Amino Transferase 36 U/L (17-59); Bilirubin,Total 2.1 mg/dL (0.2-1.3); Blood Urea Nitrogen 21 mg/dL (9-20); Calcium 9.1 mg/dL (8.4-10.2); Carbon Dioxide 24 mmol/L (22-30); Chloride 106 mmol/L (98-107); Creatine Kinase 317 U/L (55-170); Estimated CRCL calculation 73 ml/min; Estimated Glomerular Filt Rate > 60; Glucose 112 mg/dL (65-110); Potassium 2.9 mmol/L (3.4-5.0); Sodium 139 mmol/L (137-145); Total Protein 7.4 g/dL (6.3-8.2)
[2025-04-18 16:38] LABS: INR 1.3; Prothrombin Time 16.6 Seconds (11.1-14.7)
[2025-04-18 16:39] LABS: Partial Thromboplastin Time 30.2 Seconds (22.3-36.8)
[2025-04-18 16:52] LABS: Add Urine Microscopic? YES; Appearance Urine Clear (Clear); Glucose Urine UA Negative (Negative); Leukocyte Esterase Ur Trace LEU/UL (Negative); Nitrate Urine Negative (Negative); Non Pathogenic Casts 0-2; Specific Grav Ur 1.020 (1.001-1.035)
--- NOTE | 2025-04-18 18:00 | ECG_ITS ---
Test Date: 2025-04-18 18:06:58 Measurements Intervals [place] Rate: 140 P: 0 CO: 0 QRS: 24 QRSD: 129 T: 161 QT: 299 QTc: 458 Interpretive Statements ATRIAL FIBRILLATION WITH RAPID VENTRICULAR RESPONSE WITH ABERRANT CONDUCTION OR VENTRICULAR PREMATURE COMPLEXES ST DEPRESSION, CONSIDER SUBENDOCARDIAL INJURY Electronically Signed On 04-19-2025 20:46:54 CDT by Leonard Ge D.O
[2025-04-18] MEDS: SODIUM CHLORIDE 0.9% IV 1,000 ML 999 ML IV CONT (18:17)
[2025-04-18] MEDS: POTASSIUM CHLORIDE INJ 40 MEQ in SODIUM CHLORIDE 0.9% IV 500 ML 130 MEQ IVPB (18:18)
[2025-04-18] MEDS: METOPROLOL TARTRATE INJ 5 MG/5 ML VIAL IV PUSH (18:25)
[2025-04-18 18:56] LABS: Influenza A QL RT-PCR Negative (Negative); Influenza B QL RT-PCR Negative (Negative); RSV RNA, RT-PCR Negative (Negative); SARS-CoV-2 RNA PCR Negative (Negative)
[2025-04-18 18:57] LABS: Troponin I 0.059 ng/mL (0.000-0.034)
--- NOTE | 2025-04-18 21:24 | P.HP_ITS ---
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 The patient has had multiple medical contacts since February. In late February he was admitted to the hospital for AFib RVR and was discharged to [facility]. This month he has had 3 returned trips to the ER for (1.) Agitation/hypoglycemia, (2.) falls and now altered mental status. The patient was evaluated in the ER on the after having a fall resulting in a L injury and he hit his head. Imaging did not demonstrate any acute findings was discharged back to the [facility]. According to triage note the patient has been altered ever since that fall. It looks like that same day the provider at the [facility] started the patient on risperidone 1 mg and Seroquel 50 mg (likely started due to is was mentioned in outpatient problem list in late February). In triage the patient was awake but was occasionally moaning and was unable to follow commands. Patient had initial evaluation including chest x-ray, head CT, BMP and UA as well as viral PCR performed which were all unremarkable. Patient did have some mild leukocytosis but was afebrile. However prior to being discharge the patient flipped into AFib RVR. He was given a dose of IV Lopressor with heart rate back down into the 90-100 range. And troponin was obtained which was mildly elevated, but similar to when the patient was previously in AFib. He was subsequently admitted for observation and serial troponins. After patient arrived to the IMU he spiked a temperature up to 100?. On exam the patient did have a toenail on the 2nd right toe that head curled to the point that it was growing into the skin on the edge of the dorsal surface of the foot, I extracted the toenail from the skin at which time a small amount of purulence material was present. The toe itself was only minimally erythematous and not any warmer than the rest of the patient's foot. In fact patient skin in general was warm to touch in the upper extremities but cool to touch below the knee bilaterally. Head it was not until several hours after my evaluation that nursing staff called to tell me that the patient had 3 watery stools the last of which was quite large. A stool specimen was sent down for C diff testing and was found to be positive. According to the discharge med rec from last hospitalization the patient was discharged the residential on Sinemet, Exelon patch, midodrine, Klonopin and levothyroxine. He was also started on metoprolol and Xarelto for his AFib. According to the residential staff the patient was not on any of the above-mentioned medications any more and had not been on them since arrival to the facility. Review of Systems 2 Review of Systems: Review of systems unobtainable due to patient's history of dementia. [facility] Past Medical History Medical History (Updated 04/19/25 @ 06:36 by Wanda Mandujano DO) Combined systolic and diastolic congestive heart failure Echocardiogram February 2025: EF 40-45% with mildly enlarged left ventricle, mild increased left ventricular wall thickness, grade 1 diastolic dysfunction Dry senile macular degeneration Paroxysmal atrial fibrillation with rapid ventricular response Coronary artery disease Patient of Dr. Ge. 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 Family History Family History Father Family history of congestive heart failure, Onset Age: 72 Patient's father is Family history of emphysema, Onset Age: 72 Mother Patient's mother is Grandparent Carcinoma of colon Father Chronic obstructive pulmonary disease Grandparent Colon cancer Father Congestive heart failure Grandparent Prostate carcinoma Social History Social History (Updated 04/19/25 @ 06:13 by Wanda Mandujano DO) Social History: Surrogate decision maker: Hetal Alfaro, . CODE STATUS: DNR/DNI Smoking packs per day: 0.5 Smoking cigarettes per day: 10.0 Years smoked: 60 Smoking pack-years: 30.00 Smoking status: Former smoker Tobacco type: cigarettes Second hand tobacco smoke exposure: Yes Smoking end date: 03/18/25 Alcohol intake: former Drinks per week: 2 Alcohol use details: No alcohol since 2020. Substance use: never Substance use type: does not use Lack of Transportation: No Lack of Food: Never True Current Housing: I Have Housing Concerned About Future Housing: No Difficulty Paying Gas/Electric Bills: No Difficulty Paying for Meds: No Currently Unemployed: No Education: High School Diploma/GED Difficulty w/ Childcare or Family Care: No Living arrangements: with family Additional living arrangements comments: Patient is . He lives with his in [place] until his hospitalization in February at which time he was discharged to [facility]. They have 2 grown children. Previously lived in [place] for 32 years. 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 Spiritual care concerns: No Meds Home Medications and Allergies Home Medications ?Medication ?Instructions ?Recorded ?Confirmed ?Type atorvastatin 40 mg tablet 40 mg PO DAILY 02/18/2003/24 History polyethylene glycol 3350 17 17 g PO DAILY PRN constipa tion 06/05/22 04/18/25 History gram/dose oral powder (Miralax) nitroglycerin 0.4 mg sublingual 0.4 mg sublingual Q5M PRN chest 04/08/23 04/18/25 Rx tablet (Nitrostat) pain #25 tabs clonazepam 0.5 mg tablet (Klonopin) 0.5 mg PO HS PRN a nxiety 04/18/25 04/18/25 History quetiapine 50 mg tablet 50 mg PO HS 04/18/25 5 History risperidone 1 mg tablet 1 mg PO BID 04/18/25 5 History vit C 250 mg-vit E 90 mg-zinc 40 2 tablet PO DAILY 04/18/25 History mg-copper 1 ar-nkhmke-fakazf capsule (PreserVision AREDS-2) Allergies Allergy/AdvReac Type Severity Reaction Status Date / Time No Known Drug Allergies Allergy Mild Other Verified 01/13/25 11:00 Vital Signs Vital Signs - 24 hr 04/18/25 15:26 04/18/25 15:32 04/18/25 16:29 Temperature 97.6 F Pulse Rate 89 95 Respiratory Rate 14 16 Blood Pressure 123/77 124/64 Pulse Oximetry 100 100 99 Oxygen Delivery Room Air Room Air 04/18/25 18:25 04/18/25 18:30 04/18/25 18:47 Temperature Pulse Rate 141 H 112 H 121 H Respiratory Rate 16 18 Blood Pressure 154/110 H Pulse Oximetry 99 Oxygen Delivery 04/18/25 19:00 04/18/25 20:00 04/18/25 20:01 Temperature Pulse Rate 115 H 99 99 Respiratory Rate 16 16 16 Blood Pressure 141/78 H Pulse Oximetry Oxygen Delivery 04/18/25 20:15 04/18/25 20:16 04/18/25 20:30 Temperature Pulse Rate 101 H 100 96 Respiratory Rate 18 15 15 Blood Pressure 107/93 H 116/68 Pulse Oximetry Oxygen Delivery 04/18/25 20:31 04/18/25 21:22 Temperature Pulse Rate 100 Respiratory Rate 15 Blood Pressure Pulse Oximetry 94 Oxygen Delivery Room Air Exam 2 Narrative: Weight 75.4 kg BMI 20.8 Const: Other: Acutely ill-appearing, the well-nourished, elderly, lying in the bed with head of bed at 30? HENMT: Other: Mucous membranes are dry with the surface of the tongue and soft palate decreased in dried adherent mucus to the posterior oropharynx without erythema, head is normocephalic atraumatic, edentulous in upper and lower jaw Eyes: Other: Pupils are equal and reactive, bilateral implants noted, no conjunctival pallor, no scleral icterus Neck: Other: Trachea midline, no JVD Resp: Other: Clear to auscultation bilaterally, no increased work of breathing Cardio: Other: Irregularly irregular, no JVD, 2+ bilateral upper and lower extremities GI: Other: Distended but generally soft without organomegaly, hyperactive bowel sounds, nontender : Other: Nursing staff reported that the patient had not had any significant urine output for the night in only a few drops of reddish urine. Subsequently Pa catheter is been placed for better monitoring of I&O's. Skin: Other: Skin tear to the left elbow, toenails are overgrown and curling towards the toe, the 2nd toe on left foot is toenail has actually grown into the bed of the foot when the toenail was pulled away broke and the skin where the toenail had cut in expressed a small amount of purulence but only minimal erythema, the patient's 4th toe on the right foot also was creating pressure on the skin itself but had not quite broken the the skin barrier, his great toenails are lung overgrown in sticking out straight from the toe 3-4 inches in her consistent with onychomycosis, 3-4 second cap refill, no mottling, upper extremities and core are hot to touch, lower extremities below the knee are cool to touch Neuro: Other: Patient is somnolent arouses to verbal stimuli in will say ?what? but does not answer questions or follow commands, he has marked Parkinson's tremor with limb rigidity, masked faces, pupils are equal and reactive Extrem: Other: Limb rigidity with movement, no cyanosis, no edema Psych: Other: Encephalopathic, uncooperative with portions of exam H&P: Results Labs Labs: Laboratory Tests 04/18/25 16:12 04/18/25 16:12 04/18/25 04/18/25 04/18/25 16:07 16:12 16:28 WBC 13.9 H RBC 4.17 L Hgb 13.3 L Hct 40.8 L MCV 97.8 MCH 31.9 MCHC 32.6 RDW 13.3 Plt Count 135 L MPV 12.8 H Immature Gran % (Auto) 0.3 Neut % (Auto) 78.8 H Lymph % (Auto) 11.3 L [place] % (Auto) 8.8 H Eos % (Auto) 0.1 Baso % (Auto) 0.7 Lymph # (Auto) 1.58 [place] # (Auto) 1.2 H Eos # (Auto) 0.0 Baso # (Auto) 0.1 Abs Immat Gran (auto) 0.04 H Absolute Neuts (auto) 11.0 H Absolute Nucleated RBC 0.000 Nucleated RBC % 0.0 % Immature Plt Fraction 13.2 H PT 16.6 H INR 1.3 APTT 30.2 Sodium 139 Potassium 2.9 L Chloride 106 Carbon Dioxide 24 Anion Gap 9 BUN 21 H Creatinine 0.76 Estim Creat Clear Calc 73 Estimated GFR > 60 Glucose 112 H POC Capillary Glucose 104 Calcium 9.1 Magnesium Total Bilirubin 2.1 H AST 36 ALT 8 Alkaline Phosphatase 109 Ammonia < 9 L Total Creatine Kinase 317 H Troponin I Total Protein 7.4 Albumin 3.8 Urine Color Dark yellow Urine Appearance Clear Urine pH 6.0 Ur Specific [place] 1.020 Urine Protein 1+ H Urine Glucose (UA) Negative Urine Ketones 1+ H Ur Blood (Man) Non-hemolyzed trace Urine Nitrate Negative Urine Bilirubin Negative Urine Urobilinogen 1.0 Leukocyte Esterase Rfl Trace H Urine RBC 6-10 H Urine WBC 0-5 Ur Squamous Epith Cells None seen Urine Bacteria None seen Urine Casts 0-2 Influenza A (RT-PCR) Influenza B (RT-PCR) RSV (RT-PCR) SARS-CoV-2 RNA (RT-PCR) 04/18/25 04/18/25 04/18/25 18:14 21:38 21:49 WBC RBC Hgb Hct MCV MCH MCHC RDW Plt Count MPV Immature Gran % (Auto) Neut % (Auto) Lymph % (Auto) [place] % (Auto) Eos % (Auto) Baso % (Auto) Lymph # (Auto) [place] # (Auto) Eos # (Auto) Baso # (Auto) Abs Immat Gran (auto) Absolute Neuts (auto) Absolute Nucleated RBC Nucleated RBC % % Immature Plt Fraction PT INR APTT Sodium Potassium Chloride Carbon Dioxide Anion Gap BUN Creatinine Estim Creat Clear Calc Estimated GFR Glucose POC Capillary Glucose 100 Calcium Magnesium 2.0 Total Bilirubin AST ALT Alkaline Phosphatase Ammonia Total Creatine Kinase Troponin I 0.059 H* Pending Total Protein Albumin Urine Color Urine Appearance Urine pH Ur Specific [place] Urine Protein Urine Glucose (UA) Urine Ketones Ur Blood (Man) Urine Nitrate Urine Bilirubin Urine Urobilinogen Leukocyte Esterase Rfl Urine RBC Urine WBC Ur Squamous Epith Cells Urine Bacteria Urine Casts Influenza A (RT-PCR) Negative Influenza B (RT-PCR) Negative RSV (RT-PCR) Negative SARS-CoV-2 RNA (RT-PCR) Negative Impressions Chest X-Ray 04/18/25 15:52 Impression: No acute cardiopulmonary abnormality. Head CT 04/18/25 17:26 Impression: 1.No acute intracranial abnormality. Multiple EKGs reviewed and interpreted with findings as discussed under HPI. Assessment and Plan Assessment and plan (1) Encephalopathy acute: Code(s): G93.40 - Encephalopathy, unspecified Status: Acute (2) Sepsis: Qualifiers: Sepsis type: sepsis due to unspecified organism Sepsis acute organ dysfunction status: with acute organ dysfunction Severe sepsis acute organ dysfunction type: encephalopathy Severe sepsis shock status: without septic shock Qualified Code(s): A41.9 - Sepsis, unspecified organism; R65.20 - Severe sepsis without septic shock; G93.41 - Metabolic encephalopathy Code(s): A41.9 - Sepsis, unspecified organism Status: Acute (3) C. difficile colitis: Code(s): A04.72 - Enterocolitis due to Clostridium difficile, not specified as recurrent Status: Acute (4) Ulcer of toe of left foot: Qualifiers: Non-pressure ulcer stage: unspecified non-pressure ulcer stage Q ualified Code(s): L97.529 - Non-pressure chronic ulcer of other part of left foot with unspecified severity Code(s): L97.529 - Non-pressure chronic ulcer of other part of left foot with unspecified severity Status: Acute (5) Paroxysmal atrial fibrillation with rapid ventricular response: Code(s): I48.0 - Paroxysmal atrial fibrillation Status: Acute (6) Elevated troponin: Code(s): R79.89 - Other specified abnormal findings of blood chemistry Status: Acute (7) Acute hypokalemia: Code(s): E87.6 - Hypokalemia Status: Acute (8) Hypothyroidism: Qualifiers: Hypothyroidism type: unspecified Qualified Code(s): E03.9 - Hypothyroidism, unspecified Code(s): E03.9 - Hypothyroidism, unspecified Status: Acute (9) Dehydration: Code(s): E86.0 - Dehydration Status: Acute (10) Dementia associated with Parkinson's disease: Code(s): G20.A1 - Parkinson's disease without dyskinesia, without mention of fluctuations; F02.80 - Dementia in other diseases classified elsewhere, unspecified severity, without behavioral disturbance, psychotic disturbance, mood disturbance, and anxiety Status: Acute (11) Benign prostatic hyperplasia: Qualifiers: Lower urinary tract symptom detail: unspecified Lower urinary tract symptom presence: symptoms present Qualified Code(s): N40.1 - Benign prostatic hyperplasia with lower urinary tract symptoms Code(s): N40.0 - Benign prostatic hyperplasia without lower urinary tract symptoms Status: Acute Plan Patient presents with acute encephalopathy complicating chronic dementia. Encephalopathy could be due to new use of antipsychotic medications verses underlying infection. The patient has a laceration with purulence of the a left 2nd toe due to laceration from his toenail and is subsequently been started on Ancef. Patient also has developed multiple grossly watery bowel movements and C diff PCR has returned positive. Will start the patient on Dificid. Blood cultures have been ordered, procalcitonin. Will repeat CBC in a.m.. Will hold antipsychotics. Patient is encephalopathic but was able to take his Sinemet crushed in a tiny amount of applesauce. Will place patient on aspiration precautions and request speech therapy evaluation given the patient's known Parkinson's diagnosis. Patient has paroxysmal AFib in flipped into AFib RVR while in the ER and troponin was minimally elevated. Troponin elevation is likely due to AFib with head demand ischemia. Will monitor in IMU and check serial troponins. Patient's recurrent episode of AFib is likely induced due to the patient's fever and hypokalemia. The patient is receiving 40 mEq potassium chloride rider. Will also give the patient 40 mEq of p.o. potassium and check a magnesium level. Patient's heart rate improved after 1 dose of IV Lopressor. Will resume the patient's home metoprolol. Will repeat electrolyte panel in a.m. the patient had normal TSH recently without change in his thyroid medications AFib is not likely due to thyroid disease. He does have ketones in his urine and his physical exam demonstrates dry mucous membranes suggesting dehydration. He did receive 1 L IV fluids in the ER and is on maintenance fluids. Will decrease fluid rate from 08/16 down to 75 given history of combined systolic and diastolic heart failure and will only administer 1 L of maintenance fluids then re-evaluate fluid status. I re- evaluated the patient this morning any still had not had much urine output will given additional 1 L fluid bolus. The patient had not had any urine output for nursing staff initially subsequently pure wick catheter has been placed. MEDICAL DECISION MAKING NARRATIVE -Spoke with the ED provider in detail regarding patient's evaluation, workup and management -Patient seen and examined at bedside -Collaborated with patient's nurse at the bedside in detail and addressed all concerns -Labs, electrolytes, radiology, investigations and test results personally reviewed and interpreted unless otherwise specified -ED/Consult/Nursing/Ancilliary notes on the chart reviewed and appreciated Quality VTE Prophylaxis VTE prophylaxis: pharmacologic ordered (Xarelto) Hospitalist [facility] Advance Care Plan I have confirmed that the patient's Advanced Care Plan is present, code status is documented, or surrogate decision maker is listed in patient medical record.: Yes Medication Reconciliation I have utilized all available resources to obtain, update and review the patients current medications (includes all prescriptions, OTC, herbals, cannabis, and nutritional supplements).: Yes
[2025-04-18 22:23] LABS: Magnesium 2.0 mg/dL (1.6-2.3)
[2025-04-18 22:32] LABS: Troponin I 0.067 ng/mL (0.000-0.034)
--- NOTE | 2025-04-18 23:09 | ADMGEN ---
This patient, Theron Eugene Jr., was admitted to IMU Room 204-01 at 2100. Patient/family oriented to hospital policies and general routines including ID bracelet, bed and alarms, visiting hours, pain management, procedures, bathroom and other care routines, personal items, smoking policy, room service/diet, and visiting hours. Information on how to activate the Rapid Response Team has been discussed. Patient/Family are encouraged to report perceived risks to care and to ask questions if they do not understand what they are told or what they should do.
--- NOTE | 2025-04-18 23:37 | PC.NURSE ---
Medication list resent from [facility] and verified with Nurse that the two pages of medications sent are all the patient is currently on.
[2025-04-19] VITALS (13 sets, daily range): BP systolic 125–156; BP diastolic 68–96; PULSE 76–102; RESP 16–24; TEMP 36.4–37.7; O2SAT 92–100
--- NOTE | 2025-04-19 00:09 | WNDPHOTO ---
PHOTO ONLY - See Nursing Notes and/ or assessments for documentation.
[2025-04-19] MEDS: POTASSIUM CHLORIDE INJ 40 MEQ in SODIUM CHLORIDE 0.9% IV 500 ML 130 MEQ IVPB (00:40)
[2025-04-19 00:55] LABS: Procalcitonin 0.1 ng/mL
[2025-04-19 01:19] LABS: Troponin I 0.077 ng/mL (0.000-0.034)
[2025-04-19] MEDS: ceFAZolin 1 GM in SODIUM CHLORIDE 0.9% IV 50 ML 100 ML IVPB ×4 (01:46→20:59)
[2025-04-19] MEDS: LIDOCAINE 2% GEL UROJET 10 ML PKG MUCOUS MEM (02:36)
[2025-04-19 02:47] LABS: MRSA (PCR) NOT DETECTED (NOT DETECTE)
[2025-04-19] MEDS: SODIUM CHLORIDE 0.9% IV 1,000 ML 75 ML IV CONT (04:33)
[2025-04-19 04:52] LABS: Hematocrit 42.3 % (42.0-52.0); Hemoglobin 13.5 g/dL (14.0-18.0); Immature Granulocyte Percent A 0.2 % (0-0.5); Lymphocytes Absolute Auto 1.45 K/mm3 (0.9-3.2); Mean Corpuscular HGB Conc 31.9 g/dl (32-36); Mean Corpuscular Hemoglobin 31.7 pg (26-34); Mean Corpuscular Volume 99.3 fl (80-100); Nucleated Red Blood Cells Absolute Auto 0.000 K/mm3 (0.0-0.012); Nucleated Red Blood Cells Perc 0.0 % (0.0-0.2); Platelet Count Result 135 k/mm3 (150-375); Red Blood Count 4.26 M/mm3 (4.6-6.20); White Blood Count 12.2 K/mm3 (4.5-10.0)
[2025-04-19 05:13] LABS: Anion Gap 9 mmol/L (4-12); Blood Urea Nitrogen 21 mg/dL (9-20); Calcium 8.7 mg/dL (8.4-10.2); Carbon Dioxide 25 mmol/L (22-30); Chloride 111 mmol/L (98-107); Estimated CRCL calculation 89 ml/min; Estimated Glomerular Filt Rate > 60; Glucose 98 mg/dL (65-110); Potassium 3.5 mmol/L (3.4-5.0); Sodium 145 mmol/L (137-145)
[2025-04-19 05:58] LABS: Toxigenic C. Diff POSITIVE (NEGATIVE)
[2025-04-19] MEDS: CARBIDOPA/LEVODOPA 25/100 MG TABLET 1 TABLET PO ×3 (06:05→20:58)
--- OUTSIDE RECORDS SUMMARY | 2025-04-19 07:20 | XMS_ITS | Clinical Summary ---
Author Organization [facility] [address] Address [address] [place] [address] Care Team Providers Care Micropaleontologist Name Role Phone Jimi De La Fuente MD Unavailable [phone] Jimi De La Fuente MD Unavailable [phone] Mitch Munoz DO Primary Care Provider [phone] Allergies No known active allergies Medications finasteride [...] Department Care Team Description 03/27/2025 Orders Only [facility] Cardiology [address] [facility] [address] [place] [address] Jewels Jones NP 03/13/2025 Orders Only [facility] [place] [facility] Information Management [address] [place] [address] Jewels Jones NP 02/04/2025 Telephone [facility] Cardiology [address] [facility] [address] 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 Date [...] was used to complete this document, therefore, mercerizing range feeder variances may occur. Leonard Ge MD, [facility] 02/02/25 Procedure Note Leonard Ge MD - 02/02/2025 AMBULATORY FISH PROCESSING SUPERVISOR REPORT Patient Name: Theron Eugene Jr. Date of : 1945 Requesting Physician: Leonrad Ge MD Date of interpretation: 02/02/25 Type [...] software was used to complete this document, therefore,mercerizing range feeder variances may occur. Leonard Ge MD, [facility] 02/02/25 Leonard Ge MD [facility] C[facility] PROCEDURES F inal Result from Last 3 Months Insurance [email or web address] ADVANTAGE CHOICE PPO Care Teams Micropaleontologist Relationship Specialty Start Date End Date Mitch Munoz DO [address] [facility] [address] [place] [address] PCP - General Internal Medicine 01/21/25 Jimi De La Fuente MD [address] [address] 01/14/21 Jimi De La Fuente MD [address] [address] 02/26/19
[2025-04-19] MEDS: SODIUM CHLORIDE 0.9% IV 1,000 ML 999 ML IV CONT (07:25)
[2025-04-19] MEDS: FIDAXOMICIN 200 MG TABLET PO ×2 (08:21→20:58)
[2025-04-19] MEDS: POTASSIUM CHLORIDE 20 MEQ ER TABLET 40 MEQ PO (09:57)
--- NOTE | 2025-04-19 11:13 | PCSTNOTE ---
04/19 BSE attempted but pt would not arouse; KELLIE Mtz states pt demonstrated no overt s/s of aspiration during breakfast (yogurt, pudding, and OJ) or when taking pills (crushed in apple sauce, small bites) this morning. Please note the pt does have a PMH significant for Dementia associated with Parkinson's; pt should remain on Level 5 minced and moist diet with Level 1 thin liquids with 1:1 supervision and standard swallowing precautions should be followed (sit upright, small bites/sips) until the completion of the BSE. Dr. Platt and KELLIE Mtz notified. Thank you.
--- NOTE | 2025-04-19 14:42 | P.PNIM_ITS ---
Progress Note: A&P Assessment and Plan (1) Encephalopathy acute: Code(s): G93.40 - Encephalopathy, unspecified Status: Acute Assessment and Plan: Patient presents with acute encephalopathy complicating chronic dementia. He was started on on risperidone 1 mg BID + Seroquel 50 mg HS around 04/16/[address] showing no acute findings. Ammonia <9. [place] related to new use of antipsychotic medications vs underlying infection (toe infection and/or CDiff) vs untreated hypothyroidism. Will hold antipsychotics. Patient is encephalopathic but was able to take his Sinemet crushed in a tiny amount of applesauce. Will place patient on aspiration precautions Speech therapy evaluation given the patient's known Parkinson's diagnosis. Check TSH, B12 (2) Sepsis: Qualifiers: Sepsis acute organ dysfunction status: with acute organ dysfunction Sepsis type: sepsis due to unspecified organism Severe sepsis acute organ dysfunction type: encephalopathy Severe sepsis shock status: without septic shock Qualified Code(s): A41.9 - Sepsis, unspecified organism; R65.20 - Severe sepsis without septic shock; G93.41 - Metabolic encephalopathy Code(s): A41.9 - Sepsis, unspecified organism Status: Acute Assessment and Plan: Patient with fever, tachycardia, elevated WBC. No lactic drawn. PCT 0.1. CXR clear. UA not consistent with UTI. CDiff Positive. BCx pending Probably related to CDiff and/or left 2nd toe cellulitis. Monitor in IMU (3) C. difficile colitis: Code(s): A04.72 - Enterocolitis due to Clostridium difficile, not specified as recurrent Status: Acute Assessment and Plan: Patient with multiple grossly watery bowel movements C diff PCR has returned positive. Dificid started BMs x 3 so far today. Monitor stool output (4) Ulcer of toe of left foot: Qualifiers: Non-pressure ulcer stage: unspecified non-pressure ulcer stage Qualified Code(s): L97.529 - Non-pressure chronic ulcer of other part of left foot with unspecified severity Code(s): L97.529 - Non-pressure chronic ulcer of other part of left foot with unspecified severity Status: Acute Assessment and Plan: Patient with laceration with purulence of the a left 2nd toe due to laceration from his toenail Ancef started. Wound already appears improved. Follow (5) Paroxysmal atrial fibrillation with rapid ventricular response: Code(s): I48.0 - Paroxysmal atrial fibrillation Status: Acute Assessment and Plan: Patient with pAFib and flipped into AFib RVR while in the ER. Troponin minimally elevated and flat to 0.077. EKG showing NSR, IVCD with PVC. Repeat EKG AFib with RVR and ST depression in the lateral leads. Patient's recurrent episode of AFib is likely induced due to the sepsis, fever and hypokalemia. Patient's heart rate improved after 1 dose of IV Lopressor. Troponin elevation is likely due to AFib with demand ischemia. Was seen here in February and was discharged on Xarelto but not on home med list now. Not on rate controlling agents. TSH in February was normal. Will monitor in IMU and repeat troponins. Will start metoprolol (6) Elevated troponin: Code(s): R79.89 - Other specified abnormal findings of blood chemistry Status: Acute Assessment and Plan: As above (7) Acute hypokalemia: Code(s): E87.6 - Hypokalemia Status: Acute Assessment and Plan: Potassium 2.9 on admission. The patient received 40 mEq potassium chloride rider and 40 mEq of p.o. potassium Repeat potassium normal. Mag 2.0 Follow and replace as needed (8) Hypothyroidism: Qualifiers: Hypothyroidism type: unspecified Qualified Code(s): E03.9 - Hypothyroidism, unspecified Code(s): E03.9 - Hypothyroidism, unspecified Status: Acute Assessment and Plan: TSH normal last month. Patient is supposed to be on levothyroxine 50mcg daily but no on home med list Repeat TSH. Resume levothyroxine (9) Dehydration: Code(s): E86.0 - Dehydration Status: Acute Assessment and Plan: He does have ketones in his urine and his physical exam demonstrates dry mucous membranes suggesting dehydration. He did receive 1 L IV fluids in the ER and is on maintenance fluids. Off IV fluids now. 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 He was recently started on Seroquel and risperidone which have been held RN stating the patient is pulling out IVs and reaching for Pa Sinemet resumed. Will add mitts. Add low dose Seroquel tonight. Plan Code status - DNR DVT prophylaxis - Lovenox Subjective Date/time seen: 04/19/25 14:42 Interval history: 79yo male with dementia with behavior disorder, Parkinson's disease, pAFib, systolic and diastolic CHF (EF of 40-45%), and hypothyroidism who presented to the ER from [facility] due to altered mental status. Patient is awake but mumbling speech and unable to obtain hx. in room and she was updated. Review of Systems Review of Systems: ROS unobtainable: Yes unobtainable due to mental status Exam Narrative: Tm 100.2 99.0 125/68 80 16 99% ra Gen - NARD Chest - clear to quiet respirations. CV - RRR S1/S2 Abd - Soft, NT/ND, Positive BS - Pa secured draining clear yellow urine Ext - No pedal edema Neuro - arouses, confused, mumbling speech. Psych - eyes closed. follows commands occasionally. Skin - Warm and dry, left 2nd toe dried eschar with minimal erythema Objective Data Vital Signs Vital Signs: Vital Signs - 24 hr 04/18/25 15:26 04/18/25 15:32 04/18/25 16:29 Temperature 97.6 F Pulse Rate 89 95 Respiratory Rate 14 16 Blood Pressure 123/77 124/64 Pulse Oximetry 100 100 99 Oxygen Delivery Room Air Room Air 04/18/25 18:25 04/18/25 18:30 04/18/25 18:47 Temperature Pulse Rate 141 H 112 H 121 H Respiratory Rate 16 18 Blood Pressure 154/110 H Pulse Oximetry 99 Oxygen Delivery 04/18/25 19:00 04/18/25 20:00 04/18/25 20:01 Temperature Pulse Rate 115 H 99 99 Respiratory Rate 16 16 16 Blood Pressure 141/78 H Pulse Oximetry Oxygen Delivery 04/18/25 20:15 04/18/25 20:16 04/18/25 20:30 Temperature Pulse Rate 101 H 100 96 Respiratory Rate 18 15 15 Blood Pressure 107/93 H 116/68 Pulse Oximetry Oxygen Delivery 04/18/25 20:31 04/18/25 21:05 04/18/25 21:22 Temperature 100.0 F H Pulse Rate 100 103 H Respiratory Rate 15 16 Blood Pressure 143/62 H Pulse Oximetry 99 94 Oxygen Delivery Room Air 04/18/25 22:00 04/18/25 23:42 04/19/25 00:00 Temperature 100.2 F H Pulse Rate 99 96 102 H Respiratory Rate 16 Blood Pressure 123/64 Pulse Oximetry 99 Oxygen Delivery 04/19/25 02:00 04/19/25 04:00 04/19/25 04:00 Temperature 99.8 F H Pulse Rate 89 87 89 Respiratory Rate 18 Blood Pressure 148/82 H Pulse Oximetry 100 Oxygen Delivery 04/19/25 06:00 04/19/25 08:00 04/19/25 08:00 Temperature 97.6 F Pulse Rate 89 94 Respiratory Rate 16 Blood Pressure 156/86 H Pulse Oximetry 100 Oxygen Delivery Room Air 04/19/25 08:00 04/19/25 10:00 04/19/25 12:00 Temperature 99.0 F Pulse Rate 96 76 80 Respiratory Rate 16 Blood Pressure 125/68 Pulse Oximetry 99 Oxygen Delivery 04/19/25 12:00 04/19/25 12:00 04/19/25 14:00 Temperature Pulse Rate 80 80 Respiratory Rate Blood Pressure Pulse Oximetry Oxygen Delivery Room Air Intake/Output Intake/Output: Intake & Output 04/16/25 04/17/25 04/18/25 04/19/25 23:59 23:59 23:59 23:59 Intake Total 2215 Output Total 400 Balance 1815 Meds/Results Medications: Active Medications Generic Name Dose Route Start Last Admin Trade Name Niko PRN Reason Stop Dose Admin Carbidopa/Levodopa 1 tablet 04/19/25 06:00 04/19/25 06:05 Carbidopa/Levodopa 25/100 Mg Tablet PO 1 tablet Q8HR GAYATRI Administration Fidaxomicin 200 mg 04/19/25 09:00 04/19/25 08:21 Fidaxomicin 200 Mg Tablet PO 04/29/25 08:59 200 mg Q12HR GAYATRI Administration Cefazolin Sodium 1 gm/ Sodium 50 mls @ 100 mls/hr 04/19/25 01:25 04/19/25 09:00 Chloride IVPB Infused Q8HR GAYATRI Infusion Metoprolol Tartrate 5 mg 04/18/25 18:09 04/18/25 18:25 Metoprolol Tartrate Inj 5 Mg/5 Ml Vial IV PUSH 5 mg Q5MIN PRN Administration Cardiac Arrhythmia Polyethylene Glycol 17 gm 04/19/25 01:11 Polyethylene Glycol 3350 17 Gm Powd.Pack PO DAILY PRN Constipation Radiology Results: ITS Impressions Chest X-Ray 04/18/25 15:52 Impression: No acute cardiopulmonary abnormality. Head CT 04/18/25 17:26 Impression: 1.No acute intracranial abnormality. Labs Labs: Laboratory Results - last 24 hr 04/18/25 04/18/25 04/18/25 16:07 16:12 16:28 WBC 13.9 H RBC 4.17 L Hgb 13.3 L Hct 40.8 L MCV 97.8 MCH 31.9 MCHC 32.6 RDW 13.3 Plt Count 135 L MPV 12.8 H Immature Gran % (Auto) 0.3 Neut % (Auto) 78.8 H Lymph % (Auto) 11.3 L [place] % (Auto) 8.8 H Eos % (Auto) 0.1 Baso % (Auto) 0.7 Lymph # (Auto) 1.58 [place] # (Auto) 1.2 H Eos # (Auto) 0.0 Baso # (Auto) 0.1 Abs Immat Gran (auto) 0.04 H Absolute Neuts (auto) 11.0 H Absolute Nucleated RBC 0.000 Nucleated RBC % 0.0 % Immature Plt Fraction 13.2 H PT 16.6 H INR 1.3 APTT 30.2 Sodium 139 Potassium 2.9 L Chloride 106 Carbon Dioxide 24 Anion Gap 9 BUN 21 H Creatinine 0.76 Estim Creat Clear Calc 73 Estimated GFR > 60 Glucose 112 H POC Capillary Glucose 104 Calcium 9.1 Magnesium Total Bilirubin 2.1 H AST 36 ALT 8 Alkaline Phosphatase 109 Ammonia < 9 L Total Creatine Kinase 317 H Troponin I Total Protein 7.4 Albumin 3.8 Procalcitonin Urine Color Dark yellow Urine Appearance Clear Urine pH 6.0 Ur Specific [place] 1.020 Urine Protein 1+ H Urine Glucose (UA) Negative Urine Ketones 1+ H Ur Blood (Man) Non-hemolyzed trace Urine Nitrate Negative Urine Bilirubin Negative Urine Urobilinogen 1.0 Leukocyte Esterase Rfl Trace H Urine RBC 6-10 H Urine WBC 0-5 Ur Squamous Epith Cells None seen Urine Bacteria None seen Urine Casts 0-2 Nasal MRSA (PCR) C. difficile (PCR) Influenza A (RT-PCR) Influenza B (RT-PCR) RSV (RT-PCR) SARS-CoV-2 RNA (RT-PCR) 04/18/25 04/18/25 04/18/25 18:14 21:38 21:49 WBC RBC Hgb Hct MCV MCH MCHC RDW Plt Count MPV Immature Gran % (Auto) Neut % (Auto) Lymph % (Auto) [place] % (Auto) Eos % (Auto) Baso % (Auto) Lymph # (Auto) [place] # (Auto) Eos # (Auto) Baso # (Auto) Abs Immat Gran (auto) Absolute Neuts (auto) Absolute Nucleated RBC Nucleated RBC % % Immature Plt Fraction PT INR APTT Sodium Potassium Chloride Carbon Dioxide Anion Gap BUN Creatinine Estim Creat Clear Calc Estimated GFR Glucose POC Capillary Glucose 100 Calcium Magnesium 2.0 Total Bilirubin AST ALT Alkaline Phosphatase Ammonia Total Creatine Kinase Troponin I 0.059 H* 0.067 H* Total Protein Albumin Procalcitonin Urine Color Urine Appearance Urine pH Ur Specific [place] Urine Protein Urine Glucose (UA) Urine Ketones Ur Blood (Man) Urine Nitrate Urine Bilirubin Urine Urobilinogen Leukocyte Esterase Rfl Urine RBC Urine WBC Ur Squamous Epith Cells Urine Bacteria Urine Casts Nasal MRSA (PCR) C. difficile (PCR) Influenza A (RT-PCR) Negative Influenza B (RT-PCR) Negative RSV (RT-PCR) Negative SARS-CoV-2 RNA (RT-PCR) Negative 04/19/25 04/19/25 04/19/25 00:15 00:21 01:27 WBC RBC Hgb Hct MCV MCH MCHC RDW Plt Count MPV Immature Gran % (Auto) Neut % (Auto) Lymph % (Auto) [place] % (Auto) Eos % (Auto) Baso % (Auto) Lymph # (Auto) [place] # (Auto) Eos # (Auto) Baso # (Auto) Abs Immat Gran (auto) Absolute Neuts (auto) Absolute Nucleated RBC Nucleated RBC % % Immature Plt Fraction PT INR APTT Sodium Potassium Chloride Carbon Dioxide Anion Gap BUN Creatinine Estim Creat Clear Calc Estimated GFR Glucose POC Capillary Glucose Calcium Magnesium Total Bilirubin AST ALT Alkaline Phosphatase Ammonia Total Creatine Kinase Troponin I 0.077 H* Total Protein Albumin Procalcitonin 0.1 Urine Color Urine Appearance Urine pH Ur Specific [place] Urine Protein Urine Glucose (UA) Urine Ketones Ur Blood (Man) Urine Nitrate Urine Bilirubin Urine Urobilinogen Leukocyte Esterase Rfl Urine RBC Urine WBC Ur Squamous Epith Cells Urine Bacteria Urine Casts Nasal MRSA (PCR) Not detected C. difficile (PCR) Influenza A (RT-PCR) Influenza B (RT-PCR) RSV (RT-PCR) SARS-CoV-2 RNA (RT-PCR) 04/19/25 04/19/25 04:31 04:43 WBC 12.2 H RBC 4.26 L Hgb 13.5 L Hct 42.3 MCV 99.3 MCH 31.7 MCHC 31.9 L RDW 13.2 Plt Count 135 L MPV 12.5 H Immature Gran % (Auto) 0.2 Neut % (Auto) 76.4 H Lymph % (Auto) 11.8 L [place] % (Auto) 10.5 H Eos % (Auto) 0.5 Baso % (Auto) 0.6 Lymph # (Auto) 1.45 [place] # (Auto) 1.3 H Eos # (Auto) 0.1 Baso # (Auto) 0.1 Abs Immat Gran (auto) 0.03 Absolute Neuts (auto) 9.3 H Absolute Nucleated RBC 0.000 Nucleated RBC % 0.0 % Immature Plt Fraction PT INR APTT Sodium 145 Potassium 3.5 Chloride 111 H Carbon Dioxide 25 Anion Gap 9 BUN 21 H Creatinine 0.60 L Estim Creat Clear Calc 89 Estimated GFR > 60 Glucose 98 POC Capillary Glucose Calcium 8.7 Magnesium Total Bilirubin AST ALT Alkaline Phosphatase Ammonia Total Creatine Kinase Troponin I Total Protein Albumin Procalcitonin Urine Color Urine Appearance Urine pH Ur Specific [place] Urine Protein Urine Glucose (UA) Urine Ketones Ur Blood (Man) Urine Nitrate Urine Bilirubin Urine Urobilinogen Leukocyte Esterase Rfl Urine RBC Urine WBC Ur Squamous Epith Cells Urine Bacteria Urine Casts Nasal MRSA (PCR) C. difficile (PCR) Positive A* Influenza A (RT-PCR) Influenza B (RT-PCR) RSV (RT-PCR) SARS-CoV-2 RNA (RT-PCR)
[2025-04-19 17:11] LABS: Troponin I 0.043 ng/mL (0.000-0.034)
[2025-04-19] MEDS: ASPIRIN 81 MG CHEWABLE TABLET PO (17:16)
[2025-04-19] MEDS: METOPROLOL TARTRATE 12.5 MG TABLET PO (20:58)
[2025-04-19] MEDS: QUEtiapine FUMARATE 12.5 MG TABLET PO (20:58)
[2025-04-20] VITALS (15 sets, daily range): BP systolic 132–152; BP diastolic 68–82; PULSE 71–93; RESP 14–24; TEMP 36.4–37.1; O2SAT 96–100; BMI 21.7
[2025-04-20 04:42] LABS: Hematocrit 40.2 % (42.0-52.0); Hemoglobin 12.8 g/dL (14.0-18.0); Immature Granulocyte Percent A 0.2 % (0-0.5); Immature Platelet Fraction Pct 12.9 % (0.9-11.2); Lymphocytes Absolute Auto 1.47 K/mm3 (0.9-3.2); Mean Corpuscular HGB Conc 31.8 g/dl (32-36); Mean Corpuscular Hemoglobin 31.7 pg (26-34); Mean Corpuscular Volume 99.5 fl (80-100); Nucleated Red Blood Cells Absolute Auto 0.000 K/mm3 (0.0-0.012); Nucleated Red Blood Cells Perc 0.0 % (0.0-0.2); Platelet Count Result 134 k/mm3 (150-375); Red Blood Count 4.04 M/mm3 (4.6-6.20); White Blood Count 8.3 K/mm3 (4.5-10.0)
[2025-04-20 05:21] LABS: Alanine Aminotransferase 11 U/L (6-50); Albumin Level 3.3 g/dL (3.5-5.1); Alkaline Phosphatase 96 U/L (38-126); Anion Gap 5 mmol/L (4-12); Aspartate Amino Transferase 35 U/L (17-59); Bilirubin,Total 1.4 mg/dL (0.2-1.3); Blood Urea Nitrogen 16 mg/dL (9-20); Calcium 8.6 mg/dL (8.4-10.2); Carbon Dioxide 27 mmol/L (22-30); Chloride 111 mmol/L (98-107); Estimated CRCL calculation 109 ml/min; Estimated Glomerular Filt Rate > 60; Glucose 97 mg/dL (65-110); Magnesium 1.9 mg/dL (1.6-2.3); Potassium 2.7 mmol/L (3.4-5.0); Sodium 143 mmol/L (137-145); Total Protein 6.6 g/dL (6.3-8.2)
[2025-04-20] MEDS: ceFAZolin 1 GM in SODIUM CHLORIDE 0.9% IV 50 ML 100 ML IVPB ×3 (05:43→20:58)
[2025-04-20] MEDS: CARBIDOPA/LEVODOPA 25/100 MG TABLET 1 TABLET PO ×3 (05:44→20:57)
[2025-04-20] MEDS: LEVOTHYROXINE SODIUM 50 MCG TABLET PO (05:44)
[2025-04-20 05:47] LABS: Thyroid Stimulating Hormone Reflex 3.050 uIU/mL (0.465-4.68)
[2025-04-20] MEDS: POTASSIUM CHLORIDE 20 MEQ PACKET (FOR LIQUID) 40 MEQ PO (06:20)
[2025-04-20] MEDS: MAGNESIUM SULF 2 GM/WATER 50ML 2 GM/50 ML BAG IVPB (06:20)
[2025-04-20 06:31] LABS: Vitamin B12 562.0 pg/mL (239-931)
[2025-04-20] MEDS: POTASSIUM PHOS,M-BASIC-D-BASIC 40 MMOL in SODIUM CHLORIDE 0.9% IV 250 ML 43.89 MMOL IVPB (08:57)
[2025-04-20] MEDS: METOPROLOL TARTRATE 12.5 MG TABLET PO ×2 (08:57→20:57)
[2025-04-20] MEDS: ASPIRIN 81 MG CHEWABLE TABLET PO (08:57)
[2025-04-20] MEDS: FIDAXOMICIN 200 MG TABLET PO ×2 (08:57→20:57)
--- NOTE | 2025-04-20 13:11 | PM.IMPN ---
Progress Note: A&P Assessment and Plan (1) Encephalopathy acute: Code(s): G93.40 - Encephalopathy, unspecified Status: Acute Assessment and Plan: Patient presents with acute encephalopathy complicating chronic dementia. He was started on on risperidone 1 mg BID + Seroquel 50 mg HS around 04/16/[address] showing no acute findings. Ammonia <9. TSH normal. B12 and folate normal. VitD 15.4. [place] related to new use of antipsychotic medications vs underlying infection (toe infection and/or CDiff) vs VitD defic Held risperidone but continued low dose Seroquel at night. Speech therapy evaluation showing patient able to eat normally. Continue to monitor (2) Sepsis: Qualifiers: Sepsis acute organ dysfunction status: with acute organ dysfunction Sepsis type: sepsis due to unspecified organism Severe sepsis acute organ dysfunction type: encephalopathy Severe sepsis shock status: without septic shock Qualified Code(s): A41.9 - Sepsis, unspecified organism; R65.20 - Severe sepsis without septic shock; G93.41 - Metabolic encephalopathy Code(s): A41.9 - Sepsis, unspecified organism Status: Acute Assessment and Plan: Patient with fever, tachycardia, elevated WBC. No lactic drawn. PCT 0.1. CXR clear. UA not consistent with UTI. CDiff Positive. BCx pending Probably related to CDiff and/or left 2nd toe cellulitis. WBC normal now. Sepsis symptoms resolving. (3) C. difficile colitis: Code(s): A04.72 - Enterocolitis due to Clostridium difficile, not specified as recurrent Status: Acute Assessment and Plan: Patient with multiple grossly watery bowel movements C diff PCR has returned positive. Dificid started BMs x 2 so far today. Monitor stool output (4) Ulcer of toe of left foot: Qualifiers: Non-pressure ulcer stage: unspecified non-pressure ulcer stage Qualified Code(s): L97.529 - Non-pressure chronic ulcer of other part of left foot with unspecified severity Code(s): L97.529 - Non-pressure chronic ulcer of other part of left foot with unspecified severity Status: Acute Assessment and Plan: Patient with laceration with purulence of the a left 2nd toe due to laceration from his toenail Ancef started. Wound already appears improved. Change to oral abx tomorrow if stable. Follow (5) Paroxysmal atrial fibrillation with rapid ventricular response: Code(s): I48.0 - Paroxysmal atrial fibrillation Status: Acute Assessment and Plan: Patient with pAFib and flipped into AFib RVR while in the ER. Troponin minimally elevated and peaked 0.077. EKG showing NSR, IVCD with PVC. Repeat EKG AFib with RVR and ST depression in the lateral leads. Patient's recurrent episode of AFib is likely induced due to the sepsis, fever and hypokalemia. Patient's heart rate improved after 1 dose of IV Lopressor. Troponin elevation is likely due to AFib with demand ischemia. Was seen here in February and was discharged on Xarelto but not on home med list now. Not on rate controlling agents. TSH is normal. Will monitor on tele. Continue metoprolol (6) Elevated troponin: Code(s): R79.89 - Other specified abnormal findings of blood chemistry Status: Acute Assessment and Plan: As above (7) Acute hypokalemia: Code(s): E87.6 - Hypokalemia Status: Acute Assessment and Plan: Potassium 2.9 on admission. The patient received 40 mEq potassium chloride rider and 40 mEq of p.o. potassium Potassium back down t0 2.7 and this was replaced. Repeat K+ was 3.4 Follow and replace as needed (8) Hypothyroidism: Qualifiers: Hypothyroidism type: unspecified Qualified Code(s): E03.9 - Hypothyroidism, unspecified Code(s): E03.9 - Hypothyroidism, unspecified Status: Acute Assessment and Plan: TSH normal. Patient is supposed to be on levothyroxine 50mcg daily but no on home med list Levothyroxine resumed at prior dose. (9) Dehydration: Code(s): E86.0 - Dehydration Status: Acute Assessment and Plan: He does have ketones in his urine and his physical exam demonstrates dry mucous membranes suggesting dehydration. He did receive 1 L IV fluids in the ER and is on maintenance fluids. Off IV fluids now. 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 He was recently started on Seroquel and risperidone which were held initially RN stating the patient is pulling out IVs and reaching for Pa so low dose Seroquel started back Sinemet also resumed. Continue to use mitts for safety. Plan Code status - DNR DVT prophylaxis - Lovenox Subjective Date/time seen: 04/20/25 13:11 Interval history: 79yo male with dementia with behavior disorder, Parkinson's disease, pAFib, systolic and diastolic CHF (EF of 40-45%), and hypothyroidism who presented to the ER from [facility] due to altered mental status. Patient is awake, alert but confused so hx unreliable Review of Systems Review of Systems: ROS unobtainable: Yes unobtainable due to mental status Exam Narrative: AF 97.5 137/68 75 24 100% ra Gen - NARD Chest - CTA bilateral CV - RRR S1/S2. Tele showing PVCs Abd - Soft, NT/ND, Positive BS - Pa secured draining clear yellow urine Ext - No pedal edema Neuro - alert but confused Psych - nml mood Skin - Warm and dry Objective Data Vital Signs Vital Signs: Vital Signs - 24 hr 04/19/25 14:00 04/19/25 16:00 04/19/25 16:00 Temperature Pulse Rate 80 92 Respiratory Rate Blood Pressure Pulse Oximetry Oxygen Delivery Room Air 04/19/25 16:00 04/19/25 18:00 04/19/25 20:00 Temperature 98.2 F 98.7 F Pulse Rate 91 95 91 Respiratory Rate 24 H 16 Blood Pressure 153/91 H 134/96 H Pulse Oximetry 94 92 Oxygen Delivery 04/19/25 20:00 04/19/25 20:58 04/19/25 22:00 Temperature Pulse Rate 96 99 80 Respiratory Rate Blood Pressure Pulse Oximetry Oxygen Delivery 04/20/25 00:00 04/20/25 00:00 04/20/25 02:00 Temperature 98.6 F Pulse Rate 82 82 88 Respiratory Rate 14 Blood Pressure 132/69 Pulse Oximetry 100 Oxygen Delivery 04/20/25 04:00 04/20/25 04:00 04/20/25 06:00 Temperature 98.7 F Pulse Rate 82 85 86 Respiratory Rate 16 Blood Pressure 148/77 H Pulse Oximetry 96 Oxygen Delivery 04/20/25 08:00 04/20/25 08:00 04/20/25 08:00 Temperature 97.5 F L Pulse Rate 85 91 Respiratory Rate 20 Blood Pressure 142/73 H Pulse Oximetry 100 Oxygen Delivery Room Air 04/20/25 08:57 04/20/25 10:00 04/20/25 10:01 Temperature Pulse Rate 80 83 Respiratory Rate Blood Pressure Pulse Oximetry Oxygen Delivery Room Air 04/20/25 11:40 04/20/25 12:00 Temperature 97.5 F L Pulse Rate 75 Respiratory Rate 24 H Blood Pressure 137/68 Pulse Oximetry 100 Oxygen Delivery Room Air Intake/Output Intake/Output: Intake & Output 04/17/25 04/18/25 04/19/25 04/20/25 23:59 23:59 23:59 23:59 Intake Total 2915 440 Output Total 900 250 Balance 2015 190 Meds/Results Medications: Active Medications Generic Name Dose Route Start Last Admin Trade Name Freq PRN Reason Stop Dose Admin Aspirin 81 mg 04/19/25 16:05 04/20/25 08:57 Aspirin 81 Mg Chewable Tablet PO 81 mg DAILY@0800 GAYATRI Administration Carbidopa/Levodopa 1 tablet 04/19/25 06:00 04/20/25 05:44 Carbidopa/Levodopa 25/100 Mg Tablet PO 1 tablet Q8HR GAYATRI Administration Fidaxomicin 200 mg 04/19/25 09:00 04/20/25 08:57 Fidaxomicin 200 Mg Tablet PO 04/29/25 08:59 200 mg Q12HR GAYATRI Administration Cefazolin Sodium 1 gm/ Sodium 50 mls @ 100 mls/hr 04/19/25 01:25 04/20/25 05:43 Chloride IVPB 100 mls/hr Q8HR GAYATRI Administration Levothyroxine Sodium 50 mcg 04/20/25 06:30 04/20/25 05:44 Levothyroxine Sodium 50 Mcg Tablet PO 50 mcg DAILY@0630 GAYATRI Administration Metoprolol Tartrate 5 mg 04/18/25 18:09 04/18/25 18:25 Metoprolol Tartrate Inj 5 Mg/5 Ml Vial IV PUSH 5 mg Q5MIN PRN Administration Cardiac Arrhythmia Metoprolol Tartrate 12.5 mg 04/19/25 21:00 04/20/25 08:57 Metoprolol Tartrate 12.5 Mg Tablet PO 12.5 mg Q12HR GAYATRI Administration Polyethylene Glycol 17 gm 04/19/25 01:11 Polyethylene Glycol 3350 17 Gm Powd.Pack PO DAILY PRN Constipation Potassium Phos/Sodium Phos 1 packet 04/20/25 18:00 Potassium/Phosphorus/Sodium 1.5 Gm Packet PO 04/21/25 00:01 Q6HR GAYATRI Quetiapine Fumarate 12.5 mg 04/19/25 21:00 04/19/25 20:58 Quetiapine Fumarate 12.5 Mg Tablet PO 12.5 mg HS GAYATRI Administration Radiology Results: ITS Impressions Chest X-Ray 04/18/25 15:52 Impression: No acute cardiopulmonary abnormality. Head CT 04/18/25 17:26 Impression: 1.No acute intracranial abnormality. Labs Labs: Laboratory Results - last 24 hr 04/19/25 04/20/25 04/20/25 16:17 04:09 11:57 WBC 8.3 RBC 4.04 L Hgb 12.8 L Hct 40.2 L MCV 99.5 MCH 31.7 MCHC 31.8 L RDW 13.1 Plt Count 134 L MPV 13.2 H Immature Gran % (Auto) 0.2 Neut % (Auto) 65.1 Lymph % (Auto) 17.8 L [place] % (Auto) 12.6 H Eos % (Auto) 3.5 Baso % (Auto) 0.8 Lymph # (Auto) 1.47 [place] # (Auto) 1.0 H Eos # (Auto) 0.3 Baso # (Auto) 0.1 Abs Immat Gran (auto) 0.02 Absolute Neuts (auto) 5.4 Absolute Nucleated RBC 0.000 Nucleated RBC % 0.0 % Immature Plt Fraction 12.9 H Sodium 143 Potassium 2.7 L* Chloride 111 H Carbon Dioxide 27 Anion Gap 5 BUN 16 Creatinine 0.48 L Estim Creat Clear Calc 109 Estimated GFR > 60 Glucose 97 POC Capillary Glucose 112 H Lactic Acid 2.0 Calcium 8.6 Phosphorus 2.1 L Magnesium 1.9 Total Bilirubin 1.4 H AST 35 ALT 11 Alkaline Phosphatase 96 Troponin I 0.043 H* Total Protein 6.6 Albumin 3.3 L Vitamin B12 562.0 Vitamin D 25-Hydroxy 15.4 Folate 8.1 TSH (Reflex) 3.050
[2025-04-20 14:15] LABS: Albumin Level 3.3 g/dL (3.5-5.1); Anion Gap 5 mmol/L (4-12); Blood Urea Nitrogen 16 mg/dL (9-20); Calcium 8.5 mg/dL (8.4-10.2); Carbon Dioxide 26 mmol/L (22-30); Chloride 110 mmol/L (98-107); Estimated CRCL calculation 112 ml/min; Estimated Glomerular Filt Rate > 60; Glucose 122 mg/dL (65-110); Potassium 3.4 mmol/L (3.4-5.0); Sodium 141 mmol/L (137-145)
[2025-04-20] MEDS: POTASSIUM/PHOSPHORUS/SODIUM 1.5 GM PACKET 1 PACKET PO ×2 (17:26→23:28)
[2025-04-20] MEDS: POTASSIUM CHLORIDE 20 MEQ ER TABLET 40 MEQ PO (20:57)
[2025-04-20] MEDS: QUEtiapine FUMARATE 12.5 MG TABLET PO (20:57)
[2025-04-21] VITALS (16 sets, daily range): BP systolic 137–166; BP diastolic 81–95; PULSE 70–89; RESP 12–20; TEMP 36.4–37.1; O2SAT 98–100
[2025-04-21 04:59] LABS: Anion Gap 5 mmol/L (4-12); Blood Urea Nitrogen 13 mg/dL (9-20); Calcium 8.3 mg/dL (8.4-10.2); Carbon Dioxide 27 mmol/L (22-30); Chloride 110 mmol/L (98-107); Estimated CRCL calculation 118 ml/min; Estimated Glomerular Filt Rate > 60; Glucose 97 mg/dL (65-110); Magnesium 2.1 mg/dL (1.6-2.3); Potassium 3.4 mmol/L (3.4-5.0); Sodium 142 mmol/L (137-145)
[2025-04-21] MEDS: ceFAZolin 1 GM in SODIUM CHLORIDE 0.9% IV 50 ML 100 ML IVPB ×2 (05:43→13:18)
--- NOTE | 2025-04-21 05:45 | PC.NURSE ---
pt refused po meds this morning but will try again before shift change.
[2025-04-21] MEDS: CARBIDOPA/LEVODOPA 25/100 MG TABLET 1 TABLET PO ×2 (05:55→13:17)
[2025-04-21] MEDS: LEVOTHYROXINE SODIUM 50 MCG TABLET PO (05:56)
--- NOTE | 2025-04-21 07:44 | P.CDI_ITS ---
CDI Query Clarification Request 1)Encephalopathy has been documented. Please clarify type of encephalopathy: * Metabolic * Toxic * Hepatic * Hypertensive * Other * Unable to Determine 2) BMI: 22.2 Nutritional Diagnostic Statement: Please refer to the comprehensive nutrition assessment for further information. If you agree with diagnosis of Moderate protein calorie malnutrition related to inadequate energy intake as evidenced by a significant weight loss of -7% x 1 month, reduced po intake greater than 1 month, and NFPE findings for moderate subcutaneous fat loss and moderate muscle wasting. Please specify severity if known: * Mild * Moderate * Severe * Other/Unknown (1) Encephalopathy acute: Code(s): G93.40 - Encephalopathy, unspecified Status: Acute Assessment and Plan: Patient presents with acute encephalopathy complicating chronic dementia. He was started on on risperidone 1 mg BID + Seroquel 50 mg HS around 04/16/[address] showing no acute findings. Ammonia <9. TSH normal. B12 and folate normal. VitD 15.4. [place] related to new use of antipsychotic medications vs underlying infection (toe infection and/or CDiff) vs VitD defic Held risperidone but continued low dose Seroquel at night. Speech therapy evaluation showing patient able to eat normally. Continue to monitor (2) Sepsis: Qualifiers: Sepsis acute organ dysfunction status: with acute organ dysfunction Sepsis type: sepsis due to unspecified organism Severe sepsis acute organ dysfunction type: encephalopathy Severe sepsis shock status: without septic shock Qualified Code(s): A41.9 - Sepsis, unspecified organism; R65.20 - Severe sepsis without septic shock; G93.41 - Metabolic encephalopathy Code(s): A41.9 - Sepsis, unspecified organism Status: Acute Assessment and Plan: Patient with fever, tachycardia, elevated WBC. No lactic drawn. PCT 0.1. CXR clear. UA not consistent with UTI. CDiff Positive. BCx pending Probably related to CDiff and/or left 2nd toe cellulitis. WBC normal now. Sepsis symptoms resolving. (3) C. difficile colitis: Code(s): A04.72 - Enterocolitis due to Clostridium difficile, not specified as recurrent Status: Acute Assessment and Plan: Patient with multiple grossly watery bowel movements C diff PCR has returned positive. Dificid started BMs x 2 so far today. Monitor stool output (4) Ulcer of toe of left foot: Qualifiers: Non-pressure ulcer stage: unspecified non-pressure ulcer stage Qualified Code(s): L97.529 - Non-pressure chronic ulcer of other part of left foot with unspecified severity Code(s): L97.529 - Non-pressure chronic ulcer of other part of left foot with unspecified severity Status: Acute Assessment and Plan: Patient with laceration with purulence of the a left 2nd toe due to laceration from his toenail Ancef started. Wound already appears improved. Change to oral abx tomorrow if stable. Follow (5) Paroxysmal atrial fibrillation with rapid ventricular response: Code(s): I48.0 - Paroxysmal atrial fibrillation Status: Acute Assessment and Plan: Patient with pAFib and flipped into AFib RVR while in the ER. Troponin minimally elevated and peaked 0.077. EKG showing NSR, IVCD with PVC. Repeat EKG AFib with RVR and ST depression in the lateral leads. Patient's recurrent episode of AFib is likely induced due to the sepsis, fever and hypokalemia. Patient's heart rate improved after 1 dose of IV Lopressor. Troponin elevation is likely due to AFib with demand ischemia. Was seen here in February and was discharged on Xarelto but not on home med list now. Not on rate controlling agents. TSH is normal. Will monitor on tele. Continue metoprolol (6) Elevated troponin: Code(s): R79.89 - Other specified abnormal findings of blood chemistry Status: Acute Assessment and Plan: As above (7) Acute hypokalemia: Code(s): E87.6 - Hypokalemia Status: Acute Assessment and Plan: Potassium 2.9 on admission. The patient received 40 mEq potassium chloride rider and 40 mEq of p.o. potassium Potassium back down t0 2.7 and this was replaced. Repeat K+ was 3.4 Follow and replace as needed (8) Hypothyroidism: Qualifiers: Hypothyroidism type: unspecified Qualified Code(s): E03.9 - Hypothyroidism, unspecified Code(s): E03.9 - Hypothyroidism, unspecified Status: Acute Assessment and Plan: TSH normal. Patient is supposed to be on levothyroxine 50mcg daily but no on home med list Levothyroxine resumed at prior dose. (9) Dehydration: Code(s): E86.0 - Dehydration Status: Acute Assessment and Plan: He does have ketones in his urine and his physical exam demonstrates dry mucous membranes suggesting dehydration. He did receive 1 L IV fluids in the ER and is on maintenance fluids. Off IV fluids now. 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 He was recently started on Seroquel and risperidone which were held initially RN stating the patient is pulling out IVs and reaching for Pa so low dose Seroquel started back Sinemet also resumed. Continue to use mitts for safety.
[2025-04-21] MEDS: CHOLECALCIFEROL (VITAMIN D3) 25 MCG (1,000 UNITS) TABLET PO (09:35)
[2025-04-21] MEDS: FIDAXOMICIN 200 MG TABLET PO ×2 (09:37→20:27)
[2025-04-21] MEDS: METOPROLOL TARTRATE 12.5 MG TABLET PO ×2 (09:37→20:27)
[2025-04-21] MEDS: POTASSIUM CHLORIDE 20 MEQ ER TABLET 40 MEQ PO (09:37)
[2025-04-21] MEDS: ASPIRIN 81 MG CHEWABLE TABLET PO (09:38)
[2025-04-21] MEDS: ENOXAPARIN 40 MG/0.4 ML SYRINGE SUB-Q (09:38)
--- NOTE | 2025-04-21 15:25 | PM.IMPN ---
Progress Note: A&P Assessment and Plan (1) Encephalopathy acute: Code(s): G93.40 - Encephalopathy, unspecified Status: Acute Assessment and Plan: Patient presents with acute encephalopathy complicating chronic dementia. He was started on on risperidone 1 mg BID + Seroquel 50 mg HS around 04/16/[address] showing no acute findings. Ammonia <9. TSH normal. B12 and folate normal. VitD 15.4. Etiology unable to determine/multifactorial with new use of antipsychotic medications vs sepsis/underlying infection (toe infection and/or CDiff) vs VitD defic Held risperidone but continued low dose Seroquel at night. Speech therapy evaluation showing patient able to eat normally with specific diet that was ordered. Continue to monitor (2) Sepsis: Qualifiers: Sepsis acute organ dysfunction status: with acute organ dysfunction Sepsis type: sepsis due to unspecified organism Severe sepsis acute organ dysfunction type: encephalopathy Severe sepsis shock status: without septic shock Qualified Code(s): A41.9 - Sepsis, unspecified organism; R65.20 - Severe sepsis without septic shock; G93.41 - Metabolic encephalopathy Code(s): A41.9 - Sepsis, unspecified organism Status: Acute Assessment and Plan: Patient with fever, tachycardia, elevated WBC. No lactic drawn. PCT 0.1. CXR clear. UA not consistent with UTI. CDiff Positive. BCx NGTD Probably related to CDiff and/or left 2nd toe cellulitis. WBC normal now. Sepsis symptoms resolving. (3) C. difficile colitis: Code(s): A04.72 - Enterocolitis due to Clostridium difficile, not specified as recurrent Status: Acute Assessment and Plan: Patient with multiple grossly watery bowel movements C diff PCR has returned positive. Dificid started No BMs documented today. Monitor stool output (4) Ulcer of toe of left foot: Qualifiers: Non-pressure ulcer stage: unspecified non-pressure ulcer stage Qualified Code(s): L97.529 - Non-pressure chronic ulcer of other part of left foot with unspecified severity Code(s): L97.529 - Non-pressure chronic ulcer of other part of left foot with unspecified severity Status: Acute Assessment and Plan: Patient with laceration with purulence of the a left 2nd toe due to laceration from his toenail Ancef started. Wound is all but healed and no evidence of infection. Will stop abx since no longer appears infected and he has CDiff Follow (5) Paroxysmal atrial fibrillation with rapid ventricular response: Code(s): I48.0 - Paroxysmal atrial fibrillation Status: Acute Assessment and Plan: Patient with pAFib and flipped into AFib RVR while in the ER. Troponin minimally elevated and peaked 0.077. TSH is normal. EKG showing NSR, IVCD with PVC. Repeat EKG AFib with RVR and ST depression in the lateral leads. Patient's recurrent episode of AFib is likely induced due to the sepsis, fever and hypokalemia. Patient's heart rate improved after 1 dose of IV Lopressor. Oral metoprolol started on 04/19 Troponin elevation is likely due to AFib with demand ischemia. Was seen here in February and was discharged on Xarelto and metoptolol; these meds were not on his original med reconcilliation but now both meds are listed. Will monitor on tele. Continue metoprolol at current dose. Resume Xarelto (6) Elevated troponin: Code(s): R79.89 - Other specified abnormal findings of blood chemistry Status: Acute Assessment and Plan: As above (7) Acute hypokalemia: Code(s): E87.6 - Hypokalemia Status: Acute Assessment and Plan: Potassium 2.9 on admission. The patient received potassium replacement. Potassium better and ws replaced again Patient with 9 beat run of NSVT probably related to low potassium. Mag level okay. Add extra potassium Monitor on tele. Keep potassium >4 and Mag > 2. (8) Hypothyroidism: Qualifiers: Hypothyroidism type: unspecified Qualified Code(s): E03.9 - Hypothyroidism, unspecified Code(s): E03.9 - Hypothyroidism, unspecified Status: Acute Assessment and Plan: TSH normal. Patient is on levothyroxine 50mcg daily and this was resumed (9) Dehydration: Code(s): E86.0 - Dehydration Status: Acute Assessment and Plan: He does have ketones in his urine and his physical exam demonstrates dry mucous membranes suggesting dehydration. He did receive 1 L IV fluids in the ER and is on maintenance fluids. Off IV fluids now. 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 He was recently started on Seroquel and risperidone which were held initially RN stating the patient is pulling out IVs and reaching for Pa so low dose Seroquel started back and he appears to be tolerating this well. Continue Sinemet. Continue to use mitts for safety. Plan Code status - DNR DVT prophylaxis - Xarelto Disposition - he is unable to return to his facility and SNF being arranged. 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 No complaints. He is alert and somewhat more oriented today. at bedside and was updated Exam Narrative: AF 97.5 147/84 70 16 100% ra Gen - NARD Chest - CTA bilaterally CV - RRR S1/S2. Tele showing PVCs and 1 episode of 9 beat run NSVT Abd - Soft, NT/ND, Positive BS Ext - No pedal edema Neuro - alert, oriented to location, year and zuhair name. Psych - nml mood Skin - Warm and dry. left 2nd toe with small eschar but no erythema to suggest cellulitis Objective Data Vital Signs Vital Signs: Vital Signs - 24 hr 04/20/25 15:40 04/20/25 16:00 04/20/25 16:00 Temperature Pulse Rate 86 Respiratory Rate Blood Pressure Pulse Oximetry Oxygen Delivery Room Air Room Air Fraction of Inspired Oxygen 04/20/25 16:00 04/20/25 17:50 04/20/25 20:00 Temperature 97.6 F 98.1 F Pulse Rate 78 93 79 Respiratory Rate 20 16 Blood Pressure 152/82 H 142/77 H Pulse Oximetry 100 100 Oxygen Delivery Fraction of Inspired Oxygen 04/20/25 20:00 04/20/25 20:57 04/20/25 20:58 Temperature Pulse Rate 77 78 84 Respiratory Rate 20 Blood Pressure Pulse Oximetry 98 Oxygen Delivery Room Air Fraction of Inspired Oxygen 21 25 22:00 04/21/25 00:00 04/21/25 00:00 Temperature 98.7 F Pulse Rate 71 76 74 Respiratory Rate 16 Blood Pressure 166/95 H Pulse Oximetry 100 Oxygen Delivery Fraction of Inspired Oxygen 04/21/25 02:00 04/21/25 02:21 04/21/25 04:00 Temperature 98.0 F Pulse Rate 72 75 Respiratory Rate 14 Blood Pressure 148/84 H 160/83 H Pulse Oximetry 98 Oxygen Delivery Fraction of Inspired Oxygen 04/21/25 04:00 04/21/25 06:00 04/21/25 07:58 Temperature 98.0 F Pulse Rate 88 85 81 Respiratory Rate 20 Blood Pressure 165/94 H Pulse Oximetry 99 Oxygen Delivery Fraction of Inspired Oxygen 04/21/25 09:37 04/21/25 12:00 Temperature 97.5 F L Pulse Rate 82 70 Respiratory Rate 16 Blood Pressure 147/84 H Pulse Oximetry 100 Oxygen Delivery Fraction of Inspired Oxygen Intake/Output Intake/Output: Intake & Output 04/18/25 04/19/25 04/20/25 04/21/25 23:59 23:59 23:59 23:59 Intake Total 2915 1110 220 Output Total 900 950 350 Balance 2015 160 -130 Meds/Results Medications: Active Medications Generic Name Dose Route Start Last Admin Trade Name Freq PRN Reason Stop Dose Admin Aspirin 81 mg 04/19/25 16:05 04/21/25 09:38 Aspirin 81 Mg Chewable Tablet PO 81 mg DAILY@0800 GAYATRI Administration Carbidopa/Levodopa 1 tablet 04/19/25 06:00 04/21/25 13:17 Carbidopa/Levodopa 25/100 Mg Tablet PO 1 tablet Q8HR GAYATRI Administration Enoxaparin Sodium 40 mg 04/21/25 09:00 04/21/25 09:38 Enoxaparin 40 Mg/0.4 Ml Syringe SUB-Q 40 mg DAILY GAYATRI Administration Fidaxomicin 200 mg 04/19/25 09:00 04/21/25 09:37 Fidaxomicin 200 Mg Tablet PO 04/29/25 08:59 200 mg Q12HR GAYATRI Administration Cefazolin Sodium 1 gm/ Sodium 50 mls @ 100 mls/hr 04/19/25 01:25 04/21/25 13:18 Chloride IVPB 100 mls/hr Q8HR GAYATRI Administration Levothyroxine Sodium 50 mcg 04/20/25 06:30 04/21/25 05:56 Levothyroxine Sodium 50 Mcg Tablet PO 50 mcg DAILY@0630 GAYATRI Administration Metoprolol Tartrate 5 mg 04/18/25 18:09 04/18/25 18:25 Metoprolol Tartrate Inj 5 Mg/5 Ml Vial IV PUSH 5 mg Q5MIN PRN Administration Cardiac Arrhythmia Metoprolol Tartrate 12.5 mg 04/19/25 21:00 04/21/25 09:37 Metoprolol Tartrate 12.5 Mg Tablet PO 12.5 mg Q12HR GAYATRI Administration Polyethylene Glycol 17 gm 04/19/25 01:11 Polyethylene Glycol 3350 17 Gm Powd.Pack PO DAILY PRN Constipation Quetiapine Fumarate 12.5 mg 04/19/25 21:00 04/20/25 20:57 Quetiapine Fumarate 12.5 Mg Tablet PO 12.5 mg HS GAYATRI Administration Vitamin D 25 mcg 04/21/25 09:00 04/21/25 09:35 Cholecalciferol (Vitamin D3) 25 Mcg (1,000 Units) Tablet PO 25 mcg DAILY GAYATRI Administration Radiology Results: ITS Impressions Chest X-Ray 04/18/25 15:52 Impression: No acute cardiopulmonary abnormality. Head CT 04/18/25 17:26 Impression: 1.No acute intracranial abnormality. Labs Labs: Laboratory Results - last 24 hr 04/20/25 04/21/25 15:33 03:59 Sodium 142 Potassium 3.4 Chloride 110 H Carbon Dioxide 27 Anion Gap 5 BUN 13 Creatinine 0.46 L Estim Creat Clear Calc 118 Estimated GFR > 60 Glucose 97 POC Capillary Glucose 92 Calcium 8.3 L Magnesium 2.1
[2025-04-21] MEDS: RIVAROXABAN 20 MG TABLET PO (18:42)
[2025-04-21] MEDS: POTASSIUM CHLORIDE 20 MEQ ER TABLET PO (18:42)
[2025-04-21] MEDS: QUEtiapine FUMARATE 12.5 MG TABLET PO (20:27)
[2025-04-21] MEDS: CARBIDOPA/LEVODOPA 25/100 MG TABLET 2 TABLET PO (22:05)
[2025-04-22] VITALS (8 sets, daily range): BP systolic 101–159; BP diastolic 65–90; PULSE 65–97; RESP 16–20; TEMP 36.2–36.6; O2SAT 99–100
[2025-04-22 04:29] LABS: Anion Gap 5 mmol/L (4-12); Blood Urea Nitrogen 16 mg/dL (9-20); Calcium 8.6 mg/dL (8.4-10.2); Carbon Dioxide 28 mmol/L (22-30); Chloride 108 mmol/L (98-107); Estimated CRCL calculation 112 ml/min; Estimated Glomerular Filt Rate > 60; Glucose 98 mg/dL (65-110); Magnesium 2.0 mg/dL (1.6-2.3); Potassium 4.0 mmol/L (3.4-5.0); Sodium 141 mmol/L (137-145)
--- NOTE | 2025-04-22 04:39 | PC.NURSE ---
pt transfered to room 322 bed 2
--- NOTE | 2025-04-22 04:49 | ADMGEN ---
This patient, Theron Eugene Jr., was transferred to [address] [place] [address] Room 322-02. Patient/family oriented to hospital policies and general routines including ID bracelet, bed and alarms, visiting hours, pain management, procedures, bathroom and other care routines, personal items, smoking policy, room service/diet, and visiting hours. Information on how to activate the Rapid Response Team has been discussed. Patient/Family are encouraged to report perceived risks to care and to ask questions if they do not understand what they are told or what they should do.
[2025-04-22] MEDS: LEVOTHYROXINE SODIUM 50 MCG TABLET PO (05:33)
[2025-04-22] MEDS: CARBIDOPA/LEVODOPA 25/100 MG TABLET 2 TABLET PO ×3 (05:33→21:27)
[2025-04-22] MEDS: CHOLECALCIFEROL (VITAMIN D3) 25 MCG (1,000 UNITS) TABLET PO (10:07)
[2025-04-22] MEDS: ASPIRIN 81 MG CHEWABLE TABLET PO (10:08)
[2025-04-22] MEDS: METOPROLOL TARTRATE 12.5 MG TABLET PO ×2 (10:08→21:28)
[2025-04-22] MEDS: FIDAXOMICIN 200 MG TABLET PO ×2 (10:08→21:28)
--- NOTE | 2025-04-22 11:47 | P.PNIM_ITS ---
Progress Note: A&P Assessment and Plan (1) Essential (primary) hypertension: Code(s): I10 - Essential (primary) hypertension Status: Acute (2) Paroxysmal atrial fibrillation with rapid ventricular response: Code(s): I48.0 - Paroxysmal atrial fibrillation Status: Acute (3) Hypothyroidism: Qualifiers: Hypothyroidism type: unspecified Qualified Code(s): E03.9 - Hypothyroidism, unspecified Code(s): E03.9 - Hypothyroidism, unspecified Status: Acute (4) C. 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 Patient with moderate protein calorie malnutrition related to inadequate energy intake as evidenced by a significant weight loss of -7% x 1 month, reduced po intake greater than 1 month, and NFPE findings for moderate subcutaneous fat loss and moderate muscle wasting. Supplements ordered. (1) Encephalopathy acute: Presented with acute encephalopathy with baseline dementia Ammonia less than 9 TSH unremarkable B12, folate were normal Vitamin-D 15.4 Risperidone has been held Low-dose Seroquel at [employer] closely (2) Sepsis: Secondary to C diff colitis Tested positive for C diff Patient presented with fever, tachycardia, leukocytosis Chest x-ray clear, UA was unremarkable Blood cultures negative till date Currently on fidaxomicin Patient with fever, tachycardia, elevated WBC. No lactic drawn. PCT 0.1. CXR clear. UA not consistent with UTI. CDiff Positive. BCx NGTD (3) Ulcer of toe of left foot: Patient with laceration with purulence of the a left 2nd toe due to laceration from his toenail Wound is all but healed and no evidence of infection. (4) Paroxysmal atrial fibrillation with rapid ventricular response: Patient with pAFib and flipped into AFib RVR while in the ER. Troponin minimally elevated and peaked 0.077. TSH is normal. Patient's heart rate improved after 1 dose of IV Lopressor. Continue with oral metoprolol Continue with Xarelto Elevated troponin likely in setting of AFib with with RVR in the ER (5) Acute hypokalemia: Hypokalemia has resolved 6. Protein calorie malnutrition: Moderate Appreciate Nutrition consult Encourage p.o. intake Supplement as needed (6) Hypothyroidism: Continue with levothyroxine (7.) Dementia associated with Parkinson's disease: Continue Sinemet. 8. Code status: DNR 9. DVT prophylaxis on Xarelto 10. Disposition: Pending improvement, will need SNF placement Time Spent With Patient Time: 41 minutes Subjective Date/time seen: 04/22/25 11:47 Interval history: Remains confused Review of Systems Review of Systems: ROS unobtainable: Yes unobtainable due to mental status Exam Narrative: Gen -awake but confused Chest -clear to auscultation bilateral CV - RRR S1/S2 Abd - Soft, NT/ND, Positive BS - Pa secured draining clear yellow urine Ext - No pedal edema Neuro - arouses, confused, mumbling speech. Psych - eyes closed. follows commands occasionally. Skin - Warm and dry, left 2nd toe dried eschar with minimal erythema Objective Data Vital Signs Vital Signs: Vital Signs - 24 hr 04/21/25 12:00 04/21/25 12:00 04/21/25 14:00 Temperature 97.5 F L Pulse Rate 70 75 81 Respiratory Rate 16 Blood Pressure 147/84 H Pulse Oximetry 100 04/21/25 16:00 04/21/25 16:00 04/21/25 18:00 Temperature 97.6 F Pulse Rate 70 71 81 Respiratory Rate 12 Blood Pressure 137/81 Pulse Oximetry 100 04/21/25 19:17 04/21/25 20:27 04/21/25 23:17 Temperature Pulse Rate 73 89 78 Respiratory Rate Blood Pressure Pulse Oximetry 04/22/25 00:06 04/22/25 10:08 Temperature 97.8 F Pulse Rate 65 85 Respiratory Rate 20 Blood Pressure 125/65 Pulse Oximetry 99 Intake/Output Intake/Output: Intake & Output 04/19/25 04/20/25 04/21/25 04/22/25 23:59 23:59 23:59 23:59 Intake Total 2915 1110 660 236 Output Total 900 950 350 0 Balance 2014 160 310 236 Meds/Results Medications: Active Medications Generic Name Dose Route Start Last Admin Trade Name Niko PRN Reason Stop Dose Admin Aspirin 81 mg 04/19/25 16:05 04/22/25 10:08 Aspirin 81 Mg Chewable Tablet PO 81 mg DAILY@0800 GAYATRI Administration Carbidopa/Levodopa 2 tablet 04/21/25 22:00 04/22/25 05:33 Carbidopa/Levodopa 25/100 Mg Tablet PO 2 tablet Q8HR GAYATRI Administration Fidaxomicin 200 mg 04/19/25 09:00 04/22/25 10:08 Fidaxomicin 200 Mg Tablet PO 04/29/25 08:59 200 mg Q12HR GAYATRI Administration Levothyroxine Sodium 50 mcg 04/20/25 06:30 04/22/25 05:33 Levothyroxine Sodium 50 Mcg Tablet PO 50 mcg DAILY@0630 GAYATRI Administration Metoprolol Tartrate 5 mg 04/18/25 18:09 04/18/25 18:25 Metoprolol Tartrate Inj 5 Mg/5 Ml Vial IV PUSH 5 mg Q5MIN PRN Administration Cardiac Arrhythmia Metoprolol Tartrate 12.5 mg 04/19/25 21:00 04/22/25 10:08 Metoprolol Tartrate 12.5 Mg Tablet PO 12.5 mg Q12HR GAYATRI Administration Polyethylene Glycol 17 gm 04/19/25 01:11 Polyethylene Glycol 3350 17 Gm Powd.Pack PO DAILY PRN Constipation Quetiapine Fumarate 12.5 mg 04/19/25 21:00 04/21/25 20:27 Quetiapine Fumarate 12.5 Mg Tablet PO 12.5 mg HS GAYATRI Administration Rivaroxaban 20 mg 04/21/25 18:15 04/21/25 18:42 Rivaroxaban 20 Mg Tablet PO 20 mg DAILY@1700 [facility] Administration Vitamin D 25 mcg 04/21/25 09:00 04/22/25 10:07 Cholecalciferol (Vitamin D3) 25 Mcg (1,000 Units) Tablet PO 25 mcg DAILY GAYATRI Administration Radiology Results: ITS Impressions Chest X-Ray 04/18/25 15:52 Impression: No acute cardiopulmonary abnormality. Head CT 04/18/25 17:26 Impression: 1.No acute intracranial abnormality. Labs Labs: Laboratory Results - last 24 hr 04/22/25 03:54 Sodium 141 Potassium 4.0 Chloride 108 H Carbon Dioxide 28 Anion Gap 5 BUN 16 Creatinine 0.50 L Estim Creat Clear Calc 112 Estimated GFR > 60 Glucose 98 Calcium 8.6 Magnesium 2.0 Quality VTE Prophylaxis VTE prophylaxis: pharmacologic ordered
[2025-04-22] MEDS: RIVAROXABAN 20 MG TABLET PO (17:41)
[2025-04-22] MEDS: QUEtiapine FUMARATE 12.5 MG TABLET PO (21:28)
[2025-04-23] VITALS (12 sets, daily range): BP systolic 66–146; BP diastolic 44–88; PULSE 69–98; RESP 13–20; TEMP 36.3–36.5; O2SAT 98–100; BMI 10.0
[2025-04-23] MEDS: CARBIDOPA/LEVODOPA 25/100 MG TABLET 2 TABLET PO ×3 (05:49→21:30)
[2025-04-23] MEDS: LEVOTHYROXINE SODIUM 50 MCG TABLET PO (05:49)
[2025-04-23 06:07] LABS: Hematocrit 39.6 % (42.0-52.0); Hemoglobin 12.7 g/dL (14.0-18.0); Immature Granulocyte Percent A 0.5 % (0-0.5); Lymphocytes Absolute Auto 1.80 K/mm3 (0.9-3.2); Mean Corpuscular HGB Conc 32.1 g/dl (32-36); Mean Corpuscular Hemoglobin 31.6 pg (26-34); Mean Corpuscular Volume 98.5 fl (80-100); Nucleated Red Blood Cells Absolute Auto 0.000 K/mm3 (0.0-0.012); Nucleated Red Blood Cells Perc 0.0 % (0.0-0.2); Platelet Count Result 146 k/mm3 (150-375); Red Blood Count 4.02 M/mm3 (4.6-6.20); White Blood Count 8.5 K/mm3 (4.5-10.0)
[2025-04-23 06:33] LABS: Alanine Aminotransferase 13 U/L (6-50); Albumin Level 3.2 g/dL (3.5-5.1); Alkaline Phosphatase 92 U/L (38-126); Anion Gap 5 mmol/L (4-12); Aspartate Amino Transferase 34 U/L (17-59); Bilirubin,Total 1.2 mg/dL (0.2-1.3); Blood Urea Nitrogen 13 mg/dL (9-20); Calcium 8.6 mg/dL (8.4-10.2); Carbon Dioxide 29 mmol/L (22-30); Chloride 104 mmol/L (98-107); Estimated CRCL calculation 126 ml/min; Estimated Glomerular Filt Rate > 60; Glucose 104 mg/dL (65-110); Potassium 3.9 mmol/L (3.4-5.0); Sodium 138 mmol/L (137-145); Total Protein 6.4 g/dL (6.3-8.2)
[2025-04-23] MEDS: FIDAXOMICIN 200 MG TABLET PO ×2 (08:31→21:30)
[2025-04-23] MEDS: METOPROLOL TARTRATE 12.5 MG TABLET PO (08:31)
[2025-04-23] MEDS: CHOLECALCIFEROL (VITAMIN D3) 25 MCG (1,000 UNITS) TABLET PO (08:31)
[2025-04-23] MEDS: ASPIRIN 81 MG CHEWABLE TABLET PO (08:32)
--- NOTE | 2025-04-23 13:23 | PM.IMPN ---
Progress Note: A&P Assessment and Plan (1) Essential (primary) hypertension: Code(s): I10 - Essential (primary) hypertension Status: Acute (2) Paroxysmal atrial fibrillation with rapid ventricular response: Code(s): I48.0 - Paroxysmal atrial fibrillation Status: Acute (3) Hypothyroidism: Qualifiers: Hypothyroidism type: unspecified Qualified Code(s): E03.9 - Hypothyroidism, unspecified Code(s): E03.9 - Hypothyroidism, unspecified Status: Acute (4) C. 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 (1) Encephalopathy acute: Presented with acute encephalopathy with baseline dementia Ammonia less than 9 TSH unremarkable B12, folate were normal Vitamin-D 15.4 Risperidone has been held Low-dose Seroquel at physiotherapist's assistant closely Improving mentation (2) Sepsis: Secondary to C diff colitis Tested positive for C diff Patient presented with fever, tachycardia, leukocytosis Chest x-ray clear, UA was unremarkable Blood cultures negative till date Currently on fidaxomicin Improved stool fecal (3) Ulcer of toe of left foot: Patient with laceration with purulence of the a left 2nd toe due to laceration from his toenail Wound is all but healed and no evidence of infection. (4) Paroxysmal atrial fibrillation with rapid ventricular response: Patient with pAFib and flipped into AFib RVR while in the ER. Troponin minimally elevated and peaked 0.077. TSH is normal. Had 5 rounds of we checked this morning, asymptomatic Continue with oral metoprolol Continue with Xarelto Elevated troponin likely in setting of AFib with with RVR in the ER (5) Acute hypokalemia: Hypokalemia has resolved 6. Protein calorie malnutrition: Moderate Appreciate Nutrition consult Encourage p.o. intake Supplement as needed (6) Hypothyroidism: Continue with levothyroxine (7.) Dementia associated with Parkinson's disease: Continue Sinemet. 8. Code status: DNR 9. DVT prophylaxis on Xarelto 10. Disposition: Await SNF placement Time Spent With Patient Time: 38 minutes Subjective Date/time seen: 04/23/25 13:23 Interval history: No acute events overnight Review of Systems Review of Systems: All systems reviewed & are unremarkable except as noted in HPI and below Exam Narrative: Gen -awake Chest -clear to auscultation bilateral CV - RRR S1/S2 Abd - Soft, NT/ND, Positive BS - Pa secured draining clear yellow urine Ext - No pedal edema Neuro -awake, alert, oriented to place and person Skin - Warm and dry, left 2nd toe dried eschar with minimal erythema Objective Data Vital Signs Vital Signs: Vital Signs - 24 hr 04/22/25 14:00 04/22/25 17:00 04/22/25 20:00 Temperature 97.2 F L Pulse Rate 76 97 Respiratory Rate 16 Blood Pressure 101/70 Pulse Oximetry 100 Oxygen Delivery Room Air 04/22/25 21:00 04/22/25 21:39 04/23/25 00:46 Temperature 97.5 F L Pulse Rate 86 83 74 Respiratory Rate 16 Blood Pressure 159/90 H Pulse Oximetry 99 Oxygen Delivery 04/23/25 04:00 04/23/25 05:14 04/23/25 08:31 Temperature 97.3 F L Pulse Rate 74 69 79 Respiratory Rate 13 Blood Pressure 146/88 H Pulse Oximetry 100 Oxygen Delivery Intake/Output Intake/Output: Intake & Output 04/20/25 04/21/25 04/22/25 04/23/25 23:59 23:59 23:59 23:59 Intake Total 1110 660 476 240 Output Total 950 350 100 Balance 160 310 376 240 Meds/Results Medications: Active Medications Generic Name Dose Route Start Last Admin Trade Name Freq PRN Reason Stop Dose Admin Aspirin 81 mg 04/19/25 16:05 04/23/25 08:32 Aspirin 81 Mg Chewable Tablet PO 81 mg DAILY@0800 [facility] Administration Carbidopa/Levodopa 2 tablet 04/21/25 22:00 04/23/25 05:49 Carbidopa/Levodopa 25/100 Mg Tablet PO 2 tablet Q8HR GAYATRI Administration Fidaxomicin 200 mg 04/19/25 09:00 04/23/25 08:31 Fidaxomicin 200 Mg Tablet PO 04/29/25 08:59 200 mg Q12HR GAYATRI Administration Levothyroxine Sodium 50 mcg 04/20/25 06:30 04/23/25 05:49 Levothyroxine Sodium 50 Mcg Tablet PO 50 mcg DAILY@0630 GAYATRI Administration Metoprolol Tartrate 5 mg 04/18/25 18:09 04/18/25 18:25 Metoprolol Tartrate Inj 5 Mg/5 Ml Vial IV PUSH 5 mg Q5MIN PRN Administration Cardiac Arrhythmia Metoprolol Tartrate 12.5 mg 04/19/25 21:00 04/23/25 08:31 Metoprolol Tartrate 12.5 Mg Tablet PO 12.5 mg Q12HR GAYATRI Administration Polyethylene Glycol 17 gm 04/19/25 01:11 Polyethylene Glycol 3350 17 Gm Powd.Pack PO DAILY PRN Constipation Quetiapine Fumarate 12.5 mg 04/19/25 21:00 04/22/25 21:28 Quetiapine Fumarate 12.5 Mg Tablet PO 12.5 mg HS GAYATRI Administration Rivaroxaban 20 mg 04/21/25 18:15 04/22/25 17:41 Rivaroxaban 20 Mg Tablet PO 20 mg DAILY@1700 GAYATRI Administration Vitamin D 25 mcg 04/21/25 09:00 04/23/25 08:31 Cholecalciferol (Vitamin D3) 25 Mcg (1,000 Units) Tablet PO 25 mcg DAILY GAYATRI Administration Radiology Results: ITS Impressions Chest X-Ray 04/18/25 15:52 Impression: No acute cardiopulmonary abnormality. Head CT 04/18/25 17:26 Impression: 1.No acute intracranial abnormality. Labs Labs: Laboratory Results - last 24 hr 04/23/25 05:55 WBC 8.5 RBC 4.02 L Hgb 12.7 L Hct 39.6 L MCV 98.5 MCH 31.6 MCHC 32.1 RDW 12.9 Plt Count 146 L MPV 12.7 H Immature Gran % (Auto) 0.5 Neut % (Auto) 64.0 Lymph % (Auto) 21.3 [place]anan % (Auto) 8.7 H Eos % (Auto) 4.4 Baso % (Auto) 1.1 Lymph # (Auto) 1.80 [place]anan # (Auto) 0.7 H Eos # (Auto) 0.4 H Baso # (Auto) 0.1 Abs Immat Gran (auto) 0.04 H Absolute Neuts (auto) 5.4 Absolute Nucleated RBC 0.000 Nucleated RBC % 0.0 Sodium 138 Potassium 3.9 Chloride 104 Carbon Dioxide 29 Anion Gap 5 BUN 13 Creatinine 0.46 L Estim Creat Clear Calc 126 Estimated GFR > 60 Glucose 104 Calcium 8.6 Total Bilirubin 1.2 AST 34 ALT 13 Alkaline Phosphatase 92 Total Protein 6.4 Albumin 3.2 L Quality VTE Prophylaxis VTE prophylaxis: pharmacologic ordered
--- NOTE | 2025-04-23 13:49 | ECG_ITS ---
Test Date: 2025-04-23 13:55:16 Measurements Intervals [place] Rate: 74 P: 57 AK: 168 QRS: 5 QRSD: 126 T: 51 QT: 394 QTc: 438 Interpretive Statements SINUS RHYTHM INCOMPLETE LEFT BUNDLE BRANCH BLOCK CONSIDER INFERIOR INFARCT, AGE INDETERMINATE ABNORMAL ECG Compared to ECG 04/18/2025 18:06:58 Atrial fibrillation no longer present Electronically Signed On 04-23-2025 14:08:45 CDT by Allen Murdock D.O.
[2025-04-23] MEDS: SODIUM CHLORIDE 0.9% IV 500 ML IV CONT ×2 (13:50)
--- NOTE | 2025-04-23 14:30 | PC.NURSE ---
RN called to bedside due to decreased responsiveness of patient. Patient was in chair working with Physical Therapy. Patient was slow to respond and seeming more fatigued than he had been. Blood Pressure taken in the chair was 66/44. Rapid Response was called at 1342 and patient was transferred back to the bed. Blood pressure in bed was 108/68. Rapid response team and the physician arrived at bedside.
[2025-04-23 14:55] LABS: Anion Gap 3 mmol/L (4-12); Blood Urea Nitrogen 20 mg/dL (9-20); Calcium 8.8 mg/dL (8.4-10.2); Carbon Dioxide 27 mmol/L (22-30); Chloride 105 mmol/L (98-107); Estimated CRCL calculation 76 ml/min; Estimated Glomerular Filt Rate > 60; Glucose 111 mg/dL (65-110); Magnesium 1.8 mg/dL (1.6-2.3); Potassium 4.1 mmol/L (3.4-5.0); Sodium 135 mmol/L (137-145)
[2025-04-24] MEDS: LORazepam (*CRX) 1 MG TABLET PO (02:40)
[2025-04-24 06:00] VITALS: BP 157/93; PULSE 87; RESP 16; TEMP 36.5; O2SAT 97
[2025-04-24] MEDS: LEVOTHYROXINE SODIUM 50 MCG TABLET PO (06:55)
[2025-04-24] MEDS: CARBIDOPA/LEVODOPA 25/100 MG TABLET 2 TABLET PO (06:55)
[2025-04-24] MEDS: FIDAXOMICIN 200 MG TABLET PO (09:56)
--- NOTE | 2025-04-24 12:09 | PCNFU ---
Nutrition Follow-Up Complete: Moderate protein calorie malnutrition related to inadequate energy intake as evidenced by a significant weight loss of -7% x 1 month, reduced po intake greater than 1 month, and NFPE findings for moderate subcutaneous fat loss and moderate muscle wasting. Goal:PO intake greater than 50% Pt not meeting goal. Pt current nutrition is pureed level 4, Ensure BID, nutrition ice cream BID. Nutrition recommendation: continue with current plan of care Last recorded weight is 84.9 kg. Bowel Motility: +BM 04/23 Labs Reviewed: 12.7, HCt:39.6, Alb:3.2, NA:135, Glu:111 Meds Noted: Skin: WNL Additional Notes: Pt now on a pureed diet, intake 25-50% of meals. Pt has ensure and nutrition ice cream cups in place BID. Pt is transitioning to hospice care. Agree with diet orders. Encourage intake. Monitor intake, wt, labs. Follow up in 5 days.
--- NOTE | 2025-04-24 14:32 | P.DS_ITS ---
DS: Admitting Diagnosis Discharge Date 04/24/25 Admitting Diagnosis Altered mental status DS: Discharge Diagnosis Discharge Diagnosis (1) Essential (primary) hypertension: Code(s): I10 - Essential (primary) hypertension Status: Acute (2) Paroxysmal atrial fibrillation with rapid ventricular response: Code(s): I48.0 - Paroxysmal atrial fibrillation Status: Acute (3) Hypothyroidism: Qualifiers: Hypothyroidism type: unspecified Qualified Code(s): E03.9 - Hypothyroidism, unspecified Code(s): E03.9 - Hypothyroidism, unspecified Status: Acute (4) C. difficile colitis: Code(s): A04.72 - Enterocolitis due to Clostridium difficile, not specified as recurrent Status: Acute (5) Parkinsons: Code(s): G20 - Parkinson's disease Status: Chronic (6) Encephalopathy acute: Code(s): G93.40 - Encephalopathy, unspecified Status: Acute (7) Altered mental status: Code(s): R41.82 - Altered mental status, unspecified Status: Acute DS: Summary Hospital Course Hospital Course: 79-year-old male with a past medical history of dementia with behaviors, Parkinson's disease, paroxysmal atrial fibrillation, combined systolic and diastolic heart failure with EF of 40-45%, and hypothyroidism who presented to the ER from [facility] due to altered mental status. # Encephalopathy acute: Presented with acute encephalopathy with baseline dementia Ammonia less than 9 TSH unremarkable B12, folate were normal Vitamin-D 15.4 Risperidone has been held Low-dose Seroquel at network infrastructure architect closely Improving mentation # Sepsis: Secondary to C diff colitis Tested positive for C diff Patient presented with fever, tachycardia, leukocytosis Chest x-ray clear, UA was unremarkable Blood cultures negative till date Currently on fidaxomicin Improved stool fecal Became hypotensive and unresponsive on April 23, 2025 further discussion with family led to transitioning to comfort care. # Ulcer of toe of left foot: Patient with laceration with purulence of the a left 2nd toe due to laceration from his toenail Wound is all but healed and no evidence of infection. # Paroxysmal atrial fibrillation with rapid ventricular response: Patient with pAFib and flipped into AFib RVR while in the ER. Troponin minimally elevated and peaked 0.077. TSH is normal. Had 5 rounds of we checked this morning, asymptomatic Continue with oral metoprolol Continue with Xarelto Elevated troponin likely in setting of AFib with with RVR in the ER # Acute hypokalemia: Hypokalemia has resolved # Protein calorie malnutrition: Moderate Appreciate Nutrition consult Encourage p.o. intake Supplement as needed # Hypothyroidism: Continue with levothyroxine # Dementia associated with Parkinson's disease: Continue Sinemet. # Code status: DNR # DVT prophylaxis on Xarelto # Disposition: Patient continued to decline. Transitioned to comfort care. Transfer to [facility] today Time Spent with Patient Time attestation: Total time spent providing and/or coordinating discharge services: 35 minutes Exam Narrative: Gen -awake Chest -clear to auscultation bilateral CV - RRR S1/S2 Abd - Soft, NT/ND, Positive BS - Pa secured draining clear yellow urine Ext - No pedal edema Neuro -awake, alert, oriented to place and person Skin - Warm and dry, left 2nd toe dried eschar with minimal erythema DS: Data Data Completed and Pending Labs on day of discharge: Labs from last 24 hours 04/23/25 14:33 Sodium 135 L Potassium 4.1 Chloride 105 Carbon Dioxide 27 Anion Gap 3 L BUN 20 Creatinine 0.81 Estim Creat Clear Calc 76 Estimated GFR > 60 Glucose 111 H Calcium 8.8 Magnesium 1.8 Preliminary micro results at discharge 04/19/25 00:15 Blood Culture - Preliminary Blood 04/19/25 00:15 Blood Culture - Preliminary Blood Imaging Radiologist's impression: ITS Impressions Chest X-Ray 04/18/25 15:52 Impression: No acute cardiopulmonary abnormality. Head CT 04/18/25 17:26 Impression: 1.No acute intracranial abnormality. Discharge Plan Discharge Attending physician on discharge: Kit Bell Discharging Clinician: Kit Bell Anticipated Discharge Date/Time: 04/24/25 14:35 Patient Disposition: Hospice [facility] Inpatient Activity: as tolerated Diet: as tolerated Patient Instructions: Rivaroxaban (By mouth), Altered Mental Status (GEN) Patient Language: [place] Citizen Date of admission: 04/20/25 10:40 Primary Care Provider: Mitch Munoz Admitting Provider: Valente Platt Attending physician on admission: Valente Platt Condition: Serious
== END 2025-04-24 12:51 | disposition hospice, inpatient (51) | DRG 871 ==
LOC: ANHED 15:26 → ANHIMU 04-19 01:07 → ANH3MEDSUR 04-22 04:38
PROVIDERS: Internal Medicine; Admitting Provider Internal Medicine; Emergency Provider Registered Nurse; PCP Internal Medicine; Visit Provider Internal Medicine
DX: A41.9 Sepsis, unspecified organism (principal); G93.41 Metabolic encephalopathy; A04.72 Enterocolitis due to Clostridium difficile, not specified as recurrent; I50.42 Chronic combined systolic (congestive) and diastolic (congestive) heart failure; E44.0 Moderate protein-calorie malnutrition; R65.20 Severe sepsis without septic shock; I11.0 Hypertensive heart disease with heart failure; I48.0 Paroxysmal atrial fibrillation; I25.10 Atherosclerotic heart disease of native coronary artery without angina pectoris; I95.1 Orthostatic hypotension; I95.9 Hypotension, unspecified; E86.0 Dehydration; E87.6 Hypokalemia; E03.9 Hypothyroidism, unspecified; E78.5 Hyperlipidemia, unspecified; S51.002A Unspecified open wound of left elbow, initial encounter; S91.115A Laceration without foreign body of left lesser toe(s) without damage to nail, initial encounter; B35.1 Tinea unguium; R29.6 Repeated falls; H35.3190 Nonexudative age-related macular degeneration, unspecified eye, stage unspecified; R79.89 Other specified abnormal findings of blood chemistry; G20.A1 Parkinson's disease without dyskinesia, without mention of fluctuations; F02.80 Dementia in other diseases classified elsewhere, unspecified severity, without behavioral disturbance, psychotic disturbance, mood disturbance, and anxiety; Z20.822 Contact with and (suspected) exposure to COVID-19; Z51.5 Encounter for palliative care; N40.0 Benign prostatic hyperplasia without lower urinary tract symptoms; Z87.891 Personal history of nicotine dependence; Z79.01 Long term (current) use of anticoagulants; Z95.5 Presence of coronary angioplasty implant and graft; Z86.711 Personal history of pulmonary embolism; Z86.718 Personal history of other venous thrombosis and embolism; Z68.22 Body mass index [BMI] 22.0-22.9, adult
CPT/HCPCS: 36415; 70450; 71045; 80048; 80053; 80069; 81001; 82140; 82306; 82550; 82607; 82746; 82948; 83605; 83735; 84100; 84145; 84443; 84484; 85025; 85055; 85610; 85730; 87040; 87493; 87637; 87641; 92610; 93005; 96361; 96365; 96366; 96367; 96375; 96376; 97110; 97116; 97162; 97165; 97530; 97535; 99285; A9270; G0378; J0616; J0690; J1650; J3475; J3480; J7030; J7040; J7050

== ENCOUNTER 2025-04-24 12:51 | HOS | payer OTHER, SELFPAY ==
--- OUTSIDE RECORDS SUMMARY | 2007-12-11 04:18 | XMS_ITS | Continuity of Care Document ---
Author Organization [facility] Address [address] [place] [address] [facility] [address] [place] [address] Phone Care Team Providers Care Lens Fabricating Machine Tender Name Role Phone Emmanuel Ferrara Unavailable Unavailable Procedures Procedure Date Eye Exam & Treatment Refraction Advance Directives Directive Yes / No Effective Date File Name No Information Encounters Encounter Description Practice Location Reason(s) For Visit Diagnoses Date Provider Providers Copied on Encounter [facility], [address] [place] [address] [address], [place], [place], [id number], [place] tel:[phone] [facility] No Information [address]. [address] [facility] [address] [facility] [address], [place], [address], [place]. tel:[phone] Family History Family Member Type Diagnosis Age At Onset No Information Payers Payer name Insurance type Covered republican ID Authoriza tion(s) No Information Social History [...]
--- OUTSIDE RECORDS SUMMARY | 2025-04-24 13:14 | XMS_ITS | Clinical Summary ---
Author Organization [facility] [address] Address [address] [place] [address] Care Team Providers Care Teacher Public Health Name Role Phone Jimi De La Fuente MD Unavailable [phone] Jimi De La Fuente MD Unavailable [phone] Mitch Munoz DO Primary Care Provider [phone] Allergies No known active allergies Medications finasteride [...] Department Care Team Description 03/27/[address] [facility] Cardiology [address] [place] [address] Jewels Jones NP 03/13/2025 Orders Only [facility] [address] [place] [address] Jewels Jones NP 02/04/[address] [facility] Cardiology [address] [facility] [address], [place] [address] Leonard Ge MD from Last 3 Months Medical History [...] on file Legal Sex Male 10:13 AM [employer] Gender Identity Not on file Sexual Orientation Not on file Obstetrics History Last Filed Vital Signs Vital Sign Reading Time Taken Comments Blood Pressure 104/62 01/21/2025 10:27 AM CDT Pulse 83 01/21/2025 10:27 AM CDT Temperature - - Respiratory Rate 18 06/18/2019 10:29 AM [employer] Oxygen Saturation 96% 01/21/2025 10:27 AM CDT [...] Associated Diagnosis Comments CARDIOLOGY DOCUMENT SCAN Routine 025 10:09 AM CDT CARDIOLOGY DOCUMENT SCAN Routine 025 10:04 AM CDT CARDIOLOGY DOCUMENT SCAN 03/13/2025 from Last 3 Months Results * Cardiology [...] CV CARDIAC SERVICES PROCEDUR ES Final Result from Last 3 Months Insurance [employer] PPO Care Teams Teacher Public Health Relationship Specialty Start Date End Date Mitch Munoz DO [address] [place] [address] PCP - General Internal Medicine 01/21/25 Jimi De La Fuente MD [address] [place] [address] 01/14/21 Jimi De La Fuente MD [address] [place] [address] 02/26/19
--- OUTSIDE RECORDS SUMMARY | 2025-04-24 13:14 | XMS_ITS | Data Portability ---
Author Organization [employer] [facility], Main Office Address [id number] [place] [id number] Care Team Providers Care Wind Operations Supervisor Name Role Phone GCP [facility] FAX OTHER MITCH MUNOZ Primary Care Provider [...] Edilia elected for him to transition to [facility] on 04/13 with [facility]. Blood sugars were stable without concerns. Not [...] By Organization Details Last Modified Time 04/01/2025 [id number] I spent 37 minutes providing care to the patient today. More than 50% of that time was spent in discussing the expected course of the disease, discussing prognosis, coordinating care and counseling of the patient/family. [email or web address] Not available 04/01/2025 12:45:40 04/02/2025 [id number] I spent 37 minutes providing care to the patient today. More than 50% of that time was spent in discussing the expected course of the disease, discussing prognosis, coordinating care and counseling of the patient/family. Not available 04/02/2025 19:13:36 04/06/2025 [id number] I spent 50 minutes providing care to the patient today. More than 50% of that time was spent in discussing the expected course of the disease, discussing prognosis, coordinating care and counseling of the patient/family. Not available 04/07/2025 10:54:16 04/08/2025 [id number] I spent 36 minutes providing care to the patient today. More than 50% of that time was spent in discussing the expected course of the disease, discussing prognosis, coordinating care and counseling of the patient/family. Not available 04/08/2025 14:41:24 04/10/2025 [id number] I spent 35 minutes providing care to [...] in coronary [place] [address] [place], [address], [facility] 03/24/2025 05:22:34 Imaging Results None [...] /min 100 % 100 % 23.1 kg/m2 97605.1 5 g 130/73 mm[Hg] [place] [address] [place], [address], [facility] [employer] [facility] [employer] 5 12:38:52 Date Recorded Body height Heart rate Body temperature Respiratory rate Oxygen saturation Oxygen saturation in Arterial blood by Pulse oximetry Body mass index (BMI) Body weight Systolic And Diastolic Provider Name and Address Organization Details Last Updated DateTime 5 190.5 cm 100 /min 97.6 [degF] 18 /min 95 % 95 % 22.9 kg/m2 93273.8 4 g 114/71 mm[Hg] [place] [address] [place], [address], [facility] [employer] [facility] [employer] 5 19:04:03 Date Recorded Body height Heart rate Oxygen saturation Oxygen saturation in Arterial blood by Pulse oximetry Body mass index (BMI) Body weight Respiratory rate Body temperature Systolic And Diastolic Provider Name and Address Organization Details Last Updated DateTime 5 190.5 cm 84 /min 98 % 98 % 22.7 kg/m2 82422.6 6 g 20 /min 98.3 [degF] 98/57 mm[Hg] [place] [address] [place], [address], [facility] [employer] [employer] 5 15:16:40 Date Recorded Body height Heart rate Body temperature Respiratory rate Oxygen saturation Oxygen saturation in Arterial blood by Pulse oximetry Body mass index (BMI) Body weight Systolic And Diastolic Provider Name and Address Organization Details Last Updated DateTime 190.5 cm 78 /min 98 [degF] 18 /min 99 % 99 % 22.8 kg/m2 56623.9 7 g 119/72 mm[Hg] [place] [address] [place], [address], [place] [facility] 10:38:53 Date Recorded Body height Heart rate Respiratory rate Body temperature Oxygen saturation Oxygen saturation in Arterial blood by Pulse oximetry Body mass index (BMI) Body weight Systolic And Diastolic Provider Name and Address Organization Details Last Updated DateTime 190.5 cm 85 /min 18 /min 98.3 [degF] 94 % 94 % 22.9 kg/m2 05405.5 6 g 97/65 mm[Hg] [place] [address] [place], [address], [place] [facility] 13:33:36 Social History Question Answer Notes LastModified by [employer] Details LastModified Time Tobacco Smoking Status Former Smoker Emi Terrence, [address] [place], [address], [facility] 03/24/2025 05:28:01 What Is Your Code Status? Full Code [email or web address] Information not available 03/17/2025 What Is Your Relationship Status? Information not available 03/24/2025 Sex: Unknown Functional Status Question Answer Note LastModified by [employer] Details LastModified Time Do you use any [...] Not available 2024 05:25:46 Unspecified Relation Malignant neoplasm of colon grandp arent [email or web address] Not available [...] ICD10 Code Diagnosis IMO Codes Diagnosis Note [id number] Emi Terrence, [address] [address] [place] [address] 03/18/2025 17:58:21 03/26/2025 09:49:44 Parkinson's disease 59330031 G20.A2 1721548539 continue sinemetthe patient is followed by neurology at [facility], Dr. Dasilva inue therapies/ supportive measuresco ntinue clonazepam /exelon/mi dodrine also prescribed by neurology related to Parkinson' s complicati ons Paroxysmal atrial fibrillation 784788347 I48.0 94333 New onset - sound like he is back in NSR on exam todayconti nue metoprolol for rate controlcon tinue xarelto for VTE prophylaxi sf/u with cardiology in the next few weeks Acquired hypothyroidism 815635497 E03.9 16612 continue synthroid - TSH done during his inpatient stay was WNL Dementia d ue to Parkinson's disease 4596722051 27013 G20.A1 F02.A4 9639578348 continue exelon patch and routine clonazepam at bedtime (confirmed with that this is a routine outpatient medication )ST to followsupp ortive measures Primary insomnia 3048035 F51.01 96320 continue melatonin Orthostati c hypotension 05684101 I95.1 3436 continue midodrine - monitor pressures and for symptoms c/w this Slow trans it constipation 02389225 K59.01 8838 continue routine miralaxadd itional meds available per standing orders Coronary arteriosclerosis 34378825 I25.10 26321046 s/p stenting x 2he is followed by Dr. Leonard Ge as an outpatient continue ASA, metoprolol , statin therapy and prn nitro Anxiety 94222362 F41.9 11273 continue routine clonazepam at bedtimemon itor clinically - might consider addition of SSRI or buspar if symptoms worsen during his rehab stay History of pulmonary embolus 581144795 Z86.711 059610 remote - he had not been on oral anticoagul ation prior to recent hospitaliz ation History of deep vein thrombosis 302105272 Z86.717 3292535 remote - was treated for a brief time with oral anticoagul ation and has not been on prior to recent hospitaliz ation x many years Essential hypertension 16622263 I10 24456 continue low dose metoprolol trend pressures and adjust meds accordingl y Physical deconditioning 1628024430 9102 R53.81 876457 related to advanced age, recent hospitaliz ation, comorbidit iestherapi es have been initiated - will monitor progresshe will return home with his upon d/c from [facility] [id number] Emi Ocampo DO [address] [address] 03/19/2025 08:50:00 03/26/2025 09:48:53 Parkinson's disease 72691012 G20.A2 5323473374 Stable but with orthostasi s. Continue Sinemet, Exelon, Midodrine, Melatonin, & qhs Clonazepam .Continue therapies & supportive measures.W ill not attempt reduction of Clonazepam at this time due to concern could exacerbate Parkinson' s symptoms and interfere with ability to rehabilita te. Might consider addition of SSRI or Buspar if symptoms worsen during his rehab stay.Follo wed by neurology at [facility], Dr. Muñoz. Paroxysmal atrial fibrillation 322244648 I48.0 14505 New onset, but sounds like he is now back in NSR.Stable . Continue Metoprolol for rate control.Co ntinue Xarelto for VTE prophylaxi s.Followed by Dr. Leonard Ge as an outpatient . Will need f/u upon d/c from rehab. Acquired hypothyroidism 493605770 E03.9 30599 TSH checked while inpatient was WNL. Continue Synthroid. Dementia d ue to Parkinson's disease 6761152695 83960 G20.A1 F02.A4 9616649743 SEE ABOVE...ST is following. Continue supportive measures. Primary insomnia 0284915 F51.01 03103 SEE ABOVE... Orthostati c hypotension 04621480 I95.1 3436 Stable. Continue Midodrine, nursing is holding if SBP >120.Monit or pressures and for symptoms c/w this. Slow trans it constipation 06258407 K59.01 8838 Stable. Continue routine Miralax. Additional meds available per standing orders. Coronary arteriosclerosis 97224727 I25.10 52369635 s/p stenting x 2.Continue ASA, Metoprolol , Statin, and PRN NTG.Follow ed by Dr. Leonard Ge as an outpatient . Anxiety 34339588 F41.9 83335 SEE ABOVE... History of pulmonary embolus 628552530 Z86.711 873364 Remote. He had not been on oral anticoagul ation prior to recent hospitaliz ation. Now continues on Xarelto given new diagnosis Afib. History of deep vein thrombosis 539752698 Z86.662 8364625 Remote. Was treated for a brief time with oral anticoagul ation but has not been on for many years prior to recent hospitaliz ation.SEE ABOVE... Essential hypertension 31008427 I10 78161 coinciding with orthostasi s.Continue low-dose Metoprolol and Midodrine as above.Cont inue to trend blood pressures, monitor lytes and renal function, and adjust meds as clinically indicated. Physical deconditioning 7335074208 9102 R53.81 886658 Related to advanced age, recent hospitaliz ation, comorbidit ies.Contin ue therapies and monitor progress.Jesse alexander will return home with his upon d/c from SNF. 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 As a result, stopped these patches in January 2025.Will discontinu e and make Dr. Anel Muñoz (neurology ) aware to see if they recommend addition of oral alternativ e.Add PRN TMC cream to rash sites. Paroxysmal atrial fibrillation 577335178 I48.0 95319 New onset, but sounds like he is now back in NSR.Stable . Continue Metoprolol for rate control.Co ntinue Xarelto for VTE prophylaxi s.Followed by Dr. Leonard Ge as an outpatient . Will need f/u upon d/c from rehab. Coronary arteriosclerosis 68377231 I25.10 08039451 s/p stenting x 2.Continue ASA, Metoprolol , Statin, and PRN NTG.Follow ed by Dr. Leonard Ge as an outpatient . Parkinson's disease 4904 9000 G20.A2 3440089808 Stable but with orthostasi s. Continue Sinemet, [...] his rehab stay.Follo wed by neurology at [facility], Dr. Muñoz. Dementia d ue to Parkinson's disease 2787689915 97463 G20.A1 F02.A4 0343294897 SEE ABOVE...ST is following. Continue supportive measures. Anxiety 68458279 F41.9 97585 SEE ABOVE... Primary insomnia 4869280 F51.01 49030 SEE ABOVE... Orthostati c hypotension 44935213 I95.1 3436 Stable. Continue Midodrine, nursing is holding if SBP >120.Monit or pressures and for symptoms c/w this. Essential hypertension 46230771 I10 01814 coinciding with orthostasi s.Continue low-dose Metoprolol and Midodrine as above.Cont inue to trend blood pressures, monitor lytes and renal function, and adjust meds as clinically indicated. Acquired hypothyroidism 729242967 E03.9 46966 TSH checked while inpatient was WNL. Continue Synthroid. Slow trans it constipation 04840961 K59.01 8838 Stable. Continue routine Miralax. Additional meds available per standing orders. History of pulmonary embolus 917868924 Z86.711 308165 Remote. He had not been on oral anticoagul ation prior to recent hospitaliz ation. Now continues on Xarelto given new diagnosis Afib. History of deep vein thrombosis 619073009 Z86.896 5611338 Remote. Was treated for a brief time with oral anticoagul ation but has not been on for many years prior to recent hospitaliz ation.SEE ABOVE... Physical deconditioning 4419576180 9102 R53.81 750676 Related to advanced age, recent hospitaliz ation, comorbidit ies.Contin ue therapies and monitor progress.Jesse alexander will return home with his upon d/c from SNF. Urinary fr equency due to benign prostatic hypertrophy 9624623058 28849 N40.1 R35.0 76482800 Restart Flomax per pt's OP medication s. Pt was also on Finasterid e as OP. Could consider resumption if symptoms don't chadwick but will need to monitor orthostasi s closely.Ch julita [employer] on 03/25. Unintentio nal weight loss 342178126 R63.4 720742 Pt's reports he has lost 30 lbs [...] follow, could consider addition of Mirtazapin e. 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 As a result, stopped these patches in January 2025.Have discontinu ed and made Dr. Anel Muñoz (neurology ) aware to see if they recommend addition of oral alternativ e. Have not yet heard back.Helen kimble PRN TMC cream to rash sites. Urinary fr equency due to benign prostatic hypertrophy 3425357113 79545 N40.1 R35.0 74021851 Restarted Flomax per pt's OP medication s.Pt was also on Finasterid e as OP. Could consider resumption if symptoms don't chadwick but will need to monitor orthostasi s closely. Paroxysmal atrial fibrillation 939065868 I48.0 82145 New onset, but sounds like he is now back in NSR.Stable . Continue Metoprolol for rate control.Co ntinue Xarelto for VTE prophylaxi s.Followed by Dr. Leonard Ge as an outpatient . Will need f/u upon d/c from rehab. Coronary arteriosclerosis 52099617 I25.10 33414371 s/p stenting x 2 in 2011. Cardiology evaluated for chest pain while inpatient, TSH was normal and Echo showed 40-45% EF with grade 1 diastolic dysfunctio n. Believed rise in Trop was sec to Afib, not ACS.Contin ue ASA, Metoprolol , Statin, and PRN NTG.Follow ed by Dr. Leonard Ge as above. Parkinson's disease 4904 9000 G20.A2 7416298737 Stable but with orthostasi s. Continue Sinemet, [...] his rehab stay.Shahrzad wed by neurology at [facility], Dr. Muñoz. Dementia d ue to Parkinson's disease 1625621510 43216 G20.A1 F02.A4 4304846572 SEE ABOVE...ST is following. Continue supportive measures. Anxiety 85628168 F41.9 96207 SEE ABOVE... Primary insomnia 1402247 F51.01 17510 SEE ABOVE... Orthostati c hypotension 84433638 I95.1 3436 Stable. Continue Midodrine, nursing is holding if SBP >120.Monit or pressures and for symptoms c/w this. Acquired hypothyroidism 510732317 E03.9 11816 TSH checked while inpatient was WNL. Continue Synthroid. Unintentio nal weight loss 257885998 R63.4 867811 Pt's reports he has lost 30 lbs [...] of Mirtazapin e. Slow trans it constipation 99605851 K59.01 8838 Stable. Continue routine Miralax. Additional meds available per standing orders. History of pulmonary embolus 330672568 Z86.711 657532 Remote. He had not been on oral anticoagul ation prior to recent hospitaliz ation. Now continues on Xarelto given new diagnosis Afib. History of deep vein thrombosis 367568239 Z86.245 0150813 Remote. Was treated for a brief time with oral anticoagul ation but has not been on for many years prior to recent hospitaliz ation.SEE ABOVE... Physical deconditioning 5214899101 9102 R53.81 880525 Related to advanced age, recent hospitaliz ation, comorbidit ies.Contin ue therapies and monitor progress.Jesse alexander will return home with his upon d/c from SNF. Hypertensi ve heart disease with congestive heart failure 4273314 I11.0 I50.42 27822794 coinciding with orthostasi s. Echo while inpatient showed 40-45% EF with grade 1 diastolic dysfunctio n. Cards followed while inpatient. Not routinely on diuretics. Continue low-dose Metoprolol and Midodrine as above.Cont inue to trend blood pressures, monitor lytes and renal function, and adjust meds as clinically indicated. Followed by Dr. Leonard Ge as an outpatient . 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 As a result, stopped these patches in January 2025.SEE ABOVE...Co ntinue PRN TMC cream to rash sites. Urinary fr equency due to benign prostatic hypertrophy 6450447856 99878 N40.1 R35.0 04559360 Pt stopped taking Flomax & Finasterid e as OP as he did not think they were effective, per .Pt having urinary frequency. UA clear.Rest arted Flomax per pt's OP medication s.Could consider resumption of Finasterid e if symptoms don't chadwick, but will need to monitor orthostasi s closely. Paroxysmal atrial fibrillation 457364545 I48.0 05051 New onset, but sounds like he is now back in NSR.Stable . Continue Metoprolol for rate control.Co ntinue Xarelto for VTE prophylaxi s.Followed by Dr. Leonard Ge on 04/07. Coronary arteriosclerosis 76173365 I25.10 92302084 s/p stenting x 2 in 2011. Cardiology evaluated for chest pain while inpatient, TSH was normal and Echo showed 40-45% EF with grade 1 diastolic dysfunctio n. Believed rise in Trop was sec to Afib, not ACS.Contin ue ASA, Metoprolol , Statin, and PRN NTG.Follow ed by Dr. Leonard Ge as above. Orthostati c hypotension 74121969 I95.1 3436 Stable. Continue Midodrine, nursing is holding if SBP >120.Monit or pressures and for symptoms c/w this. Hypertensi ve heart disease with congestive heart failure 5280671 I11.0 I50.42 14676832 coinciding with orthostasi s. Echo while inpatient showed 40-45% EF with grade 1 diastolic dysfunctio n. Cards followed while inpatient. Not routinely on diuretics. Continue low-dose Metoprolol and Midodrine as above.Cont inue to trend blood pressures, monitor lytes and renal function, and adjust meds as clinically indicated. Followed by Dr. Leonard Ge as above. Parkinson's disease 4904 9000 G20.A2 3066985931 Stable but with orthostasi s. Continue Sinemet, [...] his rehab stay.Follo wed by neurology at [facility], Dr. Muñoz. Dementia d ue to Parkinson's disease 4705129890 16736 G20.A1 F02.A4 0477249799 SEE ABOVE...ST is following. SLUMS score 7/30 [...] for expanded responses. Continue supportive measures. Anxiety 50025242 F41.9 88809 SEE ABOVE... Primary insomnia 7493392 F51.01 12297 SEE ABOVE... Acquired hypothyroidism 374344645 E03.9 80770 TSH checked while inpatient was WNL. Stable. Continue Synthroid. Unintentio nal weight loss 924183079 R63.4 933341 Pt's reports he has lost 30 lbs unintentio fuad since August 2024, when he weighed 220 lbs. She reports his appetite has simply disappeare d, did not coincide with any medication changes or illness.Co ntinue to monitor, RD to follow, could consider addition of Mirtazapin e. Slow trans it constipation 82922738 K59.01 8838 Stable. Continue routine Miralax. Additional meds available per standing orders. History of pulmonary embolus 876184028 Z86.711 773202 Remote. He had not been on oral anticoagul ation prior to recent hospitaliz ation. Now continues on Xarelto given new diagnosis Afib. History of deep vein thrombosis 049483275 Z86.345 0171099 Remote. Was treated for a brief time with oral anticoagul ation but has not been on for many years prior to recent hospitaliz ation.SEE ABOVE... Physical deconditioning 0034666029 9102 R53.81 604339 Related to advanced age, recent hospitaliz ation, comorbidit ies.Contin ue therapies and monitor progress.Jesse alexander will return home with his upon d/c from [facility]. [id number] Emi Ocampo, [address] [address] [place] [address] 04/01/2025 10:32:03 04/07/2025 23:10:29 Paroxysmal atrial fibrillation 460824149 I48.0 57761 New onset, but sounds like he is now back in NSR.Stable . Continue Metoprolol for rate control.Co ntinue Xarelto for VTE prophylaxi s.Followed by Dr. Leonard Ge on 04/07. Coronary arteriosclerosis 17198799 I25.10 88820827 s/p stenting x 2 in 2011. Cardiology evaluated for chest pain while inpatient, TSH was normal and Echo showed 40-45% EF with grade 1 diastolic dysfunctio n. Believed rise in Trop was sec to Afib, not ACS.Contin ue ASA, Metoprolol , Statin, and PRN NTG.Follow ed by Dr. Leonard Ge as above. Orthostati c hypotension 90359211 I95.1 3436 Stable. Continue Midodrine, nursing is holding if SBP >120.Monit or pressures and for symptoms c/w this. Hypertensi ve heart disease with congestive heart failure 0154963 I11.0 I50.42 01618963 coinciding with orthostasi s. Echo while inpatient showed 40-45% EF with grade 1 diastolic dysfunctio n. Cards followed while inpatient. Not routinely on diuretics. Continue low-dose Metoprolol and Midodrine as above.Cont inue to trend blood pressures, monitor lytes and renal function, and adjust meds as clinically indicated. Followed by Dr. Leonard Ge as above. Parkinson's disease 4904 9000 G20.A2 4720551215 Stable but with orthostasi s. Continue Sinemet, [...] his rehab stay.Follo wed by neurology at [facility], Dr. Muñoz. Irritant c ontact dermatitis caused by drug in contact with skin 698149543 L24.4 2491106 Secondary to Rivastigmi ne patches. stopped these patches in January 2025 for this reason, had not told neurology. SEE ABOVE...Co ntinue PRN TMC cream to rash sites. Resolved. Dementia d ue to Parkinson's disease 5079472932 73343 G20.A1 F02.A4 8062617710 SEE ABOVE...ST is following. SLUMS score 7/30 [...] for expanded responses. Continue supportive measures. Anxiety 58900302 F41.9 04711 SEE ABOVE... Primary insomnia 6970628 F51.01 78637 SEE ABOVE... Urinary fr equency due to benign prostatic hypertrophy 8217455079 06878 N40.1 R35.0 39239512 Pt stopped taking Flomax & Finasterid e as OP as he did not think they were effective, per .Pt having urinary frequency. UA clear.Rest arted Flomax per pt's OP medication s.Could consider resumption of Finasterid e if symptoms don't chadwick, but will need to monitor orthostasi s closely. Acquired hypothyroidism 246988814 E03.9 51306 TSH checked while inpatient was WNL. Stable. Continue Synthroid. Unintentio nal weight loss 190916833 R63.4 478712 Pt's reports he has lost 30 lbs unintentio fuad since August 2024, when he weighed 220 lbs. She reports his appetite has simply disappeare d, did not coincide with any medication changes or illness.Co ntinue to monitor, RD to follow, could consider addition of Mirtazapin e. Slow trans it constipation 20959001 K59.01 8838 Stable. Continue routine Miralax. Additional meds available per standing orders. History of pulmonary embolus 275718086 Z86.711 250887 Remote. He had not been on oral anticoagul ation prior to recent hospitaliz ation. Now continues on Xarelto given new diagnosis Afib. History of deep vein thrombosis 718198160 Z86.627 2011296 Remote. Was treated for a brief time with oral anticoagul ation but has not been on for many years prior to recent hospitaliz ation.SEE ABOVE... Physical deconditioning 9464033891 9102 R53.81 861530 Related to advanced age, recent hospitaliz ation, comorbidit ies.Contin ue therapies and monitor progress.Jesse alexander will return home with his upon d/c from SNF. [id number] Emi Ocampo, DO [facility] [address] [place] [address] 04/02/2025 13:23:03 04/07/2025 23:11:31 Delirium 4232967 R41.0 18760 D/C Rivastigmi ne.Add bedtime Trazodone. Consider repeating UA if urinary symptoms develop or confusion does not improve with medication adjustment . Hypertensi ve heart disease with congestive heart failure 2205228 I11.0 I50.42 61786331 coinciding with orthostasi s. Echo while inpatient showed 40-45% EF with grade 1 diastolic dysfunctio n. Cards followed while inpatient. Not routinely on diuretics. Continue low-dose Metoprolol and Midodrine as above.Cont inue to trend blood pressures, monitor lytes and renal function, and adjust meds as clinically indicated. Followed by Dr. Leonard Ge as above. Orthostati c hypotension 28249764 I95.1 3436 Stable. Continue Midodrine, nursing is holding if SBP >120.Monit or pressures and for symptoms c/w this. Paroxysmal atrial fibrillation 007942414 I48.0 75910 New onset, but sounds like he is now back in NSR.Stable . Continue Metoprolol for rate control.Co ntinue Xarelto for VTE prophylaxi s.Followed by Dr. Leonard Ge on 04/07. Coronary arteriosclerosis 09759223 I25.10 20257109 s/p stenting x 2 in 2011. Cardiology evaluated for chest pain while inpatient, TSH was normal and Echo showed 40-45% EF with grade 1 diastolic dysfunctio n. Believed rise in Trop was sec to Afib, not ACS.Contin ue ASA, Metoprolol , Statin, and PRN NTG.Follow ed by Dr. Leonard Ge as above. Parkinson's disease 4904 9000 G20.A2 [id number] Stable but with orthostasi s. Continue Sinemet, [...] his rehab stay.Follo wed by neurology at [facility], Dr. Muñoz. Dementia d ue to Parkinson's disease [id number] 57149 G20.A1 F02.A4 [id number] SEE ABOVE...ST is following. SLUMS score 7/30 [...] for expanded responses. Continue supportive measures. Anxiety 33191504 F41.9 01810 SEE ABOVE... Primary insomnia 5986946 F51.01 34584 SEE ABOVE... Urinary fr equency due to benign prostatic hypertrophy 5715179883 55792 N40.1 R35.0 94094339 Pt stopped taking Flomax & Finasterid e as OP as he did not think they were effective, per .Pt having urinary frequency. UA clear.Rest arted Flomax per pt's OP medication s.Could consider resumption of Finasterid e if symptoms don't chadwick, but will need to monitor orthostasi s closely. Acquired hypothyroidism 443254937 E03.9 50180 TSH checked while inpatient was WNL. Stable. Continue Synthroid. Unintentio nal weight loss 593934285 R63.4 604941 Pt's reports he has lost 30 lbs unintentio fuad since August 2024, when he weighed 220 lbs. She reports his appetite has simply disappeare d, did not coincide with any medication changes or illness.Co ntinue to monitor, RD to follow, could consider addition of Mirtazapin e. Slow trans it constipation 46851019 K59.01 8838 Stable. Continue routine Miralax. Additional meds available per standing orders. History of pulmonary embolus 430445005 Z86.711 937240 Remote. He had not been on oral anticoagul ation prior to recent hospitaliz ation. Now continues on Xarelto given new diagnosis Afib. History of deep vein thrombosis 204450591 Z86.907 5403881 Remote. Was treated for a brief time with oral anticoagul ation but has not been on for many years prior to recent hospitaliz ation.SEE ABOVE... Irritant c ontact dermatitis caused by drug in contact with skin 289709711 L24.4 5055481 Secondary to Rivastigmi ne patches. stopped these patches in January 2025 for this reason, had not told neurology. SEE ABOVE...Co ntinue PRN TMC cream to rash sites. Resolved. Physical deconditioning 0290937610 9102 R53.81 584824 Related to advanced age, recent hospitaliz ation, comorbidit ies.Contin ue therapies and monitor progress.Jesse alexander will return home with his upon d/c from SNF. [id number] Emi Terrence, [address] [address] 04/06/2025 10:47:45 04/07/2025 23:12:19 Hypoglycemia 548340423 E16.2 10154 Cause unclear. This has not been a concern noted on our labs and pt is without a history of this. No hx of diabetes and pt has had good PO intake.Erika ck fasting blood sugars BID x 7 days and monitor for hypoglycem ia. Delirium 3314251 R41.0 99140 D/Saroj Rivastigmi ne so highly likely secondary [...] stabilize further. Parkinson's disease 4904 9000 G20.A2 6215128809 Stable but with orthostasi s. Continue Sinemet, Midodrine, Melatonin, Trazodone, & qhs Clonazepam .SEE ABOVE...Co ntinue therapies & supportive measures.W ill not attempt reduction of Clonazepam at this time due to concern could exacerbate Parkinson' s symptoms and interfere with ability to rehabilita te.Followe d by neurology at [facility], Dr. Muñoz. Dementia d ue to Parkinson's disease [id number] 41072 G20.A1 F02.A4 0588265135 SEE ABOVE...ST is following. SLUMS score 7/30 [...] for expanded responses. Continue supportive measures. Anxiety 21305805 F41.9 27606 SEE ABOVE... Primary insomnia 6093216 F51.01 92669 SEE ABOVE... Hypertensi ve heart disease with congestive heart failure 9139631 I11.0 I50.42 47116816 coinciding with orthostasi s. Echo while inpatient showed 40-45% EF with grade 1 diastolic dysfunctio n. Cards followed while inpatient. Not routinely on diuretics. Continue low-dose Metoprolol and Midodrine as above.Cont inue to trend blood pressures, monitor lytes and renal function, and adjust meds as clinically indicated. Followed by Dr. Leonard Ge as above. Orthostati c hypotension 41724143 I95.1 3436 Stable. Continue Midodrine, nursing is holding if SBP >120.Monit or pressures and for symptoms c/w this. Paroxysmal atrial fibrillation 001903270 I48.0 88724 New onset, but sounds like he is now back in NSR.Stable . Continue Metoprolol for rate control.Co ntinue Xarelto for VTE prophylaxi s.Followed by Dr. Leonard Ge on 04/07. Coronary arteriosclerosis 55450861 I25.10 71479831 s/p stenting x 2 in 2011. Cardiology evaluated for chest pain while inpatient, TSH was normal and Echo showed 40-45% EF with grade 1 diastolic dysfunctio n. Believed rise in Trop was sec to Afib, not ACS.Contin ue ASA, Metoprolol , Statin, and PRN NTG.Follow ed by Dr. Leonard Ge as above. Urinary fr equency due to benign prostatic hypertrophy 5360500157 82128 N40.1 R35.0 64273280 Pt stopped taking Flomax & Finasterid e as OP as he did not think they were effective, per .Repor edilson urinary frequency here and difficulty emptying bladder. UAs x 3 were clear.Rest arted Flomax per pt's OP medication s with improvemen t.Could consider resumption of Finasterid e if symptoms don't chadwick, but will need to monitor orthostasi s closely. Acquired hypothyroidism 280001550 E03.9 57860 TSH checked while inpatient was WNL. Stable. Continue Synthroid. Unintentio nal weight loss 194668183 R63.4 863021 Pt's reports he has lost 30 lbs unintentio fuad since August 2024, when he weighed 220 lbs. She reports his appetite has simply disappeare d, did not coincide with any medication changes or illness.Co ntinue to monitor, RD to follow, could consider addition of Mirtazapin e. Slow trans it constipation 59259164 K59.01 8838 Stable. Continue routine Miralax. Additional meds available per standing orders. History of pulmonary embolus 843292798 Z86.711 737432 Remote. He had not been on oral anticoagul ation prior to recent hospitaliz ation. Now continues on Xarelto given new diagnosis Afib. History of deep vein thrombosis 095353404 Z86.338 1205305 Remote. Was treated for a brief time with oral anticoagul ation but has not been on for many years prior to recent hospitaliz ation.SEE ABOVE... Irritant c ontact dermatitis caused by drug in contact with skin 901240823 L24.4 5221679 Secondary to Rivastigmi ne patches. stopped these patches in January 2025 for this reason, had not told neurology. SEE ABOVE...Co ntinue PRN TMC cream to rash sites. Resolved. Physical deconditioning 4269516178 9102 R53.81 686357 Related to advanced age, recent hospitaliz ation, comorbidit ies.Contin ue therapies and monitor progress.G oal is to return home with his upon d/c from SNF, however she is also considerin g placement due to worsening cognition/ ambulation . [id number] Emi Ocampo, DO [address] [address] 04/08/2025 09:33:03 04/11/2025 22:09:42 Hypoglycemia 910540561 E16.2 39652 Cause unclear. This has not been a concern noted on our labs and pt is without a history of this. No hx of diabetes and pt has had good PO intake.Erika ck fasting blood sugars BID x 7 days and monitor for hypoglycem ia. Delirium 0423789 R41.0 69099 D/Saroj Rivastigmi ne so highly likely secondary [...] stabilize further. Parkinson's disease 4904 9000 G20.A2 0612621744 Stable but with orthostasi s. Continue Sinemet, Midodrine, Melatonin, Trazodone, & qhs Clonazepam .SEE ABOVE...Co ntinue therapies & supportive measures.W ill not attempt reduction of Clonazepam at this time due to concern could exacerbate Parkinson' s symptoms and interfere with ability to rehabilita te.Followe d by neurology at [facility], Dr. Muñoz. Dementia d ue to Parkinson's disease [id number] 85520 G20.A1 F02.A4 8803566877 SEE ABOVE...ST is following. SLUMS score 7/30 [...] for expanded responses. Continue supportive measures. Anxiety 02481216 F41.9 59517 SEE ABOVE... Primary insomnia 6827808 F51.01 16346 SEE ABOVE... Hypertensi ve heart disease with congestive heart failure 1058246 I11.0 I50.42 23390404 coinciding with orthostasi s. Echo while inpatient showed 40-45% EF with grade 1 diastolic dysfunctio n. Cards followed while inpatient. Not routinely on diuretics. Continue low-dose Metoprolol and Midodrine as above.Cont inue to trend blood pressures, monitor lytes and renal function, and adjust meds as clinically indicated. Followed by Dr. Leonard Ge as above. Orthostati c hypotension 60755712 I95.1 3436 Stable. Continue Midodrine, nursing is holding if SBP >120.Monit or pressures and for symptoms c/w this. Paroxysmal atrial fibrillation 941537315 I48.0 01492 New onset, but sounds like he is now back in NSR.Stable . Continue Metoprolol for rate control.Co ntinue Xarelto for VTE prophylaxi s.F/U with Dr. Leonard Ge on 04/07 -- will likely postpone this appt due to recent confusion. Coronary arteriosclerosis 69461128 I25.10 44995274 s/p stenting x 2 in 2011. Cardiology evaluated for chest pain while inpatient, TSH was normal and Echo showed 40-45% EF with grade 1 diastolic dysfunctio n. Believed rise in Trop was sec to Afib, not ACS.Contin ue ASA, Metoprolol , Statin, and PRN NTG.Follow ed by Dr. Leonard Ge as above. Urinary fr equency due to benign prostatic hypertrophy 0290003595 70075 N40.1 R35.0 58539581 Pt stopped taking Flomax & Finasterid e as OP as he did not think they were effective, per .Repor edilson urinary frequency here and difficulty emptying bladder. UAs x 3 were clear.Rest arted Flomax per pt's OP medication s with improvemen t.Could consider resumption of Finasterid e if symptoms don't chadwick, but will need to monitor orthostasi s closely. Acquired hypothyroidism 566483535 E03.9 44053 TSH checked while inpatient was WNL. Stable. Continue Synthroid. Unintentio nal weight loss 708921738 R63.4 169450 Pt's reports he has lost 30 lbs unintentio fuad since August 2024, when he weighed 220 lbs. She reports his appetite has simply disappeare d, did not coincide with any medication changes or illness.Co ntinue to monitor, RD to follow, could consider addition of Mirtazapin e. Slow trans it constipation 97796609 K59.01 8838 Stable. Continue routine Miralax. Additional meds available per standing orders. History of pulmonary embolus 612867389 Z86.711 028930 Remote. He had not been on oral anticoagul ation prior to recent hospitaliz ation. Now continues on Xarelto given new diagnosis Afib. History of deep vein thrombosis 394946453 Z86.671 9711211 Remote. Was treated for a brief time with oral anticoagul ation but has not been on for many years prior to recent hospitaliz ation.SEE ABOVE... Irritant c ontact dermatitis caused by drug in contact with skin 548716695 L24.4 3284649 Secondary to Rivastigmi ne patches. stopped these patches in January 2025 for this reason, had not told neurology. SEE ABOVE...Co ntinue PRN TMC cream to rash sites. Resolved. Physical deconditioning 7940692925 9102 R53.81 622802 Related to advanced age, recent hospitaliz ation, comorbidit ies.Contin ue therapies and monitor progress.Damaris oabranden is to return home with his upon d/c from SNF, however she is also considerin g placement due to worsening cognition/ ambulation . [id number] Emi Ocampo, [address] [address] 04/10/2025 12:42:11 04/11/2025 22:10:11 Hypoglycemia 038130612 E16.2 23332 Cause unclear. This has not been a concern noted on our labs and pt is without a history of this. No hx of diabetes and pt has had good PO intake.Erika ck fasting blood sugars BID x 7 days and monitor for hypoglycem ia. Have been normal thus far. Delirium 3334132 R41.0 28820 D/Saroj Rivastigmi ne so highly likely secondary [...] stabilize further. Parkinson's disease 4904 9000 G20.A2 1801589295 Stable but with orthostasi s. Continue Sinemet, Midodrine, Melatonin, Trazodone, & qhs Clonazepam .SEE ABOVE...Co ntinue therapies & supportive measures.W ill not attempt reduction of Clonazepam at this time due to concern could exacerbate Parkinson' s symptoms and interfere with ability to rehabilita te.Followe d by neurology at [facility], Dr. Muñoz. Dementia d ue to Parkinson's disease 3313979581 72420 G20.A1 F02.A4 7872683886 SEE ABOVE...ST is following. SLUMS score 7/30 [...] for expanded responses. Continue supportive measures. Anxiety 65555065 F41.9 94604 SEE ABOVE... Primary insomnia 8414670 F51.01 26084 SEE ABOVE... Orthostati c hypotension 56135942 I95.1 3436 Stable. Continue Midodrine, nursing is holding if SBP >120.Monit or pressures and for symptoms c/w this. Paroxysmal atrial fibrillation 068274980 I48.0 43309 New onset, but sounds like he is now back in NSR.Stable . Continue Metoprolol for rate control.Co ntinue Xarelto for VTE prophylaxi s.F/U with Dr. Leonard Ge on 04/07 -- will likely postpone this appt due to recent confusion. Hypertensi ve heart disease with congestive heart failure 3278028 I11.0 I50.42 08373868 coinciding with orthostasi s. Echo while inpatient showed 40-45% EF with grade 1 diastolic dysfunctio n. Cards followed while inpatient. Not routinely on diuretics. Continue low-dose Metoprolol and Midodrine as above.Cont inue to trend blood pressures, monitor lytes and renal function, and adjust meds as clinically indicated. Followed by Dr. Leonard Ge as above. Coronary arteriosclerosis 93414646 I25.10 64010553 s/p stenting x 2 in 2012. Cardiology evaluated for chest pain while inpatient, TSH was normal and Echo showed 40-45% EF with grade 1 diastolic dysfunctio n. Believed rise in Trop was sec to Afib, not ACS.Contin ue ASA, Metoprolol , Statin, and PRN NTG.Follow ed by Dr. Leonard Ge as above. Urinary fr equency due to benign prostatic hypertrophy 8865936489 47968 N40.1 R35.0 95769738 Pt stopped taking Flomax & Finasterid e as OP as he did not think they were effective, per .Repor edilson urinary frequency here and difficulty emptying bladder. UAs x 3 were clear.Rest arted Flomax per pt's OP medication s with improvemen t.Could consider resumption of Finasterid e if symptoms don't chadwick, but will need to monitor orthostasi s closely. Acquired hypothyroidism 400801946 E03.9 52667 TSH checked while inpatient was WNL. Stable. Continue Synthroid. Unintentio nal weight loss 710694892 R63.4 528308 Pt's reports he has lost 30 lbs unintentio fuad since August 2024, when he weighed 220 lbs. She reports his appetite has simply disappeare d, did not coincide with any medication changes or illness.Co ntinue to monitor, RD to follow, could consider addition of Mirtazapin e. Slow trans it constipation 21649235 K59.01 8838 Stable. Continue routine Miralax. Additional meds available per standing orders. History of pulmonary embolus 404718605 Z86.711 710293 Remote. He had not been on oral anticoagul ation prior to recent hospitaliz ation. Now continues on Xarelto given new diagnosis Afib. History of deep vein thrombosis 885833530 Z86.251 6672616 Remote. Was treated for a brief time with oral anticoagul ation but has not been on for many years prior to recent hospitaliz ation.SEE ABOVE... Irritant c ontact dermatitis caused by drug in contact with skin 647295189 L24.4 8631853 Secondary to Rivastigmi ne patches. stopped these patches in January 2025 for this reason, had not told neurology. SEE ABOVE...Co ntinue PRN TMC cream to rash sites. Resolved. Physical deconditioning 0709288847 9102 R53.81 518243 Related to advanced age, recent hospitaliz ation, [...] Salvador Member ID Guarantor Name 04/11/2025 1 [facility] [place] (MEDICARE REPLACEMENT HMO) [id number] Theron Eugene [id number] Theron Eugene Notes Date Note Type Note [...] Finally received and reviewed medical records from [facility]. Per therapy notes = Conducted gait [...] abandonign AD during transfers. Minna Fleming, NARCISO [id number] [facility], [place], [address], [place] [facility] 04/01/2025 12:45:49 [...] Finally received and reviewed medical records from [facility]. Per therapy notes = Conducted gait [...] to increase step length. Minna Fleming, NARCISO [address] [facility], [place], [address], [place] [facility] 04/02/2025 19:13:51 [...] Finally received and reviewed medical records from [facility]. Per therapy notes = Conducted gait [...] pt unable to correct to increase step length.---04/06/25Rahda colorado was seen in [facility] overnight from 04/04 to 04/05/25. Per [...] sequencing in the last week. Minna Fleming, SENIOR PROCUREMENT MANAGER [id number] [facility], [place], [address], [place] [facility] 04/07/2025 10:54:19 [...] Finally received and reviewed medical records from [facility]. Per therapy notes = Conducted gait [...] increase step length.---04/06/25Radha colorado was seen in [facility] overnight from 04/04 to 04/05/25. Per [...] , as [facility]. He sits after cueing and tells me [...] reduce shuffling gait pattenr. Minna Fleming, NARCISO [address] [facility], [place], [address], [facility] 04/08/2025 14:42:19 04/10/2025 text/html 79 Y/O male with a history of Parkinson's Disease, CAD s/p stenting x 2, dementia, HTN, PE, HLD, pericarditis, BPH and orthostasis admitted to [facility] for post acute rehab subsequent to an inpatient stay at [facility] 03/12-03/17/25 related to chest pain. Per [...] Fuente f/u with Cardiology 2-4 weeks - [facility], Dr. Ge preferred Pharmacy [facility] Edilia GUTIERREZ code status is full - [...] Finally received and reviewed medical records from [facility]. Per therapy notes = Conducted gait [...] increase step length.---04/06/25Radha colorado was seen in [facility] overnight from 04/04 to 04/05/25. Per [...] , as he has known them since [facility]. He sits after cueing and tells me [...] yesterday, tells me where he lives in [place], and recalls that he is in [place] at a facility, instead of at his [...] point, were originally looking at LTC at [facility], but his application was denied. They continue [...] has difficulty processing commands. Minna Fleming, NARCISO [address] [facility], [place], [address], [facility] [facility] 04/16/2025 09:25:10
[2025-04-24] MEDS: MORPHINE SULFATE INJ (*CRX) 50 MG in SODIUM CHLORIDE 0.9% IV 95 ML IV CONT (14:03)
--- NOTE | 2025-04-24 14:03 | P.HP_ITS ---
H&P: HPI History of Present Illness Date/Time: 04/24/25 14:03 Chief Complaint: Uncontrolled restlessness Narrative: This 79-year-old gentleman was admitted [facility] on April 18. He has a history of Parkinson's disease. He resides in assisted living and was ambulatory. However the last few months he has become nonambulatory requiring a wheelchair care chair for transport. He is dependent for all ADLs including feeding. He is incontinent of bowel and bladder. He was admitted with sepsis secondary to Clostridium difficile colitis. He was treated initially with IV vancomycin and transition to oral fidaxomicin. Admission he had metabolic encephalopathy. His confusion and restlessness have failed term clear. In fact his restlessness as increased in the last couple of days. He is not eating or drinking any significant quantity. His diarrhea has decreased however. He has had no diarrhea stools today. On April a rapid response was called because of hypotension and decreased responsiveness. Labs and CT of the head showed no etiology for this. He was given IV fluids. His family opted for comfort care only. He has remained on comfort care overnight. He has not received any morphine and has received only 1 dose of p.o. lorazepam 0.5 mg. He remains restless and uncomfortable. Review of Systems Review of Systems: ROS unobtainable: Yes unobtainable due to medical condition PMFSH Past Medical History Medical History (Updated 04/24/25 @ 14:10 by Ashkan Rivera MD) Combined systolic and diastolic congestive heart failure Echocardiogram February 2025: EF 40-45% with mildly enlarged left ventricle, mild increased left ventricular wall thickness, grade 1 diastolic dysfunction Dry senile macular degeneration Paroxysmal atrial fibrillation with rapid ventricular response Coronary artery disease Patient of Dr. Ge. 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 Family History Family History Father Family history of congestive heart failure, Onset Age: 72 Patient's father is Family history of emphysema, Onset Age: 72 Mother Patient's mother is Grandparent Carcinoma of colon Father Chronic obstructive pulmonary disease Grandparent Colon cancer Father Congestive heart failure Grandparent Prostate carcinoma Social History Social History Social History: Surrogate decision maker: Hetal Alfaro, . CODE STATUS: DNR/DNI Smoking packs per day: 0.5 Smoking cigarettes per day: 10.0 Years smoked: 60 Smoking pack-years: 30.00 Smoking status: Former smoker Tobacco type: cigarettes Second hand tobacco smoke exposure: Yes Smoking end date: 03/18/25 Alcohol intake: former Drinks per week: 2 Alcohol use details: No alcohol since 2020. Substance use: never Substance use type: does not use Lack of Transportation: No Lack of Food: Never True Current Housing: I Have Housing Concerned About Future Housing: No Difficulty Paying Gas/Electric Bills: No Difficulty Paying for Meds: No Currently Unemployed: No Education: High School Diploma/GED Difficulty w/ Childcare or Family Care: No Living arrangements: with family Additional living arrangements comments: Patient is . He lives with his in [place] until his hospitalization in February at which time he was discharged to [facility]. They have 2 grown children. Previously lived in [place] for 32 years. 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 Spiritual care concerns: No Meds Home Medications and Allergies Home Medications ?Medication ?Instructions ?Recorded ?Confirmed ?Type atorvastatin 40 mg tablet 40 mg PO DAILY 02/18/2003/24 History polyethylene glycol 3350 17 17 g PO DAILY PRN constipa tion 06/05/22 04/18/25 History gram/dose oral powder (Miralax) nitroglycerin 0.4 mg sublingual 0.4 mg sublingual Q5M PRN chest 04/08/23 0 04/18/25 Rx tablet (Nitrostat) pain #25 tabs clonazepam 0.5 mg tablet (Klonopin) 0.5 mg PO HS anxie ty 04/18/25 04/21/25 History quetiapine 50 mg tablet 50 mg PO HS 04/18/25 5 History risperidone 1 mg tablet 1 mg PO BID 04/18/25 5 History vit C 250 mg-vit E 90 mg-zinc 40 2 tablet PO DAILY 04/18/25 History mg-copper 1 [id number] capsule (PreserVision AREDS-2) aspirin 81 mg tablet 81 mg PO DAILY 04/21/2503/25 History carbidopa 25 mg-levodopa 100 mg 2 tablet PO TID 04/21/25 History tablet levothyroxine 50 mcg tablet 50 mcg PO DAILY 04/21/25 0 04/21/25 History melatonin 10 mg capsule 10 mg PO DAILY 04/21/2503/25 History metoprolol succinate 25 mg capsule 12.5 mg PO DAILY 04/21/25 History sprinkle, ext. release 24 hr midodrine 5 mg tablet 5 mg PO Q8H 04/21/25 5 History rivaroxaban 20 mg tablet (Xarelto) 20 mg PO DAILY 03/2504/21/25 History rivastigmine tartrate 1.5 mg 1.5 mg PO ONCE 04/21/25 0 04/21/25 History capsule triamcinolone acetonide 0.1 % 1 applic topical BID PRN rash 04/21/25 04/21/25 History topical cream vitamins A,C,J-wpqx-apcnpi 2,148 2 tablet PO DAILY 04/21/25 History mcg-113 mg-45 mg-17.4 mg tablet (PreserVision AREDS) Allergies Allergy/AdvReac Type Severity Reaction Status Date / Time No Known Drug Allergies Allergy Mild Other Verified 01/13/25 11:00 Vital Signs Vital Signs - 24 hr 04/24/25 13:44 Oxygen Delivery Room Air Exam Narrative: HEENT: Pharyngeal mucosa pink and intact NECK: No JVD, adenopathy, or thyromegaly CHEST: Clear to auscultation, normal effort HEART: NL S1/S2, irregular, no murmur ABDOMEN: BS hypoactive, soft, tender LLQ fullness with guarding EXTREMITIES: No cyanosis, edema, or clubbing NEUROLOGIC: CN intact and symmetric to inspection. MUSCULOSKELETAL: No deformity to visual inspection PSYCH: Drowsy but arouses easily, does not follow commands, nonverbal but phonate intermittently, intermittently reaches as if trying to grab something Assessment and Plan Assessment and plan (1) Hospice care: Code(s): Z51.5 - Encounter for palliative care Status: Acute Assessment and Plan: * Meet inpatient hospice criteria due to required continuous IV morphine 1 milligram/hour for control of restlessness and discomfort * P.r.n. palliative regimen ordered * 04/24/2025 No family in room at this time (2) Sepsis: Qualifiers: Sepsis type: sepsis due to unspecified organism Sepsis acute organ dysfunction status: with acute organ dysfunction Severe sepsis acute organ dysfunction type: encephalopathy Severe sepsis shock status: without septic shock Qualified Code(s): A41.9 - Sepsis, unspecified organism; R65.20 - Severe sepsis without septic shock; G93.41 - Metabolic encephalopathy Code(s): A41.9 - Sepsis, unspecified organism Status: Acute (3) C. difficile colitis: Code(s): A04.72 - Enterocolitis due to Clostridium difficile, not specified as recurrent Status: Acute (4) Parkinsons: Code(s): G20 - Parkinson's disease Status: Chronic (5) Dementia associated with Parkinson's disease: Code(s): G20.A1 - Parkinson's disease without dyskinesia, without mention of fluctuations; F02.80 - Dementia in other diseases classified elsewhere, unspecified severity, without behavioral disturbance, psychotic disturbance, mood disturbance, and anxiety Status: Acute (6) Encephalopathy acute: Code(s): G93.40 - Encephalopathy, unspecified Status: Acute (7) COPD (chronic obstructive pulmonary disease): Code(s): J44.9 - Chronic obstructive pulmonary disease, unspecified Status: Acute (8) 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 (9) Neurologic gait dysfunction: Code(s): R26.9 - Unspecified abnormalities of gait and mobility Status: Acute (10) Hypothyroidism: Qualifiers: Hypothyroidism type: unspecified Qualified Code(s): E03.9 - Hypothyroidism, unspecified Code(s): E03.9 - Hypothyroidism, unspecified Status: Acute (11) Paroxysmal atrial fibrillation with rapid ventricular response: Code(s): I48.0 - Paroxysmal atrial fibrillation Status: Acute (12) Essential (primary) hypertension: Code(s): I10 - Essential (primary) hypertension Status: Acute (13) History of pulmonary embolism: Code(s): Z86.711 - Personal history of pulmonary embolism Status: Acute
[2025-04-24 14:53] VITALS: BMI 23.3
[2025-04-24] MEDS: diazePAM INJ (*CRX) 10 MG/2 ML SYRINGE 5 MG IV PUSH (15:13)
[2025-04-24 20:00] VITALS: PULSE 86; RESP 16; O2SAT 98
[2025-04-24 21:19] VITALS: BP 126/75; PULSE 86; RESP 16; TEMP 36.2; O2SAT 98
[2025-04-25] MEDS: diazePAM INJ (*CRX) 10 MG/2 ML SYRINGE 5 MG IV PUSH ×2 (01:52→09:53)
[2025-04-25 08:00] VITALS: BP 103/75; PULSE 79; RESP 18; TEMP 37.1; O2SAT 94
--- NOTE | 2025-04-25 12:05 | P.PNIM_ITS ---
Progress Note: A&P Assessment and Plan (1) Hospice care: Code(s): Z51.5 - Encounter for palliative care Status: Acute Assessment and Plan: * Meet inpatient hospice criteria due to required continuous IV morphine 1 milligram/hour for control of restlessness and discomfort * P.r.n. palliative regimen ordered * 04/24/2025 No family in room at this time * 04/25/2025 Declining with decreased responsiveness, requiring p.r.n. diazepam, mottling of feet, currently no family at bedside (2) Sepsis: Qualifiers: Sepsis type: sepsis due to unspecified organism Sepsis acute organ dysfunction status: with acute organ dysfunction Severe sepsis acute organ dysfunction type: encephalopathy Severe sepsis shock status: without septic shock Qualified Code(s): A41.9 - Sepsis, unspecified organism; R65.20 - Severe sepsis without septic shock; G93.41 - Metabolic encephalopathy Code(s): A41.9 - Sepsis, unspecified organism Status: Acute (3) C. difficile colitis: Code(s): A04.72 - Enterocolitis due to Clostridium difficile, not specified as recurrent Status: Acute (4) Parkinsons: Code(s): G20 - Parkinson's disease Status: Chronic (5) Dementia associated with Parkinson's disease: Code(s): G20.A1 - Parkinson's disease without dyskinesia, without mention of fluctuations; F02.80 - Dementia in other diseases classified elsewhere, unspecified severity, without behavioral disturbance, psychotic disturbance, mood disturbance, and anxiety Status: Acute (6) Encephalopathy acute: Code(s): G93.40 - Encephalopathy, unspecified Status: Acute (7) COPD (chronic obstructive pulmonary disease): Code(s): J44.9 - Chronic obstructive pulmonary disease, unspecified Status: Acute (8) 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 (9) Neurologic gait dysfunction: Code(s): R26.9 - Unspecified abnormalities of gait and mobility Status: Acute (10) Hypothyroidism: Qualifiers: Hypothyroidism type: unspecified Qualified Code(s): E03.9 - Hypothyroidism, unspecified Code(s): E03.9 - Hypothyroidism, unspecified Status: Acute (11) Paroxysmal atrial fibrillation with rapid ventricular response: Code(s): I48.0 - Paroxysmal atrial fibrillation Status: Acute (12) Essential (primary) hypertension: Code(s): I10 - Essential (primary) hypertension Status: Acute (13) History of pulmonary embolism: Code(s): Z86.711 - Personal history of pulmonary embolism Status: Acute Subjective Date/time seen: 04/25/25 12:05 Interval history: Required p.r.n. diazepam today due to restlessness. No p.o. intake. Review of Systems Review of Systems: ROS unobtainable: Yes unobtainable due to medical condition Exam Narrative: HEENT: Pharyngeal mucosa pink and intact NECK: No JVD CHEST: Clear to auscultation, normal effort HEART: NL S1/S2, irregular, no murmur ABDOMEN: BS hypoactive, soft, no tenderness over mild left lower quadrant fullness EXTREMITIES: No edema but mottling of feet NEUROLOGIC: CN intact and symmetric to inspection. MUSCULOSKELETAL: No deformity to visual inspection PSYCH: Unresponsive to verbal but minimally responsive to tactile stimuli Objective Data Vital Signs Vital Signs: Vital Signs - 24 hr 04/24/25 13:44 04/24/25 20:00 04/24/25 21:19 Temperature 97.2 F L Pulse Rate 86 86 Respiratory Rate 16 16 Blood Pressure 126/75 Pulse Oximetry 98 98 Oxygen Delivery Room Air Room Air 04/25/25 08:00 Temperature Pulse Rate Respiratory Rate Blood Pressure Pulse Oximetry Oxygen Delivery Room Air Intake/Output Intake/Output: Intake & Output 04/22/25 04/23/25 04/24/25 04/25/25 23:59 23:59 23:59 23:59 Intake Total 0 Output Total 1800 Balance -1800 Meds/Results Medications: Active Medications Generic Name Dose Route Start Last Admin Trade Name Freq PRN Reason Stop Dose Admin Artificial Tears 1 - 2 drop 04/24/25 13:34 Artificial Tears Ophth Soln 15 Ml Bottle EACH EYE Q8HR PRN Dry Eye(s) Bisacodyl 10 mg 04/24/25 13:30 Bisacodyl 10 Mg Suppository RECTAL DAILY PRN Constipation Diazepam 5 mg 04/24/25 13:36 04/25/25 09:53 Diazepam Inj (*Crx) 10 Mg/2 Ml Syringe IV PUSH 5 mg Q6HR PRN Administration ANXIETY/AGITATION/RESTLESSNESS Glycopyrrolate 0.1 mg 04/24/25 13:30 Glycopyrrolate Inj (*Sp) 0.2 Mg/Ml Vial IV PUSH Q4H PRN secretions Morphine Sulfate 50 mg/ Sodium 100 mls @ 2 mls/hr 04/24/25 13:30 04/24/25 14:03 Chloride IV CONT 1 mg/hr .Q24H GAYATRI 2 mls/hr 1 MG/HR Administration Morphine Sulfate 2 mg 04/24/25 13:40 Morphine Sulfate (*Crx) 4 Mg/Ml Inj IV PUSH Q2H PRN Pain/Dyspnea Prochlorperazine Edisylate 10 mg 04/24/25 13:30 Prochlorperazine Edisylate 10 Mg/2 Ml Vial IV PUSH Q6H PRN Nausea And Vomiting
[2025-04-25] MEDS: MORPHINE SULFATE INJ (*CRX) 50 MG in SODIUM CHLORIDE 0.9% IV 95 ML IV CONT (13:56)
[2025-04-25 20:00] VITALS: BP 119/69; PULSE 81; RESP 13; TEMP 37.3; O2SAT 100
[2025-04-26 08:00] VITALS: BP 125/62; PULSE 88; RESP 18; TEMP 36.6; O2SAT 99
[2025-04-26] MEDS: MORPHINE SULFATE INJ (*CRX) 50 MG in SODIUM CHLORIDE 0.9% IV 95 ML IV CONT (15:05)
[2025-04-26] MEDS: diazePAM INJ (*CRX) 10 MG/2 ML SYRINGE 5 MG IV PUSH ×2 (15:41→21:56)
--- NOTE | 2025-04-26 18:41 | P.PNIM_ITS ---
Progress Note: A&P Assessment and Plan (1) Hospice care: Code(s): Z51.5 - Encounter for palliative care Status: Acute Assessment and Plan: * Meet inpatient hospice criteria due to required continuous IV morphine 1 milligram/hour for control of restlessness and discomfort * P.r.n. palliative regimen ordered * 04/24/2025 No family in room at this time * 04/25/2025 Declining with decreased responsiveness, requiring p.r.n. diazepam, mottling of feet, currently no family at bedside * 04/26/2025 Now unresponsive, still requiring intermittent prn IV medication, currently no family at bedside (2) Sepsis: Qualifiers: Sepsis type: sepsis due to unspecified organism Sepsis acute organ dysfunction status: with acute organ dysfunction Severe sepsis acute organ dysfunction type: encephalopathy Severe sepsis shock status: without septic s hock Qualified Code(s): A41.9 - Sepsis, unspecified organism; R65.20 - Severe sepsis without septic shock; G93.41 - Metabolic encephalopathy Code(s): A41.9 - Sepsis, unspecified organism Status: Acute (3) C. difficile colitis: Code(s): A04.72 - Enterocolitis due to Clostridium difficile, not specified as recurrent Status: Acute (4) Parkinsons: Code(s): G20 - Parkinson's disease Status: Chronic (5) Dementia associated with Parkinson's disease: Code(s): G20.A1 - Parkinson's disease without dyskinesia, without mention of fluctuations; F02.80 - Dementia in other diseases classified elsewhere, unspecified severity, without behavioral disturbance, psychotic disturbance, mood disturbance, and anxiety Status: Acute (6) Encephalopathy acute: Code(s): G93.40 - Encephalopathy, unspecified Status: Acute (7) COPD (chronic obstructive pulmonary disease): Code(s): J44.9 - Chronic obstructive pulmonary disease, unspecified Status: Acute (8) 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 (9) Neurologic gait dysfunction: Code(s): R26.9 - Unspecified abnormalities of gait and mobility Status: Acute (10) Hypothyroidism: Qualifiers: Hypothyroidism type: unspecified Qualified Code(s): E03.9 - Hypothyroidism, unspecified Code(s): E03.9 - Hypothyroidism, unspecified Status: Acute (11) Paroxysmal atrial fibrillation with rapid ventricular response: Code(s): I48.0 - Paroxysmal atrial fibrillation Status: Acute (12) Essential (primary) hypertension: Code(s): I10 - Essential (primary) hypertension Status: Acute (13) History of pulmonary embolism: Code(s): Z86.711 - Personal history of pulmonary embolism Status: Acute Subjective Date/time seen: 04/26/25 18:41 Interval history: Required one dose of prn diazepam today. Review of Systems Review of Systems: ROS unobtainable: Yes unobtainable due to medical condition Exam Narrative: HEENT: Pharyngeal mucosa pink and intact NECK: No JVD CHEST: Clear to auscultation, normal effort HEART: NL S1/S2, irregular, no murmur EXTREMITIES: No edema ABDOMEN: BS hypoactive, soft, no tenderness NEUROLOGIC: CN intact and symmetric to inspection. MUSCULOSKELETAL: No deformity to visual inspection PSYCH: Unresponsive to verbal or tactile stimuli Objective Data Vital Signs Vital Signs: Vital Signs - 24 hr 04/25/25 20:00 04/25/25 20:00 04/26/25 08:00 Temperature 99.2 F Pulse Rate 81 Respiratory Rate 13 Blood Pressure 119/69 Pulse Oximetry 100 Oxygen Delivery Room Air Room Air 04/26/25 08:00 Temperature 97.8 F Pulse Rate 88 Respiratory Rate 18 Blood Pressure 125/62 Pulse Oximetry 99 Oxygen Delivery Intake/Output Intake/Output: Intake & Output 04/23/25 04/24/25 04/25/25 04/26/25 23:59 23:59 23:59 23:59 Intake Total 0 47.8 50.3 Output Total 1800 Balance -1800 47.8 50.3 Meds/Results Medications: Active Medications Generic Name Dose Route Start Last Admin Trade Name Freq PRN Reason Stop Dose Admin Artificial Tears 1 - 2 drop 04/24/25 13:34 Artificial Tears Ophth Soln 15 Ml Bottle EACH EYE Q8HR PRN Dry Eye(s) Bisacodyl 10 mg 04/24/25 13:30 Bisacodyl 10 Mg Suppository RECTAL DAILY PRN Constipation Diazepam 5 mg 04/24/25 13:36 04/26/25 15:41 Diazepam Inj (*Crx) 10 Mg/2 Ml Syringe IV PUSH 5 mg Q6HR PRN Administration ANXIETY/AGITATION/RESTLESSNESS Glycopyrrolate 0.1 mg 04/24/25 13:30 Glycopyrrolate Inj (*Sp) 0.2 Mg/Ml Vial IV PUSH Q4H PRN secretions Morphine Sulfate 50 mg/ Sodium 100 mls @ 2 mls/hr 04/24/25 13:30 04/26/25 15:05 Chloride IV CONT 1 mg/hr .Q24H GAYATRI 2 mls/hr 1 MG/HR Administration Morphine Sulfate 2 mg 04/24/25 13:40 Morphine Sulfate (*Crx) 4 Mg/Ml Inj IV PUSH Q2H PRN Pain/Dyspnea Prochlorperazine Edisylate 10 mg 04/24/25 13:30 Prochlorperazine Edisylate 10 Mg/2 Ml Vial IV PUSH Q6H PRN Nausea And Vomiting
[2025-04-26 20:00] VITALS: BP 128/83; PULSE 88; RESP 16; TEMP 37.1; O2SAT 99
[2025-04-27 07:56] VITALS: BP 129/76; PULSE 78; RESP 16; TEMP 29.9; O2SAT 95
[2025-04-27] MEDS: diazePAM INJ (*CRX) 10 MG/2 ML SYRINGE 5 MG IV PUSH ×2 (08:27→21:00)
[2025-04-27] MEDS: MORPHINE SULFATE (*CRX) 4 MG/ML INJ 2 MG IV PUSH ×2 (11:57→14:50)
[2025-04-27] MEDS: MORPHINE SULFATE INJ (*CRX) 50 MG in SODIUM CHLORIDE 0.9% IV 95 ML IV CONT (14:05)
--- NOTE | 2025-04-27 16:38 | P.PNIM_ITS ---
Progress Note: A&P Assessment and Plan (1) Hospice care: Code(s): Z51.5 - Encounter for palliative care Status: Acute Assessment and Plan: * Meet inpatient hospice criteria due to required continuous IV morphine 1 milligram/hour for control of restlessness and discomfort * P.r.n. palliative regimen ordered * 04/24/2025 No family in room at this time * 04/25/2025 Declining with decreased responsiveness, requiring p.r.n. diazepam, mottling of feet, currently no family at bedside * 04/26/2025 Now unresponsive, still requiring intermittent prn IV medication, currently no family at bedside * 04/27/2025 Responding in nondirected fashion, hypothermic (85.8), more restless, added scheduled to prn diazepam (2) Sepsis: Qualifiers: Sepsis type: sepsis due to unspecified organism Sepsis acute organ dysfunction status: with acute organ dysfunction Severe sepsis acute organ dy sfunction type: encephalopathy Severe sepsis shock status: without septic shock Qualified Code(s): A41.9 - Sepsis, unspecified organism; R65.20 - Severe sepsis without septic shock; G93.41 - Metabolic encephalopathy Code(s): A41.9 - Sepsis, unspecified organism Status: Acute (3) C. difficile colitis: Code(s): A04.72 - Enterocolitis due to Clostridium difficile, not specified as recurrent Status: Acute (4) Parkinsons: Code(s): G20 - Parkinson's disease Status: Chronic (5) Dementia associated with Parkinson's disease: Code(s): G20.A1 - Parkinson's disease without dyskinesia, without mention of fluctuations; F02.80 - Dementia in other diseases classified elsewhere, unspecified severity, without behavioral disturbance, psychotic disturbance, mood disturbance, and anxiety Status: Acute (6) Encephalopathy acute: Code(s): G93.40 - Encephalopathy, unspecified Status: Acute (7) COPD (chronic obstructive pulmonary disease): Code(s): J44.9 - Chronic obstructive pulmonary disease, unspecified Status: Acute (8) 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 (9) Neurologic gait dysfunction: Code(s): R26.9 - Unspecified abnormalities of gait and mobility Status: Acute (10) Hypothyroidism: Qualifiers: Hypothyroidism type: unspecified Qualified Code(s): E03.9 - Hypothyroidism, unspecified Code(s): E03.9 - Hypothyroidism, unspecified Status: Acute (11) Paroxysmal atrial fibrillation with rapid ventricular response: Code(s): I48.0 - Paroxysmal atrial fibrillation Status: Acute (12) Essential (primary) hypertension: Code(s): I10 - Essential (primary) hypertension Status: Acute (13) History of pulmonary embolism: Code(s): Z86.711 - Personal history of pulmonary embolism Status: Acute Subjective Date/time seen: 04/27/25 16:38 Interval history: Restless earlier. Required scheduled and prn diazepam. Opening eyes more. No PO intake. Review of Systems Review of Systems: ROS unobtainable: Yes unobtainable due to medical condition Exam Narrative: HEENT: Pharyngeal mucosa pink and intact NECK: No JVD CHEST: Clear to auscultation, normal effort HEART: NL S1/S2, irregular, no murmur EXTREMITIES: No edema ABDOMEN: BS hypoactive, soft, no tenderness NEUROLOGIC: CN intact and symmetric to inspection. MUSCULOSKELETAL: No deformity to visual inspection PSYCH: Opens eyes to verbal or tactile stimuli but does not follow commands Objective Data Vital Signs Vital Signs: Vital Signs - 24 hr 04/26/25 20:00 04/26/25 20:00 04/27/25 07:56 Temperature 98.7 F 85.8 F L Pulse Rate 88 78 Respiratory Rate 16 16 Blood Pressure 128/83 129/76 Pulse Oximetry 99 95 Oxygen Delivery Room Air Intake/Output Intake/Output: Intake & Output 04/24/25 04/25/25 04/26/25 04/27/25 23:59 23:59 23:59 23:59 Intake Total 0 47.8 50.3 46 Output Total 1800 450 Balance -1800 47.8 50.3 -404 Meds/Results Medications: Active Medications Generic Name Dose Route Start Last Admin Trade Name Freq PRN Reason Stop Dose Admin Artificial Tears 1 - 2 drop 04/24/25 13:34 Artificial Tears Ophth Soln 15 Ml Bottle EACH EYE Q8HR PRN Dry Eye(s) Bisacodyl 10 mg 04/24/25 13:30 Bisacodyl 10 Mg Suppository RECTAL DAILY PRN Constipation Diazepam 5 mg 04/27/25 22:00 Diazepam Inj (*Crx) 10 Mg/2 Ml Syringe IV PUSH Q8HR GAYATRI Diazepam 5 mg 04/27/25 15:47 Diazepam Inj (*Crx) 10 Mg/2 Ml Syringe IV PUSH Q4H PRN ANXIETY/AGITATION/RESTLESSNESS Glycopyrrolate 0.1 mg 04/24/25 13:30 Glycopyrrolate Inj (*Sp) 0.2 Mg/Ml Vial IV PUSH Q4H PRN secretions Morphine Sulfate 50 mg/ Sodium 100 mls @ 2 mls/hr 04/24/25 13:30 04/27/25 14:05 Chloride IV CONT 1 mg/hr .Q24H GAYATRI 2 mls/hr 1 MG/HR Administration Morphine Sulfate 2 mg 04/24/25 13:40 04/27/25 14:50 Morphine Sulfate (*Crx) 4 Mg/Ml Inj IV PUSH 2 mg Q2H PRN Administration Pain/Dyspnea Prochlorperazine Edisylate 10 mg 04/24/25 13:30 Prochlorperazine Edisylate 10 Mg/2 Ml Vial IV PUSH Q6H PRN Nausea And Vomiting
[2025-04-27 21:09] VITALS: BP 108/82; PULSE 87; RESP 12; TEMP 36.9
[2025-04-28] MEDS: diazePAM INJ (*CRX) 10 MG/2 ML SYRINGE 5 MG IV PUSH ×3 (03:06→14:38)
[2025-04-28 08:00] VITALS: BP 138/111; RESP 16; TEMP 35.3
[2025-04-28] MEDS: MORPHINE SULFATE (*CRX) 4 MG/ML INJ 2 MG IV PUSH (09:06)
[2025-04-28] MEDS: MORPHINE SULFATE INJ (*CRX) 50 MG in SODIUM CHLORIDE 0.9% IV 95 ML IV CONT (14:29)
--- NOTE | 2025-04-28 17:17 | P.PNIM_ITS ---
Progress Note: A&P Assessment and Plan (1) Hospice care: Code(s): Z51.5 - Encounter for palliative care Status: Acute Assessment and Plan: * Meet inpatient hospice criteria due to required continuous IV morphine 1 milligram/hour for control of restlessness and discomfort * P.r.n. palliative regimen ordered * 04/24/2025 No family in room at this time * 04/25/2025 Declining with decreased responsiveness, requiring p.r.n. diazepam, mottling of feet, currently no family at bedside * 04/26/2025 Now unresponsive, still requiring intermittent prn IV medication, currently no family at bedside * 04/27/2025 Responding in nondirected fashion, hypothermic (85.8), more restless, added scheduled to prn diazepam * 04/28/2025 Minimal response to tactile stimuli, intermittent restlessness, hypothermic (95.6), still requiring PRN meds, but vitals not declining, trial of SL meds initiated (morphine 15 mg SL q 4 hr, lorazepam 0.5 mg SL q 8 hr) in anticipation of possible discharge to facility (2) Sepsis: Qualifiers: Sepsis type: sepsis due to unspecified organism Sepsis acute organ dysfunction status: with acute organ dysfunction Severe sepsis acute organ dysfunction type: encephalopathy Severe sepsis shock status: without septic shock Qualified Code(s): A41.9 - Sepsis, unspecified organism; R65.20 - Severe sepsis without septic shock; G93.41 - Metabolic encephalopathy Code(s): A41.9 - Sepsis, unspecified organism Status: Acute (3) C. difficile colitis: Code(s): A04.72 - Enterocolitis due to Clostridium difficile, not specified as recurrent Status: Acute (4) Parkinsons: Code(s): G20 - Parkinson's disease Status: Chronic (5) Dementia associated with Parkinson's disease: Code(s): G20.A1 - Parkinson's disease without dyskinesia, without mention of fluctuations; F02.80 - Dementia in other diseases classified elsewhere, unspecified severity, without behavioral disturbance, psychotic disturbance, mood disturbance, and anxiety Status: Acute (6) Encephalopathy acute: Code(s): G93.40 - Encephalopathy, unspecified Status: Acute (7) COPD (chronic obstructive pulmonary disease): Code(s): J44.9 - Chronic obstructive pulmonary disease, unspecified Status: Acute (8) 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 (9) Neurologic gait dysfunction: Code(s): R26.9 - Unspecified abnormalities of gait and mobility Status: Acute (10) Hypothyroidism: Qualifiers: Hypothyroidism type: unspecified Qualified Code(s): E03.9 - Hypothyroidism, unspecified Code(s): E03.9 - Hypothyroidism, unspecified Status: Acute (11) Paroxysmal atrial fibrillation with rapid ventricular response: Code(s): I48.0 - Paroxysmal atrial fibrillation Status: Acute (12) Essential (primary) hypertension: Code(s): I10 - Essential (primary) hypertension Status: Acute (13) History of pulmonary embolism: Code(s): Z86.711 - Personal history of pulmonary embolism Status: Acute Subjective Date/time seen: 04/28/25 17:17 Interval history: Required PRN diazepam at 3 AM, then PRN morphine during the day due to restlessness. No PO intake. Opens eyes but does not communicate. Review of Systems Review of Systems: ROS unobtainable: Yes unobtainable due to medical condition Exam Narrative: HEENT: Pharyngeal mucosa pink and intact NECK: No JVD CHEST: Clear to auscultation, normal effort HEART: NL S1/S2, irregular, no murmur EXTREMITIES: No edema ABDOMEN: BS hypoactive, soft, no tenderness NEUROLOGIC: CN intact and symmetric to inspection. MUSCULOSKELETAL: No deformity to visual inspection PSYCH: Opens eyes partially only to tactile stimuli but does not follow commands Objective Data Vital Signs Vital Signs: Vital Signs - 24 hr 04/27/25 21:09 04/28/25 08:00 04/28/25 08:00 Temperature 98.4 F 95.6 F L Pulse Rate 87 Respiratory Rate 12 16 Blood Pressure 108/82 138/111 H Oxygen Delivery Room Air 04/28/25 11:46 Temperature Pulse Rate Respiratory Rate Blood Pressure Oxygen Delivery Room Air Intake/Output Intake/Output: Intake & Output 04/25/25 04/26/25 04/27/25 04/28/25 23:59 23:59 23:59 23:59 Intake Total 47.8 50.3 46 48.8 Output Total 450 Balance 47.8 50.3 -404 48.8 Meds/Results Medications: Active Medications Generic Name Dose Route Start Last Admin Trade Name Freq PRN Reason Stop Dose Admin Artificial Tears 1 - 2 drop 04/24/25 13:34 Artificial Tears Ophth Soln 15 Ml Bottle EACH EYE Q8HR PRN Dry Eye(s) Bisacodyl 10 mg 04/24/25 13:30 Bisacodyl 10 Mg Suppository RECTAL DAILY PRN Constipation Diazepam 5 mg 04/27/25 22:00 04/28/25 14:38 Diazepam Inj (*Crx) 10 Mg/2 Ml Syringe IV PUSH 5 mg Q8HR GAYATRI Administration Diazepam 5 mg 04/27/25 15:47 04/28/25 03:06 Diazepam Inj (*Crx) 10 Mg/2 Ml Syringe IV PUSH 5 mg Q4H PRN Administration ANXIETY/AGITATION/RESTLESSNESS Glycopyrrolate 0.1 mg 04/24/25 13:30 Glycopyrrolate Inj (*Sp) 0.2 Mg/Ml Vial IV PUSH Q4H PRN secretions Morphine Sulfate 50 mg/ Sodium 100 mls @ 2 mls/hr 04/24/25 13:30 04/28/25 14:29 Chloride IV CONT 1 mg/hr .Q24H GAYATRI 2 mls/hr 1 MG/HR Administration Morphine Sulfate 2 mg 04/24/25 13:40 04/28/25 09:06 Morphine Sulfate (*Crx) 4 Mg/Ml Inj IV PUSH 2 mg Q2H PRN Administration Pain/Dyspnea Prochlorperazine Edisylate 10 mg 04/24/25 13:30 Prochlorperazine Edisylate 10 Mg/2 Ml Vial IV PUSH Q6H PRN Nausea And Vomiting
[2025-04-28] MEDS: LORazepam (*CRX) 0.5 MG TABLET PO ×2 (17:59→21:31)
[2025-04-28] MEDS: MORPHINE SULFATE ORAL CONC SOL (*CRX) 10 MG/0.5 ML SYRINGE 15 MG SUBLINGUAL ×2 (17:59→21:31)
[2025-04-28 20:00] VITALS: BP 121/75; PULSE 71; RESP 16; TEMP 36.2; O2SAT 94
[2025-04-29] MEDS: diazePAM INJ (*CRX) 10 MG/2 ML SYRINGE 5 MG IV PUSH ×4 (00:55→21:55)
[2025-04-29] MEDS: MORPHINE SULFATE ORAL CONC SOL (*CRX) 10 MG/0.5 ML SYRINGE 15 MG SUBLINGUAL ×5 (00:55→16:39)
[2025-04-29] MEDS: LORazepam (*CRX) 0.5 MG TABLET PO ×2 (05:20→13:19)
[2025-04-29 08:00] VITALS: BP 137/78; PULSE 68; RESP 14; O2SAT 90
[2025-04-29 20:00] VITALS: BP 123/76; PULSE 56; RESP 22; TEMP 36.8; O2SAT 91
[2025-04-30] MEDS: MORPHINE SULFATE ORAL CONC SOL (*CRX) 10 MG/0.5 ML SYRINGE 15 MG SUBLINGUAL ×5 (00:35→16:21)
[2025-04-30] MEDS: LORazepam (*CRX) 0.5 MG TABLET PO (05:33)
[2025-04-30 08:00] VITALS: BP 119/63; PULSE 80; RESP 6; TEMP 35.9; O2SAT 92
[2025-04-30] MEDS: diazePAM INJ (*CRX) 10 MG/2 ML SYRINGE 5 MG IV PUSH (08:14)
[2025-04-30] MEDS: LORazepam (*CRX) 1 MG TABLET PO (13:53)
--- NOTE | 2025-04-30 14:45 | P.PNIM_ITS ---
Progress Note: A&P Assessment and Plan (1) Hospice care: Code(s): Z51.5 - Encounter for palliative care Status: Acute Assessment and Plan: * Meet inpatient hospice criteria due to required continuous IV morphine 1 milligram/hour for control of restlessness and discomfort * P.r.n. palliative regimen ordered * 04/24/2025 No family in room at this time * 04/25/2025 Declining with decreased responsiveness, requiring p.r.n. diazepam, mottling of feet, currently no family at bedside * 04/26/2025 Now unresponsive, still requiring intermittent prn IV medication, currently no family at bedside * 04/27/2025 Responding in nondirected fashion, hypothermic (85.8), more restless, added scheduled to prn diazepam * 04/28/2025 Minimal response to tactile stimuli, intermittent restlessness, hypothermic (95.6), still requiring PRN meds, but vitals not declining, trial of SL meds initiated (morphine 15 mg SL q 4 hr, lorazepam 0.5 mg SL q 8 hr) in anticipation of possible discharge to facility * 04/29/2025 Continue current meds, await disposition (2) Sepsis: Qualifiers: Sepsis type: sepsis due to unspecified organism Sepsis acute organ dysfunction status: with acute organ dysfunction Severe sepsis acute organ dysfunction type: encephalopathy Severe sepsis shock status: without septic shock Qualified Code(s): A41.9 - Sepsis, unspecified organism; R65.20 - Severe sepsis without septic shock; G93.41 - Metabolic encephalopathy Code(s): A41.9 - Sepsis, unspecified organism Status: Acute (3) C. difficile colitis: Code(s): A04.72 - Enterocolitis due to Clostridium difficile, not specified as recurrent Status: Acute (4) Parkinsons: Code(s): G20 - Parkinson's disease Status: Chronic (5) Dementia associated with Parkinson's disease: Code(s): G20.A1 - Parkinson's disease without dyskinesia, without mention of fluctuations; F02.80 - Dementia in other diseases classified elsewhere, unspecified severity, without behavioral disturbance, psychotic disturbance, mood disturbance, and anxiety Status: Acute (6) Encephalopathy acute: Code(s): G93.40 - Encephalopathy, unspecified Status: Acute (7) COPD (chronic obstructive pulmonary disease): Code(s): J44.9 - Chronic obstructive pulmonary disease, unspecified Status: Acute (8) 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 (9) Neurologic gait dysfunction: Code(s): R26.9 - Unspecified abnormalities of gait and mobility Status: Acute (10) Hypothyroidism: Qualifiers: Hypothyroidism type: unspecified Qualified Code(s): E03.9 - Hypothyroidism, unspecified Code(s): E03.9 - Hypothyroidism, unspecified Status: Acute (11) Paroxysmal atrial fibrillation with rapid ventricular response: Code(s): I48.0 - Paroxysmal atrial fibrillation Status: Acute (12) Essential (primary) hypertension: Code(s): I10 - Essential (primary) hypertension Status: Acute (13) History of pulmonary embolism: Code(s): Z86.711 - Personal history of pulmonary embolism Status: Acute Subjective Date/time seen: 04/29/25 17:00 Interval history: Required two PRN doses of diazepam today. No PO intake. Intermittently agitated. Review of Systems Review of Systems: ROS unobtainable: Yes unobtainable due to medical condition Exam Narrative: HEENT: Pharyngeal mucosa pink and intact NECK: No JVD CHEST: Clear to auscultation, normal effort HEART: NL S1/S2, irregular, no murmur EXTREMITIES: No edema ABDOMEN: BS hypoactive, soft, no tenderness NEUROLOGIC: CN intact and symmetric to inspection. MUSCULOSKELETAL: No deformity to visual inspection PSYCH: Opens eyes partially only to tactile stimuli but does not follow commands Objective Data Vital Signs Vital Signs: Vital Signs - 24 hr 04/29/25 20:00 04/30/25 08:00 Temperature 98.2 F Pulse Rate 56 L Respiratory Rate 22 H Blood Pressure 123/76 Pulse Oximetry 91 Oxygen Delivery Room Air Intake/Output Intake/Output: Intake & Output 04/27/25 04/28/25 04/29/25 04/30/25 23:59 23:59 23:59 23:59 Intake Total 46 63.0 0 Output Total 450 650 975 Balance -404 63.0 -650 -975 Meds/Results Medications: Active Medications Generic Name Dose Route Start Last Admin Trade Name Freq PRN Reason Stop Dose Admin Artificial Tears 1 - 2 drop 04/24/25 13:34 Artificial Tears Ophth Soln 15 Ml Bottle EACH EYE Q8HR PRN Dry Eye(s) Bisacodyl 10 mg 04/24/25 13:30 Bisacodyl 10 Mg Suppository RECTAL DAILY PRN Constipation Diazepam 5 mg 04/27/25 15:47 04/30/25 08:14 Diazepam Inj (*Crx) 10 Mg/2 Ml Syringe IV PUSH 5 mg Q4H PRN Administration ANXIETY/AGITATION/RESTLESSNESS Glycopyrrolate 0.1 mg 04/24/25 13:30 Glycopyrrolate Inj (*Sp) 0.2 Mg/Ml Vial IV PUSH Q4H PRN secretions Lorazepam 1 mg 04/30/25 14:00 04/30/25 13:53 Lorazepam (*Crx) 1 Mg Tablet PO 1 mg Q8HR GAYATRI Administration Morphine Sulfate 2 mg 04/24/25 13:40 04/28/25 09:06 Morphine Sulfate (*Crx) 4 Mg/Ml Inj IV PUSH 2 mg Q2H PRN Administration Pain/Dyspnea Morphine Sulfate 15 mg 04/28/25 17:25 04/30/25 13:53 Morphine Sulfate Oral Conc Isabel (*Crx) 10 Mg/0.5 Ml Syringe SUBLINGUAL 15 mg Q4HR GAYATRI Administration Prochlorperazine Edisylate 10 mg 04/24/25 13:30 Prochlorperazine Edisylate 10 Mg/2 Ml Vial IV PUSH Q6H PRN Nausea And Vomiting
--- NOTE | 2025-04-30 14:47 | P.DS_ITS ---
DS: Admitting Diagnosis Discharge Date 04/30/2025 Admitting Diagnosis c diff colitis with sepsis DS: Discharge Diagnosis Discharge Diagnosis (1) Hospice care: Code(s): Z51.5 - Encounter for palliative care Status: Acute Assessment and Plan: * Meet inpatient hospice criteria due to required continuous IV morphine 1 milligram/hour for control of restlessness and discomfort * P.r.n. palliative regimen ordered * 04/24/2025 No family in room at this time * 04/25/2025 Declining with decreased responsiveness, requiring p.r.n. diazepam, mottling of feet, currently no family at bedside * 04/26/2025 Now unresponsive, still requiring intermittent prn IV medication, currently no family at bedside * 04/27/2025 Responding in nondirected fashion, hypothermic (85.8), more restless, added scheduled to prn diazepam * 04/28/2025 Minimal response to tactile stimuli, intermittent restlessness, hypothermic (95.6), still requiring PRN meds, but vitals not declining, trial of SL meds initiated (morphine 15 mg SL q 4 hr, lorazepam 0.5 mg SL q 8 hr) in anticipation of possible discharge to facility * 04/29/2025 Continue current meds, await disposition (2) Sepsis: Qualifiers: Sepsis type: sepsis due to unspecified organism Sepsis acute organ dysfunction status: with acute organ dysfunction Severe sepsis acute organ dysfunction type: encephalopathy Severe sepsis shock status: without septic shock Qualified Code(s): A41.9 - Sepsis, unspecified organism; R65.20 - Severe sepsis without septic shock; G93.41 - Metabolic encephalopathy Code(s): A41.9 - Sepsis, unspecified organism Status: Acute (3) C. difficile colitis: Code(s): A04.72 - Enterocolitis due to Clostridium difficile, not specified as recurrent Status: Acute (4) Parkinsons: Code(s): G20 - Parkinson's disease Status: Chronic (5) Dementia associated with Parkinson's disease: Code(s): G20.A1 - Parkinson's disease without dyskinesia, without mention of fluctuations; F02.80 - Dementia in other diseases classified elsewhere, unspecified severity, without behavioral disturbance, psychotic disturbance, mood disturbance, and anxiety Status: Acute (6) Encephalopathy acute: Code(s): G93.40 - Encephalopathy, unspecified Status: Acute (7) COPD (chronic obstructive pulmonary disease): Code(s): J44.9 - Chronic obstructive pulmonary disease, unspecified Status: Acute (8) 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 (9) Neurologic gait dysfunction: Code(s): R26.9 - Unspecified abnormalities of gait and mobility Status: Acute (10) Hypothyroidism: Qualifiers: Hypothyroidism type: unspecified Qualified Code(s): E03.9 - Hypothyroidism, unspecified Code(s): E03.9 - Hypothyroidism, unspecified Status: Acute (11) Paroxysmal atrial fibrillation with rapid ventricular response: Code(s): I48.0 - Paroxysmal atrial fibrillation Status: Acute (12) Essential (primary) hypertension: Code(s): I10 - Essential (primary) hypertension Status: Acute (13) History of pulmonary embolism: Code(s): Z86.711 - Personal history of pulmonary embolism Status: Acute DS: Summary Hospital Course Hospital Course: Admitted to inpatient hospice service due to uncontrolled agitation, not tolerating PO intake. Medications were titrated to comfort. He was not deteriorating rapidly and was comfortable except for intermittent agitation when receiving care. He was discuarged to [facility] to be followed there by [facility] Time Spent with Patient Time attestation: Total time spent providing and/or coordinating discharge services: Exam Narrative: Resting comfortably Discharge Plan Discharge Patient Disposition: Home with Home Health Service Activity: other - see discharge instructions Discharge Instructions: Bedrest, reposition every 2 hours Patient Instructions: Antibiotic Form Patient Language: [place]arag[place] Stand Alone Forms: General Discharge Information Follow-up/Referrals: Ashkan Rivera MD [Physician, Hospitalist] Referral Note: with [facility] Discharge Medications: New lorazepam 1 mg Tablet 1 mg PO Q8HR Qty: 20 0RF Rx Instructions: 1 mg PO q 8 hr scheduled and 1 mg PO q 4 hr PRN anxiety morphine concentrate 100 mg/5 mL (20 mg/mL) solution 15 mg PO Q4H Qty: 30 0RF Rx Instructions: 15 mg PO q 4 hours scheduled and 10 mg PO q 2 hours PRN pain Artificial Tears([id number]) 1-0.2-0.2 % Drops 1 - 2 drp EACH EYE Q8HR PRN (Reason: Dry Eye(S)) Qty: 10 0RF bisacodyl 10 mg Suppository 10 mg RECTAL DAILY PRN (Reason: Constipation) Qty: 4 0RF Date of admission: 04/24/25 12:51 Primary Care Provider: Mitch Munoz Admitting Provider: Ashkan Rivera Attending physician on admission: Ashkan Rivera Condition: Terminal
--- NOTE | 2025-04-30 16:43 | PC.NURSE ---
Attempted to call report x3 to [facility]. Left a message for them to call me back. Pt. is placed on ambulance list.
== END 2025-04-30 18:00 | disposition hospice, home (50) | DRG 951 ==
PROVIDERS: Admitting Provider Internal Medicine; PCP Internal Medicine; Visit Provider Internal Medicine
DX: Z51.5 Encounter for palliative care (principal); A41.9 Sepsis, unspecified organism; G93.41 Metabolic encephalopathy; R65.20 Severe sepsis without septic shock; A04.72 Enterocolitis due to Clostridium difficile, not specified as recurrent; I50.42 Chronic combined systolic (congestive) and diastolic (congestive) heart failure; E78.5 Hyperlipidemia, unspecified; E03.9 Hypothyroidism, unspecified; F02.80 Dementia in other diseases classified elsewhere, unspecified severity, without behavioral disturbance, psychotic disturbance, mood disturbance, and anxiety; G20.A1 Parkinson's disease without dyskinesia, without mention of fluctuations; H35.30 Unspecified macular degeneration; I11.0 Hypertensive heart disease with heart failure; I25.10 Atherosclerotic heart disease of native coronary artery without angina pectoris; I48.0 Paroxysmal atrial fibrillation; J44.9 Chronic obstructive pulmonary disease, unspecified; N40.0 Benign prostatic hyperplasia without lower urinary tract symptoms; Z86.718 Personal history of other venous thrombosis and embolism; Z86.711 Personal history of pulmonary embolism; Z95.5 Presence of coronary angioplasty implant and graft; Z66 Do not resuscitate; Z87.891 Personal history of nicotine dependence; Z79.82 Long term (current) use of aspirin; Z79.01 Long term (current) use of anticoagulants
CPT/HCPCS: A9270; J2270; J3360